=== PATIENT | male | born 1965 | race Caucasian/White ===

== ENCOUNTER 2020-12-29 10:15 | Inpatient (IN) | payer OTHER, SELFPAY ==
[2020-12-29] VITALS (11 sets, daily range): BP systolic 133–173; BP diastolic 96–120; PULSE 86–100; RESP 16–22; TEMP 36.1–36.6; O2SAT 95–99; BMI 29.9
--- NOTE | ~2020-12-29 | XR_ITS ---
EXAMINATION: XR CHEST CLINICAL INFORMATION: SOB COMPARISON: Chest x-ray 08/30/2019 TECHNIQUE: Frontal view of the chest was obtained. FINDINGS: The lungs are well-expanded and clear of acute pneumonic process. The heart size and pulmonary vascularity is normal. There is moderate spondylosis of dorsal spine. No lytic process. XR/XR chest 1V IMPRESSION: Unremarkable chest exam. Moderate spondylosis dorsal spine, unchanged to 08/30/2019.
--- NOTE | 2020-12-29 11:32 | ECG_ITS ---
Test Reason : WEAKNESS Blood Pressure : / mmHG Vent. Rate : 099 BPM Atrial Rate : 099 BPM P-R Int : 180 ms QRS Dur : 092 ms QT Int : 380 ms P-R-T Axes : 056 041 070 degrees QTc Int : 487 ms Sinus rhythm with occasional Premature ventricular complexes Left atrial enlargement Prolonged QT Abnormal ECG When compared with ECG of 31-AUG-2019 07:18, Premature ventricular complexes are now Present Referred By: Generic ED Physician Electronically Signed By:Rohit Edwards
--- NOTE | 2020-12-29 11:47 | PC.NURSE ---
patient reports increased SOB over past few weeks. worse when laying down. dyspnea ED protocol palced and labs drawn. no resp distress at rest. patient blood pressure elevated. patient reports take lisinopril for blood pressure. states he took med this morning. waiting to be seen by provider.
[2020-12-29 11:48] LABS: MANUAL DIFF FLAG NO
[2020-12-29 11:52] LABS: Basophils Percent Auto 0.3 % (0-2); Eosinophils Absolute Auto 0.1 X10*3/uL (0.0-0.4); Hematocrit 42.5 % (42-52); Hemoglobin 14.9 g/dl (14.0-18.0); Imm Gran Abs Auto 0.01 X10*3/uL (0.00-0.03); Imm Gran Pct Auto 0.1 % (0.0-0.4); Lymphocytes Absolute Auto 2.4 X10*3/uL (1.2-4.9); Lymphocytes Percent Auto 24.9 % (20-40); Mean Corpuscular HGB Conc 35.1 g/dl (31.0-36.0); Mean Corpuscular Hemoglobin 31.4 pg (27.0-33.0); Mean Corpuscular Volume 89.7 fL (80-98); Mean Platelet Volume 10.4 fL (9.4-12.4); Monocytes Absolute Auto 0.9 X10*3/uL (0.1-1.2); Neutrophils Absolute Auto 6.3 X10*3/uL (2.0-8.3); Neutrophils Percent Auto 64.7 % (45-73); Platelet Count 237 X10*3/uL (160-400); Red Blood Count 4.74 X10*6/uL (4.60-5.80); Red Cell Distribution Width 12.8 % (11.0-16.0); White Blood Count 9.7 X10*3/uL (4.8-10.8)
[2020-12-29 12:19] LABS: Anion Gap 11 (12-20); Blood Urea Nitrogen 10 mg/dL (9-16); Calcium 8.6 mg/dL (8.4-10.2); Carbon Dioxide 29 mmol/L (22-29); Chloride 103 mmol/L (96-108); Creatinine Clr Calc Pharmacy 102.6; Estimated Glomerular Filt Rate > 60; Glucose Random 141 mg/dL (60-115); Potassium 3.8 mmol/L (3.3-5.1); Sodium 139 mmol/L (135-145)
--- NOTE | 2020-12-29 12:19 | ED_ITS ---
HPI - SOB/Dyspnea General Chief Complaint: Dyspnea Stated Complaint: sob Time Seen by Provider: 12/29/20 12:01 Source: patient Mode of arrival: ambulatory Limitations: no limitations History of Present Illness HPI Narrative: 55 y/o male with history of HTN and CHF who presents with worsening shortness of breath for the last 2 weeks. Worse with exertion and laying flat. He can't catch his breath when he speaks sometimes. He reports he was previously on Lasix 2 years ago but this was stopped due to dizziness. He r emains on Lisinopril for HTN but is not on any maintenance diuretic therapy. He denies fever, chills, N/V, chest pain. He has a dry cough and some epigastric burning. No LE edema. He denies exposure to COVID. Of note patient was admitted here in 2018 for SOB and diagnosed with CHF - ECHO showed EF 20-25% with moderate diastolic dysfunction. He has no Recoater or PCP at this time. He is only on Lisinopril 40 mg per day which he took this morning. MD elicited complaint: shortness of breath Pertinent past history: congestive heart failure Onset (ago): week(s) (2) Context: occurred during exertion Timing: intermittent Severity: moderate Exacerbating factors: lying flat, exertion, coughing and talking Relieving factors: rest and upright position Known history of: congestive heart failure Associated symptoms: cough, orthopnea and abdominal pain Treatment prior to arrival: none Related Data Home oxygen amount: none Home Medications Medication Instructions Recorded Confirmed lisinopril 40 mg PO DAILY 12/29/20 12/29/20 Allergies Allergy/AdvReac Type Severity Reaction Status Date / Time No Known Allergies Allergy Verified 12/29/20 10:25 Review of Systems Review of Systems: Constitutional: No Fever, No Chills ENT/Mouth: No sore throat, No Rhinorrhea, No Swallowing Difficulty Cardiovascular: No Chest Pain, + SOB, + Orthopnea, No Edema Respiratory: + Cough, No Sputum, No Wheezing, + dyspnea Gastrointestinal: No Nausea, No Vomiting, No Diarrhea, + abdominal Pain (epigastric) Genitourinary: No Dysuria, No Urinary Frequency, No Hematuria Musculoskeletal: No joint pain, No Myalgias Skin: No Skin Lesions, No rash Neuro: No Weakness, No Numbness, No Dizziness, No Headache Psych: + Anxiety/Panic, No Depression Heme/Lymph: + Bruising, No Lymphadenopathy Endocrine: No Polyuria, No Polydipsia [facility] Past Medical History Medical History CHF (congestive heart failure) HTN (hypertension) Social History Social History Alcohol intake: current Alcohol intake frequency: 3 or more drinks per day Alcohol type: beer Smoked in Last 30 Days: No Use of substances other than those prescribed or required for medical reasons: No Advance Directives: No Advance Directives Information Provided: No Physical Exam Vital Signs: Vital Signs: Last Vital Signs Temp 97.0 F 12/29/20 10:21 Pulse 89 12/29/20 16:22 Resp 16 12/29/20 16:22 BP 151/107 H 12/29/20 16:22 Pulse Ox 95 12/29/20 16:22 Body Mass Index 29.9 Appearance: Alert. Oriented X3. No acute distress. Eyes: Pupils equal, round and reactive to light. ENT: Pharynx normal. Neck: Normal inspection. Neck supple. CVS: Normal heart rate and rhythm. Pulses normal. Respiratory: No respiratory distress. Breath sounds normal. Slight dyspnea with speaking. Abdomen: Soft and nontender. +BS x4 Skin: Skin warm and dry. Normal skin color. Normal skin turgor. No rashes. Extremities: No lower extremity edema. No calf tenderness. Neuro: Oriented X 3. No motor deficit. No sensory deficit. Course Course Course Narrative: 55 y/o male presenting with 2 weeks of worsening SOB, RUGGIERO and orthopnea consistent with CHF exacerbation. He is not in any respiratory distress and not hypoxic. Will get EKG, CXR and lab workup. He is slightly tachycardic so will also get DDIMER. No evidence of sepsis. Dispo pending results - he will need ambulatory pulse oximetry prior to discharge. Reevaluation(s) Reevaluation #1: 12:40 - BNP 800's - will give dose of IV lasix now. Reevaluation #2: 1:30 pm - BP severely elevated 190/110. No chest pain, headache or visual changes. Took lisinopril this morning. Will give dose of IV labetalol now and reassess. He is urinating well after IV lasix. No dizzniess. Reevaluation #3: 3 pm - patient ambulated on room air without hypoxia. BP remains elevated in the 160's systolic. Case was d/w Cardioloigst Dr. Edwards who is recommending inpatient optimization. TT hospitalist Dr. Farley for admission. Patient was hoping to avoid admission but is agreeable at this time. Consultations Consultation #1: Dr. Edwards Cardiology MDM - SOB/Dyspnea Differential Diagnosis Differential diagnosis: Likely acute exacerbation of chronic obstructive airways disease, congestive heart failure, pneumonia, pulmonary embolism, pleural effusion and anemia Medical Records Attestation: I reviewed the patient's medical records. Lab Data Attestation: I reviewed the patient's lab results. Result diagrams: 12/29/20 11:44 12/29/20 11:44 Labs: Lab Results 12/29/20 12/29/20 12/29/20 Range/Units 11:44 11:44 11:44 WBC 9.7 (4.8-10.8) X10*3/uL RBC 4.74 (4.60-5.80) X10*6/uL Hgb 14.9 (14.0-18.0) g/dl Hct 42.5 (42-52) % MCV 89.7 (80-98) fL MCH 31.4 (27.0-33.0) pg MCHC 35.1 (31.0-36.0) g/dl RDW 12.8 (11.0-16.0) % Plt Count 237 (160-400) X10*3/uL MPV 10.4 (9.4-12.4) fL Immature Gran % (Auto) 0.1 (0.0-0.4) % Neut % (Auto) 64.7 (45-73) % Lymph % (Auto) 24.9 (20-40) % [place] % (Auto) 9.0 (2-11) % Eos % (Auto) 1.0 (0-4) % Baso % (Auto) 0.3 (0-2) % Lymph # (Auto) 2.4 (1.2-4.9) X10*3/uL [place] # (Auto) 0.9 (0.1-1.2) X10*3/uL Eos # (Auto) 0.1 (0.0-0.4) X10*3/uL Baso # (Auto) 0.0 (0.0-0.2) X10*3/uL Abs Immat Gran (auto) 0.01 (0.00-0.03) X10*3/uL Absolute Neuts (auto) 6.3 (2.0-8.3) X10*3/uL Absolute Nucleated RBC 0.000 (0.0-0.012) X10*3/uL Nucleated RBC % (auto) 0.0 (0.0-0.2) /100WBC D-Dimer < 200 NG/ML Hold Blue Top SEE NOTE Sodium 139 (135-145) mmol/L Potassium 3.8 (3.3-5.1) mmol/L Chloride 103 (96-108) mmol/L Carbon Dioxide 29 (22-29) mmol/L Anion Gap 11 L (12-20) BUN 10 (9-16) mg/dL Creatinine 0.80 (0.5-1.4) mg/dL Estim Creat Clear Calc 102.6 Estimated GFR > 60 Random Glucose 141 H (60-115) mg/dL Calcium 8.6 (8.4-10.2) mg/dL Troponin I High Sens (<3.5-35.0) ng/L B-Natriuretic Peptide (<100) pg/mL Urine Color Urine Appearance Urine pH (5.0-8.0) Ur Specific [place] (1.005-1.025) Urine Protein (NEG-TRACE) MG/DL Urine Glucose (UA) (NEG) MG/DL Urine Ketones (NEG) MG/DL Urine Blood (NEG) Urine Nitrite (NEG) Ur Leukocyte Esterase (NEG) Coronavirus (PCR) (Negative) Influenza Type A (PCR) (Negative) Influenza Type B (PCR) (Negative) RSV RNA Qual (PCR) (Negative) 12/29/20 12/29/20 12/29/20 Range/Units 11:44 12:25 12:59 WBC (4.8-10.8) X10*3/uL RBC (4.60-5.80) X10*6/uL Hgb (14.0-18.0) g/dl Hct (42-52) % MCV (80-98) fL MCH (27.0-33.0) pg MCHC (31.0-36.0) g/dl RDW (11.0-16.0) % Plt Count (160-400) X10*3/uL MPV (9.4-12.4) fL Immature Gran % (Auto) (0.0-0.4) % Neut % (Auto) (45-73) % Lymph % (Auto) (20-40) % [place] % (Auto) (2-11) % Eos % (Auto) (0-4) % Baso % (Auto) (0-2) % Lymph # (Auto) (1.2-4.9) X10*3/uL [place] # (Auto) (0.1-1.2) X10*3/uL Eos # (Auto) (0.0-0.4) X10*3/uL Baso # (Auto) (0.0-0.2) X10*3/uL Abs Immat Gran (auto) (0.00-0.03) X10*3/uL Absolute Neuts (auto) (2.0-8.3) X10*3/uL Absolute Nucleated RBC (0.0-0.012) X10*3/uL Nucleated RBC % (auto) (0.0-0.2) /100WBC D-Dimer NG/ML Hold Blue Top Sodium (135-145) mmol/L Potassium (3.3-5.1) mmol/L Chloride (96-108) mmol/L Carbon Dioxide (22-29) mmol/L Anion Gap (12-20) BUN (9-16) mg/dL Creatinine (0.5-1.4) mg/dL Estim Creat Clear Calc Estimated GFR Random Glucose (60-115) mg/dL Calcium (8.4-10.2) mg/dL Troponin I High Sens 15.8 (<3.5-35.0) ng/L B-Natriuretic Peptide 816 H (<100) pg/mL Urine Color YELLOW Urine Appearance CLEAR Urine pH 7.0 (5.0-8.0) Ur Specific [place] 1.020 (1.005-1.025) Urine Protein NEG (NEG-TRACE) MG/DL Urine Glucose (UA) NEG (NEG) MG/DL Urine Ketones NEG (NEG) MG/DL Urine Blood NEG (NEG) Urine Nitrite NEG (NEG) Ur Leukocyte Esterase NEG (NEG) Coronavirus (PCR) NEGATIVE (Negative) Influenza Type A (PCR) NEGATIVE (Negative) Influenza Type B (PCR) NEGATIVE (Negative) RSV RNA Qual (PCR) NEGATIVE (Negative) 12/29/20 Range/Units 15:36 WBC (4.8-10.8) X10*3/uL RBC (4.60-5.80) X10*6/uL Hgb (14.0-18.0) g/dl Hct (42-52) % MCV (80-98) fL MCH (27.0-33.0) pg MCHC (31.0-36.0) g/dl RDW (11.0-16.0) % Plt Count (160-400) X10*3/uL MPV (9.4-12.4) fL Immature Gran % (Auto) (0.0-0.4) % Neut % (Auto) (45-73) % Lymph % (Auto) (20-40) % [place] % (Auto) (2-11) % Eos % (Auto) (0-4) % Baso % (Auto) (0-2) % Lymph # (Auto) (1.2-4.9) X10*3/uL [place] # (Auto) (0.1-1.2) X10*3/uL Eos # (Auto) (0.0-0.4) X10*3/uL Baso # (Auto) (0.0-0.2) X10*3/uL Abs Immat Gran (auto) (0.00-0.03) X10*3/uL Absolute Neuts (auto) (2.0-8.3) X10*3/uL Absolute Nucleated RBC (0.0-0.012) X10*3/uL Nucleated RBC % (auto) (0.0-0.2) /100WBC D-Dimer NG/ML Hold Blue Top Sodium (135-145) mmol/L Potassium (3.3-5.1) mmol/L Chloride (96-108) mmol/L Carbon Dioxide (22-29) mmol/L Anion Gap (12-20) BUN (9-16) mg/dL Creatinine (0.5-1.4) mg/dL Estim Creat Clear Calc Estimated GFR Random Glucose (60-115) mg/dL Calcium (8.4-10.2) mg/dL Troponin I High Sens 16.9 (<3.5-35.0) ng/L B-Natriuretic Peptide (<100) pg/mL Urine Color Urine Appearance Urine pH (5.0-8.0) Ur Specific [place] (1.005-1.025) Urine Protein (NEG-TRACE) MG/DL Urine Glucose (UA) (NEG) MG/DL Urine Ketones (NEG) MG/DL Urine Blood (NEG) Urine Nitrite (NEG) Ur Leukocyte Esterase (NEG) Coronavirus (PCR) (Negative) Influenza Type A (PCR) (Negative) Influenza Type B (PCR) (Negative) RSV RNA Qual (PCR) (Negative) ECG Data Attestation: I personally reviewed and interpreted this ECG as follows: ECG interpretation date: 12/29/20 Interpretation: sinus rhythm with PVC's, HR 99 bpm, prolonged QTc 487 ms, normal [place] interval, [place] PE Heart rate > 100 p/min: 1.5 Score: 1.5 2-tier Risk: unlikely risk (5%) 3-tier Risk: low risk (3.4%) Critical Care Time Critical Care Time Critical Care Time: Yes Total Critical Care Time: 45 Attestation: I attest to critical care time spent caring for this patient with acute CHF exacerbation and HTN urgency requiring IV antihypertensives and IV diuretics for management. Time spent frequent bedside reassessment, reviewing of prior records and coordinating care. Discharge Plan Discharge Clinical Impression: Acute systolic heart failure, Hypertensive urgency Patient Disposition: Admitted As Inpatient Prescriptions: No Action lisinopril 40 mg tablet 40 mg PO DAILY RF: 0
[2020-12-29 12:24] LABS: B Type Natriuretic Peptide 816 pg/mL (<100); Troponin-I High Sensitivity 15.8 ng/L (<3.5-35.0)
[2020-12-29] MEDS: Furosemide 40 MG/4 ML VIAL IVPUSH (12:36)
[2020-12-29 13:04] LABS: D Dimer < 200 NG/ML
[2020-12-29 13:13] LABS: Glucose Urine UA NEG (NEG); Leukocyte Esterase Urine NEG (NEG); Nitrite Urine NEG (NEG); Urine Blood NEG (NEG); Urine Ketones NEG (NEG); Urine Protein NEG (NEG-TRACE)
[2020-12-29 13:15] LABS: Appearance Urine CLEAR; Color Urine YELLOW
[2020-12-29 13:17] LABS: Influenza A PCR NEGATIVE (Negative); Influenza B PCR NEGATIVE (Negative); Resp Syncy Virus RNA Qual PCR NEGATIVE (Negative); SARS COV2 PCR INHOUSE NEGATIVE (Negative)
[2020-12-29] MEDS: Labetalol HCL 100 MG/20 ML VIAL 10 MG IVPUSH (13:30)
--- NOTE | 2020-12-29 15:10 | PC.NURSE ---
Ambulatory pulse ox completed by this Rn, sat 95-97% HR 105, Pt reported feeling good no dyspnea noted with exertion, Zelda PINO aware. Pt remains hypertensive, Zelda PINO to consult cardiology.
--- NOTE | 2020-12-29 15:33 | PC.NURSE ---
Pt voiding since Lasix, 350ml in urinal however pt also ambulatory to bathroom and voiding as well. NSR on tele with occasional PVCS
--- NOTE | 2020-12-29 16:17 | P.HPHOSP_ITS ---
History of Present Illness Date of Service: 12/29/20 Chief Complaint: Shortness of breath A 55 years old patient with PMH of HTN, systolic CHF who presents to the hospital complaining of worsening shortness of breath for the last 2 weeks. The patient reported that he was treated for CHF more than 1 year ago and he was discharged home on lisinopril and Lasix which was then discontinued by his physician for reported orthostatic hypotension. 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 Over the last 2 weeks he noticed increased shortness of breath with exertion associated with coughing with no reported chest pain or palpitations. Today presented to the hospital with significant dyspnea on exertion which responded well to IV Lasix as chest x-ray did not show clear effusion or edema. Admitted for further evaluation and treatment. Review of Systems Review of Systems: No fever, chills or weakness No chest pain, palpitation Exertion and shortness of breath but reports coughing No abdominal pain, nausea or vomiting No urinary symptoms No any rash or wounds [facility] Medical History CHF (congestive heart failure) HTN (hypertension) Social History Alcohol intake: current Alcohol intake frequency: 3 or more drinks per day Alcohol type: beer Smoked in Last 30 Days: No Use of substances other than those prescribed or required for medical reasons: No Advance Directives: No Advance Directives Information Provided: No Meds Allergies Allergy/AdvReac Type Severity Reaction Status Date / Time No Known Allergies Allergy Verified 12/29/20 10:25 Active Medications: Current Medications Generic Name Dose Route Start Last Admin Trade Name Freq PRN Reason Stop Dose Admin Pharmacy Consult 1 each 12/29/20 16:02 Consult Rx Perform Med Rec MISCELLANE ONCE PRN Consult order Physical Exam Vital Signs and Narrative: Vital Signs: Last Vital Signs Temp 97.0 F 12/29/20 10:21 Pulse 86 12/29/20 15:32 Resp 18 12/29/20 15:32 BP 160/109 H 12/29/20 15:32 Pulse Ox 95 12/29/20 15:32 Body Mass Index 29.9 Const: Other: Constitutional : Alert, oriented, not in distress Neck : Normal inspection, Supple Cardiovascular : RRR, S1 S2, trace bilateral lower extremity edema Respiratory : Good bilateral air entry, no crackles, wheezes or rhonchi Gastrointestinal: soft, lax, Normal bowel sounds, Non tender Skin : Warm/Dry, No rash Neurological : Alert & oriented x3, No focal deficit Results Labs CBC and Chem 7: 12/29/20 11:44 12/29/20 11:44 Labs: Laboratory Results - last 24 hr 12/29/20 12/29/20 12/29/20 11:44 11:44 11:44 MCV 89.7 MCH 31.4 MCHC 35.1 RDW 12.8 Plt Count 237 MPV 10.4 Immature Gran % (Auto) 0.1 Neut % (Auto) 64.7 Lymph % (Auto) 24.9 [place] % (Auto) 9.0 Eos % (Auto) 1.0 Baso % (Auto) 0.3 Lymph # (Auto) 2.4 [place] # (Auto) 0.9 Eos # (Auto) 0.1 Baso # (Auto) 0.0 Abs Immat Gran (auto) 0.01 Absolute Neuts (auto) 6.3 Absolute Nucleated RBC 0.000 Nucleated RBC % (auto) 0.0 D-Dimer < 200 Hold Blue Top SEE NOTE Anion Gap 11 L Estim Creat Clear Calc 102.6 Estimated GFR > 60 Random Glucose 141 H Calcium 8.6 Troponin I High Sens B-Natriuretic Peptide Urine Color Urine Appearance Urine pH Ur Specific [place] Urine Protein Urine Glucose (UA) Urine Ketones Urine Blood Urine Nitrite Ur Leukocyte Esterase Coronavirus (PCR) Influenza Type A (PCR) Influenza Type B (PCR) RSV RNA Qual (PCR) 12/29/20 12/29/20 12/29/20 11:44 12:25 12:59 MCV MCH MCHC RDW Plt Count MPV Immature Gran % (Auto) Neut % (Auto) Lymph % (Auto) [place] % (Auto) Eos % (Auto) Baso % (Auto) Lymph # (Auto) [place] # (Auto) Eos # (Auto) Baso # (Auto) Abs Immat Gran (auto) Absolute Neuts (auto) Absolute Nucleated RBC Nucleated RBC % (auto) D-Dimer Hold Blue Top Anion Gap Estim Creat Clear Calc Estimated GFR Random Glucose Calcium Troponin I High Sens 15.8 B-Natriuretic Peptide 816 H Urine Color YELLOW Urine Appearance CLEAR Urine pH 7.0 Ur Specific [place] 1.020 Urine Protein NEG Urine Glucose (UA) NEG Urine Ketones NEG Urine Blood NEG Urine Nitrite NEG Ur Leukocyte Esterase NEG Coronavirus (PCR) NEGATIVE Influenza Type A (PCR) NEGATIVE Influenza Type B (PCR) NEGATIVE RSV RNA Qual (PCR) NEGATIVE Imaging Radiologist's Impressions: Impressions Chest X-Ray 12/29/20 11:32 IMPRESSION: Unremarkable chest exam. Moderate spondylosis dorsal spine, unchanged to 08/30/2019. Assessment and Plan (1) Acute systolic heart failure: Status: Acute (2) Uncontrolled hypertension: Status: Acute A 55 years old patient with PMH of HTN, systolic CHF who presents to the hospital complaining of worsening shortness of breath for the last 2 weeks. Acute systolic CHF Recent echo from 2019 with EF 25% Elevated BMP to 800 CXR not showing excessive fluid Continue IV Lasix Intake and output To get cardiology evaluation morning Keep on monitor for now Uncontrolled hypertension Continue lisinopril Discharged on carvedilol previously, consider adding continue with the Lasix DVT PPX Lovenox
[2020-12-29 16:20] LABS: Troponin-I High Sensitivity 16.9 ng/L (<3.5-35.0)
[2020-12-29] MEDS: Enoxaparin Sodium 40 MG/0.4 ML SYRINGE SUBCUT (18:39)
[2020-12-29] MEDS: 0.9 % Sodium Chloride Flush 3 ML SYRINGE IVFLUSH (21:48)
[2020-12-30] VITALS (9 sets, daily range): BP systolic 107–163; BP diastolic 58–103; PULSE 67–89; RESP 16–20; TEMP 36.6–37.1; O2SAT 94–98
[2020-12-30 06:46] LABS: B Type Natriuretic Peptide 809 pg/mL (<100)
[2020-12-30 06:54] LABS: Anion Gap 13 (12-20); Blood Urea Nitrogen 17 mg/dL (9-16); Calcium 8.5 mg/dL (8.4-10.2); Carbon Dioxide 28 mmol/L (22-29); Chloride 103 mmol/L (96-108); Creatinine Clr Calc Pharmacy 101.3; Estimated Glomerular Filt Rate > 60; Glucose Random 175 mg/dL (60-115); Potassium 3.5 mmol/L (3.3-5.1); Sodium 140 mmol/L (135-145)
[2020-12-30] MEDS: Furosemide 40 MG/4 ML VIAL IVPUSH (08:54)
[2020-12-30] MEDS: 0.9 % Sodium Chloride Flush 3 ML SYRINGE IVFLUSH ×3 (08:54→20:15)
[2020-12-30] MEDS: carvediloL 3.125 MG TABLET PO ×2 (08:54→20:13)
--- NOTE | 2020-12-30 09:48 | MHC.CM.PN ---
CM met with Patient at bedside. 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 [facility]. Goal for dc is home/no services and CM has initiated and will follow for dc planning.
--- NOTE | 2020-12-30 13:00 | CA_ITS ---
Transthoracic Echocardiogram Patient (Last, First, Middle): Julian Thomason G Gender: Male Date of : 1965 Age: 55 Procedure Date: 12/30/2020 Procedure Type: Transthoracic Echocardiogram [place] [facility] [place]: 165.1 cm Weight: 81.65 kg BSA: 1.89 m2 Heart Rate: bpm BP: 128 / 60 mmHg Licensed Psychiatric Technician: DAYSI Referring MD: Estephania Moses SHARE HOLDER-C Symptoms: today - CHF, hx CMP, HTN Study Quality: Fair ECG Rhythm: Sinus Conclusions: - The left ventricular systolic function is severely decreased. The visually estimated ejection fraction is between 15-20%. - Elevated filling pressures. - Normal right ventricular cavity size and systolic function. - The left atrium is likely dilated. 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 Findings Left Ventricle Normal left ventricular cavity size. There is mildly increased left ventricular wall thickness. The left ventricular systolic function is severely decreased. The visually estimated ejection fraction is between 15 20%. There is severe global hypokinesis. Abnormal diastolic function is noted. Spectral Doppler is indicative of a pseudonormal filling pattern. Elevated filling pressures. Right Ventricle Normal right ventricular cavity size and systolic function. Atria The left atrium is likely dilated. 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 There is no evidence of interatrial shunt by color Doppler. Aortic Valve There is a normal trileaflet aortic valve. There is no aortic valve stenosis. There is trace (trivial) aortic valve regurgitation. Mitral Valve The mitral valve appears normal. There is trace mitral valve regurgitation. There is no mitral valve stenosis. Pulmonic Valve Normal pulmonic valve structure and function. There is trace pulmonic valve regurgitation. Tricuspid Valve Normal tricuspid valve structure and function. There is trace tricuspid valve regurgitation. Normal right atrial pressure. There is no evidence of pulmonary hypertension. Great Vessels There is moderate dilatation of the sinuses of Valsalva and mild dilatation of the ascending aorta. The visualized portions of the pulmonary artery and branches are normal. Venous The inferior vena cava is normal in size and collapses greater than 50% with inspiration. Pericardium/Pleural There is a trivial loculated pericardial effusion overlying the left ventricle. Prior Study Comparison Changes noted compared to prior study dated: 08/30/2019. EF 15-20%, moderate dilation of sinus of valsalva 4.6 cm. Measurements 2D Linear Measurements IVSd: 1.04 0.6-0.9/0.6-1.0 cm LVIDd: 6.12 3.9-5.3/4.2-5.9 cm LVIDd Index: 3.24 2.4-3.2/2.2-3.1 cm/m2 LVIDs: 5.45 2.0-3.6 cm LVPWd: 1.04 0.7-1.1 cm Ao Root: 4.60 2.1-3.5 cm LA Diam: 3.90 2.7-3.8/3.0-4.0 cm LAIDs Index: 2.06 1.5-2.3 cm/m2 LV Mass: 335.03 67-162/88-224 g LV Mass Index: 177.27 43-95/49-115 g/m2 LVOT Diam: 2.20 3.0+(-)1.3 cm 2D Systolic Function EF 4C: 18.80 >55% EF 2C: 28.50 >55% Mitral Valve MV Pk E: 0.87 MV PK A: 0.75 MV Decel Time: 173.00 E/A: 1.20 E'Lateral: 3.19 E'Medial: 4.06 E/E' Med: 21.40 E/E' Lat: 27.20 PHT: 51.00 MVA PHT: 4.31 Decel Rains: 5.03 Aortic Valve AoV Pk Harrison: 0.90 AoV Mn Harrison: 0.67 AoV VTI: 0.21 AoV Pk Grad: 3.00 Aov Mn Grad: 2.00 THEE Cont.VTI: 1.67 LVOT LVOT Pk Harrison: 0.63 LVOT Mn Harrison: 0.42 LVOT VTI: 0.09 LVOT Pk Grad: 2.00 LVOT Mn Grad: 1.00 LVOT Diam: 2.20 LVOT Area: 3.80 Diastolic Function MV Pk E: 0.87 MV Pk A: 0.75 E/A: 1.20 E'Medial: 4.06 E/E' Med: 21.40 E' Laterial: 3.19 E/E' Lat: 27.20 Tricuspid Valve TR Pk Harrison: 1.57 TR Pk Grad: 10.00 RA Press: 3.00 RVSP: 13.00 Great Vessels Aorta Ao Root-2D: 4.60 2.0-3.7 cm Sinus of Valsalva: 4.60 2.0-3.5 cm Ao Asc: 4.20 2.1-3.4 cm Pulmonary Valve PV Pk Harrison: 0.77 Peak PV Grad: 2.00 Updated in Other Vendor System with Status of Final Rohit Edwards MD electronically signed on 12/30/2020 8:18:40 PM with status of Final
--- NOTE | 2020-12-30 14:15 | PM.CNCAR ---
History of Present Illness History of Present Illness Date of Service: 12/30/20 Requesting physician: Tim Pulido Consult reason: congestive heart failure Chief complaint: shortness of breath Narrative: Julian is a 55 yo male with PMH of HTN, CMP, CHF who presented to the [facility] ED with report of increasing sob over the last 2 weeks. He was found to have CHF, CMP with EF 20-25% 08/2019 and was started on appropriate medical mgt. He did not follow with cardiology after that time for unclear reason. In the ER his CXR showed NAD. BNP was elevated at 816, Trop 15.8, 16.9.EKG shows SR, LA enlargement, no acute ST/ T wave abn. BP was elevated at 163/116. He had been taking Lisinopril only for the last year. He was given IV Lasix, started back on Carvedilol and continued on Lisinopril. Cardiology was consulted for further evaluation. ( seen at 0915 today) Today he is observed resting in bed with no acute distress. He describes having increased sob with activity in recent weeks. He then starting with intermittent coughing and a rattle in his chest when he layed down. He normally does have any breathing issues. No reports of chest discomfort at rest or with activity. No palpitation, presyncope, syncope. No leg edema. 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 Review of Systems Review of Systems: as above Yes all other systems are reviewed and are negative PMFSH Past Medical History Medical History Cardiomyopathy CHF (congestive heart failure) HTN (hypertension) Social History Social History Household Members: Friend(s) Housing: House Do you presently have visiting nurse or other home services: No Alcohol intake: current Alcohol intake frequency: 3 or more drinks per day Alcohol type: beer Smoking Status: Never smoker Smoked in Last 30 Days: No Second Hand Smoke Exposure: No Use of substances other than those prescribed or required for medical reasons: No Currently Displaying Signs/Symptoms of Drug Intoxication Withdrawal: No Have you been hit, kicked, punched, or otherwise hurt by someone within the past year? If so, by whom?: No Do you feel safe in your current relationship?: No Current Relationship Is there a partner from a previous relationship who is making you feel unsafe now?: No Are you made to feel afraid or neglected: No Advance Directives: No Advance Directives Information Provided: No Do you have thoughts of harming others: None Do you have a plan to hurt others: No Plan Recently lost weight without trying: Unsure service: No Current occupational status: employed Meds Allergies Allergy/AdvReac Type Severity Reaction Status Date / Time No Known Allergies Allergy Verified 12/29/20 10:25 Active Medications: Current Medications Generic Name Dose Route Start Last Admin Trade Name Freq PRN Reason Stop Dose Admin Acetaminophen 650 mg 12/29/20 16:36 Acetaminophen 325 Mg Tablet PO Q6H PRN Pain, Mild (Pain Scale 1-3) Carvedilol 3.125 mg 12/30/20 09:00 12/30/20 08:54 Carvedilol 3.125 Mg Tablet PO 3.125 mg BID PEARL Administration Protocol Enoxaparin Sodium 40 mg 12/29/20 16:36 12/29/20 18:39 Enoxaparin Sodium 40 Mg/0.4 Ml Syringe SUBCUT 40 mg Q24H PEARL Administration Furosemide 40 mg 12/30/20 09:00 12/30/20 08:54 Furosemide 40 Mg/4 Ml Vial IVPUSH 40 mg DAILY PEARL Administration Protocol Lisinopril 40 mg 12/30/20 09:00 12/30/20 08:54 Lisinopril 40 Mg Tablet PO 40 mg DAILY PEARL Administration Protocol Ondansetron HCl 4 mg 12/29/20 16:36 Ondansetron Hcl 4 Mg/2 Ml Vial IVPUSH Q8H PRN Nausea and Vomiting Pharmacy Consult 1 each 12/29/20 16:02 Consult Rx Perform Med Rec MISCELLANE ONCE PRN Consult order Sodium Chloride 3 ml 12/30/20 00:00 12/30/20 08:54 0.9 % Sodium Chloride Flush 3 Ml Syringe IVFLUSH 3 ml QSHIFT PEARL Administration Home Medications Medication Instructions Recorded Confirmed Last Taken Type lisinopril 40 mg PO DAILY 12/29/20 12/29/20 12/29/20 History Physical Exam Vital Signs: Vital Signs: Last Vital Signs Temp 98 F 12/30/20 10:56 Pulse 88 12/30/20 10:56 Resp 20 12/30/20 10:56 BP 158/90 H 12/30/20 10:56 Pulse Ox 96 12/30/20 10:56 Body Mass Index 29.9 Const: General: cooperative, healthy appearing, no acute distress, alert and awake Orientation/consciousness: patient oriented x3 HENMT: Head: Yes normal to inspection Neck: Neck: Yes normal visual inspection and Yes no JVD Resp: Effort & Inspection: normal respiratory effort, able to speak in complete sentences and not labored Auscultation: clear to auscultation bilaterally, no crackles, no rales, no rhonchi and no wheezes Cardio: Palpation: normal PMI Rate: regular rate Rhythm: regular rhythm Heart sounds: S1 normal heart sound present and S2 normal heart sound present Peripheral pulses: Peripheral pulses 2+ throughout GI: Inspection: Yes normal to inspection Neuro: General: patient oriented x3 Extrem: General: Yes normal to inspection and No edema Results Labs and Meds Result diagrams: 12/29/20 11:44 12/30/20 05:47 Lab results: Laboratory Results - last 24 hr 12/29/20 12/30/20 12/30/20 15:36 05:47 05:47 Sodium 140 Potassium 3.5 Chloride 103 Carbon Dioxide 28 Anion Gap 13 BUN 17 H D Creatinine 0.81 Estim Creat Clear Calc 101.3 Estimated GFR > 60 Random Glucose 175 H Calcium 8.5 Troponin I High Sens 16.9 B-Natriuretic Peptide 809 H Assessment and Plan (1) Acute systolic heart failure: Status: Acute Hx of CHF in 2019. Now with acute on chronic systolic CHF. Prior echo 08/2019 with EF 20-25%, grade II diastolic dysfunction, ascending aorta 4.2 cm. He was seen by Dr Queen at that time and started on appropriate HF medications. He did not present for outpt follow up. Ischemic eval not completed. He stopped diuretic about a year ago. He has been taking Lisinopril only in last year. Increased sob in last 2 weeks. BNP elevated. BP 163/116. He has been started back on carvedilol, continued on Lisinopril and given Lasix 40mg IV daily. Fluid balance neg 600cc. He reports improved breathing at present. Continue IV Lasix today. Can change to PO Lasix tomorrow. Ongoing I+O monitoring. Close monitoring of electrolyte and kidney function. Echo ordered. Will need ischemic eval in near future.We will follow (2) Cardiomyopathy: Status: Acute as above. Could be nonischemic due to uncontrolled HTN. (3) Hypertensive urgency: Status: Acute Restarted on carvedilol. Being diuresed. BP today still elevated, 150/90. Continue to follow. (4) Uncontrolled hypertension: Status: Acute
--- NOTE | 2020-12-30 15:54 | HO.PM.IMPN ---
Subjective Subjective Date of Service: 12/30/20 Interval History: the patient was seen and evaluated this morning Laying in bed, feels comfortable, improved shortness of breath and dyspnea Edema is improving Denies any fever, chills or shortness of breath No reported other overnight events. Systemic review: No fever, chills or weakness No chest pain, palpitation No shortness of breath or coughing No abdominal pain, nausea or vomiting No urinary symptoms No any rash or wounds Physical Exam Vital Signs: Vital Signs: Last Vital Signs Temp 98 F 12/30/20 10:56 Pulse 88 12/30/20 10:56 Resp 20 12/30/20 10:56 BP 158/90 H 12/30/20 10:56 Pulse Ox 96 12/30/20 10:56 Body Mass Index 29.9 Const: Other: Constitutional : Alert, oriented, not in distress Neck : Normal inspection, Supple Cardiovascular : RRR, S1 S2, trace bilateral lower extremity edema, elevated JVP Respiratory : Good bilateral air entry, bilateral basal fine crackles, wheezes or rhonchi Gastrointestinal: soft, lax, Normal bowel sounds, Non tender Skin : Warm/Dry, No rash Neurological : Alert & oriented x3, No focal deficit Objective Data Current Medications Generic Name Dose Route Start Last Admin Trade Name Freq PRN Reason Stop Dose Admin Acetaminophen 650 mg 12/29/20 16:36 Acetaminophen 325 Mg Tablet PO Q6H PRN Pain, Mild (Pain Scale 1-3) Carvedilol 3.125 mg 12/30/20 09:00 12/30/20 08:54 Carvedilol 3.125 Mg Tablet PO 3.125 mg BID PEARL Administration Protocol Enoxaparin Sodium 40 mg 12/29/20 16:36 12/29/20 18:39 Enoxaparin Sodium 40 Mg/0.4 Ml Syringe SUBCUT 40 mg Q24H PEARL Administration Furosemide 40 mg 12/30/20 09:00 12/30/20 08:54 Furosemide 40 Mg/4 Ml Vial IVPUSH 40 mg DAILY PEARL Administration Protocol Lisinopril 40 mg 12/30/20 09:00 12/30/20 08:54 Lisinopril 40 Mg Tablet PO 40 mg DAILY PEARL Administration Protocol Ondansetron HCl 4 mg 12/29/20 16:36 Ondansetron Hcl 4 Mg/2 Ml Vial IVPUSH Q8H PRN Nausea and Vomiting Pharmacy Consult 1 each 12/29/20 16:02 Consult Rx Perform Med Rec MISCELLANE ONCE PRN Consult order Sodium Chloride 3 ml 12/30/20 00:00 12/30/20 08:54 0.9 % Sodium Chloride Flush 3 Ml Syringe IVFLUSH 3 ml QSHIFT PEARL Administration Labs CBC & Chem 7: 12/29/20 11:44 12/30/20 05:47 Assessment and Plan (1) Acute systolic heart failure: Status: Acute (2) Uncontrolled hypertension: Status: Acute Assessment and Plan: A 55 years old patient with PMH of HTN, systolic CHF who presents to the hospital complaining of worsening shortness of breath for the last 2 weeks. Acute systolic CHF Cardiomyopathy Recent echo from 2019 with EF 25% Elevated BMP to 800 Continue IV Lasix today Intake and output Cardiology input appreciated Keep on monitor for now Hypertensive urgency Uncontrolled hypertension Continue lisinopril Restarted carvedilol continue with the Lasix DVT PPX Lovenox
[2020-12-30] MEDS: Enoxaparin Sodium 40 MG/0.4 ML SYRINGE SUBCUT (16:01)
[2020-12-30 17:03] LABS: B Type Natriuretic Peptide 688 pg/mL (<100)
[2020-12-30] MEDS: hydroCHLOROthiazide 25 MG TABLET PO (17:12)
[2020-12-31 04:00] VITALS: BP 118/72; PULSE 75; RESP 16; TEMP 36.2; O2SAT 94
[2020-12-31 07:09] LABS: Anion Gap 16 (12-20); Blood Urea Nitrogen 17 mg/dL (9-16); Calcium 8.8 mg/dL (8.4-10.2); Carbon Dioxide 26 mmol/L (22-29); Chloride 100 mmol/L (96-108); Creatinine Clr Calc Pharmacy 110.9; Estimated Glomerular Filt Rate > 60; Glucose Random 131 mg/dL (60-115); Potassium 3.5 mmol/L (3.3-5.1); Sodium 138 mmol/L (135-145)
[2020-12-31 07:11] VITALS: BP 158/70; PULSE 89; RESP 18; TEMP 36.1; O2SAT 98
[2020-12-31] MEDS: Furosemide 40 MG/4 ML VIAL IVPUSH (08:44)
[2020-12-31] MEDS: hydroCHLOROthiazide 25 MG TABLET PO (08:44)
[2020-12-31] MEDS: carvediloL 3.125 MG TABLET PO (08:44)
[2020-12-31] MEDS: 0.9 % Sodium Chloride Flush 3 ML SYRINGE IVFLUSH (08:45)
--- NOTE | 2020-12-31 10:08 | PM.PNCARD ---
Subjective Subjective Date of Service: 12/31/20 Principal diagnosis: CHF, uncontrolled HTN, CMP Interval history: Cardiology follow up for the above. Seen at 0900. Today he reports feeling good. He states his breathing is back to normal. Able to walk in the halls last vic. No chest pains, sob, palpitations. Slept well. Wants to go home today. States he will be compliant with cardiology follow up after discharge. Review of Systems Review of Systems as above Yes all other systems are reviewed and are negative Physical Exam Vital Signs: Last Vital Signs Temp 97 F 12/31/20 07:11 Pulse 89 12/31/20 07:11 Resp 18 12/31/20 07:11 BP 158/70 H 12/31/20 07:11 Pulse Ox 98 12/31/20 07:11 Body Mass Index 29.9 Const General: cooperative, healthy appearing, no acute distress, alert and awake Orientation/consciousness: patient oriented x3 Neck Neck: Yes normal visual inspection and Yes no JVD Resp Effort & Inspection: normal respiratory effort, able to speak in complete sentences and not labored Auscultation: clear to auscultation bilaterally, no crackles, no rales, no rhonchi and no wheezes Cardio Palpation: normal PMI Rate: regular rate Rhythm: regular rhythm Heart sounds: S1 normal heart sound present and S2 normal heart sound present Peripheral pulses: Peripheral pulses 2+ throughout GI Inspection: Yes normal to inspection Neuro General: patient oriented x3 Extrem General: Yes normal to inspection and No edema Results Labs and Meds Result diagrams: 12/29/20 11:44 12/31/20 05:46 Lab results: Laboratory Results - last 24 hr 12/30/20 12/31/20 16:10 05:46 Sodium 138 Potassium 3.5 Chloride 100 Carbon Dioxide 26 Anion Gap 16 BUN 17 H Creatinine 0.74 Estim Creat Clear Calc 110.9 Estimated GFR > 60 Random Glucose 131 H Calcium 8.8 B-Natriuretic Peptide 688 H Progress Note: A&P Assessment and plan (1) Acute systolic heart failure: Status: Acute Assessment and Plan: Hx of CHF, EF 20-25% in 2019. He was seen by Dr Queen at that time and started on appropriate HF medications. He did not present for outpt follow up. Ischemic eval not completed. He stopped diuretic about a year ago. He has been taking Lisinopril only in last year. Increased sob in last 2 weeks. Admitted 12/29 with acute on chronic systolic CHF. BNP elevated. BP 163/116. Was been started back on carvedilol, continued on Lisinopril and given Lasix 40mg IV daily with clinical improvement in his condition. His BP remained elevated yesterday and his Lasix was changed to HCTZ by Dr Edwards. Today he reports his breathing is normal.BP this am 150/62, less during the night. Echo done 12/30 shows EF 15-20%, increased filliing pressures, normal RV, LA likely dilated, interatrial septal aneurysm, dilation at sinus of valsava, 4.6cm. He will need diagnostic cardiac cath for eval of coronary arteries. Spent time going over the above, need for cardiac cath, risk of procedure including, bleeding, infection, PRABHA, LA, stroke. He is agreeable but wants to have this done as outpt. [place] [facility] [place]. Will get PT/ INR today to complete preprocedure labs. Our scroll assembler will arrange for outpt cardiac cath with Dr Edwards in next week. Information to be given to pt prior to his discharge. If BP shows adequate control by this afternoon, he can be discharged from cardiology perpsective. Continue Carvedilol, Lisinopril and HCTZ. (2) Cardiomyopathy: Status: Acute Assessment and Plan: Further reduced EF compared to 2019. Diagnostic cardiac cath as above (3) Hypertensive urgency: Status: Acute Assessment and Plan: BP initially 163/116. Carvedilol, and HCTZ added. He was also given IV lasix this admit. BP improving. (4) Uncontrolled hypertension: Status: Acute Fall Risk Details Current Medications: Current Medications Generic Name Dose Route Start Last Admin Trade Name Freq PRN Reason Stop Dose Admin Acetaminophen 650 mg 12/29/20 16:36 Acetaminophen 325 Mg Tablet PO Q6H PRN Pain, Mild (Pain Scale 1-3) Carvedilol 3.125 mg 12/30/20 09:00 12/31/20 08:44 Carvedilol 3.125 Mg Tablet PO 3.125 mg BID PEARL Administration Protocol Enoxaparin Sodium 40 mg 12/29/20 16:36 12/30/20 16:01 Enoxaparin Sodium 40 Mg/0.4 Ml Syringe SUBCUT 40 mg Q24H PEARL Administration Furosemide 40 mg 12/30/20 09:00 12/31/20 08:44 Furosemide 40 Mg/4 Ml Vial IVPUSH 40 mg DAILY PEARL Administration Protocol Hydrochlorothiazide 25 mg 12/30/20 17:15 12/31/20 08:44 Hydrochlorothiazide 25 Mg Tablet PO 25 mg DAILY PEARL Administration Protocol Lisinopril 40 mg 12/30/20 09:00 12/31/20 08:44 Lisinopril 40 Mg Tablet PO 40 mg DAILY PEARL Administration Protocol Ondansetron HCl 4 mg 12/29/20 16:36 Ondansetron Hcl 4 Mg/2 Ml Vial IVPUSH Q8H PRN Nausea and Vomiting Pharmacy Consult 1 each 12/29/20 16:02 Consult Rx Perform Med Rec MISCELLANE ONCE PRN Consult order Sodium Chloride 3 ml 12/30/20 00:00 12/31/20 08:45 0.9 % Sodium Chloride Flush 3 Ml Syringe IVFLUSH 3 ml QSHIFT PEARL Administration Time Spent With Patient Time: Total time spent is greater than 50% in coordination of care (as documented) at patient's floor/unit and/or counseling patient: 20 Time with patient: 15 - 24 minutes
--- NOTE | 2020-12-31 10:23 | MHC.CM.PN ---
Patient has been medically cleared for dc to home today, no services.
[2020-12-31 10:24] LABS: INTERNATIONAL NORM RATIO 1.2 (0.9-1.1); Prothrombin Time 14.5 SEC (10.8-13.0)
--- NOTE | 2020-12-31 10:34 | PM.DS ---
DS: Providers Provider Date of Service: 12/31/20 Date of admission: 12/29/20 16:36 Primary care physician: Unknown Physician Consults: 12/29/20 15:21 Consult to Cardiology Stat Consulting Provider: Rohit Edwards Reason for consultation: CHF exacerbation, HTN urgency Has provider been notified: Yes 12/29/20 16:36 Consult to Cardiology Routine Consulting Provider: Rohit Edwards Reason for consultation: CHF exacerbation for optimization meds. DS: Diagnosis Discharge Diagnosis (1) Acute systolic heart failure: Status: Acute (2) Cardiomyopathy: Status: Acute (3) Hypertensive urgency: Status: Acute (4) Uncontrolled hypertension: Status: Acute DS: Medications Discharge Medications Home Medications: Home Medications Medication Instructions Recorded Confirmed lisinopril 40 mg PO DAILY 12/29/20 12/29/20 Previous Rx's Medication Instructions Recorded carvedilol 3.125 mg PO BID 60 Days #120 tab 12/31/20 hydrochlorothiazide 25 mg PO DAILY #30 tab 12/31/20 DS: Summary Hospital Course Hospital Course: Admission note HPI A 55 years old patient with PMH of HTN, systolic CHF who presents to the hospital complaining of worsening shortness of breath for the last 2 weeks. The patient reported that he was treated for CHF more than 1 year ago and he was discharged home on lisinopril and Lasix which was then discontinued by his physician for reported orthostatic hypotension. 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 Over the last 2 weeks he noticed increased shortness of breath with exertion associated with coughing with no reported chest pain or palpitations. Today presented to the hospital with significant dyspnea on exertion which responded well to IV Lasix as chest x-ray did not show clear effusion or edema. Admitted for further evaluation and treatment. Hospital course Acute systolic CHF, Cardiomyopathy Treated with IV Lasix with good response over the course of hospital stay as BNP dropped down. Evaluated by Cardiology who recommended outpatient cardiac catheterization which will be arranged. Echo showed EF of 15-20% To be discharged on hydrochlorothiazide. To follow with Cardiology as outpatient. Hypertensive urgency. Uncontrolled hypertension Patient was noted to have significantly elevated blood pressure readings at time of presentation requiring IV and oral medications to control blood pressure. He was continued on his home dose lisinopril with addition of carvedilol and hydrochlorothiazide. Time Spent with Patient Time attestation: Total time spent providing and/or coordinating discharge services: Discharge coordination time: Greater than 30 minutes Physical Exam Vital Signs: Vital Signs: Last Vital Signs Temp 97 F 12/31/20 07:11 Pulse 89 12/31/20 07:11 Resp 18 12/31/20 07:11 BP 158/70 H 12/31/20 07:11 Pulse Ox 98 12/31/20 07:11 Body Mass Index 29.9 Const: Other: Constitutional : Alert, oriented, not in distress Neck : Normal inspection, Supple Cardiovascular : RRR, S1 S2, no lower extremity edema, elevated JVP Respiratory : Good bilateral air entry, no crackles, wheezes or rhonchi Gastrointestinal: soft, lax, Normal bowel sounds, Non tender Skin : Warm/Dry, No rash Neurological : Alert & oriented x3, No focal deficit DS: Data Data Completed and Pending Labs on day of discharge: Laboratory Results - last 24 hr 12/30/20 12/31/20 12/31/20 16:10 05:46 10:12 PT 14.5 H INR 1.2 H Sodium 138 Potassium 3.5 Chloride 100 Carbon Dioxide 26 Anion Gap 16 BUN 17 H Creatinine 0.74 Estim Creat Clear Calc 110.9 Estimated GFR > 60 Random Glucose 131 H Calcium 8.8 B-Natriuretic Peptide 688 H Discharge Plan Discharge Patient Disposition: Home, Self-Care Referrals: Physician,Unknown [Primary Care Provider] - Discharge Medications: New carvedilol 3.125 mg Tablet 3.125 mg PO BID 60 Days Qty: 120 RF: 0 hydrochlorothiazide 25 mg Tablet 25 mg PO DAILY Qty: 30 RF: 0 Continued lisinopril 40 mg tablet 40 mg PO DAILY RF: 0 Discharge Orders: Discharge Order (Routine); Ordered 12/31/20 Ordered By: Tim Pulido Diet: low salt diet Activity on Discharge: As tolerated Stand Alone Forms: Patient Portal Discharge page Care Plan Goals: Read below Health Concerns: Read below Plan of Treatment: You were admitted to the hospital for evaluation of difficulty breathing. Blood test and images were concerning for fluid overload and heart failure picture. You were treated with IV Lasix and started on oral medication for blood pressure control as it was noticed to be significantly elevated. You were evaluated by Cardiology team who adjusted your home medications and planning for cardiac catheterization. Continue lisinopril Start carvedilol and hydrochlorothiazide Monitor your blood pressure at home Follow-up with Cardiology as outpatient for cardiac catheterization
[2020-12-31 11:14] VITALS: BP 144/72; PULSE 98; RESP 20; TEMP 36.1; O2SAT 95
== END 2020-12-31 12:06 | disposition home or self-care (01) | DRG 291 ==
LOC: HO.ED 16:29 → HO.EDOVER 17:00 → HO.IMC 19:33
PROVIDERS: Nurse Practitioner Family; Physician Assistant; Admitting Provider Student in an Organized Health Care Education/Training Program; Emergency Provider Emergency Medicine; Visit Provider Student in an Organized Health Care Education/Training Program
DX: I11.0 Hypertensive heart disease with heart failure (principal); I50.21 Acute systolic (congestive) heart failure; I16.0 Hypertensive urgency; I42.9 Cardiomyopathy, unspecified; Z20.822 Contact with and (suspected) exposure to COVID-19; Z79.899 Other long term (current) drug therapy
CPT/HCPCS: 0241U; 36415; 71045; 80048; 81003; 83880; 84484; 85025; 85379; 85610; 93005; 93306; 96374; 96375; 99285; 99291; J1650; J1940

== ENCOUNTER → 2021-01-12 15:08 | Outpatient (BNVA) | payer OTHER, SELFPAY | PROVIDERS: Visit Provider Nurse Practitioner Family | DX: I11.0 Hypertensive heart disease with heart failure (principal); I50.21 Acute systolic (congestive) heart failure; I25.10 Atherosclerotic heart disease of native coronary artery without angina pectoris; I42.9 Cardiomyopathy, unspecified; E78.5 Hyperlipidemia, unspecified; Z98.890 Other specified postprocedural states; Z79.899 Other long term (current) drug therapy | CPT/HCPCS: 99212 ==

== ENCOUNTER → 2021-04-15 14:19 | Outpatient (BNVA) | payer OTHER, SELFPAY | PROVIDERS: Visit Provider Nurse Practitioner Family | DX: I50.21 Acute systolic (congestive) heart failure (principal); I42.9 Cardiomyopathy, unspecified; I25.10 Atherosclerotic heart disease of native coronary artery without angina pectoris; E78.5 Hyperlipidemia, unspecified; I10 Essential (primary) hypertension; Z98.890 Other specified postprocedural states; Z79.899 Other long term (current) drug therapy | CPT/HCPCS: 99212 ==

== ENCOUNTER → 2021-06-16 09:43 | Outpatient (BNVA) | payer OTHER, SELFPAY | PROVIDERS: Referring Provider Internal Medicine; Visit Provider Internal Medicine | DX: I25.5 Ischemic cardiomyopathy (principal); I25.10 Atherosclerotic heart disease of native coronary artery without angina pectoris; I10 Essential (primary) hypertension; I71.2 Thoracic aortic aneurysm, without rupture; Z79.899 Other long term (current) drug therapy | CPT/HCPCS: 99212 ==

== ENCOUNTER 2021-06-16 10:23 | Emergency (ER) | payer OTHER, SELFPAY ==
--- NOTE | ~2021-06-16 | XR_ITS ---
EXAMINATION: XR CHEST CLINICAL INFORMATION: Dizziness. COMPARISON: 12/29/2020 portable chest. TECHNIQUE: Frontal view of the chest was obtained. FINDINGS: The lungs are clear. The heart is unremarkable. Multiple surgical clips overlie the cardiomediastinal silhouette. Multilevel sternotomy wires are intact. XR/XR chest 1V IMPRESSION: No acute cardiopulmonary process.
--- NOTE | ~2021-06-16 | CT_ITS ---
EXAMINATION: CT HEAD WITHOUT CONTRAST CLINICAL INFORMATION: Dizziness COMPARISON: None TECHNIQUE: Contiguous axial imaging was performed from the skull base to vertex without intravenous administration of contrast. This CT examination was performed using dose optimization techniques as appropriate, variously including the following: *Automated exposure control *Adjustment of mA and/or kV according to patient size (this includes techniques or standardized protocols for targeted exams where dose is matched to indication/reason for exam; i.e. extremities or head) *Use of iterative reconstruction technique DLP: 659 mGy-cm FINDINGS: There is no evidence of acute intracranial hemorrhage or territorial infarction. No abnormal mass effect or midline shift is seen. Cruz to white matter differentiation is well preserved. No extra-axial fluid collections are identified. The ventricles are normal in size. There is no abnormal attenuation within the brain parenchyma. The osseous structures and soft tissues are normal. The mastoid air cells and visualized portions of the paranasal sinuses are well aerated. CT/CT head/brain wo con IMPRESSION: No acute intracranial process seen.
[2021-06-16 12:03] VITALS: BP 129/88; PULSE 76; RESP 16; TEMP 36.8; O2SAT 98; BMI 25.6
--- NOTE | 2021-06-16 12:05 | ECG_ITS ---
Test Reason : DIZZINESS Blood Pressure : / mmHG Vent. Rate : 075 BPM Atrial Rate : 075 BPM P-R Int : 196 ms QRS Dur : 102 ms QT Int : 480 ms P-R-T Axes : 036 057 035 degrees QTc Int : 536 ms Normal sinus rhythm Possible Left atrial enlargement Septal infarct , age undetermined Nonspecific T wave abnormality Prolonged QT Abnormal ECG When compared with ECG of 29-DEC-2020 11:47, Premature ventricular complexes are no longer Present Nonspecific T wave abnormality, worse in Lateral leads QT has lengthened Referred By: Thee Neves Electronically Signed By:MADINA HICKMAN
--- NOTE | 2021-06-16 12:08 | ED.NAVMDI ---
HPI - Nausea/Vomiting/Diarrhea General Chief complaint: Dizziness Stated complaint: dizziness, vomiting Time Seen by Provider: 06/16/21 12:04 Source: patient Mode of arrival: ambulatory Limitations: no limitations History of Present Illness HPI Narrative: This is a 56 years old male with history of CHF, ischemic cardiomyopathy, coronary artery disease status post CABG presented to the ED with a chief complaint no nausea vomiting dizziness. Symptoms started yesterday MD elicited complaint: nausea and vomiting Onset (ago): day(s) (1) Description of vomiting: continuous Description of diarrhea: watery Associated nausea: Yes Associated abdominal pain: Yes Location of pain: none Quality: aching Exacerbating factors: eating Relieving factors: eating Related Data Previous Rx's Medication Instructions Recorded hydrochlorothiazide 25 mg tablet 25 mg PO DAILY #30 tab 12/31/20 atorvastatin 80 mg tablet 80 mg PO BEDTIME #30 tab 01/12/21 carvedilol 6.25 mg tablet 6.25 mg PO BID #60 tab 01/12/21 lisinopril 40 mg tablet 40 mg PO DAILY #30 tab 01/12/21 aspirin 81 mg tablet,delayed 81 mg PO DAILY #90 tab 04/16/21 release Allergies Allergy/AdvReac Type Severity Reaction Status Date / Time No Known Allergies Allergy Verified 06/16/21 09:55 Review of Systems Review of Systems: Yes all other systems are reviewed and are negative Constitutional: Constitutional: Reports no additional constitutional complaints Eyes: Eyes: Reports no additional eye complaints ENT: Reports system reviewed and no additional complaints, except as documented Cardiovascular: Cardiovascular: Reports no additional cardiovascular complaints Respiratory: Respiratory: Reports no additional respiratory complaints Gastrointestinal: Gastrointestinal: Reports no additional gastrointestinal complaints and Reports nausea Genitourinary: Genitourinary: Reports no additional male genitourinary complaints [facility] Past Medical History Medical History Ascending aortic aneurysm Atherosclerotic cardiovascular disease CAD (coronary artery disease) Cardiomyopathy CHF (congestive heart failure) Essential hypertension HLD (hyperlipidemia) HTN (hypertension) Ischemic cardiomyopathy Surgical History S/P cardiac cath S/P triple vessel bypass Status post double vessel coronary artery bypass Social History Social History Household Members: Friend(s) Housing: House Do you presently have visiting nurse or other home services: No Alcohol intake: current Alcohol intake frequency: does not drink Alcohol type: beer Patient Tobacco Use Status: Never used Tobacco Second Hand Smoke Exposure: No Use of substances other than those prescribed or required for medical reasons: No Advance Directives: Yes Advance Directives Information Provided: Yes Advance Directives on File: No service: No Current occupational status: employed Physical Exam Vital Signs: Vital Signs: Last Vital Signs Temp 97.7 F 06/16/21 15:44 Pulse 73 06/16/21 15:44 Resp 17 06/16/21 15:44 BP 118/77 06/16/21 15:44 Pulse Ox 98 06/16/21 15:44 Body Mass Index 25.6 Const: General: cooperative Nutritional Appearance: average body habitus Orientation/consciousness: oriented to person, oriented to place, oriented to time and patient oriented x3 HENMT: Head: Yes normal to inspection Face and sinus: Yes normal facial exam Mouth: Normal oral and palatal mucosa present Neck: Neck: Yes normal visual inspection and Yes full ROM Thyroid: Thyroid normal Chest: Chest palpation & inspection: normal inspection of the chest Resp: Effort & Inspection: normal respiratory effort and able to speak in complete sentences Cardio: Jugular venous distension: no JVD Rate: regular rate Rhythm: regular rhythm GI: Inspection: Yes normal to inspection Palpation (GI): Soft to palpation, not firm, nontender and no guarding Skin: General skin exam: no rashes or lesions noted and elasticity normal Lesions: no lesions Rashes: no rashes Neuro: General: oriented to person, oriented to place, oriented to time and patient oriented x3 Course Reevaluation(s) Time: 16:36 Reevaluation #2: Pt is feeling much better ,he is tolerating po well,he wants to go home,delta tropi negative MDM - Nausea/Vomiting/Diarrhea Lab Data Result diagrams: 06/16/21 12:21 06/16/21 12:21 Labs: Lab Results 06/16/21 06/16/21 06/16/21 Range/Units 12:20 12:21 12:21 WBC 11.7 H (4.8-10.8) X10*3/uL RBC 4.48 L (4.60-5.80) X10*6/uL Hgb 12.7 L (14.0-18.0) g/dl Hct 39.3 L (42-52) % MCV 87.7 (80-98) fL MCH 28.3 (27.0-33.0) pg MCHC 32.3 (31.0-36.0) g/dl RDW 13.2 (11.0-16.0) % Plt Count 373 D (160-400) X10*3/uL MPV 9.8 (9.4-12.4) fL Immature Gran % (Auto) 0.6 H (0.0-0.4) % Neut % (Auto) 71.9 (45-73) % Lymph % (Auto) 18.1 L (20-40) % [place] % (Auto) 7.6 (2-11) % Eos % (Auto) 1.2 (0-4) % Baso % (Auto) 0.6 (0-2) % Lymph # (Auto) 2.1 (1.2-4.9) X10*3/uL [place] # (Auto) 0.9 (0.1-1.2) X10*3/uL Eos # (Auto) 0.1 (0.0-0.4) X10*3/uL Baso # (Auto) 0.1 (0.0-0.2) X10*3/uL Abs Immat Gran (auto) 0.07 H (0.00-0.03) X10*3/uL Absolute Neuts (auto) 8.4 H (2.0-8.3) X10*3/uL Absolute Nucleated RBC 0.000 (0.0-0.012) X10*3/uL Nucleated RBC % (auto) 0.0 (0.0-0.2) /100WBC PT 14.2 H (9.9-13.0) SEC INR 1.2 H (0.9-1.1) Sodium 141 (135-145) mmol/L Potassium 3.9 (3.3-5.1) mmol/L Chloride 92 L (96-108) mmol/L Carbon Dioxide 30 H (22-29) mmol/L Anion Gap 23 H (12-20) BUN 19 H (9-16) mg/dL Creatinine 1.12 (0.5-1.4) mg/dL Estim Creat Clear Calc 64.0 Estimated GFR > 60 Random Glucose 156 H (60-115) mg/dL Calcium 10.0 D (8.4-10.2) mg/dL Total Bilirubin 1.2 H (0.0-1.0) mg/dL AST 34 (5-37) U/L ALT 34 (0-40) U/L Alkaline Phosphatase 116 (39-117) U/L Troponin I High Sens (<3.5-35.0) ng/L Total Protein 8.2 H (6.5-8.0) g/dL Albumin 4.4 (3.5-5.0) g/dL 06/16/21 06/16/21 Range/Units 12:21 15:20 WBC (4.8-10.8) X10*3/uL RBC (4.60-5.80) X10*6/uL Hgb (14.0-18.0) g/dl Hct (42-52) % MCV (80-98) fL MCH (27.0-33.0) pg MCHC (31.0-36.0) g/dl RDW (11.0-16.0) % Plt Count (160-400) X10*3/uL MPV (9.4-12.4) fL Immature Gran % (Auto) (0.0-0.4) % Neut % (Auto) (45-73) % Lymph % (Auto) (20-40) % [place] % (Auto) (2-11) % Eos % (Auto) (0-4) % Baso % (Auto) (0-2) % Lymph # (Auto) (1.2-4.9) X10*3/uL [place] # (Auto) (0.1-1.2) X10*3/uL Eos # (Auto) (0.0-0.4) X10*3/uL Baso # (Auto) (0.0-0.2) X10*3/uL Abs Immat Gran (auto) (0.00-0.03) X10*3/uL Absolute Neuts (auto) (2.0-8.3) X10*3/uL Absolute Nucleated RBC (0.0-0.012) X10*3/uL Nucleated RBC % (auto) (0.0-0.2) /100WBC PT (9.9-13.0) SEC INR (0.9-1.1) Sodium (135-145) mmol/L Potassium (3.3-5.1) mmol/L Chloride (96-108) mmol/L Carbon Dioxide (22-29) mmol/L Anion Gap (12-20) BUN (9-16) mg/dL Creatinine (0.5-1.4) mg/dL Estim Creat Clear Calc Estimated GFR Random Glucose (60-115) mg/dL Calcium (8.4-10.2) mg/dL Total Bilirubin (0.0-1.0) mg/dL AST (5-37) U/L ALT (0-40) U/L Alkaline Phosphatase (39-117) U/L Troponin I High Sens 38.4 H* 32.3 (<3.5-35.0) ng/L Total Protein (6.5-8.0) g/dL Albumin (3.5-5.0) g/dL Imaging Data CT scan - head: Radiologist's impression: *Automated exposure control *Adjustment of mA and/or kV according to patient size (this includes techniques or standardized protocols for targeted exams where dose is matched to indication/reason for exam; i.e. extremities or head) *Use of iterative reconstruction technique DLP: 659 mGy-cm FINDINGS: There is no evidence of acute intracranial hemorrhage or territorial infarction. No abnormal mass effect or midline shift is seen. Cruz to white matter differentiation is well preserved. No extra-axial fluid collections are identified. The ventricles are normal in size. There is no abnormal attenuation within the brain parenchyma. The osseous structures and soft tissues are normal. The mastoid air cells and visualized portions of the paranasal sinuses are well aerated. ? CT/CT head/brain wo con IMPRESSION: No acute intracranial process seen. Dictated By: Raad Cordova MD Signed By: <Electronically signed by Raad Cordova MD in OV> 06/16/21 1306 DD/ 1206 TD/TT:? Motion Picture Set Worker: [facility] [place] ECG Data Attestation: I personally reviewed and interpreted this ECG as follows: ECG interpretation date: 08/24/21 Pacemaker model: NSR rate [address]-t changes Discharge Plan Discharge Clinical Impression: Vomiting, Dizziness Patient Disposition: Home, Self-Care Instructions: Acute Nausea and Vomiting (ED) Prescriptions: No Action hydrochlorothiazide 25 mg Tablet 25 mg PO DAILY Qty: 30 RF: 0 atorvastatin 80 mg tablet 80 mg PO BEDTIME Qty: 30 RF: 5 lisinopril 40 mg tablet 40 mg PO DAILY Qty: 30 RF: 5 carvedilol 6.25 mg tablet 6.25 mg PO BID Qty: 60 RF: 5 aspirin 81 mg tablet,delayed release (DR/EC) 81 mg PO DAILY Qty: 90 RF: 3 Interventions: ED Discharge Assessment Last Done: 06/16/21 16:54 Discharge Date/Time: 06/16/21 16:55
[2021-06-16] MEDS: 0.9 % Sodium Chloride 1,000 ML 999 ML IVCONT (12:21)
[2021-06-16] MEDS: Metoclopramide HCl 10 MG/2 ML VIAL IVPUSH (12:25)
[2021-06-16] MEDS: diphenhydrAMINE HCL 50 MG/ML VIAL 25 MG IVPUSH (12:25)
[2021-06-16 12:27] LABS: MANUAL DIFF FLAG NO
[2021-06-16 12:28] LABS: Basophils Absolute Auto 0.1 X10*3/uL (0.0-0.2); Basophils Percent Auto 0.6 % (0-2); Eosinophils Absolute Auto 0.1 X10*3/uL (0.0-0.4); Eosinophils Percent Auto 1.2 % (0-4); Hematocrit 39.3 % (42-52); Hemoglobin 12.7 g/dl (14.0-18.0); Imm Gran Abs Auto 0.07 X10*3/uL (0.00-0.03); Imm Gran Pct Auto 0.6 % (0.0-0.4); Lymphocytes Absolute Auto 2.1 X10*3/uL (1.2-4.9); Lymphocytes Percent Auto 18.1 % (20-40); Mean Corpuscular HGB Conc 32.3 g/dl (31.0-36.0); Mean Corpuscular Hemoglobin 28.3 pg (27.0-33.0); Mean Corpuscular Volume 87.7 fL (80-98); Mean Platelet Volume 9.8 fL (9.4-12.4); Monocytes Absolute Auto 0.9 X10*3/uL (0.1-1.2); Monocytes Percent Auto 7.6 % (2-11); Neutrophils Absolute Auto 8.4 X10*3/uL (2.0-8.3); Neutrophils Percent Auto 71.9 % (45-73); Platelet Count 373 X10*3/uL (160-400); Red Blood Count 4.48 X10*6/uL (4.60-5.80); Red Cell Distribution Width 13.2 % (11.0-16.0); White Blood Count 11.7 X10*3/uL (4.8-10.8)
[2021-06-16 12:33] LABS: INTERNATIONAL NORM RATIO 1.2 (0.9-1.1); Prothrombin Time 14.2 SEC (9.9-13.0)
[2021-06-16 13:10] LABS: Alanine Aminotransferase 34 U/L (0-40); Albumin Level 4.4 g/dL (3.5-5.0); Alkaline Phosphatase 116 U/L (39-117); Anion Gap 23 (12-20); Aspartate Amino Transferase 34 U/L (5-37); Bilirubin Total 1.2 mg/dL (0.0-1.0); Blood Urea Nitrogen 19 mg/dL (9-16); Carbon Dioxide 30 mmol/L (22-29); Chloride 92 mmol/L (96-108); Estimated Glomerular Filt Rate > 60; Glucose Random 156 mg/dL (60-115); Potassium 3.9 mmol/L (3.3-5.1); Sodium 141 mmol/L (135-145); Total Protein 8.2 g/dL (6.5-8.0)
[2021-06-16 13:18] LABS: Troponin-I High Sensitivity 38.4 ng/L (<3.5-35.0)
[2021-06-16 15:44] VITALS: BP 118/77; PULSE 73; RESP 17; TEMP 36.5; O2SAT 98
[2021-06-16 16:07] LABS: Troponin-I High Sensitivity 32.3 ng/L (<3.5-35.0)
== END 2021-06-16 16:55 | disposition home or self-care (01) ==
PROVIDERS: Emergency Provider Emergency Medicine; PCP Internal Medicine
DX: R11.2 Nausea with vomiting, unspecified (principal); R42 Dizziness and giddiness; I11.0 Hypertensive heart disease with heart failure; I50.9 Heart failure, unspecified; E78.5 Hyperlipidemia, unspecified; Z79.02 Long term (current) use of antithrombotics/antiplatelets; Z79.82 Long term (current) use of aspirin; Z79.899 Other long term (current) drug therapy
CPT/HCPCS: 36415; 70450; 71045; 80053; 84484; 85025; 85610; 93005; 96361; 96374; 96375; 99212; 99284; J1200; J2765

== ENCOUNTER → 2021-07-01 13:05 | Outpatient (REF) | payer OTHER, SELFPAY ==
--- NOTE | 2021-07-01 13:10 | CA_ITS ---
Transthoracic Echocardiogram Patient (Last, First, Middle): Julian Thomason G Gender: Male Date of : 1965 Age: 56 Procedure Date: 07/01/2021 Procedure Type: Transthoracic Echocardiogram Location: OP Height: 165.1 cm Weight: 66.23 kg BSA: 1.73 m2 Heart Rate: bpm BP: 100 / 82 mmHg Mine Promotor: GLEN Referring MD: Luis Queen MD Clearing Hand: Zurdo Quinones MD Symptoms: I71.2 - Thoracic aortic aneurysm, without rupture Study Quality: Technically Difficult ECG Rhythm: Sinus Conclusions: - 1. Mildly reducedLV systolic function with moderate LVH with grade 1 diastolic dysfunction 2. Normal cardiac valvular Doppler 3. Mildly dilated ascending aorta 4. Normal RV systolic pressure 5. Trivial pericardial effusion Findings Left Ventricle Normal left ventricular cavity size. There is moderately increased left ventricular wall thickness. The left ventricular systolic function is mildly decreased. The visually estimated ejection fraction is between 45-50%. Spectral Doppler is indicative of an impaired relaxation filling pattern. E/E prime ratio is <8, consistent with normal filling pressures. Evidence suggests grade I (mild) diastolic dysfunction. Right Ventricle Normal right ventricular cavity size. There is low normal right ventricular systolic function. Atria Both atria are normal in size. Interatrial shunt cannot be excluded. Aortic Valve Normal aortic valve structure and function. There is no aortic valve stenosis. There is no aortic valve regurgitation. Mitral Valve Normal mitral valve structure and function. There is trace mitral valve regurgitation. There is no mitral valve stenosis. Pulmonic Valve The pulmonic valve was not well visualized. Tricuspid Valve Normal tricuspid valve structure. There is trace tricuspid valve regurgitation. The right ventricular systolic pressure is normal. The right ventricular systolic pressure is 24 mmHg. Normal right atrial pressure. Great Vessels The pulmonary artery was not well visualized. There is mild dilatation of the ascending aorta. Venous The inferior vena cava is normal in size and collapses greater than 50% with inspiration. Pericardium/Pleural There is a trivial pericardial effusion. Prior Study Comparison Changes noted compared to prior study dated: 12/30/2020. LV systolic function has improved Measurements 2D Linear Measurements IVSd: 1.58 0.6-0.9/0.6-1.0 cm LVIDd: 4.17 3.9-5.3/4.2-5.9 cm LVIDd Index: 2.41 2.4-3.2/2.2-3.1 cm/m2 LVIDs: 2.89 2.0-3.6 cm LVPWd: 1.32 0.7-1.1 cm Ao Root: 4.20 2.1-3.5 cm LA Diam: 2.70 2.7-3.8/3.0-4.0 cm LAIDs Index: 1.56 1.5-2.3 cm/m2 LV Mass: 292.12 67-162/88-224 g LV Mass Index: 168.85 43-95/49-115 g/m2 LVOT Diam: 2.30 3.0+(-)1.3 cm 2D Systolic Function EF 4C: 54.40 >55% EF 2C: 56.80 >55% EF BiP: 55.30 >55% Mitral Valve MV Pk E: 0.43 MV PK A: 0.51 MV Decel Time: 205.00 E/A: 0.80 E'Lateral: 4.46 E'Medial: 4.46 E/E' Med: 9.70 E/E' Lat: 9.70 PHT: 60.00 MVA PHT: 3.67 Decel [place]: 2.11 Aortic Valve AoV Pk Harrison: 0.81 AoV Pk Grad: 3.00 LVOT LVOT Pk Harrison: 0.76 LVOT Mn [place]: 0.49 LVOT VTI: 0.10 LVOT Pk Grad: 2.00 LVOT Mn Grad: 1.00 LVOT Diam: 2.30 LVOT Area: 4.15 Diastolic Function MV Pk E: 0.43 MV Pk A: 0.51 E/A: 0.80 E'Medial: 4.46 E/E' Med: 9.70 E' Laterial: 4.46 E/E' Lat: 9.70 Right Ventricle TAPSE (mm): 1.30 Tricuspid Valve TR Pk [place]: 2.27 TR Pk Grad: 21.00 RA Press: 3.00 RVSP: 24.00 Great Vessels Aorta Ao Root-2D: 4.20 2.0-3.7 cm Ao Asc: 4.20 2.1-3.4 cm Updated in Other Vendor System with Status of Final Zurdo Quinones MD electronically signed on 07/02/2021 8:41:24 AM with status of Final
== END ==
LOC: HO.CARD 13:05
PROVIDERS: PCP Internal Medicine; Visit Provider Internal Medicine
DX: I25.5 Ischemic cardiomyopathy (principal); I71.2 Thoracic aortic aneurysm, without rupture
CPT/HCPCS: 93306

== ENCOUNTER → 2021-07-07 12:33 | Outpatient (BNVA) | payer OTHER, SELFPAY | PROVIDERS: PCP Internal Medicine; Referring Provider Internal Medicine; Visit Provider Internal Medicine | DX: I25.5 Ischemic cardiomyopathy (principal); I25.10 Atherosclerotic heart disease of native coronary artery without angina pectoris; I10 Essential (primary) hypertension; I71.2 Thoracic aortic aneurysm, without rupture; R11.10 Vomiting, unspecified | CPT/HCPCS: 99212 ==

== ENCOUNTER → 2021-08-04 10:13 | Outpatient (BNVA) | payer OTHER, SELFPAY | PROVIDERS: PCP Internal Medicine; Visit Provider Internal Medicine Gastroenterology ==

== ENCOUNTER 2021-09-20 14:58 | Emergency (ER) | payer SELFPAY ==
[2021-09-20] VITALS (7 sets, daily range): BP systolic 156–178; BP diastolic 111–120; PULSE 98–102; RESP 16–19; TEMP 36.8–37.1; O2SAT 94–96; BMI 26.8
--- NOTE | 2021-09-20 | ECG_ITS ---
Test Reason : HIGH BLOOD PRESSURE Blood Pressure : / mmHG Vent. Rate : 105 BPM Atrial Rate : 105 BPM P-R Int : 192 ms QRS Dur : 088 ms QT Int : 372 ms P-R-T Axes : 055 099 069 degrees QTc Int : 491 ms Sinus tachycardia with occasional Premature ventricular complexes Left atrial enlargement Rightward axis Low voltage QRS Intra-ventricular conduction delay T-wave inversion in Lateral leads Abnormal ECG When compared with ECG of 16-JUN-2021 12:38, Heart rate has increased QRS duration has increased T wave inversion more evident in Lateral leads Referred By: Generic ED Physician Electronically Signed By:ANTONIO LANZA MD
--- NOTE | ~2021-09-20 | XR_ITS ---
EXAMINATION: XR CHEST CLINICAL INFORMATION: Chest pain COMPARISON: 06/16/2021 TECHNIQUE: 2 views of the chest were obtained. FINDINGS: The cardiac silhouette is enlarged and there is central vascular congestion possible mild interstitial edema. No joint effusion. No focal consolidation. XR/XR chest 2V IMPRESSION: Mild CHF.
[2021-09-20 19:27] LABS: MANUAL DIFF FLAG NO
[2021-09-20 19:28] LABS: Basophils Percent Auto 0.2 % (0-2); Eosinophils Absolute Auto 0.1 X10*3/uL (0.0-0.4); Eosinophils Percent Auto 0.6 % (0-4); Hematocrit 46.7 % (42.0-52.0); Hemoglobin 15.4 g/dl (14.0-18.0); Imm Gran Abs Auto 0.03 X10*3/uL (0.00-0.03); Imm Gran Pct Auto 0.3 % (0.0-0.4); Lymphocytes Absolute Auto 2.2 X10*3/uL (1.2-4.9); Mean Corpuscular Hemoglobin 28.7 pg (27.0-33.0); Mean Platelet Volume 9.9 fL (9.4-12.4); Monocytes Percent Auto 8.1 % (2-11); Neutrophils Absolute Auto 8.5 x10*3/uL (2.0-8.3); Neutrophils Percent Auto 71.8 % (45-73); Platelet Count 243 X10*3/uL (160-400); Red Blood Count 5.37 X10*6/uL (4.60-5.80); Red Cell Distribution Width 14.6 % (11.0-16.0); White Blood Count 11.8 X10*3/uL (4.8-10.8)
[2021-09-20 19:43] LABS: Anion Gap 15 (12-20); Blood Urea Nitrogen 8 mg/dL (9-16); Calcium 9.4 mg/dL (8.4-10.2); Carbon Dioxide 25 mmol/L (22-29); Chloride 105 mmol/L (96-108); Creatinine Clr Calc Pharmacy 94.2; Estimated Glomerular Filt Rate > 60; Glucose Random 115 mg/dL (60-115); Potassium 3.6 mmol/L (3.3-5.1); Sodium 141 mmol/L (135-145)
[2021-09-20 19:49] LABS: Troponin-I High Sensitivity 25.9 ng/L (<3.5-35.0)
--- NOTE | 2021-09-20 20:35 | ED_ITS ---
HPI - SOB/Dyspnea General Chief Complaint: Dyspnea Stated Complaint: diff breathing Time Seen by Provider: 09/20/21 20:34 Source: patient Mode of arrival: ambulatory Limitations: no limitations History of Present Illness HPI Narrative: Patient is status post CABG in 05/13 taking just baby aspirin which is not taking for last 1 week and also not taking his other medications as he feel nauseated , patient was seen by Cardiology on 07/07 who advised him to stop torsemide spironolactone and Entresto to avoid dehydration comes here for last 4 days and chest tightness Related Data Previous Rx's Medication Instructions Recorded aspirin 81 mg tablet,delayed 81 mg PO DAILY #90 tab 04/16/21 release aspirin 81 mg tablet,delayed 81 mg PO DAILY #30 tab 09/20/21 release (Aspirin Low Dose) clopidogrel 75 mg tablet (Plavix) 75 mg PO DAILY #30 tab 09/20/21 sacubitril 24 mg-valsartan 26 mg 1 tab PO BID #60 tab 09/20/21 tablet (Entresto) Allergies Allergy/AdvReac Type Severity Reaction Status Date / Time No Known Allergies Allergy Verified 09/20/21 19:04 Review of Systems Review of Systems: Yes all other systems are reviewed and are negative [facility] Past Medical History Medical History Ascending aortic aneurysm Atherosclerotic cardiovascular disease CAD (coronary artery disease) Cardiomyopathy CHF (congestive heart failure) Essential hypertension HLD (hyperlipidemia) HTN (hypertension) Ischemic cardiomyopathy Surgical History S/P cardiac cath S/P triple vessel bypass Status post double vessel coronary artery bypass Family History Family History Father No problems noted. Mother No problems noted. Social History Social History Household Members: Friend(s) Housing: House Do you presently have visiting nurse or other home services: No Alcohol intake: current Alcohol intake frequency: does not drink Alcohol type: beer Patient Tobacco Use Status: Never used Tobacco Second Hand Smoke Exposure: No Advance Directives: No Advance Directives Information Provided: No service: No Current occupational status: employed Physical Exam Vital Signs: Vital Signs: Last Vital Signs Temp 98.7 F 09/20/21 23:37 Pulse 100 09/20/21 23:37 Resp 17 09/20/21 23:37 BP 156/113 H 09/20/21 23:37 Pulse Ox 95 09/20/21 23:37 Body Mass Index 26.8 Appearance: Alert. Oriented X3. No acute distress. Eyes: PERRLA, No Nystagmus no pallor icterus ENT: Pharynx normal. Oral Mucosa moist Neck: Normal inspection. Neck supple. CVS: Normal heart rate and rhythm. Pulses normal. No murmur gallop CABG scar healthy Respiratory: No respiratory distress. Equal air entry bilateral, no wheezing/rhonchi few rales at bases Abdomen: Soft and nontender. Bowel sounds are present, no mass palpable, no CVA tenderness Skin: Skin warm and dry. Normal skin color. Normal skin turgor. Extremities: No lower extremity edema. No calf tenderness Neuro: Oriented X 3. MDM - SOB/Dyspnea MDM Narrative Medical decision making narrative: Patient's significant cardiac history noncompliant to the medications with shortness of breath and elevated blood pressure which responded to IV diuretics and nitroglycerin patient advised to stay in the hospital for further management but she refused to stay signed against medical advice aware that that may kill him at home. Patient is very stubborn noncompliant with medications saying that he will follow with cardiolo gist tomorrow Lab Data Attestation: I reviewed the patient's lab results. Result diagrams: 09/20/21 19:23 09/20/21 19:23 Labs: Lab Results 09/20/21 09/20/21 09/20/21 Range/Units 19:23 19:23 19:23 WBC 11.8 H (4.8-10.8) X10*3/uL RBC 5.37 (4.60-5.80) X10*6/uL Hgb 15.4 (14.0-18.0) g/dl Hct 46.7 (42.0-52.0) % MCV 87.0 (80.0-98.0) fL MCH 28.7 (27.0-33.0) pg MCHC 33.0 (31.0-36.0) g/dl RDW 14.6 (11.0-16.0) % Plt Count 243 (160-400) X10*3/uL MPV 9.9 (9.4-12.4) fL Immature Gran % (Auto) 0.3 (0.0-0.4) % Neut % (Auto) 71.8 (45-73) % Lymph % (Auto) 19.0 L (20-40) % [place] % (Auto) 8.1 (2-11) % Eos % (Auto) 0.6 (0-4) % Baso % (Auto) 0.2 (0-2) % Lymph # (Auto) 2.2 (1.2-4.9) X10*3/uL [place] # (Auto) 1.0 (0.1-1.2) X10*3/uL Eos # (Auto) 0.1 (0.0-0.4) X10*3/uL Baso # (Auto) 0.0 (0.0-0.2) X10*3/uL Abs Immat Gran (auto) 0.03 (0.00-0.03) X10*3/uL Absolute Neuts (auto) 8.5 H (2.0-8.3) x10*3/uL Absolute Nucleated RBC 0.000 (0.0-0.012) X10*3/uL Nucleated RBC % (auto) 0.0 (0.0-0.2) /100WBC Sodium 141 (135-145) mmol/L Potassium 3.6 (3.3-5.1) mmol/L Chloride 105 (96-108) mmol/L Carbon Dioxide 25 (22-29) mmol/L Anion Gap 15 (12-20) BUN 8 L D (9-16) mg/dL Creatinine 0.79 (0.5-1.4) mg/dL Estim Creat Clear Calc 94.2 Estimated GFR > 60 Random Glucose 115 (60-115) mg/dL Calcium 9.4 (8.4-10.2) mg/dL Troponin I High Sens 25.9 (<3.5-35.0) ng/L B-Natriuretic Peptide 1704 H (<100) pg/mL ECG Data Attestation: I personally reviewed and interpreted this ECG as follows: Interpretation: Sinus tachycardia with heart rate 105 beats per minute right axis deviation poor progression of R-wave no acute ST elevation no acute ischemia Critical Care Time Critical Care Time Critical Care Time: Yes Total Critical Care Time: 35 Attestation: I spent 35 minutes of critical care, with interventions, assessments, speaking to patient, consultants Discharge Plan Discharge Clinical Impression: Hypertensive urgency CHF (congestive heart failure) Qualifiers: Heart failure type: systolic Heart failure chronicity: acute Qualified Code(s): I50.21 - Acute systolic (congestive) heart failure Patient Disposition: Left Against Medical Advice Instructions: Heart Failure (ED), Hypertensive Crisis (ED) Additional Instructions: See the internal review and audit compliance tomorrow or come back to the hospital as soon as possible for further management your life is at very high risk from heart attack and heart failure Prescriptions: New clopidogrel [Plavix] 75 mg tablet 75 mg PO DAILY Qty: 30 RF: 0 aspirin [Aspirin Low Dose] 81 mg tablet,delayed release (DR/EC) 81 mg PO DAILY Qty: 30 RF: 0 Entresto 24-26 mg tablet 1 tab PO BID Qty: 60 RF: 0 No Action aspirin 81 mg tablet,delayed release (DR/EC) 81 mg PO DAILY Qty: 90 RF: 3 Stand Alone Forms: Against Medical Advice Interventions: ED Discharge Assessment Last Done: 09/20/21 23:46 Discharge Date/Time: 09/20/21 23:53
[2021-09-20] MEDS: Nitroglycerin 0.4 MG TAB.SUBL SUBLINGUAL (21:05)
[2021-09-20 21:06] LABS: B Type Natriuretic Peptide 1704 pg/mL (<100)
[2021-09-20] MEDS: Furosemide 40 MG/4 ML VIAL IVPUSH (21:07)
[2021-09-20] MEDS: ondansetron HCL 4 MG/2 ML VIAL IVPUSH (21:24)
--- NOTE | 2021-09-20 22:40 | P.HPHOSP_ITS ---
History of Present Illness Date of Service: 09/20/21 Chief Complaint: SOB 56-year-old male with a past medical history of hypertension, hyperlipidemia, coronary artery disease, ischemic cardiomyopathy, ascending aortic aneurysm, history of cardiac cath, recent history of CABG; noncompliant with home medications presented to the hospital today with a chief complaint of shortness of breath. Patient denies any fever chills cough. Denies any Sputum production. Denies any GI or symptoms. Denies any chest pain or palpitations. ER course: For ER team patient noted to elevated proBNP, consult for acute CHF; given Lasix. Admitted to the hospital for further management. EKG nonischemic. Troponin negative. [facility] Medical History Ascending aortic aneurysm Atherosclerotic cardiovascular disease CAD (coronary artery disease) Cardiomyopathy CHF (congestive heart failure) Essential hypertension HLD (hyperlipidemia) HTN (hypertension) Ischemic cardiomyopathy Family History Father No problems noted. Mother No problems noted. Pertinent family history: as above Surgical History S/P cardiac cath S/P triple vessel bypass Status post double vessel coronary artery bypass Social History Household Members: Friend(s) Housing: House Do you presently have visiting nurse or other home services: No Alcohol intake: current Alcohol intake frequency: does not drink Alcohol type: beer Patient Tobacco Use Status: Never used Tobacco Second Hand Smoke Exposure: No Advance Directives: No Advance Directives Information Provided: No service: No Current occupational status: employed Meds Allergies Allergy/AdvReac Type Severity Reaction Status Date / Time No Known Allergies Allergy Verified 09/20/21 19:04 Active Medications: Current Medications Acetaminophen (Acetaminophen 325 Mg Tablet) 650 mg PO Q6H PRN PRN Reason: Pain, Mild (Pain Scale 1-3) Enoxaparin Sodium (Enoxaparin Sodium 40 Mg/0.4 Ml Syringe) 40 mg SUBCUT Q24H [place]AR[place] Sodium Chloride (0.9 % Sodium Chloride Flush 3 Ml Syringe) 3 ml IVFLUSH QSHIFT [place]AR[place] Physical Exam Vital Signs and Narrative: Vital Signs: Last Vital Signs Temp 98.5 F 09/20/21 20:54 Pulse 100 09/20/21 21:25 Resp 16 09/20/21 22:13 BP 169/112 H 09/20/21 21:25 Pulse Ox 95 09/20/21 21:25 Body Mass Index 26.8 Gen: Appears be in no acute distress HEENT: NCAT, Moist mucosa. Pulmonary: coarse breath sounds, fair air entry CVS: Normal S1-S2 Abdomen: BS+, Soft, Nontender Extremities: Warm well perfused Neuro: Alert and awake. Results Labs CBC and Chem 7: 09/20/21 19:23 09/20/21 19:23 Labs: Laboratory Results - last 24 hr 09/20/21 09/20/21 09/20/21 19:23 19:23 19:23 MCV 87.0 MCH 28.7 MCHC 33.0 RDW 14.6 Plt Count 243 MPV 9.9 Immature Gran % (Auto) 0.3 Neut % (Auto) 71.8 Lymph % (Auto) 19.0 L [place] % (Auto) 8.1 Eos % (Auto) 0.6 Baso % (Auto) 0.2 Lymph # (Auto) 2.2 [place] # (Auto) 1.0 Eos # (Auto) 0.1 Baso # (Auto) 0.0 Abs Immat Gran (auto) 0.03 Absolute Neuts (auto) 8.5 H Absolute Nucleated RBC 0.000 Nucleated RBC % (auto) 0.0 Anion Gap 15 Estim Creat Clear Calc 94.2 Estimated GFR > 60 Random Glucose 115 Calcium 9.4 Troponin I High Sens 25.9 B-Natriuretic Peptide 1704 H Imaging Radiologist's Impressions: Impressions Chest X-Ray 09/20/21 19:25 IMPRESSION: Mild CHF. Quality Stroke Does the patient have a stroke diagnosis?: No VTE Prior VTE?: No VTE Risk Level:: Medical - moderate - high VTE Device Contraindication: Treatment Not Indicated VTE Drug Contraindication: N/A - Med Ordered
--- NOTE | 2021-09-20 22:55 | PC.NURSE ---
plan was to admit pt to hospital but pt refusing to stay. MD at bedside discussing risks of leaving AMA. 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 pt aware of risks of leaving AMA. pt pain currently 2/10, states chest discomfort is less than on arrival and states he can now breath without chest discomfort.
[2021-09-20] MEDS: Clopidogrel Bisulfate 75 MG TABLET PO (23:42)
[2021-09-20] MEDS: Sacubitril/Valsartan 24/26 1 TAB TABLET PO (23:42)
[2021-09-20] MEDS: Aspirin Enteric Coated 81 MG TABLET.DR PO (23:42)
== END 2021-09-20 23:53 | disposition left against medical advice (07) ==
LOC: HO.ED 22:50 → HO.EDOVER 22:58
PROVIDERS: Emergency Provider Internal Medicine; PCP Internal Medicine
DX: I11.0 Hypertensive heart disease with heart failure (principal); I50.21 Acute systolic (congestive) heart failure; I16.0 Hypertensive urgency; R06.02 Shortness of breath; Z91.14 Patient's other noncompliance with medication regimen
CPT/HCPCS: 36415; 71046; 80048; 83880; 84484; 85025; 93005; 96374; 96375; 99284; 99291; J1940; J2405

== ENCOUNTER → 2021-09-24 13:21 | Outpatient (BNVA) | payer SELFPAY | PROVIDERS: PCP Internal Medicine; Referring Provider Internal Medicine; Visit Provider Internal Medicine | DX: I25.5 Ischemic cardiomyopathy (principal); I25.10 Atherosclerotic heart disease of native coronary artery without angina pectoris; I10 Essential (primary) hypertension; I71.2 Thoracic aortic aneurysm, without rupture; R11.10 Vomiting, unspecified; Z79.82 Long term (current) use of aspirin; Z91.14 Patient's other noncompliance with medication regimen | CPT/HCPCS: 99212 ==

== ENCOUNTER 2021-10-15 08:30 | Inpatient (IN) | payer MEDICAID, SELFPAY ==
[2021-10-15] VITALS (9 sets, daily range): BP systolic 132–171; BP diastolic 97–116; PULSE 89–109; RESP 16–28; TEMP 35.9–36.7; O2SAT 89–99; BMI 26.7
--- NOTE | ~2021-10-15 | XR_ITS ---
EXAMINATION: XR CHEST CLINICAL INFORMATION: Shortness of breath COMPARISON: September 20, 2021 and June 16, 2021 TECHNIQUE: AP portable view of the chest was obtained. FINDINGS: Some faintly seen increased hazy density bilaterally since previous studies consistent with viral or atypical pneumonitis. The cardiopericardial silhouette is enlarged. No evidence of pulmonary edema. Patient status post median sternotomy and CABG. No pneumothorax or significant pleural effusion. XR/XR chest 1V IMPRESSION: Development of faint hazy density bilaterally since previous study which may be related to viral or atypical pneumonitis or reactive airways disease of other etiology. Cardiomegaly without pulmonary edema.
--- NOTE | 2021-10-15 09:01 | ECG_ITS ---
Test Reason : SOB Blood Pressure : / mmHG Vent. Rate : 095 BPM Atrial Rate : 095 BPM P-R Int : 192 ms QRS Dur : 104 ms QT Int : 394 ms P-R-T Axes : 000 149 150 degrees QTc Int : 495 ms Suspect limb lead reversal, interpretation assumes no reversal Normal sinus rhythm Septal infarct (cited on or before 15-OCT-2021) Lateral infarct , age undetermined Abnormal ECG When compared with ECG of 20-SEP-2021 19:16, Premature ventricular complexes are no longer Present Lateral infarct is now Present Serial changes of Septal infarct Present Referred By: Zelda Cortes Electronically Signed By:CECILLE WATSON
--- NOTE | 2021-10-15 09:12 | ED_ITS ---
HPI - SOB/Dyspnea General Chief Complaint: Dyspnea Stated Complaint: diff breathing Time Seen by Provider: 10/15/21 09:01 Source: patient Mode of arrival: ambulatory Limitations: no limitations History of Present Illness HPI Narrative: 56-year-old male with a history of ischemic cardiomyopathy EF 45% (on ECHO in Jun, previously 15% in December) multivessel CAD s/p triple and double bypass surgery, HTN, HLD, ascending aortic aneurysym who presents to the ER with worsening SOB over the last 2-3 weeks. He reports pain is worse with exertion and when lying flat. He has been sleeping with 2 pillows. He denies any chest pain aside from when he goes from lying to standing he has pain at the superior aspect of his chest wall incision. He states his surgeon told him he would have pain there for another year. He denies any fever, chills, cough, body aches, headaches. He is vaccinated for COVID-19 with a [employer] vaccine. He reports compliance with his cardiac regimen which only includes aspirin, Plavix and Lasix. He states he was previously on a different water pill that helped his breathing much better. MD elicited complaint: shortness of breath Pertinent past history: congestive heart failure Onset (ago): week(s) (3) Context: occurred during exertion Timing: intermittent Severity: moderate Exacerbating factors: lying flat and exertion Relieving factors: rest and other (Eating) Known history of: congestive heart failure Associated symptoms: chest pain (Only upon standing) Treatment prior to arrival: none Related Data Home oxygen amount: none Home Medications Medication Instructions Recorded Confirmed furosemide 20 mg tablet (Lasix) 20 mg PO BEDTIME 10/15/21 10/15/21 Previous Rx's Medication Instructions Recorded aspirin 81 mg tablet,delayed 81 mg PO DAILY #90 tab 04/16/21 release clopidogrel 75 mg tablet (Plavix) 75 mg PO DAILY #30 tab 09/20/21 Allergies Allergy/AdvReac Type Severity Reaction Status Date / Time No Known Allergies Allergy Verified 09/24/21 13:35 Review of Systems Review of Systems: Constitutional: No Fever, No Chills ENT/Mouth: No sore throat, No Rhinorrhea, No Swallowing Difficulty Eyes: No Eye Pain, No Swelling, No Redness Cardiovascular: + Chest Pain, + SOB, + Orthopnea, No Edema Respiratory: No Cough, No Sputum, No Wheezing, No dyspnea Gastrointestinal: No Nausea, No Vomiting, No Diarrhea, No abdominal Pain Genitourinary: No Dysuria, No Urinary Frequency, No Hematuria Musculoskeletal: No joint pain, No Myalgias Skin: No Skin Lesions, No rash Neuro: No Weakness, No Numbness, No Dizziness, No Headache Psych: No Anxiety/Panic, No Depression Heme/Lymph: No Bruising, No Lymphadenopathy Endocrine: No Polyuria, No Polydipsia [facility] Past Medical History Medical History Ascending aortic aneurysm Atherosclerotic cardiovascular disease CAD (coronary artery disease) Cardiomyopathy CHF (congestive heart failure) Essential hypertension HLD (hyperlipidemia) HTN (hypertension) Ischemic cardiomyopathy Surgical History S/P cardiac cath S/P triple vessel bypass Status post double vessel coronary artery bypass Family History Family History Father No problems noted. Mother No problems noted. Social History Social History Household Members: Friend(s) Housing: House Do you presently have visiting nurse or other home services: No Alcohol intake: never Patient Tobacco Use Status: Never used Tobacco Second Hand Smoke Exposure: No Use of substances other than those prescribed or required for medical reasons: Yes Substance Use Type: Marijuana Substance Use Frequency: Occasionally Advance Directives: No Advance Directives Information Provided: No service: No Current occupational status: employed Physical Exam Vital Signs: Vital Signs: Last Vital Signs Temp 97.8 F 10/15/21 12:02 Pulse 106 H 10/15/21 12:02 Resp 28 H 10/15/21 12:02 BP 168/111 H 10/15/21 12:02 Pulse Ox 95 10/15/21 12:02 BMI result Body Mass Index 26.7 Appearance: Alert. Oriented X3. No acute distress. Eyes: Pupils equal, round and reactive to light. ENT: Pharynx normal. Neck: Normal inspection. Neck supple. CVS: Normal heart rate and rhythm. Pulses normal. Respiratory: No respiratory distress. Breath sounds, decreased at the bases bilaterally. Anterior chest wall with well-healing surgical scars, nontender no crepitus. Abdomen: Soft and nontender. +BS x4 Skin: Skin warm and dry. Normal skin color. Normal skin turgor. No rashes. Extremities: trace lower extremity edema. Neuro: Oriented X 3. No motor deficit. No sensory deficit. Course Course Course Narrative: 56-year-old male presenting to the ER with shortness of breath for the last 3 weeks or so. With exertion and lying down. He has significant cardiac history with 2 open heart surgeries and a double and triple bypass. He is on low-dose Lasix at home. He is not adhering to a low-salt, cardiac diet and is eating Hernandez's. He does not appear grossly volume overloaded on exam. He is not hypoxic and is able to lay basically flat on the stretcher without any respiratory distress. Will check chest x-ray, EKG cardiac labs and monitor closely in the ER. Reevaluation(s) Reevaluation #1: 10 am - Patient noted to be hypoxic to 89% with increased RR in the mid 20's. Placed on 2L NC with improvement in sats to mid 90s. Labs showing BNP 1132 (previously was 1700 in Aug when he was given IV lasix, ni tro and then signed out AMA) prior to that 600-800 in December. CXR showing faint hazy densities bilaterally. He has no leukocytosis and mild PCR is negative. This may be due to atypical presentation of pulmonary edema. Will give IV Lasix and plan for admission. Patient agreeable with plan. MDM - SOB/Dyspnea Lab Data Result diagrams: 10/15/21 09:12 10/15/21 09:12 Labs: Lab Results 10/15/21 10/15/21 10/15/21 Range/Units 09:08 09:12 09:12 WBC 7.7 (4.8-10.8) X10*3/uL RBC 5.19 (4.60-5.80) X10*6/uL Hgb 14.9 (14.0-18.0) g/dl Hct 44.7 (42.0-52.0) % MCV 86.1 (80.0-98.0) fL MCH 28.7 (27.0-33.0) pg MCHC 33.3 (31.0-36.0) g/dl RDW 13.8 (11.0-16.0) % Plt Count 204 (160-400) X10*3/uL MPV 10.8 (9.4-12.4) fL Immature Gran % (Auto) 0.3 (0.0-0.4) % Neut % (Auto) 72.4 (45-73) % Lymph % (Auto) 18.0 L (20-40) % [place] % (Auto) 7.8 (2-11) % Eos % (Auto) 1.2 (0-4) % Baso % (Auto) 0.3 (0-2) % Lymph # (Auto) 1.4 (1.2-4.9) X10*3/uL [place] # (Auto) 0.6 (0.1-1.2) X10*3/uL Eos # (Auto) 0.1 (0.0-0.4) X10*3/uL Baso # (Auto) 0.0 (0.0-0.2) X10*3/uL Abs Immat Gran (auto) 0.02 (0.00-0.03) X10*3/uL Absolute Neuts (auto) 5.6 (2.0-8.3) x10*3/uL Absolute Nucleated RBC 0.000 (0.0-0.012) X10*3/uL Nucleated RBC % (auto) 0.0 (0.0-0.2) /100WBC PT 13.9 H (9.9-13.0) SEC INR 1.2 H (0.9-1.1) APTT 32.7 (24.1-38.0) SEC Sodium (135-145) mmol/L Potassium (3.3-5.1) mmol/L Chloride (96-108) mmol/L Carbon Dioxide (22-29) mmol/L Anion Gap (12-20) BUN (9-16) mg/dL Creatinine (0.5-1.4) mg/dL Estim Creat Clear Calc Estimated GFR Random Glucose (60-115) mg/dL Calcium (8.4-10.2) mg/dL Magnesium (1.6-2.6) mg/dL Total Bilirubin (0.0-1.0) mg/dL Direct Bilirubin (0.0-0.5) mg/dL AST (5-37) U/L ALT (0-40) U/L Alkaline Phosphatase (39-117) U/L Troponin I High Sens (<3.5-35.0) ng/L B-Natriuretic Peptide (<100) pg/mL Total Protein (6.5-8.0) g/dL Albumin (3.5-5.0) g/dL Procalcitonin ng/mL Urine Color Urine Appearance Urine pH (5.0-8.0) Ur Specific [place] (1.005-1.025) Urine Protein (NEG-TRACE) MG/DL Urine Glucose (UA) (NEG) MG/DL Urine Ketones (NEG) MG/DL Urine Blood (NEG) Urine Nitrite (NEG) Ur Leukocyte Esterase (NEG) Influenza Type A (PCR) NEGATIVE (Negative) Influenza Type B (PCR) NEGATIVE (Negative) RSV RNA Qual (PCR) NEGATIVE (Negative) SARS-CoV-2 RNA (RT-PCR) NEGATIVE (Negative) 10/15/21 10/15/21 10/15/21 Range/Units 09:12 09:12 09:12 WBC (4.8-10.8) X10*3/uL RBC (4.60-5.80) X10*6/uL Hgb (14.0-18.0) g/dl Hct (42.0-52.0) % MCV (80.0-98.0) fL MCH (27.0-33.0) pg MCHC (31.0-36.0) g/dl RDW (11.0-16.0) % Plt Count (160-400) X10*3/uL MPV (9.4-12.4) fL Immature Gran % (Auto) (0.0-0.4) % Neut % (Auto) (45-73) % Lymph % (Auto) (20-40) % [place] % (Auto) (2-11) % Eos % (Auto) (0-4) % Baso % (Auto) (0-2) % Lymph # (Auto) (1.2-4.9) X10*3/uL [place] # (Auto) (0.1-1.2) X10*3/uL Eos # (Auto) (0.0-0.4) X10*3/uL Baso # (Auto) (0.0-0.2) X10*3/uL Abs Immat Gran (auto) (0.00-0.03) X10*3/uL Absolute Neuts (auto) (2.0-8.3) x10*3/uL Absolute Nucleated RBC (0.0-0.012) X10*3/uL Nucleated RBC % (auto) (0.0-0.2) /100WBC PT (9.9-13.0) SEC INR (0.9-1.1) APTT (24.1-38.0) SEC Sodium 142 (135-145) mmol/L Potassium 3.3 (3.3-5.1) mmol/L Chloride 105 (96-108) mmol/L Carbon Dioxide 25 (22-29) mmol/L Anion Gap 15 (12-20) BUN 14 (9-16) mg/dL Creatinine 0.82 (0.5-1.4) mg/dL Estim Creat Clear Calc 87.5 Estimated GFR > 60 Random Glucose 172 H D (60-115) mg/dL Calcium 8.8 D (8.4-10.2) mg/dL Magnesium 1.4 L* (1.6-2.6) mg/dL Total Bilirubin 0.9 (0.0-1.0) mg/dL Direct Bilirubin 0.4 (0.0-0.5) mg/dL AST 31 (5-37) U/L ALT 28 (0-40) U/L Alkaline Phosphatase 82 D (39-117) U/L Troponin I High Sens 30.2 (<3.5-35.0) ng/L B-Natriuretic Peptide 1132 H (<100) pg/mL Total Protein 6.8 (6.5-8.0) g/dL Albumin 3.7 (3.5-5.0) g/dL Procalcitonin 0.03 ng/mL Urine Color Urine Appearance Urine pH (5.0-8.0) Ur Specific [place] (1.005-1.025) Urine Protein (NEG-TRACE) MG/DL Urine Glucose (UA) (NEG) MG/DL Urine Ketones (NEG) MG/DL Urine Blood (NEG) Urine Nitrite (NEG) Ur Leukocyte Esterase (NEG) Influenza Type A (PCR) (Negative) Influenza Type B (PCR) (Negative) RSV RNA Qual (PCR) (Negative) SARS-CoV-2 RNA (RT-PCR) (Negative) 10/15/21 Range/Units 11:21 WBC (4.8-10.8) X10*3/uL RBC (4.60-5.80) X10*6/uL Hgb (14.0-18.0) g/dl Hct (42.0-52.0) % MCV (80.0-98.0) fL MCH (27.0-33.0) pg MCHC (31.0-36.0) g/dl RDW (11.0-16.0) % Plt Count (160-400) X10*3/uL MPV (9.4-12.4) fL Immature Gran % (Auto) (0.0-0.4) % Neut % (Auto) (45-73) % Lymph % (Auto) (20-40) % [place] % (Auto) (2-11) % Eos % (Auto) (0-4) % Baso % (Auto) (0-2) % Lymph # (Auto) (1.2-4.9) X10*3/uL [place] # (Auto) (0.1-1.2) X10*3/uL Eos # (Auto) (0.0-0.4) X10*3/uL Baso # (Auto) (0.0-0.2) X10*3/uL Abs Immat Gran (auto) (0.00-0.03) X10*3/uL Absolute Neuts (auto) (2.0-8.3) x10*3/uL Absolute Nucleated RBC (0.0-0.012) X10*3/uL Nucleated RBC % (auto) (0.0-0.2) /100WBC PT (9.9-13.0) SEC INR (0.9-1.1) APTT (24.1-38.0) SEC Sodium (135-145) mmol/L Potassium (3.3-5.1) mmol/L Chloride (96-108) mmol/L Carbon Dioxide (22-29) mmol/L Anion Gap (12-20) BUN (9-16) mg/dL Creatinine (0.5-1.4) mg/dL Estim Creat Clear Calc Estimated GFR Random Glucose (60-115) mg/dL Calcium (8.4-10.2) mg/dL Magnesium (1.6-2.6) mg/dL Total Bilirubin (0.0-1.0) mg/dL Direct Bilirubin (0.0-0.5) mg/dL AST (5-37) U/L ALT (0-40) U/L Alkaline Phosphatase (39-117) U/L Troponin I High Sens (<3.5-35.0) ng/L B-Natriuretic Peptide (<100) pg/mL Total Protein (6.5-8.0) g/dL Albumin (3.5-5.0) g/dL Procalcitonin ng/mL Urine Color STRAW Urine Appearance CLEAR Urine pH 6.5 (5.0-8.0) Ur Specific [place] 1.015 (1.005-1.025) Urine Protein NEG (NEG-TRACE) MG/DL Urine Glucose (UA) NEG (NEG) MG/DL Urine Ketones NEG (NEG) MG/DL Urine Blood NEG (NEG) Urine Nitrite NEG (NEG) Ur Leukocyte Esterase NEG (NEG) Influenza Type A (PCR) (Negative) Influenza Type B (PCR) (Negative) RSV RNA Qual (PCR) (Negative) SARS-CoV-2 RNA (RT-PCR) (Negative) ECG Data Attestation: I personally reviewed and interpreted this ECG as follows: ECG interpretation date: 10/15/21 ECG interpretation time: 09:54 Prior ECG tracings: available for review Interpretation: 9:13 am - normal sinus rhythm, heart rate 95 BPM, suspect arm lead reversal with no QRS complexes seen in lead 2. Suspect error repeat ordered 9:19 am - normal sinus rhythm, heart rate 98 beats per minute, low-voltage QRS, T-wave inversions in V1 V5 V6 which are old. No ST segment elevations or depressions. Critical Care Time Critical Care Time Critical Care Time: Yes Total Critical Care Time: 38 Attestation: I have personally provided critical care time exclusive of time spent on separately billable procedures. Time includes review of lab data, radiology results, discussion with consultants/hospitalists, and monitoring for potential decompensation. Intervention performed as documented. Discharge Plan Discharge Clinical Impression: Acute systolic heart failure Patient Disposition: Admitted As Inpatient
--- NOTE | 2021-10-15 09:19 | ECG_ITS ---
Test Reason : SOB Blood Pressure : / mmHG Vent. Rate : 098 BPM Atrial Rate : 098 BPM P-R Int : 196 ms QRS Dur : 100 ms QT Int : 390 ms P-R-T Axes : 052 088 067 degrees QTc Int : 497 ms Normal sinus rhythm Left atrial enlargement Low voltage QRS Septal infarct (cited on or before 15-OCT-2021) Abnormal ECG When compared with ECG of 15-OCT-2021 09:13, Criteria for Lateral infarct are no longer Present Referred By: Zelda Cortes Electronically Signed By:CECILLE WATSON
[2021-10-15 09:20] LABS: MANUAL DIFF FLAG NO
[2021-10-15 09:22] LABS: Basophils Percent Auto 0.3 % (0-2); Eosinophils Absolute Auto 0.1 X10*3/uL (0.0-0.4); Eosinophils Percent Auto 1.2 % (0-4); Hematocrit 44.7 % (42.0-52.0); Hemoglobin 14.9 g/dl (14.0-18.0); Imm Gran Abs Auto 0.02 X10*3/uL (0.00-0.03); Imm Gran Pct Auto 0.3 % (0.0-0.4); Lymphocytes Absolute Auto 1.4 X10*3/uL (1.2-4.9); Mean Corpuscular HGB Conc 33.3 g/dl (31.0-36.0); Mean Corpuscular Hemoglobin 28.7 pg (27.0-33.0); Mean Corpuscular Volume 86.1 fL (80.0-98.0); Mean Platelet Volume 10.8 fL (9.4-12.4); Monocytes Absolute Auto 0.6 X10*3/uL (0.1-1.2); Monocytes Percent Auto 7.8 % (2-11); Neutrophils Absolute Auto 5.6 x10*3/uL (2.0-8.3); Neutrophils Percent Auto 72.4 % (45-73); Platelet Count 204 X10*3/uL (160-400); Red Blood Count 5.19 X10*6/uL (4.60-5.80); Red Cell Distribution Width 13.8 % (11.0-16.0); White Blood Count 7.7 X10*3/uL (4.8-10.8)
[2021-10-15 09:28] LABS: INTERNATIONAL NORM RATIO 1.2 (0.9-1.1); Prothrombin Time 13.9 SEC (9.9-13.0)
[2021-10-15 09:31] LABS: Partial Thromboplastin Time 32.7 SEC (24.1-38.0)
[2021-10-15 09:41] LABS: B Type Natriuretic Peptide 1132 pg/mL (<100); Troponin-I High Sensitivity 30.2 ng/L (<3.5-35.0)
[2021-10-15 09:46] LABS: Alanine Aminotransferase 28 U/L (0-40); Albumin Level 3.7 g/dL (3.5-5.0); Alkaline Phosphatase 82 U/L (39-117); Anion Gap 15 (12-20); Aspartate Amino Transferase 31 U/L (5-37); Bilirubin Direct 0.4 mg/dL (0.0-0.5); Bilirubin Total 0.9 mg/dL (0.0-1.0); Blood Urea Nitrogen 14 mg/dL (9-16); Calcium 8.8 mg/dL (8.4-10.2); Carbon Dioxide 25 mmol/L (22-29); Chloride 105 mmol/L (96-108); Creatinine Clr Calc Pharmacy 87.5; Estimated Glomerular Filt Rate > 60; Glucose Random 172 mg/dL (60-115); Magnesium 1.4 mg/dL (1.6-2.6); Potassium 3.3 mmol/L (3.3-5.1); Sodium 142 mmol/L (135-145); Total Protein 6.8 g/dL (6.5-8.0)
[2021-10-15 09:57] LABS: Procalcitonin 0.03 ng/mL
[2021-10-15 10:07] LABS: Influenza A PCR NEGATIVE (Negative); Influenza B PCR NEGATIVE (Negative); Resp Syncy Virus RNA Qual PCR NEGATIVE (Negative); SARS COV2 PCR INHOUSE NEGATIVE (Negative)
[2021-10-15] MEDS: Magnesium Sulfate/H2O 2 GM/50 ML PIGGYBACK IV (10:33)
[2021-10-15] MEDS: Potassium Chloride ER 20 MEQ TAB.ER.PRT 40 MEQ PO (10:33)
[2021-10-15] MEDS: Furosemide 40 MG/4 ML VIAL IVPUSH (10:33)
--- NOTE | 2021-10-15 11:23 | PHA.MEDREC ---
Pharmacy Consult ? Medication Reconciliation Pharmacy has completed the medication reconciliation. PT noted that he should be on a statin and metformin, but due to insurance issues has not picked up or taken. Belén Nash RP
[2021-10-15 11:27] LABS: Appearance Urine CLEAR; Color Urine STRAW; Glucose Urine UA NEG (NEG); Leukocyte Esterase Urine NEG (NEG); Nitrite Urine NEG (NEG); PH 6.5 (5.0-8.0); Specific Gravity - Urine 1.015 (1.005-1.025); Urine Blood NEG (NEG); Urine Ketones NEG (NEG); Urine Protein NEG (NEG-TRACE)
[2021-10-15] MEDS: carvediloL 3.125 MG TABLET PO ×2 (14:40→22:01)
--- NOTE | 2021-10-15 15:50 | PM.IMHP ---
History of Present Illness Date of Service: 10/15/21 Attending physician on admission: Jessica Bianchi Chief Complaint: sob 56-year-old gentleman with past medical history significant for ischemic cardiomyopathy, multivessel coronary artery bypass graft status post triple and double bypass surgery at [facility] in April 2021, history of hypertension hyperlipidemia ascending aortic aneurysm presented to emergency room with worsening shortness of breath of several weeks worse with ambulation, patient denies associated chest pain lightheadedness or dizziness, currently on aspirin Plavix and Lasix, patient has stopped taking Coreg, Entresto medications due to side effects of nausea vomiting and bad smell in food and urine last echocardiogram in June of 2021 showed an EF of 45-50% with impaired relaxation, prior echo in December of 2020 showed low EF of 15%, patient is being followed by Cardiology. Workup in the emergency room showed elevated BNP 1132, EKG showed normal sinus rhythm, septal and lateral infarction undetermined age patient will be admitted for close monitoring and treatment for acute congestive heart failure. Review of Systems Review of Systems: General no headache, no dizziness no fever chills. CVS no chest pain, no palpitation. Respiratory no cough, shortness of breath with exertion Gastrointestinal no nausea no vomiting, no abdominal pain Musculoskeletal no pain Skin no rash Yes all other systems are reviewed and are negative [facility] Medical History Ascending aortic aneurysm Atherosclerotic cardiovascular disease CAD (coronary artery disease) Cardiomyopathy CHF (congestive heart failure) Essential hypertension HLD (hyperlipidemia) HTN (hypertension) Ischemic cardiomyopathy Family History Father No problems noted. Mother No problems noted. Pertinent family history: no change since last update Surgical History S/P cardiac cath S/P triple vessel bypass Status post double vessel coronary artery bypass Social History Household Members: Other Housing: Apartment Do you presently have visiting nurse or other home services: No Alcohol intake: never Patient Tobacco Use Status: Never used Tobacco Second Hand Smoke Exposure: No Use of substances other than those prescribed or required for medical reasons: Yes Substance Use Type: Marijuana Substance Use Frequency: Socially Last Used Substance: Days (ago) Currently Displaying Signs/Symptoms of Drug Intoxication Withdrawal: No Have you been hit, kicked, punched, or otherwise hurt by someone within the past year? If so, by whom?: No Do you feel safe in your current relationship?: No Current Relationship Is there a partner from a previous relationship who is making you feel unsafe now?: No Are you made to feel afraid or neglected: No Advance Directives: No Advance Directives Information Provided: No Do you have thoughts of harming others: None Do you have a plan to hurt others: No Plan Recently lost weight without trying: No Nutrition Risks: No Nutritional Risk service: No Current occupational status: employed Meds Allergies Allergy/AdvReac Type Severity Reaction Status Date / Time No Known Allergies Allergy Verified 09/24/21 13:35 Active Medications: Current Medications Acetaminophen (Acetaminophen 325 Mg Tablet) 650 mg PO Q6H PRN PRN Reason: Pain, Mild (Pain Scale 1-3) Aspirin (Aspirin Enteric Coated 81 Mg Tablet.) 81 mg PO DAILY [facility] Carvedilol (Carvedilol 3.125 Mg Tablet) 3.125 mg PO BID [facility]; Protocol Last Admin: 10/15/21 14:40 Dose: 3.125 mg Documented by: Clopidogrel Bisulfate (Clopidogrel Bisulfate 75 Mg Tablet) 75 mg PO DAILY [facility] Furosemide (Furosemide 20 Mg/2 Ml Vial) 20 mg IVPUSH BID [facility]; Protocol Ondansetron HCl (Ondansetron Hcl 4 Mg/2 Ml Vial) 4 mg IVPUSH Q8H PRN PRN Reason: Nausea and Vomiting Pharmacy Consult (Consult Rx Perform Med Rec) 1 each MISCELLANE ONCE PRN PRN Reason: Consult order Sodium Chloride (0.9 % Sodium Chloride Flush 3 Ml Syringe) 3 ml IVFLUSH QSHIFT [facility] Physical Exam Vital Signs and Narrative: Vital Signs: Last Vital Signs Temp 97.8 F 10/15/21 12:02 Pulse 97 10/15/21 14:39 Resp 19 10/15/21 14:39 BP 152/104 H 10/15/21 14:39 Pulse Ox 97 10/15/21 14:39 BMI result Body Mass Index 26.7 General awake alert x3, no acute distress. HEENT pupil equal round reactive to light and accommodation extraocular muscles intact Neck supple no JVD. CVS regular rate rhythm, Respiratory lungs clear to auscultation, no crackles, no respiratory distress, no rhonchi. Gastrointestinal abdomen soft, nontender, bowel sounds audible Extremities no edema. Neuro nonfocal ,speech clear. Skin no rash Psych appropriate affect Results Labs CBC and Chem 7: 10/15/21 09:12 10/16/21 07:54 Labs: Laboratory Results - last 24 hr 10/15/21 10/15/21 10/15/21 09:08 09:12 09:12 MCV 86.1 MCH 28.7 MCHC 33.3 RDW 13.8 Plt Count 204 MPV 10.8 Immature Gran % (Auto) 0.3 Neut % (Auto) 72.4 Lymph % (Auto) 18.0 L [place] % (Auto) 7.8 Eos % (Auto) 1.2 Baso % (Auto) 0.3 Lymph # (Auto) 1.4 [place] # (Auto) 0.6 Eos # (Auto) 0.1 Baso # (Auto) 0.0 Abs Immat Gran (auto) 0.02 Absolute Neuts (auto) 5.6 Absolute Nucleated RBC 0.000 Nucleated RBC % (auto) 0.0 PT 13.9 H INR 1.2 H APTT 32.7 Anion Gap Estim Creat Clear Calc Estimated GFR Random Glucose Calcium Magnesium Total Bilirubin Direct Bilirubin AST ALT Alkaline Phosphatase Troponin I High Sens B-Natriuretic Peptide Total Protein Albumin Procalcitonin Urine Color Urine Appearance Urine pH Ur Specific [place] Urine Protein Urine Glucose (UA) Urine Ketones Urine Blood Urine Nitrite Ur Leukocyte Esterase Influenza Type A (PCR) NEGATIVE Influenza Type B (PCR) NEGATIVE RSV RNA Qual (PCR) NEGATIVE SARS-CoV-2 RNA (RT-PCR) NEGATIVE 10/15/21 10/15/21 10/15/21 09:12 09:12 09:12 MCV MCH MCHC RDW Plt Count MPV Immature Gran % (Auto) Neut % (Auto) Lymph % (Auto) [place] % (Auto) Eos % (Auto) Baso % (Auto) Lymph # (Auto) [place] # (Auto) Eos # (Auto) Baso # (Auto) Abs Immat Gran (auto) Absolute Neuts (auto) Absolute Nucleated RBC Nucleated RBC % (auto) PT INR APTT Anion Gap 15 Estim Creat Clear Calc 87.5 Estimated GFR > 60 Random Glucose 172 H D Calcium 8.8 D Magnesium 1.4 L* Total Bilirubin 0.9 Direct Bilirubin 0.4 AST 31 ALT 28 Alkaline Phosphatase 82 D Troponin I High Sens 30.2 B-Natriuretic Peptide 1132 H Total Protein 6.8 Albumin 3.7 Procalcitonin 0.03 Urine Color Urine Appearance Urine pH Ur Specific [place] Urine Protein Urine Glucose (UA) Urine Ketones Urine Blood Urine Nitrite Ur Leukocyte Esterase Influenza Type A (PCR) Influenza Type B (PCR) RSV RNA Qual (PCR) SARS-CoV-2 RNA (RT-PCR) 10/15/21 10/15/21 11:21 13:09 MCV MCH MCHC RDW Plt Count MPV Immature Gran % (Auto) Neut % (Auto) Lymph % (Auto) [place] % (Auto) Eos % (Auto) Baso % (Auto) Lymph # (Auto) [place] # (Auto) Eos # (Auto) Baso # (Auto) Abs Immat Gran (auto) Absolute Neuts (auto) Absolute Nucleated RBC Nucleated RBC % (auto) PT INR APTT Anion Gap Estim Creat Clear Calc Estimated GFR Random Glucose Calcium Magnesium Total Bilirubin Direct Bilirubin AST ALT Alkaline Phosphatase Troponin I High Sens 32.0 B-Natriuretic Peptide Total Protein Albumin Procalcitonin Urine Color STRAW Urine Appearance CLEAR Urine pH 6.5 Ur Specific [place] 1.015 Urine Protein NEG Urine Glucose (UA) NEG Urine Ketones NEG Urine Blood NEG Urine Nitrite NEG Ur Leukocyte Esterase NEG Influenza Type A (PCR) Influenza Type B (PCR) RSV RNA Qual (PCR) SARS-CoV-2 RNA (RT-PCR) Imaging Radiologist's Impressions: Impressions Chest X-Ray 10/15/21 09:30 IMPRESSION: Development of faint hazy density bilaterally since previous study which may be related to viral or atypical pneumonitis or reactive airways disease of other etiology. Cardiomegaly without pulmonary edema. Assessment and Plan (1) Acute systolic heart failure: Status: Acute (2) Ascending aortic aneurysm: Status: Acute (3) Essential hypertension: Status: Acute (4) Atherosclerotic cardiovascular disease: Status: Acute (5) Ischemic cardiomyopathy: Status: Acute (6) HLD (hyperlipidemia): Status: Acute 56-year-old gentleman with past medical history significant for ischemic cardiomyopathy with EF 15-20% in December of 2020 subsequently underwent coronary artery bypass surgery at [facility] in April of 2021 repeat EF in June improved to 45 to 50% currently on aspirin Plavix and Lasix presented to [facility] with shortness of breath worse with exertion, with elevated BNP and clinical exam suggestive of acute congestive heart failure. Acute on chronic congestive heart failure with reduced EF Admit to telemetry, place on IV Lasix 20 mg b.i.d., follow daily I's and O's and weight Follow BMP and BNP Cardiology consult Echocardiogram History of thoracic aortic aneurysm Close outpatient follow-up with Cardiology History of coronary artery disease s/p double and triple coronary artery bypass graft No chest pain, normal troponin, Continue aspirin Plavix and beta-radha Essential hypertension Was recently placed on Toprol XL, patient noncompliant with home medication BP noted to be elevated will resume beta-radha, and add Acosta/Arb as tolerated DVT prophylaxis with lovenox Code status full code Quality Stroke Does the patient have a stroke diagnosis?: No VTE Prior VTE?: No VTE Risk Level:: Medical - moderate - high VTE Device Contraindication: Treatment Not Indicated VTE Drug Contraindication: N/A - Med Ordered
[2021-10-15] MEDS: Furosemide 20 MG/2 ML VIAL IVPUSH (22:01)
[2021-10-15] MEDS: 0.9 % Sodium Chloride Flush 3 ML SYRINGE IVFLUSH (22:37)
[2021-10-16] VITALS: BP 132/86; PULSE 85; RESP 20; TEMP 37.1; O2SAT 97
[2021-10-16 03:19] VITALS: BP 111/74; PULSE 78; RESP 18; TEMP 36.6; O2SAT 99
[2021-10-16 07:04] VITALS: BP 133/92; PULSE 85; RESP 16; TEMP 36.3; O2SAT 97
[2021-10-16 08:35] LABS: Anion Gap 11 (12-20); Blood Urea Nitrogen 14 mg/dL (9-16); Calcium 8.9 mg/dL (8.4-10.2); Carbon Dioxide 32 mmol/L (22-29); Chloride 101 mmol/L (96-108); Creatinine Clr Calc Pharmacy 81.5; Estimated Glomerular Filt Rate > 60; Glucose Fasting 137 mg/dL (60-99); Magnesium 1.7 mg/dL (1.6-2.6); Potassium 3.1 mmol/L (3.3-5.1); Sodium 141 mmol/L (135-145)
[2021-10-16 08:42] LABS: B Type Natriuretic Peptide 1424 pg/mL (<100)
[2021-10-16] MEDS: Furosemide 20 MG/2 ML VIAL IVPUSH (10:32)
[2021-10-16] MEDS: Enoxaparin Sodium 40 MG/0.4 ML SYRINGE SUBCUT (10:34)
[2021-10-16 10:35] VITALS: BP 134/95; PULSE 88
[2021-10-16] MEDS: Clopidogrel Bisulfate 75 MG TABLET PO (10:35)
[2021-10-16] MEDS: carvediloL 3.125 MG TABLET PO (10:35)
[2021-10-16] MEDS: Aspirin Enteric Coated 81 MG TABLET.DR PO (10:35)
[2021-10-16] MEDS: 0.9 % Sodium Chloride Flush 3 ML SYRINGE IVFLUSH (10:36)
[2021-10-16] MEDS: Potassium Chloride ER 20 MEQ TAB.ER.PRT 40 MEQ PO (10:36)
--- NOTE | 2021-10-16 10:38 | P.CONCA_ITS ---
History of Present Illness History of Present Illness Date of Service: 10/16/21 Chief complaint: sob Narrative: This is a cardiology consultation regarding shortness of breath and congestive heart failure. Patient follows up in the office but not very compliant. He has a history of coronary artery bypass surgery. Background of hypertension but not very compliant with medications. Earlier this year, he was admitted with heart failure. Echocardiogram with markedly diminished LVEF. T hen he underwent cardiac catheterization showing multivessel coronary disease. Then underwent bypass surgery. Numerous complaints since then mainly with GI that he could not keep his food down and was vomiting a lot. Then he thought it was all medication related and hence he stopped everything. Hence for a while not taking any medications at all. Then he was complaining of shortness of breath any resumed him on at least some diuretic, antiplatelet drugs and beta- blockers with statins. He does not seem that he took that either. Now he states that because of insurance he could not afford a lot of medications. He is also on other agents like Entresto but again due to cost was not taking. Current admission is mainly for shortness of breath. He states that even walking short distances making short of breath. It seems he got diuretics after admission in today's states he is much better. Symptoms are better but still present. No anginal-type symptoms apart from sternotomy pain. Review of Systems Review of Systems: Yes all other systems are reviewed and are negative Cardiovascular: Cardiovascular: Reports as per HPI, Reports no additional card iovascular complaints, Denies acrocyanosis, Denies cool extremities, Denies painful fingertips, Denies chest pain, Denies chest pain at rest, Denies diaphoresis, Denies syncope, Denies irregular heart rhythm, Denies claudication, Denies leg edema, Denies lightheadedness, Denies palpitations and Reports dyspnea Respiratory: Respiratory: Reports dyspnea Neurologic: Denies syncope Endocrine: Endocrine: Denies palpitations [facility] Past Medical History Medical History Ascending aortic aneurysm Atherosclerotic cardiovascular disease CAD (coronary artery disease) Cardiomyopathy CHF (congestive heart failure) Essential hypertension HLD (hyperlipidemia) HTN (hypertension) Ischemic cardiomyopathy Family History Family History Father No problems noted. Mother No problems noted. Surgical History Surgical History S/P cardiac cath S/P triple vessel bypass Status post double vessel coronary artery bypass Social History Social History Household Members: Other Housing: Apartment Do you presently have visiting nurse or other home services: No Alcohol intake: never Patient Tobacco Use Status: Never used Tobacco Second Hand Smoke Exposure: No Use of substances other than those prescribed or required for medical reasons: Yes Substance Use Type: Marijuana Substance Use Frequency: Socially Last Used Substance: Days (ago) Currently Displaying Signs/Symptoms of Drug Intoxication Withdrawal: No Have you been hit, kicked, punched, or otherwise hurt by someone within the past year? If so, by whom?: No Do you feel safe in your current relationship?: No Current Relationship Is there a partner from a previous relationship who is making you feel unsafe now?: No Are you made to feel afraid or neglected: No Advance Directives: No Advance Directives Information Provided: No Do you have thoughts of harming others: None Do you have a plan to hurt others: No Plan Recently lost weight without trying: No Nutrition Risks: No Nutritional Risk service: No Current occupational status: employed Meds Allergies Allergy/AdvReac Type Severity Reaction Status Date / Time No Known Allergies Allergy Verified 09/24/21 13:35 Active Medications: Current Medications Acetaminophen (Acetaminophen 325 Mg Tablet) 650 mg PO Q6H PRN PRN Reason: Pain, Mild (Pain Scale 1-3) Aspirin (Aspirin Enteric Coated 81 Mg Tablet.) 81 mg PO DAILY [facility] Carvedilol (Carvedilol 3.125 Mg Tablet) 3.125 mg PO BID [facility]; Protocol Last Admin: 10/15/21 22:01 Dose: 3.125 mg Documented by: Clopidogrel Bisulfate (Clopidogrel Bisulfate 75 Mg Tablet) 75 mg PO DAILY [facility] Enoxaparin Sodium (Enoxaparin Sodium 40 Mg/0.4 Ml Syringe) 40 mg SUBCUT Q24H [place] Furosemide (Furosemide 20 Mg/2 Ml Vial) 40 mg IVPUSH BID [facility]; Protocol Ondansetron HCl (Ondansetron Hcl 4 Mg/2 Ml Vial) 4 mg IVPUSH Q8H PRN PRN Reason: Nausea and Vomiting Pharmacy Consult (Consult Rx Perform Med Rec) 1 each MISCELLANE ONCE PRN PRN Reason: Consult order Potassium Chloride (Potassium Chloride Er 20 Meq Tab.Er.Prt) 40 meq PO DAILY [facility] Sodium Chloride (0.9 % Sodium Chloride Flush 3 Ml Syringe) 3 ml IVFLUSH QSHIFT [facility] Last Admin: 10/15/21 22:37 Dose: 3 ml Documented by: Physical Exam Vital Signs: Vital Signs: Last Vital Signs Temp 97.3 F 10/16/21 07:04 Pulse 85 10/16/21 07:04 Resp 16 10/16/21 07:04 BP 133/92 H 10/16/21 07:04 Pulse Ox 97 10/16/21 07:04 BMI result Body Mass Index 26.7 Const: General: no acute distress HENMT: Other: Unremarkable Neck: Neck: Yes normal visual inspection Chest: Chest palpation & inspection: normal inspection of the chest Resp: Auscultation: no crackles and no wheezes Cardio: Palpation: normal PMI Heart sounds: S1 normal heart sound present, S2 normal heart sound present, no gallops, no murmurs and no rubs GI: Palpation (GI): Soft to palpation Back/Spine/Pelvis: Other: unremarkable Skin: Lesions: other Neuro: Cranial nerves: Yes Other cranial nerve findings present Extrem: General: Yes other Psych: Mental Status: other Objective Labs and Meds Result diagrams: 10/15/21 09:12 10/16/21 07:54 Lab results: Laboratory Results - last 24 hr 10/15/21 10/15/21 10/16/21 11:21 13:09 07:54 Sodium 141 Potassium 3.1 L Chloride 101 Carbon Dioxide 32 H Anion Gap 11 L BUN 14 Creatinine 0.88 Estim Creat Clear Calc 81.5 Estimated GFR > 60 Fasting Glucose 137 H Calcium 8.9 Magnesium 1.7 Troponin I High Sens 32.0 B-Natriuretic Peptide Urine Color STRAW Urine Appearance CLEAR Urine pH 6.5 Ur Specific [place] 1.015 Urine Protein NEG Urine Glucose (UA) NEG Urine Ketones NEG Urine Blood NEG Urine Nitrite NEG Ur Leukocyte Esterase NEG 10/16/21 07:54 Sodium Potassium Chloride Carbon Dioxide Anion Gap BUN Creatinine Estim Creat Clear Calc Estimated GFR Fasting Glucose Calcium Magnesium Troponin I High Sens B-Natriuretic Peptide 1424 H Urine Color Urine Appearance Urine pH Ur Specific [place] Urine Protein Urine Glucose (UA) Urine Ketones Urine Blood Urine Nitrite Ur Leukocyte Esterase ECG Interpretation: EKG shows sinus rhythm at 98/Min; left ventricular hypertrophy with downsloping STs in the lateral leads. Left atrial enlargement. Cannot exclude old septal infarct. No significant change compared to prior. Assessment and Plan (1) Acute on chronic systolic and diastolic heart failure, NYHA class 3: Status: Acute (2) Ischemic cardiomyopathy: Status: Acute (3) Atherosclerotic cardiovascular disease: Status: Acute (4) Essential hypertension: Status: Acute (5) Ascending aortic aneurysm: Status: Acute Based on the last echocardiogram, LVEF 45-50%. In December, 15 to 20%. Today, clinically does not seem too volume overloaded. It seems he might be taking Lasix 20 mg at home but not clear. Possibly increase it to a higher dose. Otherwise, he does not take anything at all and he should be on definitely aspirin and ideally Plavix too. Also recommend beta-blockers and statins but I am not entirely clear if he will take any of these at all. With regard to the ascending aortic dilatation, will need to be followed as an outpatient. Procedures Date of Service Date of Service: 10/16/21
--- NOTE | 2021-10-16 11:41 | PM.DS ---
DS: Providers Provider Date of Service: 10/16/21 Date of admission: 10/15/21 12:08 Primary care physician: Anamaria Spann MD Consults: 10/15/21 12:10 Consult to Cardiology Routine Consulting Provider: Luis Queen Reason for consultation: chf Has provider been notified: No DS: Diagnosis Discharge Diagnosis (1) Acute systolic heart failure: Status: Acute (2) Ascending aortic aneurysm: Status: Acute (3) Essential hypertension: Status: Acute (4) Atherosclerotic cardiovascular disease: Status: Acute (5) Ischemic cardiomyopathy: Status: Acute (6) HLD (hyperlipidemia): Status: Acute DS: Summary Hospital Course Hospital Course: Chief Complaint: sob 56-year-old gentleman with past medical history significant for ischemic cardiomyopathy, multivessel coronary artery bypass graft status post triple and double bypass surgery at [facility] in April 2021, history of hypertension hyperlipidemia ascending aortic aneurysm presented to emergency room with worsening shortness of breath of several weeks worse with ambulation, patient denies associated chest pain lightheadedness or dizziness, currently on aspirin Plavix and Lasix, patient has stopped taking Coreg, Entresto medications due to side effects of nausea vomiting and bad smell in food and urine last echocardiogram in June of 2021 showed an EF of 45-50% with impaired relaxation, prior echo in December of 2020 showed low EF of 15%, patient is being followed by Cardiology. Workup in the emergency room showed elevated BNP 1132, EKG showed normal sinus rhythm, septal and lateral infarction undetermined age patient will be admitted for close monitoring and treatment for acute congestive heart failure. Hospital course 56-year-old gentleman with past medical history significant for ischemic cardiomyopathy with EF 15-20% in December of 2020 subsequently underwent coronary artery bypass surgery at [facility] in April of 2021 repeat EF in June improved to 45 to 50% currently on aspirin Plavix and Lasix presented to [facility] with shortness of breath worse with exertion, with elevated BNP and clinical exam suggestive of acute congestive heart failure. Admitted with a diagnosis of Acute on chronic congestive heart failure with reduced EF, treated with IV Lasix, with significant clinical improved, patient is noncompliant with his medication, was supposed to be on Toprol XL 50 mg daily but was only taking aspirin Plavix and Lasix 20 mg at night, patient seen by Dr. Bret since patient appears euvolemic he recommend to increase dose of Lasix to 40 mg daily, patient noted to have low potassium that has been repleted, patient is now being discharged home on Lasix 40 mg daily potassium 20 mEq daily and has been strongly recommended to take Toprol-XL 50 mg daily aspirin and Plavix and to have close outpatient follow-up with Cardiology, repeat echocardiogram will be arranged by Cardiology as outpatient. History of coronary artery disease s/p oronary artery bypass graft, take aspirin Plavix and beta blockers. Essential hypertension recommended medical compliance Time Spent with Patient Time attestation: Total time spent providing and/or coordinating discharge services: Discharge coordination time: Greater than 30 minutes Quality: Stroke Does the patient have a stroke diagnosis?: No Physical Exam Vital Signs: Vital Signs: Last Vital Signs Temp 97.3 F 10/16/21 07:04 Pulse 88 10/16/21 10:35 Resp 16 10/16/21 07:04 BP 134/95 H 10/16/21 10:35 Pulse Ox 97 10/16/21 07:04 BMI result Body Mass Index 26.7 General awake alert x3, no acute distress. Neck supple no JVD. CVS? regular rate rhythm, Respiratory lungs clear to auscultation, no crackles, no respiratory distress, no rhonchi. Gastrointestinal abdomen soft, nontender, bowel sounds audible Extremities no edema. Neuro nonfocal ,speech clear. Skin no rash Psych appropriate affect DS: Data Data Completed and Pending Labs on day of discharge: Laboratory Results - last 24 hr 10/15/21 10/16/21 10/16/21 13:09 07:54 07:54 Sodium 141 Potassium 3.1 L Chloride 101 Carbon Dioxide 32 H Anion Gap 11 L BUN 14 Creatinine 0.88 Estim Creat Clear Calc 81.5 Estimated GFR > 60 Fasting Glucose 137 H Calcium 8.9 Magnesium 1.7 Troponin I High Sens 32.0 B-Natriuretic Peptide 1424 H Discharge Plan Discharge Patient Disposition: Home, Self-Care Discharge Diagnosis: Acute on chronic congestive heart failure with reduced EF Referrals: Anamaria Spann MD [Primary Care Provider] - 1 Week Discharge Medications: New furosemide [Lasix] 40 mg tablet 40 mg PO DAILY Qty: 30 RF: 0 metoprolol succinate [Toprol XL] 50 mg tablet extended release 24 hr 50 mg PO DAILY Qty: 30 RF: 0 potassium chloride 20 mEq tablet extended release 20 meq PO DAILY Qty: 30 RF: 0 Continued clopidogrel [Plavix] 75 mg tablet 75 mg PO DAILY Qty: 30 RF: 0 aspirin 81 mg tablet,delayed release (DR/EC) 81 mg PO DAILY Qty: 90 RF: 3 Discontinued furosemide [Lasix] 20 mg tablet 20 mg PO BEDTIME RF: 0 Discharge Orders: Discharge Order (Routine); Ordered 10/16/21 Ordered By: Jessica Bianchi Diet: advance to usual diet and low salt diet Activity on Discharge: As tolerated Stand Alone Forms: Patient Portal Discharge page Care Plan Goals: Heart failure take Lasix 40 mg daily, follow low-salt diet Health Concerns: Coronary artery disease, hypertension, heart failure take all medications as prescribed Plan of Treatment: Outpatient follow-up with primary care physician and Cardiology in 1-2 weeks Assessment: Per discharge summary
== END 2021-10-16 19:17 | disposition home or self-care (01) | DRG 194 ==
LOC: HO.ED 11:08 → HO.EDOVER 12:14 → HO.IMC 16:57
PROVIDERS: Physician Assistant; Admitting Provider Hospitalist; Emergency Provider Emergency Medicine; PCP Internal Medicine; Visit Provider Hospitalist
DX: I11.0 Hypertensive heart disease with heart failure (principal); I71.2 Thoracic aortic aneurysm, without rupture; Z95.1 Presence of aortocoronary bypass graft; E78.5 Hyperlipidemia, unspecified; I50.43 Acute on chronic combined systolic (congestive) and diastolic (congestive) heart failure; I25.10 Atherosclerotic heart disease of native coronary artery without angina pectoris; I25.5 Ischemic cardiomyopathy; Z91.14 Patient's other noncompliance with medication regimen; Z20.822 Contact with and (suspected) exposure to COVID-19; Z79.02 Long term (current) use of antithrombotics/antiplatelets; Z79.82 Long term (current) use of aspirin; Z79.899 Other long term (current) drug therapy
CPT/HCPCS: 0241U; 36415; 71045; 80048; 80076; 81003; 83735; 83880; 84145; 84484; 85025; 85610; 85730; 93005; 99219; 99285; J1650; J1940; J3475

== ENCOUNTER 2021-11-23 20:56 | Inpatient (IN) | payer MEDICAID, SELFPAY ==
--- NOTE | ~2021-11-23 | XR_ITS ---
EXAMINATION: XR CHEST CLINICAL INFORMATION: Shortness of breath COMPARISON: Chest x-ray 10/15/2021, 06/16/2021 TECHNIQUE: Frontal portable view of the chest was obtained. 9:31 PM FINDINGS: Status post median sternotomy. Heart size enlarged. Mild central pulmonary vascular congestion without overt pulmonary edema. No pleural effusion. No pneumothorax. No focal consolidation. XR/XR chest 1V IMPRESSION: Cardiomegaly. Status post median sternotomy. Mild central pulmonary vascular congestion without overt pulmonary edema.
[2021-11-23 21:00] VITALS: BP 175/128; PULSE 118; RESP 28; TEMP 36.1; O2SAT 96; BMI 27.4
--- NOTE | 2021-11-23 21:07 | ECG_ITS ---
Test Reason : SOB/HYPERTENSION Blood Pressure : / mmHG Vent. Rate : 113 BPM Atrial Rate : 113 BPM P-R Int : 186 ms QRS Dur : 098 ms QT Int : 328 ms P-R-T Axes : 049 128 002 degrees QTc Int : 449 ms Sinus tachycardia with occasional Premature ventricular complexes and Fusion complexes Biatrial enlargement Right axis deviation Old anteroseptal infarct Abnormal ECG When compared with ECG of 15-OCT-2021 09:19, No significant changes seen Referred By: Generic ED Physician Electronically Signed By:CECILLE WATSON
[2021-11-23 21:23] LABS: MANUAL DIFF FLAG NO
--- NOTE | 2021-11-23 21:25 | ED_ITS ---
HPI - SOB/Dyspnea General Chief Complaint: Dyspnea Stated Complaint: sob..heart surgery in april Time Seen by Provider: 11/23/21 21:20 Source: patient Mode of arrival: ambulatory Limitations: no limitations History of Present Illness HPI Narrative: Patient 56 years old with atherosclerotic heart disease status post cardiac bypass 5 vessels in 05/13 with history of and by a Chick last 3 acute on chronic systolic and diastolic heart failure, ischemic cardiomyopathy, essential hypertension, ascending aortic aneurysm , last LV ejection fraction was 15-20% ran out of his Plavix and metoprolol for last 4 days still taking his Lasix 40 mg daily comes here for increased shortness of breath since yesterday on arrival patient blood pressure was 175/128 pulse rate 118 respiratory 28 saturating 96% on room air patient denies any chest pain no leg swelling feels increased shortness of breath. Patient already been vaccinated against COVID including a booster dose denies any cough no fever no chills no significant abdominal distension MD elicited complaint: shortness of breath Onset (ago): day(s) (2) Related Data Previous Rx's Medication Instructions Recorded aspirin 81 mg tablet,delayed 81 mg PO DAILY #90 tab 04/16/21 release clopidogrel 75 mg tablet (Plavix) 75 mg PO DAILY #30 tab 09/20/21 furosemide 40 mg tablet (Lasix) 40 mg PO DAILY #30 tab 10/16/21 metoprolol succinate 50 mg 50 mg PO DAILY #30 tab 10/16/21 tablet,extended release 24 hr (Toprol XL) potassium chloride 20 mEq 20 meq PO DAILY #30 tab 10/16/21 tablet,extended release Allergies Allergy/AdvReac Type Severity Reaction Status Date / Time No Known Allergies Allergy Verified 09/24/21 13:35 Review of Systems Verdana 4l Review of Systems: Yes all other systems are reviewed and Verdana 4d are negative [facility] Past Medical History Medical History Ascending aortic aneurysm Atherosclerotic cardiovascular disease CAD (coronary artery disease) Cardiomyopathy CHF (congestive heart failure) Essential hypertension HLD (hyperlipidemia) HTN (hypertension) Ischemic cardiomyopathy Surgical History S/P cardiac cath S/P triple vessel bypass Status post double vessel coronary artery bypass Family History Family History Father No problems noted. Mother No problems noted. Social History Social History Household Members: Other Housing: Apartment Do you presently have visiting nurse or other home services: No Alcohol intake: never Patient Tobacco Use Status: Never used Tobacco Second Hand Smoke Exposure: No Use of substances other than those prescribed or required for medical reasons: No Substance Use Type: Marijuana Advance Directives: No Advance Directives Information Provided: No service: No Current occupational status: employed Physical Exam Verdana 4l Vital Signs: Verdana 4d Verdana 4d Vital Signs: Verdana 4d Verdana 4Bd Last Vital Signs Verdana 4d Oil Deliverer New 4d Oil Deliverer New 4d Temp 97.8 F 11/24/21 00:18 Oil Deliverer New 4d Pulse 86 11/24/21 00:18 Oil Deliverer New 4d Resp 18 11/24/21 00:18 BP 144/105 H 11/24/21 00:18 Pulse Ox 99 11/24/21 00:18 BMI result Body Mass Index 27.4 Appearance: Alert. Oriented X3. In moderate distress. Eyes: no pallor/icterus ENT: Pharynx normal. Oral Mucosa moist Neck: Normal inspection. Neck supple. CVS: Normal heart rate and rhythm. Pulses normal. Respiratory: No respiratory distress. Equal air entry bilateral, no wheezing/rales/rhonchi Abdomen: Soft and nontender. Bowel sounds are present, no mass palpable, no CVA tenderness Skin: Skin warm and dry. Normal skin color. Normal skin turgor. Extremities: No lower extremity edema. No calf tenderness Neuro: Oriented X 3. Course Reevaluation(s) Reevaluation #1: Patient feeling better after Lasix and nitro paste blood pressure now is 138/98, lab workup showed elevated BNP to 3049 with troponin I 33.1 which is been stable as in the past Time: 22:16 MDM - SOB/Dyspnea MDM Narrative Medical decision making narrative: Patient's acute CHF with accelerated hypertension improved after Lasix and nitro paste will admit patient for further management for [facility] record patient supposed to be on Coreg and lisinopril Lab Data Attestation: I reviewed the patient's lab results. Result diagrams: 11/23/21 21:18 11/23/21 21:18 Labs: Lab Results 11/23/21 11/23/21 11/23/21 Range/Units 21:18 21:18 21:18 WBC 11.3 H (4.8-10.8) X10*3/uL RBC 5.09 (4.60-5.80) X10*6/uL Hgb 14.6 (14.0-18.0) g/dl Hct 44.0 (42.0-52.0) % MCV 86.4 (80.0-98.0) fL MCH 28.7 (27.0-33.0) pg MCHC 33.2 (31.0-36.0) g/dl RDW 13.6 (11.0-16.0) % Plt Count 255 (160-400) X10*3/uL MPV 10.2 (9.4-12.4) fL Immature Gran % (Auto) 0.4 (0.0-0.4) % Neut % (Auto) 66.6 (45-73) % Lymph % (Auto) 23.8 (20-40) % Stephenson % (Auto) 8.0 (2-11) % Eos % (Auto) 0.9 (0-4) % Baso % (Auto) 0.3 (0-2) % Lymph # (Auto) 2.7 (1.2-4.9) X10*3/uL Stephenson # (Auto) 0.9 (0.1-1.2) X10*3/uL Eos # (Auto) 0.1 (0.0-0.4) X10*3/uL Baso # (Auto) 0.0 (0.0-0.2) X10*3/uL Abs Immat Gran (auto) 0.04 H (0.00-0.03) X10*3/uL Absolute Neuts (auto) 7.5 (2.0-8.3) x10*3/uL Absolute Nucleated RBC 0.000 (0.0-0.012) X10*3/uL Nucleated RBC % (auto) 0.0 (0.0-0.2) /100WBC Sodium 141 (135-145) mmol/L Potassium 3.5 (3.3-5.1) mmol/L Chloride 104 (96-108) mmol/L Carbon Dioxide 28 (22-29) mmol/L Anion Gap 13 (12-20) BUN 13 (9-16) mg/dL Creatinine 0.86 (0.5-1.4) mg/dL Estim Creat Clear Calc 90.6 Estimated GFR > 60 Random Glucose 154 H (60-115) mg/dL Calcium 9.3 (8.4-10.2) mg/dL Troponin I High Sens 33.1 (<3.5-35.0) ng/L B-Natriuretic Peptide 3049 H (<100) pg/mL COVID-19 (FERNANDA) (Negative) COVID-19 Clin Com 11/23/21 Range/Units 21:18 WBC (4.8-10.8) X10*3/uL RBC (4.60-5.80) X10*6/uL Hgb (14.0-18.0) g/dl Hct (42.0-52.0) % MCV (80.0-98.0) fL MCH (27.0-33.0) pg MCHC (31.0-36.0) g/dl RDW (11.0-16.0) % Plt Count (160-400) X10*3/uL MPV (9.4-12.4) fL Immature Gran % (Auto) (0.0-0.4) % Neut % (Auto) (45-73) % Lymph % (Auto) (20-40) % Stephenson % (Auto) (2-11) % Eos % (Auto) (0-4) % Baso % (Auto) (0-2) % Lymph # (Auto) (1.2-4.9) X10*3/uL Stephenson # (Auto) (0.1-1.2) X10*3/uL Eos # (Auto) (0.0-0.4) X10*3/uL Baso # (Auto) (0.0-0.2) X10*3/uL Abs Immat Gran (auto) (0.00-0.03) X10*3/uL Absolute Neuts (auto) (2.0-8.3) x10*3/uL Absolute Nucleated RBC (0.0-0.012) X10*3/uL Nucleated RBC % (auto) (0.0-0.2) /100WBC Sodium (135-145) mmol/L Potassium (3.3-5.1) mmol/L Chloride (96-108) mmol/L Carbon Dioxide (22-29) mmol/L Anion Gap (12-20) BUN (9-16) mg/dL Creatinine (0.5-1.4) mg/dL Estim Creat Clear Calc Estimated GFR Random Glucose (60-115) mg/dL Calcium (8.4-10.2) mg/dL Troponin I High Sens (<3.5-35.0) ng/L B-Natriuretic Peptide (<100) pg/mL COVID-19 (FERNANDA) Negative (Negative) COVID-19 Clin Com See Note ECG Data Attestation: I personally reviewed and interpreted this ECG as follows: Interpretation: Sinus tachycardia heart rate 113 beats per minute occasional pre major ventricular complexes with fusion complexes right axis deviation nonspecific ST T wave changes Discharge Plan Discharge Clinical Impression: Acute exacerbation of CHF (congestive heart failure), Uncontrolled hypertension Patient Disposition: Admitted As Inpatient
[2021-11-23 21:26] LABS: Basophils Percent Auto 0.3 % (0-2); Eosinophils Absolute Auto 0.1 X10*3/uL (0.0-0.4); Eosinophils Percent Auto 0.9 % (0-4); Hemoglobin 14.6 g/dl (14.0-18.0); Imm Gran Abs Auto 0.04 X10*3/uL (0.00-0.03); Imm Gran Pct Auto 0.4 % (0.0-0.4); Lymphocytes Absolute Auto 2.7 X10*3/uL (1.2-4.9); Lymphocytes Percent Auto 23.8 % (20-40); Mean Corpuscular HGB Conc 33.2 g/dl (31.0-36.0); Mean Corpuscular Hemoglobin 28.7 pg (27.0-33.0); Mean Corpuscular Volume 86.4 fL (80.0-98.0); Mean Platelet Volume 10.2 fL (9.4-12.4); Monocytes Absolute Auto 0.9 X10*3/uL (0.1-1.2); Neutrophils Absolute Auto 7.5 x10*3/uL (2.0-8.3); Neutrophils Percent Auto 66.6 % (45-73); Platelet Count 255 X10*3/uL (160-400); Red Blood Count 5.09 X10*6/uL (4.60-5.80); Red Cell Distribution Width 13.6 % (11.0-16.0); White Blood Count 11.3 X10*3/uL (4.8-10.8)
[2021-11-23 21:39] LABS: COVID-19 Test Negative (Negative)
[2021-11-23 21:41] LABS: Anion Gap 13 (12-20); Blood Urea Nitrogen 13 mg/dL (9-16); Calcium 9.3 mg/dL (8.4-10.2); Carbon Dioxide 28 mmol/L (22-29); Chloride 104 mmol/L (96-108); Creatinine Clr Calc Pharmacy 90.6; Estimated Glomerular Filt Rate > 60; Glucose Random 154 mg/dL (60-115); Potassium 3.5 mmol/L (3.3-5.1); Sodium 141 mmol/L (135-145)
[2021-11-23] MEDS: Furosemide 40 MG/4 ML VIAL IVPUSH (21:45)
[2021-11-23] MEDS: Metoprolol Tartrate 5 MG/5 ML VIAL IVPUSH (21:45)
[2021-11-23 21:46] VITALS: BP 159/111
[2021-11-23 21:46] LABS: B Type Natriuretic Peptide 3049 pg/mL (<100)
[2021-11-23] MEDS: Nitroglycerin 2 % Oint 1 GM Packet 1 INCH TRANSDERMA (21:46)
[2021-11-23] MEDS: Clopidogrel Bisulfate 75 MG TABLET PO (21:47)
[2021-11-23] MEDS: Aspirin 81 MG TAB.CHEW PO (21:49)
[2021-11-23 21:54] VITALS: RESP 25
[2021-11-23 22:04] LABS: Troponin-I High Sensitivity 33.1 ng/L (<3.5-35.0)
[2021-11-23] MEDS: ondansetron HCL 4 MG/2 ML VIAL IVPUSH (22:05)
--- NOTE | 2021-11-23 22:08 | PC.NURSE ---
Second line placed and pt medicated per Mar.
[2021-11-23 22:15] VITALS: BP 139/98
--- NOTE | 2021-11-23 23:37 | P.HPHOSP_ITS ---
History of Present Illness Date of Service: 11/23/21 Chief Complaint: SOB 56M With a past medical history of hypertension, hyperlipidemia, CAD, status post CABG, CHF, ascending aortic aneurysm presented to the hospital with a chief complaint of shortness of breath. Patient reports that over the past couple days he has been not taking his home medications as he ran out of them but he still has Lasix and has been taking it. For the same. He noted shortness of chest been gradually worsening. Worse on exertion/minimal activity. Denies any orthopnea or PND. Denies any weight gain. Denies any fever chills cough. Denies any urinary symptoms. Patient reports that he has been complaint with his salt diet. Review of all other systems is negative except mentioned above ER course: For ER team patient was noted to be hypertensive on presentation with blood pressure of 175/128; received nitro paste, Lasix, IV metoprolol. Chest x-ray showed congestion. Improved symptomatically. Admitted to the hospital for acute CHF exacerbation/hypertensive urgency. [facility] Medical History Ascending aortic aneurysm Atherosclerotic cardiovascular disease CAD (coronary artery disease) Cardiomyopathy CHF (congestive heart failure) Essential hypertension HLD (hyperlipidemia) HTN (hypertension) Ischemic cardiomyopathy Family History Father No problems noted. Mother No problems noted. Pertinent family history: as above Surgical History S/P cardiac cath S/P triple vessel bypass Status post double vessel coronary artery bypass Social History Household Members: Other Housing: Apartment Do you presently have visiting nurse or other home services: No Alcohol intake: never Patient Tobacco Use Status: Never used Tobacco Second Hand Smoke Exposure: No Use of substances other than those prescribed or required for medical reasons: No Substance Use Type: Marijuana Advance Directives: No Advance Directives Information Provided: No service: No Current occupational status: employed Meds Allergies Allergy/AdvReac Type Severity Reaction Status Date / Time No Known Allergies Allergy Verified 09/24/21 13:35 Physical Exam Verdana 4l Vital Signs and Narrative: Verdana 4d Verdana 4d Vital Signs: Verdana 4d Verdana 4Bd Last Vital Signs Verdana 4d Upsetter Helper New 4d Upsetter Helper New 4d Temp 96.9 F 11/23/21 21:00 Upsetter Helper New 4d Pulse 118 H 11/23/21 21:00 Upsetter Helper New 4d Resp 25 H 11/23/21 21:54 BP 139/98 H 11/23/21 22:15 Pulse Ox 96 11/23/21 21:00 BMI result Body Mass Index 27.4 Results Labs CBC and Chem 7: 11/23/21 21:18 11/23/21 21:18 Labs: Laboratory Results - last 24 hr 11/23/21 11/23/21 11/23/21 21:18 21:18 21:18 MCV 86.4 MCH 28.7 MCHC 33.2 RDW 13.6 Plt Count 255 MPV 10.2 Immature Gran % (Auto) 0.4 Neut % (Auto) 66.6 Lymph % (Auto) 23.8 Barton % (Auto) 8.0 Eos % (Auto) 0.9 Baso % (Auto) 0.3 Lymph # (Auto) 2.7 Barton # (Auto) 0.9 Eos # (Auto) 0.1 Baso # (Auto) 0.0 Abs Immat Gran (auto) 0.04 H Absolute Neuts (auto) 7.5 Absolute Nucleated RBC 0.000 Nucleated RBC % (auto) 0.0 Anion Gap 13 Estim Creat Clear Calc 90.6 Estimated GFR > 60 Random Glucose 154 H Calcium 9.3 Troponin I High Sens 33.1 B-Natriuretic Peptide 3049 H COVID-19 (FERNANDA) COVID-19 Clin Com 11/23/21 21:18 MCV MCH MCHC RDW Plt Count MPV Immature Gran % (Auto) Neut % (Auto) Lymph % (Auto) Barton % (Auto) Eos % (Auto) Baso % (Auto) Lymph # (Auto) Barton # (Auto) Eos # (Auto) Baso # (Auto) Abs Immat Gran (auto) Absolute Neuts (auto) Absolute Nucleated RBC Nucleated RBC % (auto) Anion Gap Estim Creat Clear Calc Estimated GFR Random Glucose Calcium Troponin I High Sens B-Natriuretic Peptide COVID-19 (FERNANDA) Negative COVID-19 Clin Com See Note Imaging Radiologist's Impressions: Impressions Chest X-Ray 11/23/21 21:35 IMPRESSION: Cardiomegaly. Status post median sternotomy. Mild central pulmonary vascular congestion without overt pulmonary edema. Assessment and Plan (1) CHF (congestive heart failure): Qualifiers: Heart failure chronicity: acute Heart failure type: systolic Qualified Code(s): I50.21 - Acute systolic (congestive) heart failure Status: Acute (2) Hypertensive urgency: Status: Acute Plan 56M With a past medical history of hypertension, hyperlipidemia, CAD, status post CABG, CHF, ascending aortic aneurysm presented to the hospital with a chief complaint of shortness of breath. noted to be in acute CHF exacerbation/hypertensive urgency. Admitted for further management. Acute CHF exacerbation: Echo: June 2021: EF of 45-50%. Grade 1 diastolic dysfunction. Dilated ascending aorta. Normal RV function. Patient proBNP is 304 9. Troponin 33.1. Received IV Lasix x1 in the ER. Daily weights and I's and O's Will give the patient on Lasix 40 mg IV daily Cardiology consult Telemetry Hypertensive urgency: Patient on presentation had blood pressure of 175/128. Denies any headaches. Has been noncompliant with his home metoprolol for the past couple days. Patient received nitro paste, Lasix, metoprolol ER. Blood pressure improved to 139/98. Continue home metoprolol. History of ascending aortic aneurysm: Currently blood pressure improving. Goal blood pressure less than 140/90. Labetalol p.r.n.. DVT prophylaxis: Lovenox Code status: Full code Quality Stroke Does the patient have a stroke diagnosis?: No VTE Prior VTE?: No VTE Risk Level:: Medical - moderate - high VTE Device Contraindication: Treatment Not Indicated VTE Drug Contraindication: N/A - Med Ordered
[2021-11-24 00:18] VITALS: BP 144/105; PULSE 86; RESP 18; TEMP 36.6; O2SAT 99
[2021-11-24] MEDS: Enoxaparin Sodium 40 MG/0.4 ML SYRINGE SUBCUT (00:23)
[2021-11-24] MEDS: 0.9 % Sodium Chloride Flush 3 ML SYRINGE IVFLUSH ×2 (00:24→08:47)
[2021-11-24] MEDS: Labetalol HCL 100 MG/20 ML VIAL 10 MG IVPUSH (01:30)
--- NOTE | 2021-11-24 01:37 | PC.NURSE ---
Patient's blood pressure is still elevated 150/100 and patient medicated with 10 mg ivp labetolol
[2021-11-24 02:34] VITALS: BP 134/94; PULSE 84; RESP 18; TEMP 36.3; O2SAT 95
[2021-11-24 03:53] VITALS: BP 130/86; PULSE 85; RESP 14; TEMP 36.2; O2SAT 90
[2021-11-24 07:07] LABS: MANUAL DIFF FLAG NO
[2021-11-24 07:15] LABS: Basophils Percent Auto 0.3 % (0-2); Eosinophils Absolute Auto 0.1 X10*3/uL (0.0-0.4); Eosinophils Percent Auto 0.6 % (0-4); Hematocrit 39.6 % (42.0-52.0); Imm Gran Abs Auto 0.03 X10*3/uL (0.00-0.03); Imm Gran Pct Auto 0.3 % (0.0-0.4); Lymphocytes Absolute Auto 2.4 X10*3/uL (1.2-4.9); Lymphocytes Percent Auto 27.5 % (20-40); Mean Corpuscular HGB Conc 32.8 g/dl (31.0-36.0); Mean Corpuscular Hemoglobin 28.4 pg (27.0-33.0); Mean Corpuscular Volume 86.7 fL (80.0-98.0); Mean Platelet Volume 10.2 fL (9.4-12.4); Monocytes Absolute Auto 0.9 X10*3/uL (0.1-1.2); Monocytes Percent Auto 10.1 % (2-11); Neutrophils Absolute Auto 5.4 x10*3/uL (2.0-8.3); Neutrophils Percent Auto 61.2 % (45-73); Platelet Count 215 X10*3/uL (160-400); Red Blood Count 4.57 X10*6/uL (4.60-5.80); Red Cell Distribution Width 13.7 % (11.0-16.0); White Blood Count 8.8 X10*3/uL (4.8-10.8)
[2021-11-24 07:28] LABS: Anion Gap 11 (12-20); Blood Urea Nitrogen 13 mg/dL (9-16); Calcium 8.8 mg/dL (8.4-10.2); Carbon Dioxide 32 mmol/L (22-29); Chloride 102 mmol/L (96-108); Creatinine Clr Calc Pharmacy 82.9; Estimated Glomerular Filt Rate > 60; Glucose Random 134 mg/dL (60-115); Potassium 3.6 mmol/L (3.3-5.1); Sodium 141 mmol/L (135-145)
[2021-11-24 07:41] VITALS: BP 129/90; PULSE 82; RESP 20; TEMP 36.6; O2SAT 96
--- NOTE | 2021-11-24 08:42 | PHA.MEDREC ---
Pharmacy Consult ? Medication Reconciliation Pharmacy has reviewed the medication reconciliation completed by Kavita. Patient no longer taking KCl. I removed from med list. Eve Mendoza, PharmD
[2021-11-24] MEDS: Clopidogrel Bisulfate 75 MG TABLET PO (08:47)
[2021-11-24] MEDS: Metoprolol Succinate ER 50 MG TAB.ER.24H PO (08:47)
[2021-11-24] MEDS: Aspirin Enteric Coated 81 MG TABLET.DR PO (08:47)
[2021-11-24] MEDS: Furosemide 40 MG/4 ML VIAL IVPUSH (08:47)
--- NOTE | 2021-11-24 09:25 | P.CONCA_ITS ---
History of Present Illness History of Present Illness Date of Service: 11/24/21 Chief complaint: Acute CHF Narrative: This is a cardiology consultation regarding shortness of breath. He states that he has been taking medications last few days as he ran out of it. However he is also fairly noncompliant. In fact he follows up in our office somewhat intermittently. During last appointment about 2 months ago, we had sent since several scripts for 90 days and also with 4 refills and hence I am not entirely clear as to why he states there was no refill. In any case, he has not taken meds for the last few days and presents with acute shortness of breath. Blood pressure was quite high upon arrival at 175/128 mm Hg. Currently it seems much improved. He states that he is also feeling better. No clear anginal-type symptoms or other cardiac complaints at this time. Has a background of coronary disease, coronary artery bypass surgery and ischemic cardiomyopathy. Review of Systems Verdana 4l Review of Systems: Verdana 4d Yes all other systems are reviewed and are negative Verdana 4l Cardiovascular: Verdana 4d Verdana 4d Cardiovascular: Verdana 4d Reports as per HPI, Reports no additional cardiovascular complaints, Denies acrocyanosis, Denies cool extremities, Denies painful fingertips, Denies chest pain, Denies chest pain at rest, Denies diaphoresis, DeniesDenies syncope, Denies irregular heart rhythm, Denies claudication, Denies leg edema, Denies lightheadedness, Denies palpitations and Reports dyspnea Respiratory: Respiratory: Reports dyspnea Neurologic: Denies syncope Endocrine: Endocrine: Denies palpitations [facility] Past Medical History Medical History (Updated 11/24/21 @ 09:34 by Luis Queen MD) Ascending aortic aneurysm Atherosclerotic cardiovascular disease CAD (coronary artery disease) Cardiomyopathy CHF (congestive heart failure) Essential hypertension HLD (hyperlipidemia) HTN (hypertension) Ischemic cardiomyopathy Family History Family History Father No problems noted. Mother No problems noted. Surgical History Surgical History S/P cardiac cath S/P triple vessel bypass Status post double vessel coronary artery bypass Social History Social History Household Members: Family Housing: Apartment Do you presently have visiting nurse or other home services: No Alcohol intake: never Patient Tobacco Use Status: Never used Tobacco Second Hand Smoke Exposure: No Use of substances other than those prescribed or required for medical reasons: No Substance Use Type: Marijuana Currently Displaying Signs/Symptoms of Drug Intoxication Withdrawal: No Have you been hit, kicked, punched, or otherwise hurt by someone within the past year? If so, by whom?: No Do you feel safe in your current relationship?: No Current Relationship Is there a partner from a previous relationship who is making you feel unsafe now?: No Are you made to feel afraid or neglected: No Advance Directives: No Advance Directives Information Provided: No Do you have thoughts of harming others: None Do you have a plan to hurt others: No Plan Recently lost weight without trying: Unsure Nutrition Risks: No Nutritional Risk service: No Current occupational status: employed Meds Allergies Allergy/AdvReac Type Severity Reaction Status Date / Time No Known Allergies Allergy Verified 09/24/21 13:35 Active Medications: Current Medications Acetaminophen (Acetaminophen 325 Mg Tablet) 650 mg PO Q6H PRN PRN Reason: Pain, Mild (Pain Scale 1-3) Aspirin (Aspirin Enteric Coated 81 Mg Tablet.) 81 mg PO DAILY [facility] Last Admin: 11/24/21 08:47 Dose: 81 mg Documented by: Clopidogrel Bisulfate (Clopidogrel Bisulfate 75 Mg Tablet) 75 mg PO DAILY [facility] Last Admin: 11/24/21 08:47 Dose: 75 mg Documented by: Enoxaparin Sodium (Enoxaparin Sodium 40 Mg/0.4 Ml Syringe) 40 mg SUBCUT Q24H [facility] Last Admin: 11/24/21 00:23 Dose: 40 mg Documented by: Furosemide (Furosemide 40 Mg/4 Ml Vial) 40 mg IVPUSH DAILY [facility]; Protocol Last Admin: 11/24/21 08:47 Dose: 40 mg Documented by: Hydromorphone HCl (Hydromorphone Hcl 1 Mg/Ml Syringe) 0.5 mg IVPUSH Q4H PRN; Protocol PRN Reason: Breakthrough Pain Labetalol HCl (Labetalol Hcl 100 Mg/20 Ml Vial) 10 mg IVPUSH Q4H PRN PRN Reason: BP>140/90 Last Admin: 11/24/21 01:30 Dose: 10 mg Documented by: Melatonin (Melatonin 3 Mg Tablet) 6 mg PO BEDTIME PRN PRN Reason: Insomnia Metoprolol Succinate (Metoprolol Succinate Er 50 Mg Tab.Er.24h) 50 mg PO DAILY [facility]; Protocol Last Admin: 11/24/21 08:47 Dose: 50 mg Documented by: Ondansetron HCl (Ondansetron Hcl 4 Mg/2 Ml Vial) 4 mg IVPUSH Q8H PRN PRN Reason: Nausea and Vomiting Senna (Sennosides 8.6 Mg Tablet) 17.2 mg PO BEDTIME PRN PRN Reason: Constipation Sodium Chloride (0.9 % Sodium Chloride Flush 3 Ml Syringe) 3 ml IVFLUSH QSHIFT [facility] Last Admin: 11/24/21 08:47 Dose: 3 ml Documented by: Physical Exam Verdana 4l Vital Signs: Verdana 4d Verdana 4d Vital Signs: Verdana 4d Verdana 4Bd Last Vital Signs Verdana 4d Concrete Engineering Technician New 4d Concrete Engineering Technician New 4d Temp 97.8 F 11/24/21 07:41 Concrete Engineering Technician New 4d Pulse 82 11/24/21 07:41 Concrete Engineering Technician New 4d Resp 20 11/24/21 07:41 BP 129/90 H 11/24/21 07:41 Pulse Ox 96 11/24/21 07:41 BMI result Body Mass Index 27.4 Const: General: no acute distress HENMT: Other: Unremarkable Neck: Neck: Yes normal visual inspection Chest: Chest palpation & inspection: normal inspection of the chest Resp: Auscultation: crackles (few fine crackles at base) and no wheezes Cardio: Palpation: normal PMI Heart sounds: S1 normal heart sound present, S2 normal heart sound present, no gallops, no murmurs and no rubs GI: Palpation (GI): Soft to palpation Back/Spine/Pelvis: Other: unremarkable Skin: Lesions: other Neuro: Cranial nerves: Yes Other cranial nerve findings present Extrem: General: Yes other Psych: Mental Status: other Objective Labs and Meds Result diagrams: 11/24/21 06:56 11/24/21 06:56 Lab results: Laboratory Results - last 24 hr 11/23/21 11/23/21 11/23/21 21:18 21:18 21:18 WBC 11.3 H RBC 5.09 Hgb 14.6 Hct 44.0 MCV 86.4 MCH 28.7 MCHC 33.2 RDW 13.6 Plt Count 255 MPV 10.2 Immature Gran % (Auto) 0.4 Neut % (Auto) 66.6 Lymph % (Auto) 23.8 Cass % (Auto) 8.0 Eos % (Auto) 0.9 Baso % (Auto) 0.3 Lymph # (Auto) 2.7 Cass # (Auto) 0.9 Eos # (Auto) 0.1 Baso # (Auto) 0.0 Abs Immat Gran (auto) 0.04 H Absolute Neuts (auto) 7.5 Absolute Nucleated RBC 0.000 Nucleated RBC % (auto) 0.0 Sodium 141 Potassium 3.5 Chloride 104 Carbon Dioxide 28 Anion Gap 13 BUN 13 Creatinine 0.86 Estim Creat Clear Calc 90.6 Estimated GFR > 60 Random Glucose 154 H Calcium 9.3 Troponin I High Sens 33.1 B-Natriuretic Peptide 3049 H COVID-19 (FERNANDA) COVID-19 Clin Com 11/23/21 11/24/21 11/24/21 21:18 06:56 06:56 WBC 8.8 RBC 4.57 L Hgb 13.0 L Hct 39.6 L MCV 86.7 MCH 28.4 MCHC 32.8 RDW 13.7 Plt Count 215 MPV 10.2 Immature Gran % (Auto) 0.3 Neut % (Auto) 61.2 Lymph % (Auto) 27.5 Cass % (Auto) 10.1 Eos % (Auto) 0.6 Baso % (Auto) 0.3 Lymph # (Auto) 2.4 Cass # (Auto) 0.9 Eos # (Auto) 0.1 Baso # (Auto) 0.0 Abs Immat Gran (auto) 0.03 Absolute Neuts (auto) 5.4 Absolute Nucleated RBC 0.000 Nucleated RBC % (auto) 0.0 Sodium 141 Potassium 3.6 Chloride 102 Carbon Dioxide 32 H Anion Gap 11 L BUN 13 Creatinine 0.94 Estim Creat Clear Calc 82.9 Estimated GFR > 60 Random Glucose 134 H Calcium 8.8 Troponin I High Sens B-Natriuretic Peptide COVID-19 (FERNANDA) Negative COVID-19 Clin Com See Note ECG Interpretation: EKG with sinus tachycardia, 113/Min; premature ventricular contractions; biatrial enlargement; old anteroseptal infarct; slight ST depression in inferior and anterolateral leads. Imaging Radiologist's impression: Impressions Chest X-Ray 11/23/21 21:35 IMPRESSION: Cardiomegaly. Status post median sternotomy. Mild central pulmonary vascular congestion without overt pulmonary edema. Assessment and Plan (1) Hypertensive emergency: Status: Acute (2) Acute on chronic diastolic (congestive) heart failure: Status: Acute (3) Ischemic cardiomyopathy: Status: Acute (4) Ascending aortic aneurysm: Status: Acute Plan Cardiac studies reviewed. Echocardiogram from last year had LVEF of 15-20%. In the most recent cardiac, 45-50%. He is status post coronary artery bypass surgery. He also has an ascending aortic enlargement. Noncompliance at baseline. Patient states no refills were given in spite of the fact that 90 day supplies were sent 2 months ago with 4 refills. Hence not clear what happened. It seems that he had a hypertensive urgency type situation leading to probably some degree of heart failure. Currently seems improved. Should be able to switch to oral diuretics. Continue beta-blockers. During last visit, statins were also sent but it does not seem to be on his list either. Ideally should be on statins to. Discussed with patient about medication compliance. Per last note, patient had complained of vomiting from Coreg and hence it was stopped. Then put on metoprolol. Entresto was expensive. Due to unreliable office visits he was not on BRISEYDA inhibitors or ARB due to difficulty in following up labs. Procedures Date of Service Date of Service: 11/24/21
--- NOTE | 2021-11-24 09:57 | MHC.CM.PN ---
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 PT DENIES HAVING A HCP HOWEVER CM HAS FOUND HCP ON FILE FROM PREVIOUS ADMISSION. D/C PLAN: ANTIC HOME TODAY W/DTR MAGO FOR TRANSPORT. HCP: MAGO RAMOS [phone],
--- NOTE | 2021-11-24 10:23 | MHC.CM.PN ---
CM MET W/PT TO DISCUSS HCP AND IF WE COULD TALK TO HIS [id number] STEPHEN [phone] D/T HER CALLING REPETITIVELY ASKING FOR INFORMATION AND FOR CM TO CHANGE PT'S HCP, PER PT HE DOES NOT WANT TO CHANGE HIS HCP AT THIS TIME AND WANT'S TO LEAVE IT HIS MOTHER ONLY, PT ALSO REQUESTS WE DO NOT SPEAK TO STEPHEN AND STATES, NO YOU DONT NEED TO TALK TO HER, YOU ALREADY DID ONCE CM WILL CONTACT PT'S MOTHER/HCP ALEXI [phone] AND LET HER KNOW.
[2021-11-24 11:51] VITALS: BP 140/61; PULSE 86; RESP 20; TEMP 36.8; O2SAT 97
[2021-11-24 15:11] LABS: B Type Natriuretic Peptide 2744 pg/mL (<100)
--- NOTE | 2021-11-24 15:22 | P.DS_ITS ---
DS: Providers Provider Date of Service: 11/24/21 Date of admission: 11/23/21 23:35 Primary care physician: Unknown Physician Consults: 11/23/21 23:35 Consult to Cardiology Routine Consulting Provider: Luis Queen Reason for consultation: acute CHF DS: Diagnosis Discharge Diagnosis (1) Hypertensive emergency: Status: Acute (2) Acute on chronic diastolic (congestive) heart failure: Status: Acute (3) Ischemic cardiomyopathy: Status: Acute (4) Ascending aortic aneurysm: Status: Acute DS: Summary Hospital Course Hospital Course: Chief Complaint: SOB 56M ? With a past medical history of hypertension, hyperlipidemia, CAD, status post CABG, CHF, ascending aortic aneurysm presented to the hospital with a chief complaint of shortness of breath.? Patient reports that over the past couple days he has been not taking his home medications as he ran out of them but he still has Lasix and has been taking it.? For the same.? He noted shortness of chest been gradually worsening.? Worse on exertion/minimal activity.? Denies any orthopnea or PND.? Denies any weight gain.? Denies any fever chills cough.? Denies any urinary symptoms.? Patient reports that he has been complaint with his salt diet.? Review of all other systems is negative except mentioned above ER course: For ER team patient was noted to be hypertensive on presentation with blood pressure of 175/128; received nitro paste, Lasix, IV metoprolol.? Chest x-ray showed congestion.? Improved symptomatically.? Admitted to the hospital for acute CHF exacerbation/hypertensive urgency. hospital course 56-year-old gentleman admitted to [facility] due to symptoms of shortness of breath of few days duration, since he ran out of his home medication except for Lasix in the emergency room patient was noted to have elevated blood pressure, and elevated BNP, chest x-ray showed mild central pulmonary vascular congestion without overt pulmonary edema,clinically patient noted to be in heart failure therefore admitted to [facility] for blood pressure treatment and treatment for CHF patient responded well after being placed on IV Lasix beat up blockers aspirin and Plavix this morning patient is feeling better denies chest pain no shortness of breath no orthopnea or PND slept well has been ambulating to bathroom BNP improved as well as blood pressure therefore will be discharged home an appointment with his PCP has been made for November 30 he has been strongly recommended to follow-up with PCP and to follow low-salt diet and compliance with his medications. Time Spent with Patient Time attestation: Total time spent providing and/or coordinating discharge services: Discharge coordination time: Greater than 30 minutes Quality: Stroke Does the patient have a stroke diagnosis?: No Physical Exam Verdana 4l Vital Signs: Verdana 4d Verdana 4d Vital Signs: Verdana 4d Verdana 4Bd Last Vital Signs Verdana 4d Coding Director New 4d Coding Director New 4d Temp 98.2 F 11/24/21 11:51 Coding Director New 4d Pulse 86 11/24/21 11:51 Coding Director New 4d Resp 20 11/24/21 11:51 BP 140/61 H 11/24/21 11:51 Pulse Ox 97 11/24/21 11:51 BMI result Body Mass Index 27.4 Const: Other: General no acute distress. Neck supple no JVD. CVS regular rate rhythm, Respiratory lungs clear to auscultation, no respiratory distress, No rales, speaking in full sentences Gastrointestinal abdomen soft, nontender, bowel sounds audible Extremities no edema. Neuro nonfocal patient moving all 4 extremity speech clear. Skin no rash psych appropriate affect DS: Data Data Completed and Pending Labs on day of discharge: Laboratory Results - last 24 hr 11/23/21 11/23/21 11/23/21 21:18 21:18 21:18 WBC 11.3 H RBC 5.09 Hgb 14.6 Hct 44.0 MCV 86.4 MCH 28.7 MCHC 33.2 RDW 13.6 Plt Count 255 MPV 10.2 Immature Gran % (Auto) 0.4 Neut % (Auto) 66.6 Lymph % (Auto) 23.8 Bonner % (Auto) 8.0 Eos % (Auto) 0.9 Baso % (Auto) 0.3 Lymph # (Auto) 2.7 Bonner # (Auto) 0.9 Eos # (Auto) 0.1 Baso # (Auto) 0.0 Abs Immat Gran (auto) 0.04 H Absolute Neuts (auto) 7.5 Absolute Nucleated RBC 0.000 Nucleated RBC % (auto) 0.0 Sodium 141 Potassium 3.5 Chloride 104 Carbon Dioxide 28 Anion Gap 13 BUN 13 Creatinine 0.86 Estim Creat Clear Calc 90.6 Estimated GFR > 60 Random Glucose 154 H Calcium 9.3 Troponin I High Sens 33.1 B-Natriuretic Peptide 3049 H COVID-19 (FERNANDA) COVID-19 Clin Com 11/23/21 11/24/21 11/24/21 21:18 06:56 06:56 WBC 8.8 RBC 4.57 L Hgb 13.0 L Hct 39.6 L MCV 86.7 MCH 28.4 MCHC 32.8 RDW 13.7 Plt Count 215 MPV 10.2 Immature Gran % (Auto) 0.3 Neut % (Auto) 61.2 Lymph % (Auto) 27.5 Bonner % (Auto) 10.1 Eos % (Auto) 0.6 Baso % (Auto) 0.3 Lymph # (Auto) 2.4 Bonner # (Auto) 0.9 Eos # (Auto) 0.1 Baso # (Auto) 0.0 Abs Immat Gran (auto) 0.03 Absolute Neuts (auto) 5.4 Absolute Nucleated RBC 0.000 Nucleated RBC % (auto) 0.0 Sodium 141 Potassium 3.6 Chloride 102 Carbon Dioxide 32 H Anion Gap 11 L BUN 13 Creatinine 0.94 Estim Creat Clear Calc 82.9 Estimated GFR > 60 Random Glucose 134 H Calcium 8.8 Troponin I High Sens B-Natriuretic Peptide COVID-19 (FERNANDA) Negative COVID-19 Clin Com See Note 11/24/21 14:33 WBC RBC Hgb Hct MCV MCH MCHC RDW Plt Count MPV Immature Gran % (Auto) Neut % (Auto) Lymph % (Auto) Bonner % (Auto) Eos % (Auto) Baso % (Auto) Lymph # (Auto) Bonner # (Auto) Eos # (Auto) Baso # (Auto) Abs Immat Gran (auto) Absolute Neuts (auto) Absolute Nucleated RBC Nucleated RBC % (auto) Sodium Potassium Chloride Carbon Dioxide Anion Gap BUN Creatinine Estim Creat Clear Calc Estimated GFR Random Glucose Calcium Troponin I High Sens B-Natriuretic Peptide 2744 H COVID-19 (FERNANDA) COVID-19 Clin Com Discharge Plan Discharge Patient Disposition: Home, Self-Care Discharge Diagnosis: acute on chronic congestive heart failure with reduced EF hypertensive urgency Referrals: Anamaria Spann MD [Physician] - 11/30/21 3:00 pm (You have a follow up appointment with Dr. Blanca Camacho on Tuesday, Februrary 7th at 3:00 pm. ) Physician,Unknown J [Primary Care Provider] - 1 Week Discharge Medications: Continued furosemide [Lasix] 40 mg tablet 40 mg PO DAILY Qty: 30 0RF metoprolol succinate [Toprol XL] 50 mg tablet extended release 24 hr 50 mg PO DAILY Qty: 30 0RF clopidogrel [Plavix] 75 mg tablet 75 mg PO DAILY Qty: 30 0RF aspirin 81 mg tablet,delayed release (DR/EC) 81 mg PO DAILY Qty: 90 3RF Discharge Orders: Discharge Order (Routine); Ordered 11/24/21 Ordered By: Jessica Bianchi Diet: low fat, low cholesterol and low salt diet Activity on Discharge: As tolerated Stand Alone Forms: Patient Portal Discharge page Care Plan Goals: congestive heart failure with preserved EF, recommend to take Lasix, metoprolol and follow low salt diet Health Concerns: hypertension/congestive heart failure recommend compliance with home medication Plan of Treatment: outpatient follow-up with primary care physician in 7-10 days Assessment: as per discharge summary
== END 2021-11-24 16:03 | disposition home or self-care (01) | DRG 194 ==
LOC: HO.ED 22:25 → HO.EDOVER 23:51 → HO.S3 11-24 01:38
PROVIDERS: Admitting Provider Hospitalist; Emergency Provider Internal Medicine; PCP Internal Medicine; Visit Provider Hospitalist
DX: I11.0 Hypertensive heart disease with heart failure (principal); I71.2 Thoracic aortic aneurysm, without rupture; Z95.1 Presence of aortocoronary bypass graft; E78.5 Hyperlipidemia, unspecified; I16.1 Hypertensive emergency; I25.10 Atherosclerotic heart disease of native coronary artery without angina pectoris; I25.5 Ischemic cardiomyopathy; Z91.14 Patient's other noncompliance with medication regimen; Z20.822 Contact with and (suspected) exposure to COVID-19; Z79.02 Long term (current) use of antithrombotics/antiplatelets; Z79.82 Long term (current) use of aspirin; Z79.899 Other long term (current) drug therapy
CPT/HCPCS: 36415; 71045; 80048; 83880; 84484; 85025; 87635; 93005; 96374; 96375; 99285; J1650; J1940; J2405

== ENCOUNTER 2021-12-02 11:48 | Inpatient (IN) | payer MEDICAID, SELFPAY ==
--- NOTE | ~2021-12-02 | XR_ITS ---
EXAMINATION: XR CHEST CLINICAL INFORMATION: Shortness of breath COMPARISON: November 23, 2021 and October 15, 2021 TECHNIQUE: 2 views of the chest were obtained. FINDINGS: The cardiopericardial silhouette is enlarged. There is no evidence of pulmonary edema. No pneumothorax or significant pleural effusion. Degenerative marginal spurring multiple levels thoracic spine present. Status post median sternotomy and CABG. XR/XR chest 2V IMPRESSION: Cardiomegaly without acute parenchymal disease.
[2021-12-02 12:10] VITALS: PULSE 97; RESP 19; TEMP 36.6; O2SAT 98; BMI 28.3
--- NOTE | 2021-12-02 12:15 | ECG_ITS ---
Test Reason : SOB Blood Pressure : / mmHG Vent. Rate : 092 BPM Atrial Rate : 092 BPM P-R Int : 202 ms QRS Dur : 100 ms QT Int : 424 ms P-R-T Axes : 051 068 050 degrees QTc Int : 524 ms Sinus rhythm with occasional Premature ventricular complexes Left atrial enlargement Left ventricular hypertrophy with repolarization abnormality ( [place] product ) Prolonged QT Abnormal ECG When compared with ECG of 23-NOV-2021 21:08, Fusion complexes are no longer Present QRS axis Shifted left T wave inversion no longer evident in Inferior leads Referred By: Generic ED Physician Electronically Signed By:Rohit Edwards
[2021-12-02 12:34] LABS: MANUAL DIFF FLAG NO
[2021-12-02 12:39] LABS: Basophils Percent Auto 0.4 % (0-2); Eosinophils Percent Auto 0.2 % (0-4); Hematocrit 43.8 % (42.0-52.0); Hemoglobin 14.8 g/dl (14.0-18.0); Imm Gran Abs Auto 0.02 X10*3/uL (0.00-0.03); Imm Gran Pct Auto 0.2 % (0.0-0.4); Lymphocytes Absolute Auto 1.9 X10*3/uL (1.2-4.9); Lymphocytes Percent Auto 19.4 % (20-40); Mean Corpuscular HGB Conc 33.8 g/dl (31.0-36.0); Mean Corpuscular Hemoglobin 29.1 pg (27.0-33.0); Mean Corpuscular Volume 86.2 fL (80.0-98.0); Mean Platelet Volume 10.1 fL (9.4-12.4); Monocytes Absolute Auto 0.9 X10*3/uL (0.1-1.2); Neutrophils Percent Auto 70.8 % (45-73); Platelet Count 252 X10*3/uL (160-400); Red Blood Count 5.08 X10*6/uL (4.60-5.80); Red Cell Distribution Width 14.5 % (11.0-16.0); White Blood Count 9.9 X10*3/uL (4.8-10.8)
[2021-12-02 12:56] LABS: Troponin-I High Sensitivity 25.7 ng/L (<3.5-35.0)
[2021-12-02 12:58] LABS: B Type Natriuretic Peptide 2938 pg/mL (<100)
[2021-12-02 13:07] LABS: Anion Gap 14 (12-20); Carbon Dioxide 31 mmol/L (22-29); Chloride 98 mmol/L (96-108); Creatinine Clr Calc Pharmacy 92.9; Estimated Glomerular Filt Rate > 60; Glucose Random 181 mg/dL (60-115); Potassium 3.3 mmol/L (3.3-5.1); Sodium 140 mmol/L (135-145)
--- NOTE | 2021-12-02 14:26 | PC.NURSE ---
spoke w pt in mwr as he inquired w registrationabout time when he'd be going in to the ED, pt w nad, no change or worsening in symptoms, I reviewed his results w him and his family, skin wpd, no signs of distress
[2021-12-02 15:02] LABS: Blood Urea Nitrogen 17 mg/dL (9-16); Calcium 9.6 mg/dL (8.4-10.2)
--- NOTE | 2021-12-02 16:52 | ED.GENADULT ---
HPI - General Adult General Chief complaint: Upper Respiratory Symptoms Stated complaint: diff breathing Time Seen by Provider: 12/02/21 16:48 Source: patient Mode of arrival: ambulatory Limitations: no limitations History of Present Illness HPI narrative: 56-year-old male came in for evaluation of shortness of breath. Symptoms started 3-4 weeks ago, that is worsening over the past 3 days patient cannot go to work because of shortness of breath, mostly exertional in origin, patient is taking Lasix daily but patient is known to be noncompliant with his medication, patient decline chest pain. Patient has a history of coronary artery disease with quadruple bypass cardiac surgery 7 months ago. Patient is known to have coronary artery disease with ischemic cardiomyopathy. Patient declined orthopnea or paroxysmal nocturnal dyspnea. Patient declined any fever or chills or coughing. No recent travel no risk for PE or DVT. Related Data Previous Rx's Medication Instructions Recorded aspirin 81 mg tablet,delayed 81 mg PO DAILY #90 tab 11/24/21 release clopidogrel 75 mg tablet (Plavix) 75 mg PO DAILY 60 Days #60 tab 11/30/21 furosemide 40 mg tablet (Lasix) 40 mg PO DAILY 60 Days #60 tab 11/30/21 metoprolol succinate 50 mg 50 mg PO DAILY 60 Days #60 tab 11/30/21 tablet,extended release 24 hr (Toprol XL) Allergies Allergy/AdvReac Type Severity Reaction Status Date / Time No Known Allergies Allergy Verified 09/24/21 13:35 Review of Systems Review of Systems: All other systems are reviewed and are negative Constitutional: Reports as per HPI and Reports no additional constitutional complaints Eyes: Reports as per HPI and Reports no additional eye complaints Reports system reviewed and no additional complaints, except as documented Cardiovascular: Reports as per HPI and Reports no additional cardiovascular complaints Respiratory: Reports as per HPI and Reports no additional respiratory complaints Gastrointestinal: Reports as per HPI and Reports no additional gastrointestinal complaints Genitourinary: Reports no additional female genitourinary complaints Musculoskeletal: Reports no additional musculoskeletal complaints Skin/Breast: Reports system reviewed and no additional complaints, except as docu Psychiatric: Reports no additional psychiatric complaints Endocrine: Reports no additional endocrine complaints Hematologic/Lymphatic: Reports no additional hematologic/lymphatic complaints Allergic/Immunologic: Reports no additional allergic/immunologic complaints Reports system reviewed and no additional complaints, except as documented and Reports Abnormal speech present [facility] Past Medical History Medical History Ascending aortic aneurysm Atherosclerotic cardiovascular disease CAD (coronary artery disease) Cardiomyopathy CHF (congestive heart failure) Essential hypertension HLD (hyperlipidemia) HTN (hypertension) Ischemic cardiomyopathy Surgical History S/P cardiac cath S/P triple vessel bypass Status post double vessel coronary artery bypass Family History Family History Father No problems noted. Mother No problems noted. Social History Social History Household Members: Family Housing: Apartment Do you presently have visiting nurse or other home services: No Alcohol intake: never Patient Tobacco Use Status: Never used Tobacco Second Hand Smoke Exposure: No Substance Use Type: Marijuana Advance Directives: No Advance Directives Information Provided: No service: No Current occupational status: employed Physical Exam Vital Signs: Vital Signs: Last Vital Signs Temp 98 F 12/02/21 12:10 Pulse 91 12/02/21 17:45 Resp 18 12/02/21 17:45 BP 167/117 H 12/02/21 17:45 Pulse Ox 98 12/02/21 17:45 BMI result Body Mass Index 28.3 Vital signs have been reviewed as appeared to be correct. Blood pressure normal. Heart rate normal. Respiration rate normal. Temperature normal. Oxygen saturation normal. Appearance: Alert. Oriented X3. No acute distress. Head: Normal external exam. Normocephalic. Atraumatic. No Kevin signs noted. No raccoon eyes noted Eyes: PERRLA. EOMI. Conjunctiva and sclera normal. Eyelids normal. ENT: TM's Normal. Pharynx normal. Uvula midline. Moist mucous membranes. No trismus noted. No drooling noted. No muffled voice noted. Neck: Normal inspection. Neck supple. FROM. No adenopathy. Thyroid Normal. No meningeal signs. No neck mass noted. CVS: Normal heart rate and rhythm. Heart sound normal. No murmurs noted. Pulses normal throughout. Respiratory: No respiratory distress. Painless inspiration. Breath sounds normal. Bilateral basilar rales. Chest nontender. No accessory muscle usage noted or decreased air movement noted. Abdomen: Soft and nontender. Bowel sounds normal in all 4 quadrants. No distention noted. No organomegaly noted. No visible injury noted. Back: No CVA tenderness. Full range of motion noted. Skin: Skin warm and dry. Normal skin color. Normal skin turgor. No rashes/lesions/lacerations noted. Extremities: +3 lower extremity edema. Extremities exhibit normal range of motion. Extremities nontender. Neuro: Oriented X 3. Cranial nerve exam: II-XII are grossly intact No motor deficit. No sensory deficit. Reflexes normal. Course Course Course Narrative: Assessment and plan. 56-year-old male with history of CAD with ischemic cardiomyopathy status post quadruple bypass surgery 7 months ago, patient normally takes Lasix that according to the old record patient is noncompliant with medication. QT prolongation with hypo magnesemia will replace magnesium. Patient presented with exertional dyspnea that is consistent with patient underline coronary artery ischemic cardiomyopathy, no risk for PE or DVT. Medical Decision Making Lab Data Lab results reviewed: Yes I reviewed the patient's lab results. Result diagrams: 12/02/21 12:27 12/02/21 12:27 Labs: Lab Results 12/02/21 12/02/21 12/02/21 Range/Units 12:27 12:27 12:27 WBC 9.9 (4.8-10.8) X10*3/uL RBC 5.08 (4.60-5.80) X10*6/uL Hgb 14.8 (14.0-18.0) g/dl Hct 43.8 (42.0-52.0) % MCV 86.2 (80.0-98.0) fL MCH 29.1 (27.0-33.0) pg MCHC 33.8 (31.0-36.0) g/dl RDW 14.5 (11.0-16.0) % Plt Count 252 (160-400) X10*3/uL MPV 10.1 (9.4-12.4) fL Immature Gran % (Auto) 0.2 (0.0-0.4) % Neut % (Auto) 70.8 (45-73) % Lymph % (Auto) 19.4 L (20-40) % [place] % (Auto) 9.0 (2-11) % Eos % (Auto) 0.2 (0-4) % Baso % (Auto) 0.4 (0-2) % Lymph # (Auto) 1.9 (1.2-4.9) X10*3/uL [place] # (Auto) 0.9 (0.1-1.2) X10*3/uL Eos # (Auto) 0.0 (0.0-0.4) X10*3/uL Baso # (Auto) 0.0 (0.0-0.2) X10*3/uL Abs Immat Gran (auto) 0.02 (0.00-0.03) X10*3/uL Absolute Neuts (auto) 7.0 (2.0-8.3) x10*3/uL Absolute Nucleated RBC 0.000 (0.0-0.012) X10*3/uL Nucleated RBC % (auto) 0.0 (0.0-0.2) /100WBC Sodium 140 (135-145) mmol/L Potassium 3.3 (3.3-5.1) mmol/L Chloride 98 (96-108) mmol/L Carbon Dioxide 31 H (22-29) mmol/L Anion Gap 14 (12-20) BUN 17 H (9-16) mg/dL Creatinine 0.85 (0.5-1.4) mg/dL Estim Creat Clear Calc 92.9 Estimated GFR > 60 Random Glucose 181 H D (60-115) mg/dL Calcium 9.6 D (8.4-10.2) mg/dL Magnesium 1.4 L* (1.6-2.6) mg/dL Troponin I High Sens 25.7 (<3.5-35.0) ng/L B-Natriuretic Peptide (<100) pg/mL 12/02/21 Range/Units 12:27 WBC (4.8-10.8) X10*3/uL RBC (4.60-5.80) X10*6/uL Hgb (14.0-18.0) g/dl Hct (42.0-52.0) % MCV (80.0-98.0) fL MCH (27.0-33.0) pg MCHC (31.0-36.0) g/dl RDW (11.0-16.0) % Plt Count (160-400) X10*3/uL MPV (9.4-12.4) fL Immature Gran % (Auto) (0.0-0.4) % Neut % (Auto) (45-73) % Lymph % (Auto) (20-40) % [place] % (Auto) (2-11) % Eos % (Auto) (0-4) % Baso % (Auto) (0-2) % Lymph # (Auto) (1.2-4.9) X10*3/uL [place] # (Auto) (0.1-1.2) X10*3/uL Eos # (Auto) (0.0-0.4) X10*3/uL Baso # (Auto) (0.0-0.2) X10*3/uL Abs Immat Gran (auto) (0.00-0.03) X10*3/uL Absolute Neuts (auto) (2.0-8.3) x10*3/uL Absolute Nucleated RBC (0.0-0.012) X10*3/uL Nucleated RBC % (auto) (0.0-0.2) /100WBC Sodium (135-145) mmol/L Potassium (3.3-5.1) mmol/L Chloride (96-108) mmol/L Carbon Dioxide (22-29) mmol/L Anion Gap (12-20) BUN (9-16) mg/dL Creatinine (0.5-1.4) mg/dL Estim Creat Clear Calc Estimated GFR Random Glucose (60-115) mg/dL Calcium (8.4-10.2) mg/dL Magnesium (1.6-2.6) mg/dL Troponin I High Sens (<3.5-35.0) ng/L B-Natriuretic Peptide 2938 H (<100) pg/mL Imaging Data Chest x-ray: Attestation: I personally reviewed and interpreted this imaging study as follows: Radiologist's impression: Cardiomegaly without acute parenchymal disease. ECG Data Attestation: I personally reviewed and interpreted this ECG as follows: Interpretation: Sinus rhythm at 92 beats per minutes with occasional PVCs, LVH, prolonged QT. Discharge Plan Discharge Clinical Impression: Cardiomyopathy, Congestive heart failure, Hypomagnesemia Patient Disposition: Admitted As Inpatient
[2021-12-02 17:45] VITALS: BP 167/117; PULSE 91; RESP 18; O2SAT 98
[2021-12-02 17:48] LABS: Magnesium 1.4 mg/dL (1.6-2.6)
[2021-12-02] MEDS: Nitroglycerin 2 % Oint 1 GM Packet 0.5 INCH TRANSDERMA (18:00)
[2021-12-02] MEDS: Furosemide 20 MG/2 ML VIAL IVPUSH (18:01)
[2021-12-02] MEDS: Magnesium Sulfate/H2O 2 GM/50 ML PIGGYBACK IV (18:02)
[2021-12-02 18:13] LABS: COVID-19 Test Negative (Negative)
[2021-12-02 18:35] VITALS: BP 175/116; PULSE 89; RESP 18; O2SAT 91
[2021-12-02 20:10] VITALS: BP 144/103; PULSE 83; RESP 23; TEMP 36.6; O2SAT 95
--- NOTE | 2021-12-02 20:52 | P.HPHOSP_ITS ---
History of Present Illness Date of Service: 12/02/21 Chief Complaint: SOB This is a 56-year-old male with past medical history of CHF With an ejection fraction of 45-50%.. on furosemide, CAD Status post coronary artery bypass surgery, HLD, HTN, ascending aortic aneurysm who presents to the hospital with complaints of worsening dyspnea on exertion. Patient reports that he has had difficulty with breathing for the past 4-5 days. he has orthopnea, PND, but no lower extremity edema. he reports dyspnea with minimal activity, even trying to go to the bathroom cause him severe dyspnea. He has no cough, no fever or chills, He denies any chest pain or palpitations. No dizziness headache or change in vision. Reports compliance with his Lasix but does drink 4-5 beers a day and sometimes hard liquor as well. Patient denies eating salty food. Of note he has had multiple admissions for the same issue with most recent 1 at the end of October and he was discharged on November 24. on arrival to the ED patient hemodynamically stable, satting 91%-98% on room air slightly elevated blood pressure with no tachypnea or tachycardia labs are significant for magnesium of 1.4, BNP of 2138 which is slightly higher than his last BNP on the day of his discharge. EKG showed sinus rhythm with occasional PVCs, QT of 524, chest x-ray showed no pulmonary congestion Review of Systems Review of Systems: Yes all other systems are reviewed and are negative [facility] Medical History Ascending aortic aneurysm Atherosclerotic cardiovascular disease CAD (coronary artery disease) Cardiomyopathy CHF (congestive heart failure) Essential hypertension HLD (hyperlipidemia) HTN (hypertension) Ischemic cardiomyopathy Family History Father No problems noted. Mother No problems noted. Surgical History S/P cardiac cath S/P triple vessel bypass Status post double vessel coronary artery bypass Social History (Updated 12/03/21 @ 06:08 by Jasmyne Wilkins MD) Household Members: Family Housing: Apartment Do you presently have visiting nurse or other home services: No Alcohol intake: current Alcohol intake frequency: holidays/special occasions only Alcohol type: beer Patient Tobacco Use Status: Never used Tobacco Second Hand Smoke Exposure: No Use of substances other than those prescribed or required for medical reasons: No Substance Use Type: Marijuana Advance Directives: No Advance Directives Information Provided: No service: No Current occupational status: employed Meds Allergies Allergy/AdvReac Type Severity Reaction Status Date / Time No Known Allergies Allergy Verified 09/24/21 13:35 Physical Exam Vital Signs and Narrative: Vital Signs: Last Vital Signs Temp 97.9 F 12/02/21 20:10 Pulse 83 12/02/21 20:10 Resp 23 H 12/02/21 20:10 BP 144/103 H 12/02/21 20:10 Pulse Ox 95 12/02/21 20:10 BMI result Body Mass Index 28.3 Const: General: cooperative and no acute distress Orientation/consciousness: patient oriented x3 Eyes: General: appearance normal, both eyes and all related structures Pupils: Equal, round and reactive pupils present Resp: Other: I could not appreciate any crackles Effort & Inspection: normal respiratory effort Auscultation: clear to auscultation bilaterally Cardio: Rate: regular rate Rhythm: regular rhythm GI: Palpation (GI): Soft to palpation Auscultation: normal bowel sounds Skin: General skin exam: no rashes or lesions noted Neuro: General: patient oriented x3 Cranial nerves: Yes Equal, round and reactive pupils present Cognition (Neuro): normal cognition Extrem: General: Yes normal to inspection and Yes no pedal edema Results Labs CBC and Chem 7: 12/02/21 12:27 12/02/21 12:27 Labs: Laboratory Results - last 24 hr 12/02/21 12/02/21 12/02/21 12:27 12:27 12:27 MCV 86.2 MCH 29.1 MCHC 33.8 RDW 14.5 Plt Count 252 MPV 10.1 Immature Gran % (Auto) 0.2 Neut % (Auto) 70.8 Lymph % (Auto) 19.4 L [place] % (Auto) 9.0 Eos % (Auto) 0.2 Baso % (Auto) 0.4 Lymph # (Auto) 1.9 [place] # (Auto) 0.9 Eos # (Auto) 0.0 Baso # (Auto) 0.0 Abs Immat Gran (auto) 0.02 Absolute Neuts (auto) 7.0 Absolute Nucleated RBC 0.000 Nucleated RBC % (auto) 0.0 Anion Gap 14 Estim Creat Clear Calc 92.9 Estimated GFR > 60 Random Glucose 181 H D Calcium 9.6 D Magnesium 1.4 L* B-Natriuretic Peptide 2938 H COVID-19 (FERNANDA) COVID-19 Clin Com 12/02/21 17:53 MCV MCH MCHC RDW Plt Count MPV Immature Gran % (Auto) Neut % (Auto) Lymph % (Auto) [place] % (Auto) Eos % (Auto) Baso % (Auto) Lymph # (Auto) [place] # (Auto) Eos # (Auto) Baso # (Auto) Abs Immat Gran (auto) Absolute Neuts (auto) Absolute Nucleated RBC Nucleated RBC % (auto) Anion Gap Estim Creat Clear Calc Estimated GFR Random Glucose Calcium Magnesium B-Natriuretic Peptide COVID-19 (FERNANDA) Negative COVID-19 Clin Com See Note Imaging Radiologist's Impressions: Impressions Chest X-Ray 12/02/21 12:35 IMPRESSION: Cardiomegaly without acute parenchymal disease. Assessment and Plan (1) Acute CHF: Status: Acute (2) Dyspnea: Status: Acute (3) Hypomagnesemia: Status: Acute (4) Alcohol abuse: Status: Acute (5) Prolonged QT interval: Status: Acute Plan 56-year-old male past medical history of CHF, CAD status post CABG presents to the hospital with complaints of dyspnea orthopnea and PND # acute dyspnea - likely secondary to CHF versus PE less likely - has dyspnea with exertion, fatigue, orthopnea, PND, elevated BNP pro most recent - chest x-ray negative at this time, EKG negative for any new changes, - will treat CHF as below, will obtain D-dimer to rule out PE # acute CHF - has orthopnea, PND, as well as elevated BNP - most recent echocardiogram shows an ejection fraction of 45-50% - patient on Lasix 40 at home and reports compliance - will treat with 40 Lasix IV b.i.d., low-sodium diet, daily weight, strict I&O - cardiology consult # prolonged QT interval - likely secondary to hypo magnesemia - magnesium repleted - will repeat EKG - avoid QT prolonging medications # acute hypomagnesemia - repleted - follow magnesium level # alcohol abuse - reports that he drinks about 4-5 beers daily, denies any history of alcohol withdrawal - currently has no evidence of withdrawal - last drink om 12/01 - Will place on CIWA with likely start on phenobarb if pt starts withdrawing # HTN - elevated - will resume home meds # CAD s/p CABG - resume ASA, and metoprolol as well as plavix dvt ppx: lovenox Quality Stroke Does the patient have a stroke diagnosis?: No VTE Prior VTE?: No VTE Risk Level:: Medical - moderate - high VTE Device Contraindication: Treatment Not Indicated VTE Drug Contraindication: N/A - Med Ordered
--- NOTE | 2021-12-02 21:01 | PHA.MEDREC ---
Pharmacy Consult ? Medication Reconciliation Pharmacy has completed the medication reconciliation.
[2021-12-02] MEDS: Furosemide 40 MG/4 ML VIAL IVPUSH (22:10)
[2021-12-02 22:26] VITALS: BP 167/109; PULSE 84; RESP 22; TEMP 36.4; O2SAT 92
--- NOTE | 2021-12-02 22:31 | PC.NURSE ---
Assumed care of pt from main ED. Pt ambulatory from stretcher to bed, attached to cafeteria monitor and pulse ox, provided w/ urinal. Call light at hand. Awaiting inpatient bed
--- NOTE | 2021-12-03 | ECG_ITS ---
Test Reason : CHEST PAIN Blood Pressure : / mmHG Vent. Rate : 083 BPM Atrial Rate : 083 BPM P-R Int : 206 ms QRS Dur : 104 ms QT Int : 436 ms P-R-T Axes : 051 084 061 degrees QTc Int : 512 ms Normal sinus rhythm Left atrial enlargement Left ventricular hypertrophy ( [place] product ) Cannot rule out Septal infarct , age undetermined Prolonged QT Abnormal ECG When compared with ECG of 02-DEC-2021 12:17, Premature ventricular complexes are no longer Present Referred By: Jasmyne Wilkins Electronically Signed By:Rohit Edwards
[2021-12-03 06:24] VITALS: BP 150/108; PULSE 86; RESP 24; O2SAT 95
[2021-12-03 07:21] VITALS: BP 152/109; PULSE 87; RESP 20; TEMP 36.6; O2SAT 95
[2021-12-03 07:29] LABS: MANUAL DIFF FLAG NO
[2021-12-03 07:34] LABS: Basophils Percent Auto 0.3 % (0-2); Eosinophils Absolute Auto 0.1 X10*3/uL (0.0-0.4); Hematocrit 43.5 % (42.0-52.0); Hemoglobin 14.9 g/dl (14.0-18.0); Imm Gran Abs Auto 0.02 X10*3/uL (0.00-0.03); Imm Gran Pct Auto 0.2 % (0.0-0.4); Lymphocytes Absolute Auto 2.3 X10*3/uL (1.2-4.9); Lymphocytes Percent Auto 25.6 % (20-40); Mean Corpuscular HGB Conc 34.3 g/dl (31.0-36.0); Mean Corpuscular Hemoglobin 29.3 pg (27.0-33.0); Mean Corpuscular Volume 85.6 fL (80.0-98.0); Mean Platelet Volume 10.1 fL (9.4-12.4); Monocytes Percent Auto 11.4 % (2-11); Neutrophils Absolute Auto 5.5 x10*3/uL (2.0-8.3); Neutrophils Percent Auto 61.5 % (45-73); Platelet Count 236 X10*3/uL (160-400); Red Blood Count 5.08 X10*6/uL (4.60-5.80); Red Cell Distribution Width 14.2 % (11.0-16.0); White Blood Count 8.9 X10*3/uL (4.8-10.8)
[2021-12-03 07:41] LABS: D Dimer High Sensitivity 319 NG/ML
[2021-12-03 07:42] VITALS: O2SAT 92
[2021-12-03 08:04] LABS: Anion Gap 13 (12-20); Blood Urea Nitrogen 16 mg/dL (9-16); Calcium 9.1 mg/dL (8.4-10.2); Carbon Dioxide 35 mmol/L (22-29); Chloride 95 mmol/L (96-108); Creatinine Clr Calc Pharmacy 88.8; Estimated Glomerular Filt Rate > 60; Glucose Random 125 mg/dL (60-115); Magnesium 1.3 mg/dL (1.6-2.6); Potassium 2.9 mmol/L (3.3-5.1); Sodium 140 mmol/L (135-145)
[2021-12-03] MEDS: Enoxaparin Sodium 40 MG/0.4 ML SYRINGE SUBCUT (09:17)
[2021-12-03] MEDS: Aspirin Enteric Coated 81 MG TABLET.DR PO (09:18)
[2021-12-03] MEDS: Furosemide 40 MG/4 ML VIAL IVPUSH ×2 (09:18→21:27)
[2021-12-03] MEDS: Metoprolol Succinate ER 50 MG TAB.ER.24H PO (09:18)
[2021-12-03] MEDS: Clopidogrel Bisulfate 75 MG TABLET PO (09:18)
--- NOTE | 2021-12-03 10:46 | PM.CNCAR ---
History of Present Illness History of Present Illness Date of Service: 12/03/21 Requesting physician: Jessica Bianchi Chief complaint: CHF exacerbation Narrative: 56-year-old gentleman presenting for shortness of breath. He had bypass surgery last year in April. He is saying he has been short of breath since then. Over the last few days he noted his breathing was worsening. He was unable to lay flat in bed he denies any palpitations. No chest pain or pressure. These symptoms presented to emergency department and was admitted. Clinically was in heart failure. He drinks 5-6 beers a day. He also did bring some whiskey. Electrolytes are of any has prolonged QT interval. Responding to medications. [facility] Past Medical History Medical History (Updated 12/03/21 @ 19:54 by Rohit Edwards MD) Ascending aortic aneurysm Atherosclerotic cardiovascular disease CAD (coronary artery disease) Cardiomyopathy CHF (congestive heart failure) Essential hypertension HLD (hyperlipidemia) HTN (hypertension) Ischemic cardiomyopathy Family History Family History Father No problems noted. Mother No problems noted. Surgical History Surgical History S/P cardiac cath S/P triple vessel bypass Status post double vessel coronary artery bypass Social History Social History (Updated 12/03/21 @ 06:08 by Jasmyne Wilkins MD) Household Members: Family Housing: Apartment Do you presently have visiting nurse or other home services: No Alcohol intake: current Alcohol intake frequency: holidays/special occasions only Alcohol type: beer Patient Tobacco Use Status: Never used Tobacco Second Hand Smoke Exposure: No Use of substances other than those prescribed or required for medical reasons: No Substance Use Type: Marijuana Advance Directives: Yes Advance Directives Information Provided: No Advance Directives on File: Yes Advance Directives Date on File: 12/03/21 service: No Current occupational status: employed Meds Allergies Allergy/AdvReac Type Severity Reaction Status Date / Time No Known Allergies Allergy Verified 09/24/21 13:35 Active Medications: Current Medications Acetaminophen (Acetaminophen 325 Mg Tablet) 650 mg PO Q6H PRN PRN Reason: Pain, Mild (Pain Scale 1-3) Aspirin (Aspirin Enteric Coated 81 Mg Tablet.) 81 mg PO DAILY [facility] Last Admin: 12/03/21 09:18 Dose: 81 mg Documented by: Clopidogrel Bisulfate (Clopidogrel Bisulfate 75 Mg Tablet) 75 mg PO DAILY [facility] Last Admin: 12/03/21 09:18 Dose: 75 mg Documented by: Docusate Sodium (Docusate Sodium 100 Mg Capsule) 100 mg PO DAILY PRN PRN Reason: Constipation Enoxaparin Sodium (Enoxaparin Sodium 40 Mg/0.4 Ml Syringe) 40 mg SUBCUT Q24H [facility] Last Admin: 12/03/21 09:17 Dose: 40 mg Documented by: Furosemide (Furosemide 40 Mg/4 Ml Vial) 40 mg IVPUSH Q12H [facility]; Protocol Last Admin: 12/03/21 09:18 Dose: 40 mg Documented by: Metoprolol Succinate (Metoprolol Succinate Er 50 Mg Tab.Er.24h) 50 mg PO DAILY [facility]; Protocol Last Admin: 12/03/21 09:18 Dose: 50 mg Documented by: Sodium Chloride (0.9 % Sodium Chloride Flush 3 Ml Syringe) 3 ml IVFLUSH QSHIFT [facility] Last Admin: 12/03/21 08:41 Dose: Not Given Documented by: Physical Exam Vital Signs: Vital Signs: Last Vital Signs Temp 97.8 F 12/03/21 07:21 Pulse 87 12/03/21 07:21 Resp 20 12/03/21 07:21 BP 152/109 H 12/03/21 07:21 Pulse Ox 92 12/03/21 07:42 Oxygen Flow Rate 2 12/03/21 07:42 BMI result Body Mass Index 28.3 GENERAL APPEARANCE: in no acute distress, pleasant. NECK: no carotid bruit, + jugular venous distention. SKIN: no suspicious lesions, warm and dry. HEART: no murmurs, regular rate and rhythm. S4 gallop. LUNGS: clear to auscultation bilaterally. ABDOMEN: soft, nontender. EXTREMITIES: no edema. PERIPHERAL PULSES: equal. NEUROLOGIC: No gross deficits, AAO X 3 Objective Labs and Meds Result diagrams: 12/03/21 07:13 12/03/21 07:13 Lab results: Laboratory Results - last 24 hr 12/02/21 12/02/21 12/02/21 12:27 12:27 12:27 WBC 9.9 RBC 5.08 Hgb 14.8 Hct 43.8 MCV 86.2 MCH 29.1 MCHC 33.8 RDW 14.5 Plt Count 252 MPV 10.1 Immature Gran % (Auto) 0.2 Neut % (Auto) 70.8 Lymph % (Auto) 19.4 L [place] % (Auto) 9.0 Eos % (Auto) 0.2 Baso % (Auto) 0.4 Lymph # (Auto) 1.9 [place] # (Auto) 0.9 Eos # (Auto) 0.0 Baso # (Auto) 0.0 Abs Immat Gran (auto) 0.02 Absolute Neuts (auto) 7.0 Absolute Nucleated RBC 0.000 Nucleated RBC % (auto) 0.0 D-Dimer High Sensitivty Sodium 140 Potassium 3.3 Chloride 98 Carbon Dioxide 31 H Anion Gap 14 BUN 17 H Creatinine 0.85 Estim Creat Clear Calc 92.9 Estimated GFR > 60 Random Glucose 181 H D Calcium 9.6 D Magnesium 1.4 L* Troponin I High Sens 25.7 B-Natriuretic Peptide COVID-19 (FERNANDA) COVID-[employer] 12/02/21 12/02/21 12/03/21 12:27 17:53 07:13 WBC 8.9 RBC 5.08 Hgb 14.9 Hct 43.5 MCV 85.6 MCH 29.3 MCHC 34.3 RDW 14.2 Plt Count 236 MPV 10.1 Immature Gran % (Auto) 0.2 Neut % (Auto) 61.5 Lymph % (Auto) 25.6 [place] % (Auto) 11.4 H Eos % (Auto) 1.0 Baso % (Auto) 0.3 Lymph # (Auto) 2.3 [place] # (Auto) 1.0 Eos # (Auto) 0.1 Baso # (Auto) 0.0 Abs Immat Gran (auto) 0.02 Absolute Neuts (auto) 5.5 Absolute Nucleated RBC 0.000 Nucleated RBC % (auto) 0.0 D-Dimer High Sensitivty Sodium Potassium Chloride Carbon Dioxide Anion Gap BUN Creatinine Estim Creat Clear Calc Estimated GFR Random Glucose Calcium Magnesium Troponin I High Sens B-Natriuretic Peptide 2938 H COVID-19 (FERNANDA) Negative COVID-19 Clin Com See Note 12/03/21 12/03/21 07:13 07:13 WBC RBC Hgb Hct MCV MCH MCHC RDW Plt Count MPV Immature Gran % (Auto) Neut % (Auto) Lymph % (Auto) [place] % (Auto) Eos % (Auto) Baso % (Auto) Lymph # (Auto) [place] # (Auto) Eos # (Auto) Baso # (Auto) Abs Immat Gran (auto) Absolute Neuts (auto) Absolute Nucleated RBC Nucleated RBC % (auto) D-Dimer High Sensitivty 319 Sodium 140 Potassium 2.9 L Chloride 95 L Carbon Dioxide 35 H Anion Gap 13 BUN 16 Creatinine 0.89 Estim Creat Clear Calc 88.8 Estimated GFR > 60 Random Glucose 125 H Calcium 9.1 Magnesium 1.3 L* Troponin I High Sens B-Natriuretic Peptide COVID-19 (FERNANDA) COVID-19 Clin Com Imaging Radiologist's impression: Impressions Chest X-Ray 12/02/21 12:35 IMPRESSION: Cardiomegaly without acute parenchymal disease. Assessment and Plan (1) Prolonged QT interval: Status: Acute (2) Alcohol abuse: Status: Acute (3) CHF (congestive heart failure): Qualifiers: Heart failure chronicity: acute Heart failure type: systolic Qualified Code(s): I50.21 - Acute systolic (congestive) heart failure Status: Acute Plan 56-year-old gentleman with background history of alcohol use, hypertension and cardiomyopathy. He underwent cardiac catheterization April 2021 which showed severe triple-vessel disease. He was referred for bypass surgery. In April 2021 he had ejection fraction of 10%. It appears he underwent bypass surgery. The details of his bypasses are currently unclear to me. Is presenting because he has been short of breath. Clinically he is in heart failure. Continue IV diuretics. Blood pressure is elevated. He drinks alcohol daily. 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 Any case right now he is overloaded and I think we should diurese him. Adding Entresto and isosorbide mononitrate. CIWA scale. Repeat echocardiogram Thank you for allowing me to participate in the care of your patient. Please feel free to contact me if you have any questions. Procedures Date of Service Date of Service: 12/03/21
--- NOTE | 2021-12-03 12:40 | P.PNIM_ITS ---
Subjective Subjective Date of Service: 12/03/21 Interval History: feeling better this morning denies chest pain, shortness of breath has improved, admits to drinking alcohol few beers after work, denies PND, no orthopnea, no other acute events overnight. Review of Systems [employer] no headache, no dizziness CVS no chest pain, no palpitation GI no nausea, no vomiting musculoskeletal no pain Review of Systems: Yes all other systems are reviewed and are negative Physical Exam Vital Signs: Vital Signs: Last Vital Signs Temp 97.8 F 12/03/21 07:21 Pulse 87 12/03/21 07:21 Resp 20 12/03/21 07:21 BP 152/109 H 12/03/21 07:21 Pulse Ox 92 12/03/21 07:42 Oxygen Flow Rate 2 12/03/21 07:42 BMI result Body Mass Index 28.3 Objective Data Active Medications Acetaminophen (Acetaminophen 325 Mg Tablet) 650 mg PO Q6H PRN PRN Reason: Pain, Mild (Pain Scale 1-3) Aspirin (Aspirin Enteric Coated 81 Mg Tablet.) 81 mg PO DAILY [facility] Last Admin: 12/03/21 09:18 Dose: 81 mg Documented by: BR[facility] Clopidogrel Bisulfate (Clopidogrel Bisulfate 75 Mg Tablet) 75 mg PO DAILY [facility] Last Admin: 12/03/21 09:18 Dose: 75 mg Documented by: BRIGETTE Docusate Sodium (Docusate Sodium 100 Mg Capsule) 100 mg PO DAILY PRN PRN Reason: Constipation Enoxaparin Sodium (Enoxaparin Sodium 40 Mg/0.4 Ml Syringe) 40 mg SUBCUT Q24H [facility] Last Admin: 12/03/21 09:17 Dose: 40 mg Documented by: BRIGETTE Furosemide (Furosemide 40 Mg/4 Ml Vial) 40 mg IVPUSH Q12H [facility]; Protocol Last Admin: 12/03/21 09:18 Dose: 40 mg Documented by: BRIGETTE Magnesium Sulfate (Magnesium Sulfate/H2o) 2 gm in 50 mls @ 25 mls/hr IV NOW STA Stop: 12/03/21 14:34 Metoprolol Succinate (Metoprolol Succinate Er 50 Mg Tab.Er.24h) 50 mg PO DAILY [facility]; Protocol Last Admin: 12/03/21 09:18 Dose: 50 mg Documented by: BRIGETTE Potassium Chloride (Potassium Chloride Er 20 Meq Tab.Er.Prt) 40 meq PO DAILY [facility] Sodium Chloride (0.9 % Sodium Chloride Flush 3 Ml Syringe) 3 ml IVFLUSH QSHIFT [facility] Last Admin: 12/03/21 08:41 Dose: Not Given Documented by: BRIGETTE Non-Admin Reason: IV Running Labs CBC & Chem 7: 12/03/21 07:13 12/03/21 07:13 Labs: Laboratory Results - last 24 hr 12/02/21 12/02/21 12/02/21 12:27 12:27 12:27 MCV 86.2 MCH 29.1 MCHC 33.8 RDW 14.5 Plt Count 252 MPV 10.1 Immature Gran % (Auto) 0.2 Neut % (Auto) 70.8 Lymph % (Auto) 19.4 L [place] % (Auto) 9.0 Eos % (Auto) 0.2 Baso % (Auto) 0.4 Lymph # (Auto) 1.9 [place] # (Auto) 0.9 Eos # (Auto) 0.0 Baso # (Auto) 0.0 Abs Immat Gran (auto) 0.02 Absolute Neuts (auto) 7.0 Absolute Nucleated RBC 0.000 Nucleated RBC % (auto) 0.0 D-Dimer High Sensitivty Anion Gap 14 Estim Creat Clear Calc 92.9 Estimated GFR > 60 Random Glucose 181 H D Calcium 9.6 D Magnesium 1.4 L* B-Natriuretic Peptide 2938 H COVID-19 (FERNANDA) COVID-19 Clin Com 12/02/21 12/03/21 12/03/21 17:53 07:13 07:13 MCV 85.6 MCH 29.3 MCHC 34.3 RDW 14.2 Plt Count 236 MPV 10.1 Immature Gran % (Auto) 0.2 Neut % (Auto) 61.5 Lymph % (Auto) 25.6 [place] % (Auto) 11.4 H Eos % (Auto) 1.0 Baso % (Auto) 0.3 Lymph # (Auto) 2.3 [place] # (Auto) 1.0 Eos # (Auto) 0.1 Baso # (Auto) 0.0 Abs Immat Gran (auto) 0.02 Absolute Neuts (auto) 5.5 Absolute Nucleated RBC 0.000 Nucleated RBC % (auto) 0.0 D-Dimer High Sensitivty Anion Gap 13 Estim Creat Clear Calc 88.8 Estimated GFR > 60 Random Glucose 125 H Calcium 9.1 Magnesium 1.3 L* B-Natriuretic Peptide COVID-19 (FERNANDA) Negative COVID-19 Clin Com See Note 12/03/21 07:13 MCV MCH MCHC RDW Plt Count MPV Immature Gran % (Auto) Neut % (Auto) Lymph % (Auto) [place] % (Auto) Eos % (Auto) Baso % (Auto) Lymph # (Auto) [place] # (Auto) Eos # (Auto) Baso # (Auto) Abs Immat Gran (auto) Absolute Neuts (auto) Absolute Nucleated RBC Nucleated RBC % (auto) D-Dimer High Sensitivty 319 Anion Gap Estim Creat Clear Calc Estimated GFR Random Glucose Calcium Magnesium B-Natriuretic Peptide COVID-19 (FERNANDA) COVID-19 Clin Com Assessment and Plan (1) Alcohol abuse: Status: Acute (2) Hypomagnesemia: Status: Acute (3) CAD (coronary artery disease): Status: Acute (4) HTN (hypertension): Status: Acute Plan 56-year-old male past medical history of CHF, CAD status post CABG presents to the hospital with complaints of dyspnea orthopnea and PND # acute on chronic diastolic heart failure? presented with dyspnea on exertion, no PND, no orthopnea ? has prior history of ischemic cardiomyopathy with EF 15-20% in December 2020 , in July 14 repeat echo showed improvement EF to 45-50% with grade 1 mild diastolic dysfunction ? shortness of breath improved with IV Lasix , will continue gentle diuresis with Lasix 40 b.i.d. will repeat echocardiogram to check for EF,pt. also has history of dilatation of ascending aortic , there is also interatrial septal aneurysm folow i/os, Mg,BMP and BNP while being diuresed chest x-ray negative,, EKG negative for any new changes, await cardiology input #? prolonged QT interval ? likely secondary to hypo magnesemia, repeat EKG showed persistent elevated QT improved from 524-512 follow EKG and replete magnesium # acute hypomagnesemia -? due to alcohol abuse and diuretics,repleted, follow labs # hypokalemia likely due to diuretics will replete and follow labs #? alcohol abuse ? reports that he drinks about 4-5 beers daily, denies any history of alcohol withdrawal no evidence of withdrawal, last drink on 12/01 follow CIWA, if noted to have withdrawal will start phenobarb protocol # HTN Elevated blood pressures on Toprol-XL 50 mg by mouth daily, will discuss with Cardiology regarding adding arbs, was not placed on Entresto in the past due to cost # CAD s/p CABG continue ASA, metoprolol and plavix, check lipid profile, not on statins. dvt ppx: lovenox Quality Stroke Does the patient have a stroke diagnosis?: No VTE Prior VTE?: No VTE Risk Level:: Medical - moderate - high VTE Device Contraindication: Treatment Not Indicated VTE Drug Contraindication: N/A - Med Ordered
[2021-12-03] MEDS: Potassium Chloride ER 20 MEQ TAB.ER.PRT 40 MEQ PO (12:43)
[2021-12-03] MEDS: Magnesium Sulfate/H2O 2 GM/50 ML PIGGYBACK IV (12:43)
--- NOTE | 2021-12-03 13:24 | MHC.CM.PN ---
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 DAUGHTER TO TRANSPORT
[2021-12-03 16:00] VITALS: BP 151/106; PULSE 90; RESP 15; TEMP 36.2; O2SAT 98
[2021-12-03] MEDS: Sacubitril/Valsartan 24/26 1 TAB TABLET PO (21:27)
[2021-12-03] MEDS: Isosorbide Mononitrate 30 MG TAB.ER.24H PO (21:27)
--- NOTE | 2021-12-03 23:40 | MHC.PIE ---
P.9 BEAT VTACH I. PT HAD 9 BEAT VTACH,SLEEPING.AWAKENED,ASYMPTOMATIC,BP 109/66,HR 73.SR ON MONITOR.DENIES PAIN,NO SOB.DR CAPELLAN NOTIFIED.NO NEW ORDERS. E.CONT TO MONITOR
[2021-12-03] MEDS: 0.9 % Sodium Chloride Flush 3 ML SYRINGE IVFLUSH (23:47)
[2021-12-03 23:50] VITALS: BP 109/66; PULSE 73
--- NOTE | 2021-12-04 | ECG_ITS ---
Test Reason : CHF Blood Pressure : / mmHG Vent. Rate : 079 BPM Atrial Rate : 079 BPM P-R Int : 188 ms QRS Dur : 100 ms QT Int : 434 ms P-R-T Axes : 059 080 022 degrees QTc Int : 497 ms Normal sinus rhythm Left atrial enlargement Left ventricular hypertrophy ( [place] product ) Cannot rule out Septal infarct (cited on or before 03-DEC-2021) Abnormal ECG When compared with ECG of 03-DEC-2021 06:15, Nonspecific T wave abnormality, worse in Inferior leads Referred By: Ilir Weldon Electronically Signed By:Rohit Edwards
[2021-12-04 00:53] VITALS: BP 109/74; PULSE 79; RESP 18; TEMP 36.6; O2SAT 96
[2021-12-04 04:00] VITALS: BP 110/60; PULSE 74
[2021-12-04 07:04] LABS: Anion Gap 14 (12-20); Blood Urea Nitrogen 21 mg/dL (9-16); Calcium 9.1 mg/dL (8.4-10.2); Carbon Dioxide 34 mmol/L (22-29); Chloride 97 mmol/L (96-108); Cholesterol 178 mg/dL; Creatinine Clr Calc Pharmacy 69.9; Estimated Glomerular Filt Rate > 60; Glucose Random 141 mg/dL (60-115); HDL Cholesterol 36 mg/dL; LDL Cholesterol Calculated 126 mg/dl; Magnesium 1.7 mg/dL (1.6-2.6); Potassium 3.7 mmol/L (3.3-5.1); Sodium 141 mmol/L (135-145); Triglycerides 80 mg/dL
[2021-12-04 07:07] LABS: B Type Natriuretic Peptide 1758 pg/mL (<100)
[2021-12-04 07:23] VITALS: BP 140/99; PULSE 88; RESP 18; O2SAT 98
[2021-12-04] MEDS: Potassium Chloride ER 20 MEQ TAB.ER.PRT 40 MEQ PO (07:53)
[2021-12-04] MEDS: Isosorbide Mononitrate 30 MG TAB.ER.24H PO (07:54)
[2021-12-04] MEDS: Furosemide 40 MG/4 ML VIAL IVPUSH (07:54)
[2021-12-04] MEDS: Clopidogrel Bisulfate 75 MG TABLET PO (07:54)
[2021-12-04] MEDS: Metoprolol Succinate ER 50 MG TAB.ER.24H PO (07:54)
[2021-12-04] MEDS: Aspirin Enteric Coated 81 MG TABLET.DR PO (07:54)
[2021-12-04] MEDS: Sacubitril/Valsartan 24/26 1 TAB TABLET PO (07:54)
[2021-12-04] MEDS: Enoxaparin Sodium 40 MG/0.4 ML SYRINGE SUBCUT (07:55)
[2021-12-04] MEDS: 0.9 % Sodium Chloride Flush 3 ML SYRINGE IVFLUSH (08:27)
--- NOTE | 2021-12-04 09:22 | PC.NURSE ---
PT IS AWAKE, NO RESP DIFFICULTY, NO CP, VSS
--- NOTE | 2021-12-04 10:00 | CA_ITS ---
Transthoracic Echocardiogram Patient (Last, First, Middle): Julian Thomason G Gender: Male Date of : 1965 Age: 56 Procedure Date: 12/04/2021 Procedure Type: Transthoracic Echocardiogram Location: ER Height: 165.1 cm Weight: 77.11 kg BSA: 1.85 m2 Heart Rate: bpm BP: 152 / 109 mmHg Chief Revenue Officer: YR/TO Referring MD: Jessica Bianchi MD Symptoms: chf f/u on ef and aortic dilatation Study Quality: Fair Conclusions: - Mildly increased left ventricular cavity size. There is mildly increased left ventricular wall thickness. The left ventricular systolic function is severely decreased. The visually estimated ejection fraction is between 10-15%. - Normal right ventricular cavity size. There is moderate to severely decreased right ventricular systolic function. - The left atrium is moderately dilated. - There is moderate dilatation of the ascending aorta measuring 4.40 cm. Findings Left Ventricle Mildly increased left ventricular cavity size. There is mildly increased left ventricular wall thickness. The left ventricular systolic function is severely decreased. The visually estimated ejection fraction is between 10 15%. There is severe global hypokinesis. Abnormal diastolic function is noted. Spectral Doppler is indicative of an impaired relaxation filling pattern. LV pressures are indeterminate. Right Ventricle Normal right ventricular cavity size. There is moderate to severely decreased right ventricular systolic function. Atria The left atrium is moderately dilated. The right atrium is normal in size. Aortic Valve Normal aortic valve structure and function. There is no aortic valve stenosis. There is trace (trivial) aortic valve regurgitation. Mitral Valve The mitral valve appears normal. There is no mitral valve regurgitation. There is no mitral valve stenosis. Pulmonic Valve Normal pulmonic valve structure and function. There is trace pulmonic valve regurgitation. Tricuspid Valve Normal tricuspid valve structure and function. There is trace tricuspid valve regurgitation. Tricuspid regurgitation envelope is inadequate for calculation of right ventricular systolic pressure. Normal right atrial pressure. Great Vessels There is moderate dilatation of the ascending aorta measuring 4.40 cm. The visualized portions of the pulmonary artery and branches are normal. Venous The inferior vena cava is normal in size and collapses greater than 50% with inspiration. Pericardium/Pleural There is no evidence of pericardial effusion. Prior Study Comparison Significant changes compared to prior study dated: 07/01/2021. DIlated LV with EF 10-15%, RV function moderate to severely reduced. Measurements 2D Linear Measurements IVSd: 1.06 0.6-0.9/0.6-1.0 cm LVIDd: 6.19 3.9-5.3/4.2-5.9 cm LVIDd Index: 3.35 2.4-3.2/2.2-3.1 cm/m2 LVIDs: 5.56 2.0-3.6 cm LVPWd: 1.12 0.7-1.1 cm Ao Root: 4.40 2.1-3.5 cm LA Diam: 3.40 2.7-3.8/3.0-4.0 cm LAIDs Index: 1.84 1.5-2.3 cm/m2 LV Mass: 363.17 67-162/88-224 g LV Mass Index: 196.31 43-95/49-115 g/m2 LVOT Diam: 2.20 3.0+(-)1.3 cm 2D Systolic Function EF 4C: 18.60 >55% EF 2C: 22.00 >55% EF BiP: 20.90 >55% Mitral Valve MV Pk E: 0.63 MV PK A: 0.80 MV Decel Time: 104.00 E/A: 0.80 PHT: 31.00 MVA PHT: 7.10 Decel Roseau: 6.00 Aortic Valve AoV Pk Harrison: 0.92 AoV Mn Harrison: 0.70 AoV VTI: 0.17 AoV Pk Grad: 3.00 Aov Mn Grad: 2.00 THEE Cont.VTI: 1.92 LVOT LVOT Pk Harrison: 0.50 LVOT Mn Harrison: 0.37 LVOT VTI: 0.09 LVOT Pk Grad: 1.00 LVOT Mn Grad: 1.00 LVOT Diam: 2.20 LVOT Area: 3.80 Diastolic Function MV Pk E: 0.63 MV Pk A: 0.80 E/A: 0.80 Right Ventricle TAPSE (mm): 10.00 TVS' Harrison: 4.90 Tricuspid Valve RA Press: 3.00 Great Vessels Aorta Ao Root-2D: 4.40 2.0-3.7 cm Ao Asc: 4.40 2.1-3.4 cm Updated in Other Vendor System with Status of Final Rohit Edwards MD electronically signed on 12/04/2021 12:59:27 PM with status of Final
--- NOTE | 2021-12-04 10:19 | PM.DS ---
DS: Providers Provider Date of Service: 12/04/21 Date of admission: 12/02/21 20:49 Primary care physician: Anamaria Spann MD Consults: 12/02/21 20:47 Consult to Cardiology Routine Consulting Provider: Rohit Edwards Reason for consultation: recurrent CHF exacerbation Has provider been notified: No DS: Diagnosis Discharge Diagnosis (1) Prolonged QT interval: Status: Acute (2) Alcohol abuse: Status: Acute (3) CHF (congestive heart failure): Status: Acute DS: Summary Hospital Course Hospital Course: Chief Complaint: SOB This is a 56-year-old male with past medical history of CHF? With an ejection fraction of ? 45-50%.. on furosemide, CAD? Status post coronary artery bypass surgery, HLD, HTN, ascending aortic aneurysm who presents to the hospital with complaints of worsening dyspnea on exertion.? Patient reports that he has had difficulty with breathing for the past 4-5 days. he has orthopnea, PND, but no lower extremity edema.? he reports dyspnea with minimal activity, even trying to go to the bathroom cause him severe dyspnea. He has no cough, no fever or chills,? He denies any chest pain or palpitations.? No dizziness headache or change in vision.? Reports compliance with his Lasix but does drink 4-5 beers a day and sometimes hard liquor as well.? Patient? denies eating salty food.? Of note he has had multiple admissions for the same issue with most recent 1 at the end of October and he was discharged on November 24. ?on arrival to the ED patient hemodynamically stable, satting 91%-98% on room air slightly elevated blood pressure with no tachypnea or tachycardi ?labs are significant for magnesium of 1.4, BNP of 2138 which is? slightly higher than his last BNP on the day of his discharge. ? EKG showed sinus rhythm with occasional PVCs, QT of 524, ?chest x-ray showed no pulmonary congestion Hospital course: # He presented with SOB and noted to be have exacerbation of heart failure... He has history of cardiomyopathy believed to be comibined ischemia and alcohol related. EF 15-20%? in December 2020 , in July 14 repeat echo showed improvement EF to 45-50% with grade 1 mild diastolic dysfunction, BNP was signicantly high and his beeen diuresed with IV Lasix 40 bid with good efect, symptoms have improved. Cardiology has added Entresto, and Imdur to his regimen along with Metoprolol. He should salt and limit fluid intake. Will change Lasix to 40 bid from 40 daily and continue to monitor BMP. Echo shows reduced EF of 10 %. Repeat ECG shows QTC to be less than 500 ??? shortness of breath improved with IV Lasix , will continue gentle diuresis with Lasix 40 b.i.d. ? ? #? prolonged QT interval of 512.. Possibly due to low mag. replaced. Repeat ECG #? acute hypomagnesemia---Corected #? hypokalemia likely due to diuretics--corrected with supplement #? alcohol abuse ??? reports that he drinks about 4-5 beers daily, denies any history of alcohol withdrawal ? ? no evidence of withdrawal during this visit ? # HTN? Elevated blood pressures on Toprol-XL 50 mg by mouth daily, Entresto and Imdur added, blood pressure is better # CAD s/p CABG ?? continue ASA, metoprolol and plavix, check lipid profile, not on statins. Final diagnoses: Acute systolic CHF Prolonged QTC HTN Alcohol use desorder Hypomagnesemia Time Spent with Patient Time attestation: Total time spent providing and/or coordinating discharge services: Discharge coordination time: Greater than 30 minutes Quality: Stroke Does the patient have a stroke diagnosis?: No Physical Exam Vital Signs: Vital Signs: Last Vital Signs Temp 97.9 F 12/04/21 00:53 Pulse 88 12/04/21 07:23 Resp 18 12/04/21 07:23 BP 140/99 H 12/04/21 07:23 Pulse Ox 98 12/04/21 07:23 Oxygen Flow Rate 2 12/03/21 07:42 BMI result Body Mass Index 28.3 DS: Data Data Completed and Pending Labs on day of discharge: Laboratory Results - last 24 hr 12/04/21 12/04/21 06:30 06:30 Sodium 141 Potassium 3.7 D Chloride 97 Carbon Dioxide 34 H Anion Gap 14 BUN 21 H Creatinine 1.13 Estim Creat Clear Calc 69.9 Estimated GFR > 60 Random Glucose 141 H Calcium 9.1 Magnesium 1.7 B-Natriuretic Peptide 1758 H Triglycerides 80 Cholesterol 178 LDL Cholesterol, Calc 126 HDL Cholesterol 36 Discharge Plan Discharge Anticipated Discharge Date/Time: 12/04/21 10:15 Patient Disposition: Home, Self-Care Discharge Diagnosis: Exacerbation of CHF Referrals: Anamaria Spann MD [Primary Care Provider] - 1 Week Discharge Medications: New isosorbide mononitrate 30 mg Tablet Extended Release 24 Hr 30 mg PO DAILY Qty: 30 0RF Protocol: Hold for SBP< HOLD for SBP < : 90 Entresto 24-26 mg Tablet 1 tab PO BID Qty: 60 0RF Protocol: Hold for SBP< HOLD for SBP < : 90 Continued clopidogrel [Plavix] 75 mg tablet 75 mg PO DAILY 60 Days Qty: 60 0RF Rx Instructions: Must attended follow-up for refills metoprolol succinate [Toprol XL] 50 mg tablet extended release 24 hr 50 mg PO DAILY 60 Days Qty: 60 0RF Rx Instructions: Must attended follow-up for refills aspirin 81 mg tablet,delayed release (DR/EC) 81 mg PO DAILY Qty: 90 3RF Changed furosemide [Lasix] 40 mg tablet 40 mg PO BID 60 Days Qty: 60 0RF Rx Instructions: Must attended follow-up for refills Discharge Orders: Discharge Order (Routine); Ordered 12/04/21 Ordered By: Ilir Weldon Diet: advance to usual diet and low salt diet Activity on Discharge: As tolerated Stand Alone Forms: Patient Portal Discharge page Care Plan Goals: Control of heart failure Health Concerns: heart failure and history of alcoholism Plan of Treatment: Take Lasix, Entresto, metoprolol and Imdure as recommended, avoid alcohol, limit salt intake and follow up with your Doctor in a week Follow up in the cardiology office Assessment: As above
--- NOTE | 2021-12-04 10:30 | P.PNIM_ITS ---
Subjective Subjective Date of Service: 12/04/21 Interval History: Feels good, no sob, here for chf exacerbation Review of Systems Gen: no fever Resp: no sob, no cough CV: no chest, no RUGGIERO, no leg edema GI: No n/v, no abd pain Neuro: No confusion Physical Exam Vital Signs: Vital Signs: Last Vital Signs Temp 97.9 F 12/04/21 00:53 Pulse 88 12/04/21 07:23 Resp 18 12/04/21 07:23 BP 140/99 H 12/04/21 07:23 Pulse Ox 98 12/04/21 07:23 Oxygen Flow Rate 2 12/03/21 07:42 BMI result Body Mass Index 28.3 Const: Other: General: AO X 3, no acute distress Resp: CTA bilateral CVS: S1,S2,RRR, no leg edema GI: +BS, NT, no distention Skin: No rash Neuro: motor grossly intact Psych: appropriate affect Objective Data Active Medications Acetaminophen (Acetaminophen 325 Mg Tablet) 650 mg PO Q6H PRN PRN Reason: Pain, Mild (Pain Scale 1-3) Aspirin (Aspirin Enteric Coated 81 Mg Tablet.) 81 mg PO DAILY [facility] Last Admin: 12/04/21 07:54 Dose: 81 mg Documented by: DARYN Clopidogrel Bisulfate (Clopidogrel Bisulfate 75 Mg Tablet) 75 mg PO DAILY [facility] Last Admin: 12/04/21 07:54 Dose: 75 mg Documented by: DARYN Docusate Sodium (Docusate Sodium 100 Mg Capsule) 100 mg PO DAILY PRN PRN Reason: Constipation Enoxaparin Sodium (Enoxaparin Sodium 40 Mg/0.4 Ml Syringe) 40 mg SUBCUT Q24H [facility] Last Admin: 12/04/21 07:55 Dose: 40 mg Documented by: DARYN Furosemide (Furosemide 40 Mg/4 Ml Vial) 40 mg IVPUSH Q12H [facility]; Protocol Last Admin: 12/04/21 07:54 Dose: 40 mg Documented by: DARYN Isosorbide Mononitrate (Isosorbide Mononitrate 30 Mg Tab.Er.24h) 30 mg PO DAILY [facility]; Protocol Last Admin: 12/04/21 07:54 Dose: 30 mg Documented by: DARYN Metoprolol Succinate (Metoprolol Succinate Er 50 Mg Tab.Er.24h) 50 mg PO DAILY [facility]; Protocol Last Admin: 12/04/21 07:54 Dose: 50 mg Documented by: DARYN Potassium Chloride (Potassium Chloride Er 20 Meq Tab.Er.Prt) 40 meq PO DAILY [facility] Last Admin: 12/04/21 07:53 Dose: 40 meq Documented by: DARYN Sacubitril/Valsartan (Sacubitril/Valsartan 1 Tab Tablet) 1 tab PO BID [facility]; Protocol Last Admin: 12/04/21 07:54 Dose: 1 tab Documented by: DARYN Sodium Chloride (0.9 % Sodium Chloride Flush 3 Ml Syringe) 3 ml IVFLUSH QSHIFT [facility] Last Admin: 12/04/21 08:27 Dose: 3 ml Documented by: DARYN Labs CBC & Chem 7: 12/03/21 07:13 12/04/21 06:30 Labs: Laboratory Results - last 24 hr 12/04/21 12/04/21 06:30 06:30 Anion Gap 14 Estim Creat Clear Calc 69.9 Estimated GFR > 60 Random Glucose 141 H Calcium 9.1 Magnesium 1.7 B-Natriuretic Peptide 1758 H Triglycerides 80 Cholesterol 178 LDL Cholesterol, Calc 126 HDL Cholesterol 36 Assessment and Plan (1) CHF (congestive heart failure): Status: Acute (2) Prolonged QT interval: Status: Acute (3) Alcohol abuse: Status: Acute Plan 56-year-old male past medical history of CHF, CAD status post CABG presents to the hospital with complaints of dyspnea orthopnea and PND # He presented with SOB and noted to be have exacerbation of heart failure... He has history of cardiomyopathy believed to be comibined ischemia and alcohol related. EF 15-20%? in December 2020 , in July 14 repeat echo showed improvement EF to 45-50% with grade 1 mild diastolic dysfunction, BNP was signicantly high and his beeen diuresed with IV Lasix 40 bid with good efect, symptoms have improved. Cardiology has added Entresto, and Imdur to his regimen along with Metoprolol. He should salt and limit fluid intake. Will change Lasix to 40 bid from 40 daily and continue to monitor BMP ??? shortness of breath improved with IV Lasix , will continue gentle diuresis with Lasix 40 b.i.d. ? ? #? prolonged QT interval of 512.. Possibly due to low mag. replaced. Repeat ECG #? acute hypomagnesemia---Corected #? hypokalemia likely due to diuretics--corrected with supplement #? alcohol abuse ??? reports that he drinks about 4-5 beers daily, denies any history of alcohol withdrawal ? ? no evidence of withdrawal during this visit ? # HTN? Elevated blood pressures on Toprol-XL 50 mg by mouth daily, Entresto and Imdur added, blood pressure is better # CAD s/p CABG ?? continue ASA, metoprolol and plavix, check lipid profile, not on statins. Quality Stroke Does the patient have a stroke diagnosis?: No VTE Prior VTE?: No VTE Risk Level:: Medical - moderate - high VTE Device Contraindication: Treatment Not Indicated VTE Drug Contraindication: N/A - Med Ordered
[2021-12-04 12:06] VITALS: BP 116/86; PULSE 81; RESP 20; O2SAT 97
--- NOTE | 2021-12-04 12:31 | PC.NURSE ---
AMBULATES WITHOUT SOB OR NOTED HYPOXIA. REMAINED 95-97%
--- NOTE | 2021-12-04 12:36 | PM.PNCARD ---
Subjective Subjective Date of Service: 12/04/21 Interval history: Feeling good. Echocardiography showing severely reduced ejection fraction. Physical Exam Vital Signs: Last Vital Signs Temp 97.9 F 12/04/21 00:53 Pulse 81 12/04/21 12:06 Resp 20 12/04/21 12:06 BP 116/86 12/04/21 12:06 Pulse Ox 97 12/04/21 12:06 Oxygen Flow Rate 2 12/03/21 07:42 BMI result Body Mass Index 28.3 GENERAL APPEARANCE: in no acute distress, pleasant. NECK: no carotid bruit, nojugular venous distention. SKIN: no suspicious lesions, warm and dry. HEART: no murmurs, regular rate and rhythm. LUNGS: clear to auscultation bilaterally. ABDOMEN: soft, nontender. EXTREMITIES: no edema. PERIPHERAL PULSES: equal. NEUROLOGIC: No gross deficits, AAO X 3 Objective Labs and Meds Result diagrams: 12/03/21 07:13 12/04/21 06:30 Lab results: Laboratory Results - last 24 hr 12/04/21 12/04/21 06:30 06:30 Sodium 141 Potassium 3.7 D Chloride 97 Carbon Dioxide 34 H Anion Gap 14 BUN 21 H Creatinine 1.13 Estim Creat Clear Calc 69.9 Estimated GFR > 60 Random Glucose 141 H Calcium 9.1 Magnesium 1.7 B-Natriuretic Peptide 1758 H Triglycerides 80 Cholesterol 178 LDL Cholesterol, Calc 126 HDL Cholesterol 36 Progress Note: A&P Assessment and plan (1) CHF (congestive heart failure): Status: Acute (2) Cardiomyopathy: Status: Acute (3) CAD (coronary artery disease): Status: Acute Plan 56-year-old gentleman who is presenting for shortness of breath and clinical congestive heart failure. Echocardiography is showing severely reduced ejection fraction. He has severely reduced ejection fraction underwent bypass surgery in April 2021. After that repeat echocardiography in June showed mildly reduced ejection fraction of 40-45%. It appears he has been somewhat noncompliant medications as well as drinking every day beer and whiskey per echocardiography now showing biventricular failure with severely reduced ejection fraction 10-15% and moderate to severe RV dysfunction. I think this is likely nonischemic in due to alcohol use. I have advised him not to use any more alcohol. He has been started on Entresto. He was hypokalemic and had prolonged QT interval and I am adding spironolactone 25 mg once a day. He should continue Toprol-XL at the same dose. I think he should go home with 40 mg p.o. b.i.d. Lasix. He will need follow-up with our office. We will repeat echocardiography in 2-3 months on medications to see if his ejection fraction improved or not. If ejection fraction does not improve or he develops worsening symptoms then we may need to do ischemic evaluation and he may need cardiac catheterization. Right now I think this is likely nonischemic cardiomyopathy Thank you for allowing me to participate in the care of your patient. Please feel free to contact me if you have any questions. Fall Risk Details Current Medications: Current Medications Acetaminophen (Acetaminophen 325 Mg Tablet) 650 mg PO Q6H PRN PRN Reason: Pain, Mild (Pain Scale 1-3) Aspirin (Aspirin Enteric Coated 81 Mg Tablet.) 81 mg PO DAILY [facility] [place] Last Admin: 12/04/21 07:54 Dose: 81 mg Documented by: Clopidogrel Bisulfate (Clopidogrel Bisulfate 75 Mg Tablet) 75 mg PO DAILY [facility] Last Admin: 12/04/21 07:54 Dose: 75 mg Documented by: Docusate Sodium (Docusate Sodium 100 Mg Capsule) 100 mg PO DAILY PRN PRN Reason: Constipation Enoxaparin Sodium (Enoxaparin Sodium 40 Mg/0.4 Ml Syringe) 40 mg SUBCUT Q24H [facility] Last Admin: 12/04/21 07:55 Dose: 40 mg Documented by: Furosemide (Furosemide 40 Mg/4 Ml Vial) 40 mg IVPUSH Q12H [facility]; Protocol Last Admin: 12/04/21 07:54 Dose: 40 mg Documented by: Isosorbide Mononitrate (Isosorbide Mononitrate 30 Mg Tab.Er.24h) 30 mg PO DAILY [facility]; Protocol Last Admin: 12/04/21 07:54 Dose: 30 mg Documented by: Metoprolol Succinate (Metoprolol Succinate Er 50 Mg Tab.Er.24h) 50 mg PO DAILY [facility] [place]; Protocol Last Admin: 12/04/21 07:54 Dose: 50 mg Documented by: Potassium Chloride (Potassium Chloride Er 20 Meq Tab.Er.Prt) 40 meq PO DAILY [facility] Last Admin: 12/04/21 07:53 Dose: 40 meq Documented by: Sacubitril/Valsartan (Sacubitril/Valsartan 1 Tab Tablet) 1 tab PO BID [facility]; Protocol Last Admin: 12/04/21 07:54 Dose: 1 tab Documented by: Sodium Chloride (0.9 % Sodium Chloride Flush 3 Ml Syringe) 3 ml IVFLUSH QSHIFT [facility] Last Admin: 12/04/21 11:08 Dose: Not Given Documented by: Time Spent With Patient Time: Total time spent is greater than 50% in coordination of care (as documented) at patient's floor/unit and/or counseling patient: Time with patient: 15 - 24 minutes Progress Note: Quality Stroke Does the patient have a stroke diagnosis?: No Procedures Date of Service Date of Service: 12/04/21
--- NOTE | 2021-12-04 13:21 | MHC.CM.PN ---
PT CLEARED TO DC HOME TODAY WITH NO SERVICES FAMILY TO TRANSPORT
== END 2021-12-04 13:51 | disposition home or self-care (01) | DRG 194 ==
LOC: HO.ED 17:05 → HO.EDOVER 20:58
PROVIDERS: Hospitalist; Admitting Provider Internal Medicine; Emergency Provider Emergency Medicine; PCP Internal Medicine; Visit Provider Internal Medicine
DX: I11.0 Hypertensive heart disease with heart failure (principal); Z95.1 Presence of aortocoronary bypass graft; E78.5 Hyperlipidemia, unspecified; I25.10 Atherosclerotic heart disease of native coronary artery without angina pectoris; F10.10 Alcohol abuse, uncomplicated; I50.33 Acute on chronic diastolic (congestive) heart failure; I25.5 Ischemic cardiomyopathy; E83.42 Hypomagnesemia; R94.31 Abnormal electrocardiogram [ECG] [EKG]; Z20.822 Contact with and (suspected) exposure to COVID-19; Z79.02 Long term (current) use of antithrombotics/antiplatelets; Z79.82 Long term (current) use of aspirin; Z79.899 Other long term (current) drug therapy
CPT/HCPCS: 36415; 71046; 80048; 80061; 83735; 83880; 84484; 85025; 85379; 87635; 93005; 93306; 96365; 96366; 96375; 99285; J1650; J1940; J3475; Q9957

== ENCOUNTER 2021-12-13 11:45 | Inpatient (IN) | payer MEDICAID, SELFPAY ==
[2021-12-13] VITALS (17 sets, daily range): BP systolic 138–172; BP diastolic 84–122; PULSE 81–102; RESP 14–24; TEMP 36.4–36.7; O2SAT 92–99; BMI 26.6
--- NOTE | ~2021-12-13 | XR_ITS ---
EXAMINATION: XR CHEST CLINICAL INFORMATION: Shortness of breath COMPARISON: Chest x-ray December 02, 2021 TECHNIQUE: Frontal view of the chest was obtained. FINDINGS: Cardiac silhouette remains mildly enlarged. Patient is status post sternotomy. The lungs are well aerated. There is no lobar consolidation. No pleural effusion or pneumothorax. Degenerative changes of the spine. XR/XR chest 1V IMPRESSION: Stable examination demonstrating no acute pulmonary pathology.
--- NOTE | ~2021-12-13 | CT_ITS ---
EXAMINATION: CT ANGIOGRAM OF THE CHEST WITH AND WITHOUT CONTRAST (CT PULMONARY ANGIOGRAM FOR PE) CLINICAL INFORMATION: Pleuritic chest pain COMPARISON: Chest x-ray earlier today TECHNIQUE: Prior to contrast administration, noncontrast localization images were obtained. Subsequently, multidetector volumetric imaging was performed from the thoracic inlet to below the diaphragms following the administration of 65 mL Omnipaque 350 intravenous contrast. No contrast reaction reported Sagittal, coronal, and MIP oblique sagittal reformatted images were obtained on the CT workstation, uploaded to PACS, and reviewed. This CT examination was performed using dose optimization techniques as appropriate, variously including the following: *Automated exposure control *Adjustment of mA and/or kV according to patient size (this includes techniques or standardized protocols for targeted exams where dose is matched to indication/reason for exam; i.e. extremities or head) *Use of iterative reconstruction technique Total exam dose-length product 331 mGy-cm FINDINGS: The heart is enlarged. Coronary artery calcifications are present. There is no pericardial effusion. There is dilatation of main pulmonary artery suggesting pulmonary arterial hypertension. No pulmonary emboli present. Dilated ascending aorta measuring 4.4 cm in maximum dimension. A few scattered normal sized mediastinal lymph nodes are appreciated. No enlarged axillary lymph nodes. Central airways are patent. The lungs are adequately aerated. There is some compressive atelectasis abutting the heart, predominantly within the left lower lobe. There is a small right and trace left-sided pleural effusion. No pneumothorax present. Visualized portion of the upper abdomen are grossly unremarkable. Moderate diffuse degenerative changes of the spine. Sternotomy wires are present. CT/CT angio chest PE protocol IMPRESSION: -No pulmonary embolism. -Dilated main pulmonary artery suggesting pulmonary arterial hypertension. -Dilated ascending aorta measuring 4.4 cm in maximum dimension. -Small right and trace left-sided pleural effusions. VTE: negative
--- NOTE | 2021-12-13 12:13 | ED.SOB ---
HPI - SOB/Dyspnea General Chief Complaint: Dyspnea Stated Complaint: diff breathing Time Seen by Provider: 12/13/21 12:12 Source: patient Mode of arrival: ambulatory Limitations: no limitations History of Present Illness HPI Narrative: 56-year-old male past medical history significant for congestive heart failure, dizziness, uncontrolled hypertension, CAD s/p cardiac cath in presenting to the ED with complaitns of shortness of breath and pleuritic chest pain patient tells me that this started last night, and worsened this morning. Tells me that this has happened to him before. He tells me that the shortness of breath is better with leaning forward, worse lying down. He also tells me that when he drinks Arvind Garduno his shortness of breath improves. He reports chest discomfort worse with inspiration better with expiration. He tells me he feels very uncomfortable. He denies fevers, chills, nausea, vomiting, abdominal pain, headache, dizziness. He is on clopidogrel and aspirin. He is also on Lasix which he tells me he takes every night however upon review of old records it appears as though patient is not med compliant. MD elicited complaint: shortness of breath and pain with inspiration Onset (ago): day(s) (2) Timing: intermittent Severity: moderate Exacerbating factors: deep breaths Relieving factors: nothing Associated symptoms: pain with inspiration Treatment prior to arrival: none Related Data Home Medications Medication Instructions Recorded Confirmed rosuvastatin 20 mg tablet 1 tab PO DAILY 12/13/21 12/13/21 Previous Rx's Medication Instructions Recorded aspirin 81 mg tablet,delayed 81 mg PO DAILY #90 tab 11/24/21 release clopidogrel 75 mg tablet (Plavix) 75 mg PO DAILY 60 Days #60 tab 11/30/21 metoprolol succinate 50 mg 50 mg PO DAILY 60 Days #60 tab 11/30/21 tablet,extended release 24 hr (Toprol XL) furosemide 40 mg tablet (Lasix) 40 mg PO BID 60 Days #60 tab 12/04/21 isosorbide mononitrate 30 mg 30 mg PO DAILY #30 tab 12/04/21 tablet,extended release 24 hr Allergies Allergy/AdvReac Type Severity Reaction Status Date / Time No Known Allergies Allergy Verified 09/24/21 13:35 Review of Systems Review of Systems: Constitutional : No Weight loss, No Fever, No Chills, No Fatigue, No Malaise ENT/Mouth : No sore throat, No Rhinorrhea Eyes: No Eye Pain, No Swelling, No Redness Cardiovascular : No Chest Pain, No SOB, No Dyspnea on Exertion, No Orthopnea, No Edema, No Palpitations Respiratory : No Cough, No Sputum, No Wheezing Gastrointestinal : No Nausea, No Vomiting, No Diarrhea, No Constipation, No abdominal Pain, No Hematochezia, No Melena Genitourinary : No Dysuria, No Urinary Frequency, No Hematuria, Musculoskeletal : No joint pain, No Myalgias, No Joint Swelling Skin : No Skin Lesions, No rash Neuro : No Weakness, No Numbness, No Dizziness, No Headache Psych : No Anxiety/Panic, No Depression All other systems reviewed and are negative Yes all other systems are reviewed and are negative [facility] Past Medical History Attestation statement: The following information was validated with the patient. Source: old records reviewed and nursing notes reviewed Medical History Acute CHF Alcohol abuse Ascending aortic aneurysm Atherosclerotic cardiovascular disease CAD (coronary artery disease) Cardiomyopathy CHF (congestive heart failure) Essential hypertension HLD (hyperlipidemia) HTN (hypertension) Hypomagnesemia Ischemic cardiomyopathy Surgical History S/P cardiac cath S/P triple vessel bypass Status post double vessel coronary artery bypass Family History Family History Father No problems noted. Mother No problems noted. Social History Social History Household Members: Family Housing: Apartment Do you presently have visiting nurse or other home services: No Alcohol intake: current Alcohol intake frequency: 0-2 drinks per day Alcohol type: beer Patient Tobacco Use Status: Never used Tobacco Second Hand Smoke Exposure: No Use of substances other than those prescribed or required for medical reasons: No Substance Use Type: Marijuana Advance Directives: Yes Advance Directives on File: Yes Advance Directives Date on File: 12/03/21 service: No Current occupational status: employed Physical Exam Vital Signs: Vital Signs: Last Vital Signs Temp 98.0 F 12/13/21 11:49 Pulse 88 12/13/21 16:18 Resp 21 H 12/13/21 16:18 BP 149/105 H 12/13/21 16:18 Pulse Ox 98 12/13/21 16:18 BMI result Body Mass Index 26.6 Patient is noted to be hypertensive, will repeat blood pressure once patient has settled in. Appearance: Alert.? Oriented X3.? No acute distress.? Head: Normocephalic, atraumatic, no step-offs or deformities Eyes: Pupils equal, round and reactive to light.? ENT: Pharynx normal.? Neck: Normal inspection.? Neck supple.? CVS: Normal heart rate and rhythm.? Pulses normal.? Respiratory: No respiratory distress.? Breath sounds normal.? Abdomen: Soft and nontender.? Skin: Skin warm and dry.? Normal skin color.? Normal skin turgor.? Extremities: No lower extremity edema.? No calf ttp. 5/5 strength to bilateral upper and lower extremities Back: No midline tenderness, no C-spine tenderness, full range of motion, no CVA tenderness bilaterally Neuro: Oriented X 3.? No motor deficit.? No sensory deficit. Course Reevaluation(s) Reevaluation #1: Patient's D-dimers noted to be elevated. A CTA has been ordered to rule out PE. CBC within normal limits. Troponin elevated will repeat in 3 hours. No acute electrolyte abnormalities. BNP elevated patient will receive Lasix. COVID negative. EKG within normal limits. X-ray with no acute findings. Time: 13:00 Reevaluation #2: CTA with no pulmonary embolism. Dilated main pulmonary artery suggesting pulmonary arterial hypertension. He does have a dilated ascending aorta measuring 4.4 cm in maximum dimension. A small right pleural effusion and a trace left-sided pleural effusion. Patient's blood pressure slowly improving with Lasix. Plan on admitting patient for CHF, shortness of breath. Time: 14:20 Reevaluation #3: I spoke to Dr. Jensen, about this patient suggests more lasix. Patient now belly breathing and using acessory muscles for breathing belly breathing noted. Still hypertensive. Now experiencing chest pain. Will be given 0.5 inch of nitro paste. Time: 14:29 Additional Reevaluation(s): Spoke to cardiology who tells me this is consistent with hypertensive pulmonary edema and that patient may require ICU admission for HTN managment. He also tells me patient can be transfered to [facility] however, patient is refusing transfer. No need for heparin as second trop is flat. Discussed with Dr. Alejandra- CHF exacerbation, stable for admission to the floor. Unlikely he will require ICU. He has improved with Lasix, nitro paste. Admit to hospitalist team. Dr. Dawkins aware. MDM - SOB/Dyspnea MDM Narrative Medical decision making narrative: 1217 56yo m pmhx CHF, dizziness, uncontrolled HTN, CAD s/p cardiac cath in 01/01/21 presenting w/ complaitns of SOB since yesterday and pleuritic CP. Patient is anticoagulated with clopidogrel and aspirin. Upon physical examination Plan at this time is to obtain basic labs, EKG, troponin, x-ray Will rule out PE, ACS and CHF. Medical Records Attestation: I reviewed the patient's medical records. Lab Data Attestation: I reviewed the patient's lab results. Result diagrams: 12/13/21 12:31 12/13/21 12:31 Labs: Lab Results 12/13/21 12/13/21 12/13/21 Range/Units 12:30 12:31 12:31 WBC 9.2 (4.8-10.8) X10*3/uL RBC 4.97 (4.60-5.80) X10*6/uL Hgb 14.5 (14.0-18.0) g/dl Hct 43.8 (42.0-52.0) % MCV 88.1 (80.0-98.0) fL MCH 29.2 (27.0-33.0) pg MCHC 33.1 (31.0-36.0) g/dl RDW 14.1 (11.0-16.0) % Plt Count 228 (160-400) X10*3/uL MPV 10.7 (9.4-12.4) fL Immature Gran % (Auto) 0.2 (0.0-0.4) % Neut % (Auto) 69.1 (45-73) % Lymph % (Auto) 21.6 (20-40) % [place] % (Auto) 8.4 (2-11) % Eos % (Auto) 0.4 (0-4) % Baso % (Auto) 0.3 (0-2) % Lymph # (Auto) 2.0 (1.2-4.9) X10*3/uL [place] # (Auto) 0.8 (0.1-1.2) X10*3/uL Eos # (Auto) 0.0 (0.0-0.4) X10*3/uL Baso # (Auto) 0.0 (0.0-0.2) X10*3/uL Abs Immat Gran (auto) 0.02 (0.00-0.03) X10*3/uL Absolute Neuts (auto) 6.3 (2.0-8.3) x10*3/uL Absolute Nucleated RBC 0.000 (0.0-0.012) X10*3/uL Nucleated RBC % (auto) 0.0 (0.0-0.2) /100WBC D-Dimer High Sensitivty NG/ML Sodium 140 (135-145) mmol/L Potassium 3.9 (3.3-5.1) mmol/L Chloride 103 (96-108) mmol/L Carbon Dioxide 27 (22-29) mmol/L Anion Gap 14 (12-20) BUN 13 (9-16) mg/dL Creatinine 0.91 (0.5-1.4) mg/dL Estim Creat Clear Calc 81.7 Estimated GFR > 60 Random Glucose 154 H (60-115) mg/dL Calcium 9.1 (8.4-10.2) mg/dL Magnesium 1.6 (1.6-2.6) mg/dL Total Bilirubin 0.8 (0.0-1.0) mg/dL AST 26 (5-37) U/L ALT 26 (0-40) U/L Alkaline Phosphatase 79 (39-117) U/L Troponin I High Sens 19.8 (<3.5-35.0) ng/L B-Natriuretic Peptide (<100) pg/mL Total Protein 7.3 (6.5-8.0) g/dL Albumin 4.0 (3.5-5.0) g/dL COVID-19 (FERNANDA) (Negative) COVID-19 Clin Com 12/13/21 12/13/21 12/13/21 Range/Units 12:31 12:31 12:31 WBC (4.8-10.8) X10*3/uL RBC (4.60-5.80) X10*6/uL Hgb (14.0-18.0) g/dl Hct (42.0-52.0) % MCV (80.0-98.0) fL MCH (27.0-33.0) pg MCHC (31.0-36.0) g/dl RDW (11.0-16.0) % Plt Count (160-400) X10*3/uL MPV (9.4-12.4) fL Immature Gran % (Auto) (0.0-0.4) % Neut % (Auto) (45-73) % Lymph % (Auto) (20-40) % [place] % (Auto) (2-11) % Eos % (Auto) (0-4) % Baso % (Auto) (0-2) % Lymph # (Auto) (1.2-4.9) X10*3/uL [place] # (Auto) (0.1-1.2) X10*3/uL Eos # (Auto) (0.0-0.4) X10*3/uL Baso # (Auto) (0.0-0.2) X10*3/uL Abs Immat Gran (auto) (0.00-0.03) X10*3/uL Absolute Neuts (auto) (2.0-8.3) x10*3/uL Absolute Nucleated RBC (0.0-0.012) X10*3/uL Nucleated RBC % (auto) (0.0-0.2) /100WBC D-Dimer High Sensitivty 322 NG/ML Sodium (135-145) mmol/L Potassium (3.3-5.1) mmol/L Chloride (96-108) mmol/L Carbon Dioxide (22-29) mmol/L Anion Gap (12-20) BUN (9-16) mg/dL Creatinine (0.5-1.4) mg/dL Estim Creat Clear Calc Estimated GFR Random Glucose (60-115) mg/dL Calcium (8.4-10.2) mg/dL Magnesium (1.6-2.6) mg/dL Total Bilirubin (0.0-1.0) mg/dL AST (5-37) U/L ALT (0-40) U/L Alkaline Phosphatase (39-117) U/L Troponin I High Sens (<3.5-35.0) ng/L B-Natriuretic Peptide 2830 H (<100) pg/mL Total Protein (6.5-8.0) g/dL Albumin (3.5-5.0) g/dL COVID-19 (FERNANDA) Negative (Negative) COVID-19 Clin Com See Note 12/13/21 Range/Units 15:34 WBC (4.8-10.8) X10*3/uL RBC (4.60-5.80) X10*6/uL Hgb (14.0-18.0) g/dl Hct (42.0-52.0) % MCV (80.0-98.0) fL MCH (27.0-33.0) pg MCHC (31.0-36.0) g/dl RDW (11.0-16.0) % Plt Count (160-400) X10*3/uL MPV (9.4-12.4) fL Immature Gran % (Auto) (0.0-0.4) % Neut % (Auto) (45-73) % Lymph % (Auto) (20-40) % [place] % (Auto) (2-11) % Eos % (Auto) (0-4) % Baso % (Auto) (0-2) % Lymph # (Auto) (1.2-4.9) X10*3/uL [place] # (Auto) (0.1-1.2) X10*3/uL Eos # (Auto) (0.0-0.4) X10*3/uL Baso # (Auto) (0.0-0.2) X10*3/uL Abs Immat Gran (auto) (0.00-0.03) X10*3/uL Absolute Neuts (auto) (2.0-8.3) x10*3/uL Absolute Nucleated RBC (0.0-0.012) X10*3/uL Nucleated RBC % (auto) (0.0-0.2) /100WBC D-Dimer High Sensitivty NG/ML Sodium (135-145) mmol/L Potassium (3.3-5.1) mmol/L Chloride (96-108) mmol/L Carbon Dioxide (22-29) mmol/L Anion Gap (12-20) BUN (9-16) mg/dL Creatinine (0.5-1.4) mg/dL Estim Creat Clear Calc Estimated GFR Random Glucose (60-115) mg/dL Calcium (8.4-10.2) mg/dL Magnesium (1.6-2.6) mg/dL Total Bilirubin (0.0-1.0) mg/dL AST (5-37) U/L ALT (0-40) U/L Alkaline Phosphatase (39-117) U/L Troponin I High Sens 21.9 (<3.5-35.0) ng/L B-Natriuretic Peptide (<100) pg/mL Total Protein (6.5-8.0) g/dL Albumin (3.5-5.0) g/dL COVID-19 (FERNANDA) (Negative) COVID-19 Clin Com Critical Care Time Critical Care Time Critical Care Time: Yes Total Critical Care Time: 45 Attestation: Obtaining history, physical exam reviewing labs, imaging, reaching out to Cardiology, obtaining old records, reviewing old visit/records, speaking to my attending. Discharge Plan Discharge Clinical Impression: CHF (congestive heart failure), Hypertensive urgency, Pulmonary arterial hypertension, Pleural effusion, Chest pain Patient Disposition: Admitted As Inpatient Prescriptions: No Action clopidogrel [Plavix] 75 mg tablet 75 mg PO DAILY 60 Days Qty: 60 0RF Rx Instructions: Must attended follow-up for refills metoprolol succinate [Toprol XL] 50 mg tablet extended release 24 hr 50 mg PO DAILY 60 Days Qty: 60 0RF aspirin 81 mg tablet,delayed release (DR/EC) 81 mg PO DAILY Qty: 90 3RF isosorbide mononitrate 30 mg Tablet Extended Release 24 Hr 30 mg PO DAILY Qty: 30 0RF Protocol: Hold for SBP< HOLD for SBP < : 90 furosemide [Lasix] 40 mg tablet 40 mg PO BID 60 Days Qty: 60 0RF rosuvastatin 20 mg tablet 1 tab PO DAILY 0RF
--- NOTE | 2021-12-13 12:18 | ECG_ITS ---
Test Reason : SOB Blood Pressure : / mmHG Vent. Rate : 095 BPM Atrial Rate : 095 BPM P-R Int : 200 ms QRS Dur : 090 ms QT Int : 376 ms P-R-T Axes : 044 056 047 degrees QTc Int : 472 ms Normal sinus rhythm Left atrial enlargement Low voltage QRS Nonspecific ST and T wave abnormality Prolonged QT Abnormal ECG When compared with ECG of 04-DEC-2021 10:54, No significant change was found Referred By: Marylu Issa Electronically Signed By:CECILLE WATSON
[2021-12-13 12:36] LABS: MANUAL DIFF FLAG NO
[2021-12-13 12:37] LABS: Basophils Percent Auto 0.3 % (0-2); Eosinophils Percent Auto 0.4 % (0-4); Hematocrit 43.8 % (42.0-52.0); Hemoglobin 14.5 g/dl (14.0-18.0); Imm Gran Abs Auto 0.02 X10*3/uL (0.00-0.03); Imm Gran Pct Auto 0.2 % (0.0-0.4); Lymphocytes Percent Auto 21.6 % (20-40); Mean Corpuscular HGB Conc 33.1 g/dl (31.0-36.0); Mean Corpuscular Hemoglobin 29.2 pg (27.0-33.0); Mean Corpuscular Volume 88.1 fL (80.0-98.0); Mean Platelet Volume 10.7 fL (9.4-12.4); Monocytes Absolute Auto 0.8 X10*3/uL (0.1-1.2); Monocytes Percent Auto 8.4 % (2-11); Neutrophils Absolute Auto 6.3 x10*3/uL (2.0-8.3); Neutrophils Percent Auto 69.1 % (45-73); Platelet Count 228 X10*3/uL (160-400); Red Blood Count 4.97 X10*6/uL (4.60-5.80); Red Cell Distribution Width 14.1 % (11.0-16.0); White Blood Count 9.2 X10*3/uL (4.8-10.8)
[2021-12-13 12:44] LABS: D Dimer High Sensitivity 322 NG/ML
[2021-12-13 12:58] LABS: Alanine Aminotransferase 26 U/L (0-40); Alkaline Phosphatase 79 U/L (39-117); Anion Gap 14 (12-20); Aspartate Amino Transferase 26 U/L (5-37); Bilirubin Total 0.8 mg/dL (0.0-1.0); Blood Urea Nitrogen 13 mg/dL (9-16); Calcium 9.1 mg/dL (8.4-10.2); Carbon Dioxide 27 mmol/L (22-29); Chloride 103 mmol/L (96-108); Creatinine Clr Calc Pharmacy 81.7; Estimated Glomerular Filt Rate > 60; Glucose Random 154 mg/dL (60-115); Magnesium 1.6 mg/dL (1.6-2.6); Potassium 3.9 mmol/L (3.3-5.1); Sodium 140 mmol/L (135-145); Total Protein 7.3 g/dL (6.5-8.0)
[2021-12-13 13:02] LABS: Troponin-I High Sensitivity 19.8 ng/L (<3.5-35.0)
[2021-12-13 13:02] LABS: B Type Natriuretic Peptide 2830 pg/mL (<100)
[2021-12-13 13:11] LABS: COVID-19 Test Negative (Negative)
[2021-12-13] MEDS: Furosemide 40 MG/4 ML VIAL IVPUSH ×2 (13:15→14:01)
[2021-12-13] MEDS: iohexoL 350 MG/ML 100 ML INFUS..BTL 62 ML IV (13:33)
[2021-12-13] MEDS: Albuterol/Iprat 2.5/0.5MG 3 ML AMPUL.NEB INHALE (13:37)
--- NOTE | 2021-12-13 14:35 | PC.NURSE ---
spoke wtih Collette PINO regarding 1422 Lasix order; given most recent 80mg in past hour this rn verbalized concern for repeat dosing so soon. per Collette ADAMS decision to hold lasix for now and give in another hour if pt status not improved. decision to give nitro paste (0.5 inch) at this time to decrease BP (160/107) and improve pts chest discomfort, no plan for PO medications at this time to decrease pressure per Collette PINO
[2021-12-13] MEDS: Nitroglycerin 2 % Oint 1 GM Packet 0.5 INCH TRANSDERMA (14:38)
[2021-12-13] MEDS: Furosemide 20 MG/2 ML VIAL IVPUSH (15:35)
[2021-12-13 16:07] LABS: Troponin-I High Sensitivity 21.9 ng/L (<3.5-35.0)
--- NOTE | 2021-12-13 16:17 | PHA.MEDREC ---
Pharmacy Consult ? Medication Reconciliation Pharmacy has completed the medication reconciliation. Patient stated that he took his medication this morning but didn't picker tender his Entresto that was ordered last time he was here.
--- NOTE | 2021-12-13 17:34 | PM.IMHP ---
History of Present Illness Date of Service: 12/13/21 Chief Complaint: Shortness of Breath 56-year-old male past medical history of CHF belived to comoned ischemic and alcoholic cardiomyopathy, EF 15-20%? in December 2020 , in July 14 repeat echo showed improvement EF to 45-50% with grade 1 mild diastolic and most recent Echo dating 12/04/2021 showed EF of 10-15%. He was recently admitted from 12/02/21 to 12/04/21 for exacerbation of heart failure and was started on Entresto and Imdur, in addition to BB and Lasix 40 bid orally at the time of discharge. CXR is unchanged and no show no vascular congestion, CT showed no PE but small bilateral pleural effusion. BNP is 2830 today and 1758 on 12/04/21. ECG shows no acute ischemic changes, Normal troponin I. Covid negative. Vaccinated with J&J vaccine for covid. Review of Systems Review of Systems: Gen: no fever Resp: + sob, no cough CV: no chest, +RUGGIERO, + leg edema GI: No n/v, no abd pain Neuro: No confusion Yes all other systems are reviewed and are negative [facility] Medical History Acute CHF Alcohol abuse Ascending aortic aneurysm Atherosclerotic cardiovascular disease CAD (coronary artery disease) Cardiomyopathy CHF (congestive heart failure) Essential hypertension HLD (hyperlipidemia) HTN (hypertension) Hypomagnesemia Ischemic cardiomyopathy Family History Father No problems noted. Mother No problems noted. Surgical History S/P cardiac cath S/P triple vessel bypass Status post double vessel coronary artery bypass Social History Household Members: Family Housing: Apartment Do you presently have visiting nurse or other home services: No Alcohol intake: current Alcohol intake frequency: 0-2 drinks per day Alcohol type: beer Patient Tobacco Use Status: Never used Tobacco Second Hand Smoke Exposure: No Use of substances other than those prescribed or required for medical reasons: No Substance Use Type: Marijuana Currently Displaying Signs/Symptoms of Drug Intoxication Withdrawal: No Have you been hit, kicked, punched, or otherwise hurt by someone within the past year? If so, by whom?: No Do you feel safe in your current relationship?: No Current Relationship Is there a partner from a previous relationship who is making you feel unsafe now?: No Are you made to feel afraid or neglected: No Advance Directives: Yes Advance Directives on File: Yes Advance Directives Date on File: 12/03/21 Do you have thoughts of harming others: None Do you have a plan to hurt others: No Plan Nutrition Risks: No Nutritional Risk service: No Current occupational status: employed Meds Allergies Allergy/AdvReac Type Severity Reaction Status Date / Time No Known Allergies Allergy Verified 09/24/21 13:35 Active Medications: Current Medications Aspirin (Aspirin Enteric Coated 81 Mg Tablet.Dr) 81 mg PO DAILY PEARL Atorvastatin Calcium (Atorvastatin Calcium 80 Mg Tablet) 80 mg PO BEDTIME PEARL Clopidogrel Bisulfate (Clopidogrel Bisulfate 75 Mg Tablet) 75 mg PO DAILY PEARL Furosemide (Furosemide 40 Mg Tablet) 40 mg PO BID PEARL; Protocol Isosorbide Mononitrate (Isosorbide Mononitrate 30 Mg Tab.Er.24h) 30 mg PO DAILY PEARL; Protocol Metoprolol Succinate (Metoprolol Succinate Er 50 Mg Tab.Er.24h) 50 mg PO DAILY PEARL; Protocol Pharmacy Consult (Consult Rx Perform Med Rec) 1 each MISCELLANE ONCE PRN PRN Reason: Consult order Sodium Chloride (0.9 % Sodium Chloride Flush 3 Ml Syringe) 3 ml IVFLUSH QSHIFT [facility] Home Medications Medication Instructions Recorded Confirmed Last Taken Type rosuvastatin 20 mg tablet 1 tab PO DAILY 12/13/21 12/13/21 12/13/21 History Physical Exam Vital Signs and Narrative: Vital Signs: Last Vital Signs Temp 97.8 F 12/13/21 17:25 Pulse 86 12/13/21 17:25 Resp 17 12/13/21 17:25 BP 142/98 H 12/13/21 17:25 Pulse Ox 95 12/13/21 17:25 BMI result Body Mass Index 26.6 Const: Other: Constitutional: Alert, in no distress Mental Status: Oriented to person, place and time. Eyes: Pupils are equal, round and reactive to light. Ear, Nose and Throat: Oropharynx clear, mucous membranes moist. Ears and nose without eformities. Trachea midline. Respiratory: Clear to auscultation. No wheezing, rales or rhonchi. Cardiovascular: S1 S2 regular. No murmurs, rubs or gallops. 1+ peripheral edema Gastrointestinal: Abdomen soft, non-tender, non-distended. Normal bowel sounds.? Neurologic: Cranial nerves II-XII grossly intact. No focal neurological deficits. Moves all extremities spontaneously.? Skin: No rashes or lesions.? Musculoskeletal: No cyanosis or clubbing. Psychiatric: Normal mood and affect? Results Labs CBC and Chem 7: 12/13/21 12:31 12/13/21 23:21 Labs: Laboratory Results - last 24 hr 12/13/21 12/13/21 12/13/21 12:31 12:31 12:31 MCV 88.1 MCH 29.2 MCHC 33.1 RDW 14.1 Plt Count 228 MPV 10.7 Immature Gran % (Auto) 0.2 Neut % (Auto) 69.1 Lymph % (Auto) 21.6 [place] % (Auto) 8.4 Eos % (Auto) 0.4 Baso % (Auto) 0.3 Lymph # (Auto) 2.0 [place] # (Auto) 0.8 Eos # (Auto) 0.0 Baso # (Auto) 0.0 Abs Immat Gran (auto) 0.02 Absolute Neuts (auto) 6.3 Absolute Nucleated RBC 0.000 Nucleated RBC % (auto) 0.0 D-Dimer High Sensitivty Anion Gap 14 Estim Creat Clear Calc 81.7 Estimated GFR > 60 Random Glucose 154 H Calcium 9.1 Magnesium 1.6 Total Bilirubin 0.8 AST 26 ALT 26 Alkaline Phosphatase 79 B-Natriuretic Peptide 2830 H Total Protein 7.3 Albumin 4.0 COVID-19 (FERNANDA) COVID-19 Clin Com 12/13/21 12/13/21 12:31 12:31 MCV MCH MCHC RDW Plt Count MPV Immature Gran % (Auto) Neut % (Auto) Lymph % (Auto) [place] % (Auto) Eos % (Auto) Baso % (Auto) Lymph # (Auto) [place] # (Auto) Eos # (Auto) Baso # (Auto) Abs Immat Gran (auto) Absolute Neuts (auto) Absolute Nucleated RBC Nucleated RBC % (auto) D-Dimer High Sensitivty 322 Anion Gap Estim Creat Clear Calc Estimated GFR Random Glucose Calcium Magnesium Total Bilirubin AST ALT Alkaline Phosphatase B-Natriuretic Peptide Total Protein Albumin COVID-19 (FERNANDA) Negative COVID-19 Clin Com See Note Imaging Radiologist's Impressions: Impressions Chest X-Ray 12/13/21 12:40 IMPRESSION: Stable examination demonstrating no acute pulmonary pathology. Chest CTA 12/13/21 13:40 IMPRESSION: -No pulmonary embolism. -Dilated main pulmonary artery suggesting pulmonary arterial hypertension. -Dilated ascending aorta measuring 4.4 cm in maximum dimension. -Small right and trace left-sided pleural effusions. VTE: negative Assessment and Plan (1) Acute on chronic systolic heart failure: Status: Acute Plan 56-year-old male past medical history of CHF belived to comoned ischemic and alcoholic cardiomyopathy, EF 15-20%? in December 2020 , in July 14 repeat echo showed improvement EF to 45-50% with grade 1 mild diastolic and most recent Echo dating 12/04/2021 showed EF of 10-15%. He was recently admitted from 12/02/21 to 12/04/21 for exacerbation of heart failure and was started on Entresto and Imdur, in addition to BB and Lasix 40 bid orally at the time of discharge. CXR is unchanged and no show no vascular congestion, CT showed no PE but small bilateral pleural effusion. BNP is 2830 today and 1758 on 12/04/21. ECG shows no acute ischemic changes, Normal troponin I. # Acute on chronic systolic heart failure with decompensation--Admit to tele -IV Lasix 40 bid -Continue Entresto, BB, Imdur -Monitor I/O, salt intake, -Daily weight -Cardiology consultation -Monitor electroytes and divalent--Keep K around 4 and Mag > 1.5 -He should be considered for AICD in the future #? History lcohol abuse ??? reports that he drinks about 4-5 beers daily, denies any history of alcohol withdrawal ? ? no sings of withdrawal at this time..CIWA and Phenobarbital with any signs of withdrawal ? # HTN--Continjue Toprol-XL 50 mg by mouth daily,? Entresto and Imdur # CAD s/p CABG ?? continue ASA, metoprolol and plavix, Statin #Lovenox for DVT Prophylaxis Quality Stroke Does the patient have a stroke diagnosis?: No VTE Prior VTE?: No VTE Risk Level:: Medical - moderate - high VTE Device Contraindication: Treatment Not Indicated VTE Drug Contraindication: N/A - Med Ordered
[2021-12-13] MEDS: Labetalol HCL 100 MG/20 ML VIAL 10 MG IVPUSH (17:41)
[2021-12-13] MEDS: 0.9 % Sodium Chloride Flush 3 ML SYRINGE IVFLUSH (22:29)
[2021-12-14] VITALS (7 sets, daily range): BP systolic 122–149; BP diastolic 82–101; PULSE 74–82; RESP 16–19; TEMP 36.4–37.1; O2SAT 94–98
[2021-12-14 00:08] LABS: Anion Gap 12 (12-20); Blood Urea Nitrogen 14 mg/dL (9-16); Calcium 8.9 mg/dL (8.4-10.2); Carbon Dioxide 28 mmol/L (22-29); Chloride 101 mmol/L (96-108); Creatinine Clr Calc Pharmacy 81.7; Estimated Glomerular Filt Rate > 60; Glucose Random 244 mg/dL (60-115); Potassium 3.4 mmol/L (3.3-5.1); Sodium 138 mmol/L (135-145)
[2021-12-14] MEDS: Metoprolol Succinate ER 50 MG TAB.ER.24H PO (09:08)
[2021-12-14] MEDS: Clopidogrel Bisulfate 75 MG TABLET PO (09:08)
[2021-12-14] MEDS: Aspirin Enteric Coated 81 MG TABLET.DR PO (09:08)
[2021-12-14] MEDS: Isosorbide Mononitrate 30 MG TAB.ER.24H PO (09:08)
[2021-12-14] MEDS: 0.9 % Sodium Chloride Flush 3 ML SYRINGE IVFLUSH ×3 (09:09→21:00)
[2021-12-14] MEDS: Enoxaparin Sodium 40 MG/0.4 ML SYRINGE SUBCUT (09:40)
[2021-12-14] MEDS: Furosemide 40 MG/4 ML VIAL IVPUSH ×2 (09:40→20:59)
--- NOTE | 2021-12-14 10:47 | PM.CNCAR ---
History of Present Illness History of Present Illness Date of Service: 12/14/21 Chief complaint: Acute on Chronic Systolic Heart Failure Narrative: This is a cardiology consultation regarding congestive heart failure. Patient previously known to us. He has had a couple recent hospitalizations for congestive heart failure. There was also an element of noncompliance in the past but he states that he has been taking medications recently without any issues. This seems to be his 3rd hospitalization this month. In the echocardiogram from few days ago, LVEF is markedly diminished compared to before. There is also comments on excessive alcohol intake. He has coronary disease and underwent coronary artery bypass surgery last year. Since then, medications have been very irregular. Review of Systems Review of Systems: Yes all other systems are reviewed and are negative Cardiovascular: Cardiovascular: Reports as per HPI, Reports no additional cardiovascular complaints, Denies acrocyanosis, Denies cool extremities, Denies chest pain, Denies diaphoresis, Denies syncope, Denies claudication, Denies leg edema, Denies lightheadedness, Denies palpitations and Reports dyspnea Respiratory: Respiratory: Reports dyspnea Neurologic: Denies syncope Endocrine: Endocrine: Denies palpitations PENDING SALE TO [facility] Past Medical History Medical History (Updated 12/14/21 @ 10:51 by Luis Queen MD) Acute CHF Alcohol abuse Ascending aortic aneurysm Atherosclerotic cardiovascular disease CAD (coronary artery disease) Cardiomyopathy CHF (congestive heart failure) Essential hypertension HLD (hyperlipidemia) HTN (hypertension) Hypomagnesemia Ischemic cardiomyopathy Family History Family History Father No problems noted. Mother No problems noted. Surgical History Surgical History S/P cardiac cath S/P triple vessel bypass Status post double vessel coronary artery bypass Social History Social History Household Members: Family Housing: Apartment Do you presently have visiting nurse or other home services: No Alcohol intake: current Alcohol intake frequency: 0-2 drinks per day Alcohol type: beer Patient Tobacco Use Status: Never used Tobacco Second Hand Smoke Exposure: No Use of substances other than those prescribed or required for medical reasons: No Substance Use Type: Marijuana Currently Displaying Signs/Symptoms of Drug Intoxication Withdrawal: No Have you been hit, kicked, punched, or otherwise hurt by someone within the past year? If so, by whom?: No Do you feel safe in your current relationship?: No Current Relationship Is there a partner from a previous relationship who is making you feel unsafe now?: No Are you made to feel afraid or neglected: No Advance Directives: Yes Advance Directives on File: Yes Advance Directives Date on File: 12/03/21 Do you have thoughts of harming others: None Do you have a plan to hurt others: No Plan Nutrition Risks: No Nutritional Risk service: No Current occupational status: employed Meds Allergies Allergy/AdvReac Type Severity Reaction Status Date / Time No Known Allergies Allergy Verified 09/24/21 13:35 Active Medications: Current Medications Aspirin (Aspirin Enteric Coated 81 Mg Tablet.) 81 mg PO DAILY [facility] Last Admin: 12/14/21 09:08 Dose: 81 mg Documented by: Atorvastatin Calcium (Atorvastatin Calcium 80 Mg Tablet) 80 mg PO BEDTIME [facility] Clopidogrel Bisulfate (Clopidogrel Bisulfate 75 Mg Tablet) 75 mg PO DAILY [facility] Last Admin: 12/14/21 09:08 Dose: 75 mg Documented by: Enoxaparin Sodium (Enoxaparin Sodium 40 Mg/0.4 Ml Syringe) 40 mg SUBCUT Q24H [facility] Last Admin: 12/14/21 09:40 Dose: 40 mg Documented by: Furosemide (Furosemide 40 Mg/4 Ml Vial) 40 mg IVPUSH Q12H [facility]; Protocol Last Admin: 12/14/21 09:40 Dose: 40 mg Documented by: Isosorbide Mononitrate (Isosorbide Mononitrate 30 Mg Tab.Er.24h) 30 mg PO DAILY [facility]; Protocol Last Admin: 12/14/21 09:08 Dose: 30 mg Documented by: Metoprolol Succinate (Metoprolol Succinate Er 50 Mg Tab.Er.24h) 50 mg PO DAILY [facility]; Protocol Last Admin: 12/14/21 09:08 Dose: 50 mg Documented by: Pharmacy Consult (Consult Rx Perform Med Rec) 1 each MISCELLANE ONCE PRN PRN Reason: Consult order Sodium Chloride (0.9 % Sodium Chloride Flush 3 Ml Syringe) 3 ml IVFLUSH QSHIFT [facility] Last Admin: 12/14/21 09:09 Dose: 3 ml Documented by: Home Medications Medication Instructions Recorded Confirmed Last Taken Type rosuvastatin 20 mg tablet 1 tab PO DAILY 12/13/21 12/13/21 12/13/21 History Physical Exam Vital Signs: Vital Signs: Last Vital Signs Temp 98.7 F 12/14/21 07:35 Pulse 82 12/14/21 07:35 Resp 18 12/14/21 07:35 BP 149/97 H 12/14/21 07:35 Pulse Ox 98 12/14/21 07:35 BMI result Body Mass Index 26.6 Const: General: comfortable HENMT: Other: Unremarkable Neck: Neck: Yes normal visual inspection Chest: Chest palpation & inspection: normal inspection of the chest Resp: Auscultation: clear to auscultation bilaterally Cardio: Palpation: normal PMI Heart sounds: S1 normal heart sound present, S2 normal heart sound present, no gallops, no murmurs and no rubs GI: Palpation (GI): Soft to palpation Back/Spine/Pelvis: Other: unremarkable Skin: Lesions: other Neuro: General: other Extrem: General: Yes other Psych: Mental Status: other Objective Labs and Meds Result diagrams: 12/13/21 12:31 12/13/21 23:21 Lab results: Laboratory Results - last 24 hr 12/13/21 12/13/21 12/13/21 12:30 12:31 12:31 WBC 9.2 RBC 4.97 Hgb 14.5 Hct 43.8 MCV 88.1 MCH 29.2 MCHC 33.1 RDW 14.1 Plt Count 228 MPV 10.7 Immature Gran % (Auto) 0.2 Neut % (Auto) 69.1 Lymph % (Auto) 21.6 [place] % (Auto) 8.4 Eos % (Auto) 0.4 Baso % (Auto) 0.3 Lymph # (Auto) 2.0 [place] # (Auto) 0.8 Eos # (Auto) 0.0 Baso # (Auto) 0.0 Abs Immat Gran (auto) 0.02 Absolute Neuts (auto) 6.3 Absolute Nucleated RBC 0.000 Nucleated RBC % (auto) 0.0 D-Dimer High Sensitivty Sodium 140 Potassium 3.9 Chloride 103 Carbon Dioxide 27 Anion Gap 14 BUN 13 Creatinine 0.91 Estim Creat Clear Calc 81.7 Estimated GFR > 60 Random Glucose 154 H Calcium 9.1 Magnesium 1.6 Total Bilirubin 0.8 AST 26 ALT 26 Alkaline Phosphatase 79 Troponin I High Sens 19.8 B-Natriuretic Peptide Total Protein 7.3 Albumin 4.0 COVID-19 (FERNANDA) COVID-19 [facility] Com 12/13/21 12/13/21 12/13/21 12:31 12:31 12:31 WBC RBC Hgb Hct MCV MCH MCHC RDW Plt Count MPV Immature Gran % (Auto) Neut % (Auto) Lymph % (Auto) [place] % (Auto) Eos % (Auto) Baso % (Auto) Lymph # (Auto) [place] # (Auto) Eos # (Auto) Baso # (Auto) Abs Immat Gran (auto) Absolute Neuts (auto) Absolute Nucleated RBC Nucleated RBC % (auto) D-Dimer High Sensitivty 322 Sodium Potassium Chloride Carbon Dioxide Anion Gap BUN Creatinine Estim Creat Clear Calc Estimated GFR Random Glucose Calcium Magnesium Total Bilirubin AST ALT Alkaline Phosphatase Troponin I High Sens B-Natriuretic Peptide 2830 H Total Protein Albumin COVID-19 (FERNANDA) Negative COVID-19 [email or web address] See Note 12/13/21 12/13/21 15:34 23:21 WBC RBC Hgb Hct MCV MCH MCHC RDW Plt Count MPV Immature Gran % (Auto) Neut % (Auto) Lymph % (Auto) [place] % (Auto) Eos % (Auto) Baso % (Auto) Lymph # (Auto) [place] # (Auto) Eos # (Auto) Baso # (Auto) Abs Immat Gran (auto) Absolute Neuts (auto) Absolute Nucleated RBC Nucleated RBC % (auto) D-Dimer High Sensitivty Sodium 138 Potassium 3.4 Chloride 101 Carbon Dioxide 28 Anion Gap 12 BUN 14 Creatinine 0.91 Estim Creat Clear Calc 81.7 Estimated GFR > 60 Random Glucose 244 H D Calcium 8.9 Magnesium Total Bilirubin AST ALT Alkaline Phosphatase Troponin I High Sens 21.9 B-Natriuretic Peptide Total Protein Albumin COVID-19 (FERNANDA) COVID-19 Clin Com Imaging Radiologist's impression: Impressions Chest X-Ray 12/13/21 12:40 IMPRESSION: Stable examination demonstrating no acute pulmonary pathology. Chest CTA 12/13/21 13:40 IMPRESSION: -No pulmonary embolism. -Dilated main pulmonary artery suggesting pulmonary arterial hypertension. -Dilated ascending aorta measuring 4.4 cm in maximum dimension. -Small right and trace left-sided pleural effusions. VTE: negative Assessment and Plan (1) Acute on chronic systolic heart failure: Status: Acute (2) Atherosclerotic cardiovascular disease: Status: Acute (3) Ascending aortic aneurysm: Status: Acute (4) Hypertensive emergency: Status: Resolved Plan Cardiac studies reviewed. EKG with sinus rhythm at 95/Min; left atrial enlargement; nonspecific ST-T changes; cannot exclude old anteroseptal infarct; top normal OK and QTc 472 milliseconds. Elevated cardiac BNP noted. High sensitivity troponins within range. Most recent echocardiogram with LVEF of 10-15%. RV function is also significantly diminished. Ascending aorta measured 4.4 cm. In the previous echocardiogram from last year, LVEF was 45-50%. However, before bypass surgery it was 15-20%. Clinically, it does not appear to volume overloaded but filling pressures are probably still high. Continue diuretics. With regard to beta-blockers, continue Toprol-XL. Not clear why he is not on Entresto as it was recently started. We can use an ARB while he is here if Entresto not available. Blood pressure is still high and hopefully this will help. Needs to completely stop drinking alcohol. Will follow up with you. Procedures Date of Service Date of Service: 12/14/21
--- NOTE | 2021-12-14 11:25 | MHC.CM.PN ---
met with pt who lives with a roomate pt is lissette j&audra he does not expect to need servies when dcd
--- NOTE | 2021-12-14 11:41 | HO.PM.IMPN ---
Subjective Subjective Date of Service: 12/14/21 Interval History: f/u on heart failure exacerbation, feels less sob today, and voiding alot Review of Systems no fever no cough +sob Physical Exam Vital Signs: Vital Signs: Last Vital Signs Temp 97.5 F 12/14/21 11:26 Pulse 77 12/14/21 11:26 Resp 18 12/14/21 11:26 BP 138/92 H 12/14/21 11:26 Pulse Ox 98 12/14/21 11:26 BMI result Body Mass Index 26.6 Const: Other: General: AO X 3, no acute distress Resp: CTA bilateral CVS: S1,S2,RRR, trace leg edema GI: +BS, NT, no distention Skin: No rash Neuro: motor grossly intact Psych: appropriate affect Objective Data Active Medications Aspirin (Aspirin Enteric Coated 81 Mg Tablet.) 81 mg PO DAILY [facility] Last Admin: 12/14/21 09:08 Dose: 81 mg Documented by: SHEREE Atorvastatin Calcium (Atorvastatin Calcium 80 Mg Tablet) 80 mg PO BEDTIME [facility] Clopidogrel Bisulfate (Clopidogrel Bisulfate 75 Mg Tablet) 75 mg PO DAILY [facility] Last Admin: 12/14/21 09:08 Dose: 75 mg Documented by: SHEREE Enoxaparin Sodium (Enoxaparin Sodium 40 Mg/0.4 Ml Syringe) 40 mg SUBCUT Q24H [facility] Last Admin: 12/14/21 09:40 Dose: 40 mg Documented by: SHEREE Furosemide (Furosemide 40 Mg/4 Ml Vial) 40 mg IVPUSH Q12H [facility]; Protocol Last Admin: 12/14/21 09:40 Dose: 40 mg Documented by: SHEREE Isosorbide Mononitrate (Isosorbide Mononitrate 30 Mg Tab.Er.24h) 30 mg PO DAILY [facility]; Protocol Last Admin: 12/14/21 09:08 Dose: 30 mg Documented by: SHEREE Metoprolol Succinate (Metoprolol Succinate Er 50 Mg Tab.Er.24h) 50 mg PO DAILY [facility]; Protocol Last Admin: 12/14/21 09:08 Dose: 50 mg Documented by: SHEREE Pharmacy Consult (Consult Rx Perform Med Rec) 1 each MISCELLANE ONCE PRN PRN Reason: Consult order Sacubitril/Valsartan (Sacubitril/Valsartan 1 Tab Tablet) 1 tab PO BID [facility]; Protocol Sodium Chloride (0.9 % Sodium Chloride Flush 3 Ml Syringe) 3 ml IVFLUSH QSHIFT [facility] Last Admin: 12/14/21 09:09 Dose: 3 ml Documented by: SHEREE Labs CBC & Chem 7: 12/13/21 12:31 12/13/21 23:21 Labs: Laboratory Results - last 24 hr 12/13/21 12/13/21 12/13/21 12:31 12:31 12:31 MCV 88.1 MCH 29.2 MCHC 33.1 RDW 14.1 Plt Count 228 MPV 10.7 Immature Gran % (Auto) 0.2 Neut % (Auto) 69.1 Lymph % (Auto) 21.6 [place] % (Auto) 8.4 Eos % (Auto) 0.4 Baso % (Auto) 0.3 Lymph # (Auto) 2.0 [place] # (Auto) 0.8 Eos # (Auto) 0.0 Baso # (Auto) 0.0 Abs Immat Gran (auto) 0.02 Absolute Neuts (auto) 6.3 Absolute Nucleated RBC 0.000 Nucleated RBC % (auto) 0.0 D-Dimer High Sensitivty Anion Gap 14 Estim Creat Clear Calc 81.7 Estimated GFR > 60 Random Glucose 154 H Calcium 9.1 Magnesium 1.6 Total Bilirubin 0.8 AST 26 ALT 26 Alkaline Phosphatase 79 B-Natriuretic Peptide 2830 H Total Protein 7.3 Albumin 4.0 COVID-19 (EFRNANDA) COVID-[place] Com 12/13/21 12/13/21 12/13/21 12:31 12:31 23:21 MCV MCH MCHC RDW Plt Count MPV Immature Gran % (Auto) Neut % (Auto) Lymph % (Auto) [place] % (Auto) Eos % (Auto) Baso % (Auto) Lymph # (Auto) [place] # (Auto) Eos # (Auto) Baso # (Auto) Abs Immat Gran (auto) Absolute Neuts (auto) Absolute Nucleated RBC Nucleated RBC % (auto) D-Dimer High Sensitivty 322 Anion Gap 12 Estim Creat Clear Calc 81.7 Estimated GFR > 60 Random Glucose 244 H D Calcium 8.9 Magnesium Total Bilirubin AST ALT Alkaline Phosphatase B-Natriuretic Peptide Total Protein Albumin COVID-19 (FERNANDA) Negative COVID-19 Clin Com See Note Assessment and Plan (1) Acute on chronic systolic heart failure: Status: Acute Plan 56-year-old male past medical history of CHF belived to? comoned ischemic and alcoholic cardiomyopathy, EF 15-20%? in December 2020 , in July 14 repeat echo showed improvement EF to 45-50% with grade 1 mild diastolic and most recent Echo dating 12/04/2021 ? showed EF of 10-15%. He was recently admitted from 12/02/21 to 12/04/21 for exacerbation of heart failure and was started on Entresto and Imdur, in addition to BB and Lasix 40 bid orally at the time of discharge. CXR is unchanged and no show no vascular congestion, CT showed no PE but small bilateral pleural effusion. BNP is 2830 today and 1758 on 12/04/21. ECG shows no acute ischemic changes, Normal troponin I. # Acute on chronic systolic heart failure with decompensation--Admit to tele -IV Lasix 40 bid -Continue Entresto, Metoprolol, Imdur -Monitor I/O, salt intake, -Daily weight -Cardiology consultation -Monitor electroytes and divalent--Keep K around 4 and Mag > 1.5 -He should be considered for AICD in the future #? History a lcohol abuse ??? reports that he drinks about 4-5 beers daily, denies any history of alcohol withdrawal ? ? no sings of withdrawal at this time..CIWA and Phenobarbital with any signs of withdrawal ? # HTN--Continue Toprol-XL 50 mg by mouth daily,? Entresto and Imdur # CAD s/p CABG ?? continue ASA, metoprolol, plavix, and Statin #Lovenox for DVT Prophylaxis: Lovenox Quality Stroke Does the patient have a stroke diagnosis?: No VTE Prior VTE?: No VTE Risk Level:: Medical - moderate - high VTE Device Contraindication: Treatment Not Indicated VTE Drug Contraindication: N/A - Med Ordered
[2021-12-14] MEDS: Sacubitril/Valsartan 24/26 1 TAB TABLET PO ×2 (13:22→20:59)
[2021-12-14] MEDS: Atorvastatin Calcium 80 MG TABLET PO (20:59)
[2021-12-15 04:00] VITALS: BP 123/89; PULSE 60; RESP 16; TEMP 37; O2SAT 96
[2021-12-15 07:00] LABS: Anion Gap 12 (12-20); Blood Urea Nitrogen 15 mg/dL (9-16); Calcium 9.1 mg/dL (8.4-10.2); Carbon Dioxide 32 mmol/L (22-29); Chloride 98 mmol/L (96-108); Creatinine Clr Calc Pharmacy 88.6; Estimated Glomerular Filt Rate > 60; Glucose Random 130 mg/dL (60-115); Potassium 3.3 mmol/L (3.3-5.1); Sodium 139 mmol/L (135-145)
[2021-12-15 07:15] VITALS: BP 136/94; PULSE 85; RESP 18; TEMP 37.2; O2SAT 96
[2021-12-15] MEDS: Furosemide 40 MG/4 ML VIAL IVPUSH (09:08)
[2021-12-15] MEDS: Enoxaparin Sodium 40 MG/0.4 ML SYRINGE SUBCUT (09:08)
[2021-12-15] MEDS: Isosorbide Mononitrate 30 MG TAB.ER.24H PO (09:09)
[2021-12-15] MEDS: Aspirin Enteric Coated 81 MG TABLET.DR PO (09:09)
[2021-12-15] MEDS: Sacubitril/Valsartan 24/26 1 TAB TABLET PO (09:09)
[2021-12-15] MEDS: 0.9 % Sodium Chloride Flush 3 ML SYRINGE IVFLUSH (09:09)
[2021-12-15] MEDS: Potassium Chloride Packet 20 MEQ PACKET 40 MEQ PO (09:09)
[2021-12-15] MEDS: Metoprolol Succinate ER 50 MG TAB.ER.24H PO (09:10)
[2021-12-15] MEDS: Clopidogrel Bisulfate 75 MG TABLET PO (09:10)
--- NOTE | 2021-12-15 10:11 | PM.DS ---
DS: Providers Provider Date of Service: 12/15/21 Date of admission: 12/13/21 17:13 Primary care physician: Anamaria Spann MD Consults: 12/13/21 17:17 Consult to Cardiology Routine Consulting Provider: Zurdo Quinones Reason for consultation: heart failure Has provider been notified: No DS: Diagnosis Discharge Diagnosis (1) Acute on chronic systolic heart failure: Status: Acute DS: Summary Hospital Course Hospital Course: Chief Complaint: Shortness of Breath 56-year-old male past medical history of CHF belived to? comoned ischemic and alcoholic cardiomyopathy, EF 15-20%? in December 2020 , in July 14 repeat echo showed improvement EF to 45-50% with grade 1 mild diastolic and most recent Echo dating 12/04/2021 ? showed EF of 10-15%. He was recently admitted from 12/02/21 to 12/04/21 for exacerbation of heart failure and was started on Entresto and Imdur, in addition to BB and Lasix 40 bid orally at the time of discharge. CXR is unchanged and no show no vascular congestion, CT showed no PE but small bilateral pleural effusion. BNP is 2830 today and 1758 on 12/04/21. ECG shows no acute ischemic changes, Normal troponin I. Covid negative. Vaccinated with J&J vaccine for covid. Hospital course: He presented with exacerbation of heart failure complicated by hypertension urgenc. He was diuresed with IV Lasix 40 mg twice a day and started on Entresto in seemed to have improved significantly over a short period of time, he was seen by Cardiology and at this point the patient will be discharged home with Entresto being included on his medication and he will follow up with Cardiology for further evaluation and adjustment of medication. His blood pressure is not controlled. Time Spent with Patient Time attestation: Total time spent providing and/or coordinating discharge services: Discharge coordination time: Greater than 30 minutes Quality: Stroke Does the patient have a stroke diagnosis?: No Physical Exam Vital Signs: Vital Signs: Last Vital Signs Temp 99.0 F 12/15/21 07:15 Pulse 85 12/15/21 07:15 Resp 18 12/15/21 07:15 BP 136/94 H 12/15/21 07:15 Pulse Ox 96 12/15/21 07:15 BMI result Body Mass Index 26.6 Const: Other: General: AO X 3, no acute distress Resp: CTA bilateral CVS: S1,S2,RRR GI: +BS, NT, no distention Skin: No rash Neuro: motor grossly intact Psych: appropriate affect DS: Data Data Completed and Pending Labs on day of discharge: Laboratory Results - last 24 hr 12/15/21 05:48 Sodium 139 Potassium 3.3 Chloride 98 Carbon Dioxide 32 H Anion Gap 12 BUN 15 Creatinine 0.84 Estim Creat Clear Calc 88.6 Estimated GFR > 60 Random Glucose 130 H D Calcium 9.1 Discharge Plan Discharge Anticipated Discharge Date/Time: 12/15/21 10:02 Patient Disposition: Home, Self-Care Discharge Diagnosis: Heart failure exacerbation Referrals: Anamaria Spann MD [Primary Care Provider] - 1 Week Discharge Medications: New Entresto 24-26 mg Tablet 1 tab PO BID Qty: 60 0RF Protocol: Hold for SBP< HOLD for SBP < : 90 Continued clopidogrel [Plavix] 75 mg tablet 75 mg PO DAILY 60 Days Qty: 60 0RF Rx Instructions: Must attended follow-up for refills metoprolol succinate [Toprol XL] 50 mg tablet extended release 24 hr 50 mg PO DAILY 60 Days Qty: 60 0RF aspirin 81 mg tablet,delayed release (DR/EC) 81 mg PO DAILY Qty: 90 3RF isosorbide mononitrate 30 mg Tablet Extended Release 24 Hr 30 mg PO DAILY Qty: 30 0RF Protocol: Hold for SBP< HOLD for SBP < : 90 furosemide [Lasix] 40 mg tablet 40 mg PO BID 60 Days Qty: 60 0RF rosuvastatin 20 mg tablet 1 tab PO DAILY 0RF Discharge Orders: Discharge Order (Routine); Ordered 12/15/21 Ordered By: Ilir Weldon Diet: advance to usual diet and low salt diet Activity on Discharge: As tolerated Stand Alone Forms: Patient Portal Discharge page Care Plan Goals: Control heart failure and prevent rehospitalization. Health Concerns: Chronic heart failure Plan of Treatment: Take all medication as prescribed, follow-up with your heart doctor and primary care physician within a week, call for appointment. Assessment: As above
--- NOTE | 2021-12-15 10:14 | P.PNCA_ITS ---
Subjective Subjective Date of Service: 12/15/21 Interval history: States that he feels good. Not short of breath today. Review of Systems Review of Systems Yes all other systems are reviewed and are negative Cardiovascular: Reports as per HPI, Reports no additional cardiovascular complaints, Denies acrocyanosis, Denies cool extremities, Denies chest pain, Denies diaphoresis, Denies syncope, Denies claudication, Denies leg edema, Denies lightheadedness, Denies palpitations and Reports dyspnea Respiratory: Reports dyspnea Denies syncope Endocrine: Denies palpitations Physical Exam Vital Signs: Last Vital Signs Temp 99.0 F 12/15/21 07:15 Pulse 85 12/15/21 07:15 Resp 18 12/15/21 07:15 BP 136/94 H 12/15/21 07:15 Pulse Ox 96 12/15/21 07:15 BMI result Body Mass Index 26.6 Const General: comfortable HENMT Other: Unremarkable Neck Neck: Yes normal visual inspection Chest Chest palpation & inspection: normal inspection of the chest Resp Auscultation: clear to auscultation bilaterally Cardio Palpation: normal PMI Heart sounds: S1 normal heart sound present, S2 normal heart sound present, no gallops, no murmurs and no rubs GI Palpation (GI): Soft to palpation Back/Spine/Pelvis Other: unremarkable Skin Lesions: other Neuro General: other Extrem General: Yes other Psych Mental Status: other Objective Labs and Meds Result diagrams: 12/13/21 12:31 12/15/21 05:48 Lab results: Laboratory Results - last 24 hr 12/15/21 05:48 Sodium 139 Potassium 3.3 Chloride 98 Carbon Dioxide 32 H Anion Gap 12 BUN 15 Creatinine 0.84 Estim Creat Clear Calc 88.6 Estimated GFR > 60 Random Glucose 130 H D Calcium 9.1 Progress Note: A&P Assessment and plan (1) Acute on chronic systolic heart failure: Status: Acute (2) Atherosclerotic cardiovascular disease: Status: Acute (3) Ascending aortic aneurysm: Status: Acute (4) Hypertensive emergency: Status: Resolved Plan Cardiac studies reviewed. EKG with sinus rhythm at 95/Min; left atrial enlargement; nonspecific ST-T changes; cannot exclude old anteroseptal infarct; top normal IN and QTc 472 milliseconds. Elevated cardiac BNP noted. High sensitivity troponins within range. Most recent echocardiogram with LVEF of 10-15%. RV function is also significantly diminished. Ascending aorta measured 4.4 cm. In the previous echocardiogram from last year, LVEF was 45-50%. However, before bypass surgery it was 15-20%. At this time, we will optimize the heart failure treatment accordingly. Blood pressures were high but seem better. Continue Toprol-XL, Entresto, nitrates. He is on aspirin/Plavix as well. Diuretics. Discharge planning. Will arrange followup in the office. Fall Risk Details Current Medications: Current Medications Aspirin (Aspirin Enteric Coated 81 Mg Tablet.) 81 mg PO DAILY [facility] Last Admin: 12/15/21 09:09 Dose: 81 mg Documented by: Atorvastatin Calcium (Atorvastatin Calcium 80 Mg Tablet) 80 mg PO BEDTIME [place] Last Admin: 12/14/21 20:59 Dose: 80 mg Documented by: Clopidogrel Bisulfate (Clopidogrel Bisulfate 75 Mg Tablet) 75 mg PO DAILY [facility] Last Admin: 12/15/21 09:10 Dose: 75 mg Documented by: Enoxaparin Sodium (Enoxaparin Sodium 40 Mg/0.4 Ml Syringe) 40 mg SUBCUT Q24H [facility] Last Admin: 12/15/21 09:08 Dose: 40 mg Documented by: Furosemide (Furosemide 40 Mg/4 Ml Vial) 40 mg IVPUSH Q12H [facility]; Protocol Last Admin: 12/15/21 09:08 Dose: 40 mg Documented by: Isosorbide Mononitrate (Isosorbide Mononitrate 30 Mg Tab.Er.24h) 30 mg PO DAILY [facility]; Protocol Last Admin: 12/15/21 09:09 Dose: 30 mg Documented by: Metoprolol Succinate (Metoprolol Succinate Er 50 Mg Tab.Er.24h) 50 mg PO DAILY [facility]; Protocol Last Admin: 12/15/21 09:10 Dose: 50 mg Documented by: Pharmacy Consult (Consult Rx Perform Med Rec) 1 each MISCELLANE ONCE PRN PRN Reason: Consult order Sacubitril/Valsartan (Sacubitril/Valsartan 1 Tab Tablet) 1 tab PO BID [facility]; Protocol Last Admin: 12/15/21 09:09 Dose: 1 tab Documented by: Sodium Chloride (0.9 % Sodium Chloride Flush 3 Ml Syringe) 3 ml IVFLUSH QSHIFT [facility] Last Admin: 12/15/21 09:09 Dose: 3 ml Documented by: Time Spent With Patient Time: Total time spent is greater than 50% in coordination of care (as documented) at patient's floor/unit and/or counseling patient: Time with patient: less than 15 minutes Progress Note: Quality Stroke Does the patient have a stroke diagnosis?: No Procedures Date of Service Date of Service: 12/15/21
--- NOTE | 2021-12-15 10:26 | MHC.CM.PN ---
pt dcd no skilled servdies ordered by
[2021-12-15 11:00] VITALS: BP 132/95; PULSE 81; RESP 18; TEMP 36.3; O2SAT 98
[2021-12-15 11:22] LABS: Magnesium 1.4 mg/dL (1.6-2.6)
[2021-12-15] MEDS: Magnesium Sulfate/H2O 2 GM/50 ML PIGGYBACK IV (13:43)
== END 2021-12-15 15:31 | disposition home or self-care (01) | DRG 194 ==
LOC: HO.ED 16:56 → HO.EDOVER 17:22 → HO.IMC 19:25
PROVIDERS: Hospitalist; Physician Assistant; Admitting Provider Internal Medicine; Emergency Provider Emergency Medicine; PCP Internal Medicine; Visit Provider Internal Medicine
DX: I11.0 Hypertensive heart disease with heart failure (principal); I42.6 Alcoholic cardiomyopathy; I71.2 Thoracic aortic aneurysm, without rupture; Z95.1 Presence of aortocoronary bypass graft; I50.23 Acute on chronic systolic (congestive) heart failure; F10.10 Alcohol abuse, uncomplicated; I25.10 Atherosclerotic heart disease of native coronary artery without angina pectoris; I16.0 Hypertensive urgency; Z20.822 Contact with and (suspected) exposure to COVID-19; Z79.02 Long term (current) use of antithrombotics/antiplatelets; Z79.82 Long term (current) use of aspirin; Z79.899 Other long term (current) drug therapy
CPT/HCPCS: 36415; 71045; 71275; 80048; 80053; 83735; 83880; 84484; 85025; 85379; 87635; 93005; 94640; 96374; 96375; 96376; 99285; 99291; J1650; J1940; J3475; Q9967

== ENCOUNTER → 2022-01-22 12:55 | Outpatient (REF) | payer MEDICAID, SELFPAY ==
--- NOTE | 2022-01-22 13:01 | CA_ITS ---
Transthoracic Echocardiogram Patient (Last, First, Middle): Julian Thomason G Gender: Male Date of : 1965 Age: 56 Procedure Date: 01/22/2022 Procedure Type: Transthoracic Echocardiogram Location: OP Height: 165.1 cm Weight: 74.84 kg BSA: 1.82 m2 Heart Rate: bpm BP: 140 / 98 mmHg Pcat Instructor: KATARINA Referring MD: SHIRLEY^LUIS Symptoms: chf f/u on ef and aortic dilatation Study Quality: Fair Conclusions: - The left ventricular systolic function is severely decreased. The calculated ejection fraction is 12% by biplane method. There is severe global hypokinesis. Findings Procedure Information Contrast agent, definity, is being given per protocol with complications as noted. Left Ventricle Moderately increased left ventricular cavity size. The left ventricular systolic function is severely decreased. The calculated ejection fraction is 12% by biplane method. There is severe global hypokinesis. LV peak GLS 4.6%; severely diminished. Prior Study Comparison No significant change compared to prior study dated: 12/04/2021. Measurements 2D Linear Measurements IVSd: 1.06 0.6-0.9/0.6-1.0 cm LVIDd: 6.10 3.9-5.3/4.2-5.9 cm LVIDd Index: 3.35 2.4-3.2/2.2-3.1 cm/m2 LVIDs: 5.25 2.0-3.6 cm LVPWd: 1.14 0.7-1.1 cm LA Diam: 3.70 2.7-3.8/3.0-4.0 cm LAIDs Index: 2.03 1.5-2.3 cm/m2 LV Mass: 358.60 67-162/88-224 g LV Mass Index: 197.03 43-95/49-115 g/m2 2D Systolic Function EF 4C: 15.90 >55% EF 2C: 15.50 >55% EF BiP: 12.40 >55% Mitral Valve MV Pk E: 1.45 MV Decel Time: 218.00 E'Lateral: 6.50 E'Medial: 4.43 E/E' Med: 32.70 E/E' Lat: 22.30 PHT: 64.00 MVA PHT: 3.44 Decel [place]: 6.67 Diastolic Function MV Pk E: 1.45 E'Medial: 4.43 E/E' Med: 32.70 E' Laterial: 6.50 E/E' Lat: 22.30 Updated in Other Vendor System with Status of Final Luis Queen MD electronically signed on 01/24/2022 12:35:15 PM with status of Final
== END ==
LOC: HO.CARD 12:55
PROVIDERS: Visit Provider Internal Medicine
DX: I50.21 Acute systolic (congestive) heart failure (principal)
CPT/HCPCS: 93308; 93356

== ENCOUNTER → 2022-01-28 09:53 | Outpatient (BNVA) | payer MEDICAID, SELFPAY | PROVIDERS: PCP Internal Medicine; Referring Provider Internal Medicine; Visit Provider Internal Medicine | DX: I25.5 Ischemic cardiomyopathy (principal); I25.10 Atherosclerotic heart disease of native coronary artery without angina pectoris; I10 Essential (primary) hypertension; I71.2 Thoracic aortic aneurysm, without rupture | CPT/HCPCS: 99212 ==

== ENCOUNTER 2022-02-01 12:17 | Outpatient (REF) | payer MEDICAID, SELFPAY ==
[2022-02-01 12:58] LABS: Hemoglobin 14.1 g/dl (14.0-18.0); Mean Corpuscular HGB Conc 34.4 g/dl (31.0-36.0); Mean Corpuscular Hemoglobin 30.4 pg (27.0-33.0); Mean Corpuscular Volume 88.4 fL (80.0-98.0); Mean Platelet Volume 10.6 fL (9.4-12.4); Platelet Count 252 X10*3/uL (160-400); Red Blood Count 4.64 X10*6/uL (4.60-5.80); Red Cell Distribution Width 14.2 % (11.0-16.0); White Blood Count 10.1 X10*3/uL (4.8-10.8)
[2022-02-01 13:03] LABS: INTERNATIONAL NORM RATIO 1.3 (0.9-1.1); Prothrombin Time 14.3 SEC (9.9-13.0)
[2022-02-01 13:22] LABS: Anion Gap 15 (12-20); Blood Urea Nitrogen 17 mg/dL (9-16); Calcium 9.2 mg/dL (8.4-10.2); Carbon Dioxide 27 mmol/L (22-29); Chloride 102 mmol/L (96-108); Estimated Glomerular Filt Rate > 60; Glucose Random 190 mg/dL (60-115); Potassium 3.4 mmol/L (3.3-5.1); Sodium 141 mmol/L (135-145)
== END 2022-02-01 12:18 | disposition home or self-care (01) ==
LOC: HO.LAB 12:17
PROVIDERS: PCP Internal Medicine; Visit Provider Internal Medicine
DX: I25.5 Ischemic cardiomyopathy (principal); I50.22 Chronic systolic (congestive) heart failure
CPT/HCPCS: 36415; 80048; 85027; 85610

== ENCOUNTER → 2022-02-11 14:02 | Outpatient (BNVA) | payer MEDICAID, SELFPAY | PROVIDERS: PCP Internal Medicine; Referring Provider Internal Medicine; Visit Provider Internal Medicine | DX: I25.10 Atherosclerotic heart disease of native coronary artery without angina pectoris (principal); I25.5 Ischemic cardiomyopathy; I10 Essential (primary) hypertension; I71.2 Thoracic aortic aneurysm, without rupture; Z79.02 Long term (current) use of antithrombotics/antiplatelets; Z79.82 Long term (current) use of aspirin; Z79.899 Other long term (current) drug therapy | CPT/HCPCS: 99212 ==

== ENCOUNTER → 2022-05-20 15:20 | Outpatient (BNVA) | payer MEDICAID, SELFPAY | PROVIDERS: PCP Internal Medicine; Referring Provider Internal Medicine; Visit Provider Internal Medicine | DX: I25.10 Atherosclerotic heart disease of native coronary artery without angina pectoris (principal); I25.5 Ischemic cardiomyopathy; I10 Essential (primary) hypertension; I71.2 Thoracic aortic aneurysm, without rupture; Z79.899 Other long term (current) drug therapy; Z95.1 Presence of aortocoronary bypass graft | CPT/HCPCS: 99212 ==

== ENCOUNTER → 2022-10-22 12:54 | Outpatient (REF) | payer MEDICAID, SELFPAY ==
--- NOTE | 2022-10-22 13:00 | CA_ITS ---
Transthoracic Echocardiogram Patient (Last, First, Middle): Julian Thomason G Gender: Male Date of : 1965 Age: 57 Procedure Date: 10/22/2022 Procedure Type: Transthoracic Echocardiogram Location: OP Height: 165.1 cm Weight: 74.84 kg BSA: 1.82 m2 Heart Rate: 83 bpm BP: 118 / 68 mmHg Sound Engineer: SB Referring MD: Luis Queen MD Symptoms: I25.10 - Atherosclerotic heart disease of [place] coronary artery without... Study Quality: Adequate w contrast ECG Rhythm: Sinus Conclusions: - 1. Mildly dilated left ventricle with severe LV systolic dysfunction with LVEF of 15-20% with suggestion of some regional wall motion abnormality with impaired relaxation filling pattern and elevated filling pressures 2. Mildly dilated left atrium 3. Trivial aortic regurgitation 4. Mildly dilated ascending aorta at 4.4 cm 5. No gross pericardial effusion Findings Procedure Information Contrast agent, definity, is being given per protocol without apparent complications. Left Ventricle Mildly increased left ventricular cavity size. There is normal left ventricular wall thickness. The left ventricular systolic function is severely decreased. The visually estimated ejection fraction is between 15 20%. Spectral Doppler is indicative of an impaired relaxation filling pattern. Elevated filling pressures. E/E prime ratio is >15, consistent with elevated filling pressures. Evidence suggests grade II (moderate) diastolic dysfunction. Wall Motion Rest Echo Findings The anterior wall, entire lateral wall, the apex, basal anteroseptal, and mid anteroseptal segments are hypokinetic. The inferoseptal wall, inferior wall, and apical septum segment are akinetic. Right Ventricle Normal right ventricular cavity size and systolic function. Atria The left atrium is mildly dilated. 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 Interatrial shunt cannot be excluded. The right atrium is normal in size. Aortic Valve The aortic valve structure and function is likely normal. There is no aortic valve stenosis. There is trace (trivial) aortic valve regurgitation. Mitral Valve There is mild anterior and posterior mitral leaflet thickening. There is trace mitral valve regurgitation. There is no mitral valve stenosis. Pulmonic Valve The pulmonic valve was not well visualized. Tricuspid Valve Likely normal tricuspid valve structure and function. Tricuspid regurgitation envelope is inadequate for calculation of right ventricular systolic pressure. Normal right atrial pressure. Great Vessels The pulmonary artery was not well visualized. There is mild dilatation of the ascending aorta measuring 4.40 cm. Venous The inferior vena cava is normal in size and collapses greater than 50% with inspiration. Pericardium/Pleural There is no evidence of pericardial effusion. Measurements 2D Linear Measurements IVSd: 0.96 0.6-0.9/0.6-1.0 cm LVIDd: 6.15 3.9-5.3/4.2-5.9 cm LVIDd Index: 3.38 2.4-3.2/2.2-3.1 cm/m2 LVIDs: 5.41 2.0-3.6 cm LVPWd: 0.76 0.7-1.1 cm LA Diam: 3.60 2.7-3.8/3.0-4.0 cm LAIDs Index: 1.98 1.5-2.3 cm/m2 LV Mass: 265.22 67-162/88-224 g LV Mass Index: 145.73 43-95/49-115 g/m2 LVOT Diam: 2.40 3.0+(-)1.3 cm 2D Systolic Function EF 4C: 15.30 >55% EF 2C: 22.60 >55% EF BiP: 20.00 >55% Mitral Valve MV Pk E: 1.11 MV PK A: 1.18 MV Decel Time: 159.00 E/A: 0.90 E'Lateral: 3.05 E'Medial: 3.59 E/E' Med: 30.90 E/E' Lat: 36.40 PHT: 47.00 MVA PHT: 4.68 Decel [place]: 6.95 Aortic Valve AoV Pk [place]: 1.01 AoV Pk Grad: 4.00 THEE: 3.30 LVOT LVOT Pk [place]: 0.78 LVOT Mn [place]: 0.53 LVOT VTI: 0.14 LVOT Pk Grad: 2.00 LVOT Mn Grad: 2.00 LVOT Diam: 2.40 LVOT Area: 4.52 Diastolic Function MV Pk E: 1.11 MV Pk A: 1.18 E/A: 0.90 E'Medial: 3.59 E/E' Med: 30.90 E' Laterial: 3.05 E/E' Lat: 36.40 Right Ventricle TAPSE (mm): 19.50 TVS' Harrison: 11.90 Tricuspid Valve RA Press: 3.00 Great Vessels Aorta Sinus of Valsalva: 4.40 2.0-3.5 cm Ao Asc: 4.40 2.1-3.4 cm Pulmonary Valve PV Pk Harrison: 0.84 Peak PV Grad: 3.00 Updated in Other Vendor System with Status of Final Zurdo Quinones MD electronically signed on 10/23/2022 1:28:45 PM with status of Final
== END ==
LOC: HO.CARD 12:54
PROVIDERS: Visit Provider Internal Medicine
DX: I25.10 Atherosclerotic heart disease of native coronary artery without angina pectoris (principal); I25.5 Ischemic cardiomyopathy; I71.20 Thoracic aortic aneurysm, without rupture, unspecified
CPT/HCPCS: 93306; Q9957

== ENCOUNTER → 2022-11-30 14:09 | Outpatient (BNVA) | payer MEDICAID, SELFPAY | PROVIDERS: PCP Internal Medicine; Referring Provider Internal Medicine; Visit Provider Internal Medicine | DX: I25.5 Ischemic cardiomyopathy (principal); I25.10 Atherosclerotic heart disease of native coronary artery without angina pectoris; I50.9 Heart failure, unspecified; I11.0 Hypertensive heart disease with heart failure; I71.40 Abdominal aortic aneurysm, without rupture, unspecified; E78.5 Hyperlipidemia, unspecified; Z95.1 Presence of aortocoronary bypass graft | CPT/HCPCS: 93005; 99212 ==

== ENCOUNTER 2022-12-06 09:40 | Outpatient (REF) | payer MEDICAID, SELFPAY ==
[2022-12-06 11:14] LABS: B Type Natriuretic Peptide 280 pg/mL (<100)
[2022-12-06 11:18] LABS: Alanine Aminotransferase 21 U/L (0-40); Alkaline Phosphatase 66 U/L (39-117); Anion Gap 17 (12-20); Aspartate Amino Transferase 27 U/L (5-37); Bilirubin Direct 0.3 mg/dL (0.0-0.5); Bilirubin Total 0.7 mg/dL (0.0-1.0); Blood Urea Nitrogen 19 mg/dL (9-16); Calcium 8.9 mg/dL (8.4-10.2); Carbon Dioxide 29 mmol/L (22-29); Chloride 98 mmol/L (96-108); Cholesterol 161 mg/dL; Estimated Glomerular Filt Rate > 60; Glucose Random 148 mg/dL (60-115); HDL Cholesterol 52 mg/dL; LDL Cholesterol Calculated 93 mg/dl; Potassium 3.9 mmol/L (3.3-5.1); Sodium 140 mmol/L (135-145); Total Protein 7.1 g/dL (6.5-8.0); Triglycerides 83 mg/dL
== END 2022-12-06 09:41 | disposition home or self-care (01) ==
LOC: HO.LAB 09:40
PROVIDERS: Visit Provider Internal Medicine
DX: I25.10 Atherosclerotic heart disease of native coronary artery without angina pectoris (principal); I50.22 Chronic systolic (congestive) heart failure; E78.5 Hyperlipidemia, unspecified
CPT/HCPCS: 36415; 80048; 80061; 80076; 83880

== ENCOUNTER 2023-06-28 14:37 | Outpatient (AMB) | payer MEDICAID, SELFPAY ==
--- NOTE | 2023-06-28 14:39 | A.OFFVIS_ITS ---
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 To recall, in 2020, he underwent coronary artery bypass surgery. He has cardiomyopathy which is suspected to be both ischemic as well as nonischemic. He states that he is actually feeling great. Absolutely no symptoms whatsoever. No angina or shortness of breath or in fact anything cardiac sounding at all. He seems to be getting along fine. Fairly active with no limitations. Lot of compliance issues in the past but these days he states he is taking all his medications. Not on regular diuretics. [facility] Medical History (Updated 02/11/22 @ 15:00 by Luis Queen MD) Acute CHF Alcohol abuse Ascending aortic aneurysm Atherosclerotic cardiovascular disease CAD (coronary artery disease) Cardiomyopathy CHF (congestive heart failure) Essential hypertension HLD (hyperlipidemia) HTN (hypertension) Hypomagnesemia Ischemic cardiomyopathy Pulmonary arterial hypertension Surgical History S/P cardiac cath S/P triple vessel bypass Status post double vessel coronary artery bypass Family History Father No problems noted. Mother No problems noted. Social History Household Members: Family Housing: Apartment Do you presently have visiting nurse or other home services: No Alcohol intake: current Alcohol intake frequency: 0-2 drinks per day Alcohol type: beer Patient Tobacco Use Status: Never used Tobacco Second Hand Smoke Exposure: No Substance Use Type: Marijuana Advance Directives Date on File: 12/03/21 service: No Current occupational status: employed Review of Systems Const Denies weakness ENT Denies dizziness Card Denies chest pain, Denies chest pain with activity, Denies syncope, Denies rapid heart rate, Denies pedal edema, Denies edema, Denies leg edema, Denies light headedness, Denies palpitations, Denies dyspnea, Denies dyspnea on exertion and Denies orthopnea Resp Denies cough, Denies dyspnea and Denies dyspnea on exertion GI Denies hematochezia and Denies change in stool character Musc Denies abnormal gait, Denies muscle cramps, Denies muscle weakness, Denies numbness, Denies radiating pain into limb and Denies tingling Neuro Denies abnormal gait, Denies dizziness, Denies syncope, Denies numbness, Denies tingling and Denies weakness Endo Denies palpitations Physical Exam Vital Signs: Last Vital Signs Pulse 77 06/28/23 14:40 BP 140/82 H 06/28/23 14:40 BMI result Body Mass Index 27.1 Const General: comfortable and no acute distress Orientation/consciousness: patient oriented x3 HEENT Other: Unremarkable Head: Yes normal to inspection Neck Neck: Yes normal visual inspection Chest Chest palpation & inspection: normal inspection of the chest Resp Auscultation: clear to auscultation bilaterally Cardio Palpation: normal PMI Heart sounds: S1 normal heart sound present, S2 normal heart sound present, no gallops, no murmurs and no rubs GI Palpation (GI): Soft to palpation Back/Spine/Pelvis Other: unremarkable Skin General skin exam: no rashes or lesions noted Neuro General: patient oriented x3 Extrem General: Yes normal to inspection Psych Mental Status: mental status grossly normal Assessment & Plan Assessment & Plan (1) Ischemic cardiomyopathy: Code(s): I25.5 - Ischemic cardiomyopathy Plan: Clinically, no symptoms or signs of congestive heart failure. Continue beta-blockers and Entresto. Intolerance to spironolactone in the past. Continue Farxiga without changes. Not interested in ICD and this has been discussed numerous times. He also saw EP but declined ICD. (2) Atherosclerotic cardiovascular disease: Code(s): I25.10 - Atherosclerotic heart disease of [place] coronary artery without angina pectoris Plan: Cardiac catheterization data reviewed. He had severe [place] vessel disease. With regard to the grafts, patent BLAIR to LAD, SVG to PDA and SVG to ramus/OM. Occluded SVG to D1/PLV. It was felt that findings are out of proportion to the cardiomyopathy. Continue aspirin and statins. LDL is less than ideal but he has had numerous compliance issues in the past and hopefully at least can take what he is on. If maintains compliance, then possibly go up on statins in the future. (3) Essential hypertension: Code(s): I10 - Essential (primary) hypertension Plan: Continue current meds. (4) Ascending aortic aneurysm: Code(s): I71.2 - Thoracic aortic aneurysm, without rupture Plan: In the most recent echocardiogram, ascending aortic size 4.4 cm. We will recheck with next visit. Plan Orders: Orders 2 CA echo transthoracic complete 6 Months I25.10 - Atherosclerotic heart disease of [place] coronary artery without angina pectoris, I25.5 - Ischemic cardiomyopathy, I71.2 - Thoracic aortic aneurysm, without rupture Coding Level of Care Code Est Pt Level 4 (53637) Diagnoses Ischemic cardiomyopathy I25.5 Atherosclerotic cardiovascular disease I25.10 Essential hypertension I10 Ascending aortic aneurysm I71.2
[2023-06-28 14:40] VITALS: BP 140/82; PULSE 77; BMI 27.1
== END 2023-06-28 14:56 | disposition home or self-care (01) ==
PROVIDERS: PCP Internal Medicine; Referring Provider Internal Medicine; Visit Provider Internal Medicine
DX: I25.5 Ischemic cardiomyopathy (principal); I25.10 Atherosclerotic heart disease of native coronary artery without angina pectoris; I10 Essential (primary) hypertension; I71.20 Thoracic aortic aneurysm, without rupture, unspecified
CPT/HCPCS: 99214

== ENCOUNTER → 2023-06-28 14:37 | Outpatient (BNVA) | payer MEDICAID, SELFPAY | PROVIDERS: PCP Internal Medicine; Referring Provider Internal Medicine; Visit Provider Internal Medicine | DX: I25.5 Ischemic cardiomyopathy (principal); I25.10 Atherosclerotic heart disease of native coronary artery without angina pectoris; I10 Essential (primary) hypertension; I71.20 Thoracic aortic aneurysm, without rupture, unspecified; Z79.82 Long term (current) use of aspirin; Z79.899 Other long term (current) drug therapy | CPT/HCPCS: 99212 ==

== ENCOUNTER 2023-08-12 12:47 | Outpatient (AMB) | payer MEDICAID, SELFPAY ==
[2023-08-12 12:55] VITALS: BP 130/82; PULSE 75; BMI 27.5
--- NOTE | 2023-08-12 12:55 | MHC.OFFVIS ---
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 He reports he has been doing well since he has been taking all his medications every day. He denies sob, chest pain, swelling, or dizziness. He reports he has never prior been told he had a low heart rate. He has a medical history of CHF, HTN, AAA, HLD, CAD, Cardiomyopthy, and Coronary Artery Bypass. He states his PCP said he can stop the lasix daily as he has had no symptoms of fluid overload. [facility] Medical History (Updated 08/15/23 @ 07:30 by Amita Jerez NP) Pulmonary arterial hypertension Alcohol abuse Acute CHF Hypomagnesemia Ascending aortic aneurysm Essential hypertension Atherosclerotic cardiovascular disease Ischemic cardiomyopathy HLD (hyperlipidemia) CAD (coronary artery disease) Cardiomyopathy CHF (congestive heart failure) HTN (hypertension) Surgical History Status post double vessel coronary artery bypass S/P triple vessel bypass S/P cardiac cath Family History Father No problems noted. Mother No problems noted. Social History Household Members: Family Housing: Apartment Do you presently have visiting nurse or other home services: No Alcohol intake: current Alcohol intake frequency: 0-2 drinks per day Alcohol type: beer Patient Tobacco Use Status: Never used Tobacco Second Hand Smoke Exposure: No Substance Use Type: Marijuana Advance Directives Date on File: 12/03/21 service: No Current occupational status: employed Review of Systems Const Denies chills, Denies fatigue, Denies fever(s), Denies frequent falls, Denies weakness, Denies weight gain and Denies weight loss ENT Denies dizziness Card Denies chest pain, Denies chest pain at rest, Denies chest pain with activity, Denies rapid heart rate, Denies pedal edema, Denies edema, Denies leg edema, Denies lightheadedness, Denies palpitations, Denies dyspnea, Denies dyspnea on exertion and Denies orthopnea Resp Denies cough, Denies dyspnea and Denies dyspnea on exertion GI Denies hematochezia and Denies change in stool character Musc Denies abnormal gait, Reports limited range of motion, Reports muscle cramps, Denies muscle weakness, Denies numbness, Denies radiating pain into limb, Denies stiffness and Denies tingling Neuro Denies abnormal gait, Denies dizziness, Denies frequent falls, Denies numbness, Denies tingling and Denies weakness Endo Denies fatigue and Denies palpitations Physical Exam Vital Signs: Last Vital Signs Pulse 75 08/12/23 12:55 BP 130/82 08/12/23 12:55 BMI result Body Mass Index 27.5 Const General: healthy appearing and no acute distress Orientation/consciousness: patient oriented x3 HEENT Head: Yes normal to inspection Eyes General: appearance normal, both eyes and all related structures Neck Neck: Yes normal visual inspection Chest Chest palpation & inspection: normal inspection of the chest Resp Effort & Inspection: normal respiratory effort Auscultation: clear to auscultation bilaterally Cardio Jugular venous distension: no JVD Palpation: normal PMI Rate: regular rate Rhythm: regular rhythm Heart sounds: S1 normal heart sound present, S2 normal heart sound present, no click, no gallops, no murmurs and no rubs GI Inspection: Yes normal to inspection Palpation (GI): Soft to palpation Skin General skin exam: no rashes or lesions noted Neuro General: patient oriented x3 Extrem General: Yes normal to inspection Psych Appearance: grossly normal Office Procedures EKG Details: EKG today NSR, Biatrial enlargement, rightward axis. QTc 473ms. DC 200ms. No significant changes [id number], Complete Assessment & Plan Assessment & Plan (1) CAD (coronary artery disease): Code(s): I25.10 - Atherosclerotic heart disease of [place] coronary artery without angina pectoris (2) Essential hypertension: Code(s): I10 - Essential (primary) hypertension (3) Ischemic cardiomyopathy: Code(s): I25.5 - Ischemic cardiomyopathy (4) S/P cardiac cath: Comment: 01/01/21 Multivessel CAD - mid LAD 75%, LCx prox 90%, R PDA prox 70%, 1st RPL prox 75%, 2nd RPL prox 75%, Ramus prox 75%, normal systemic pressures Code(s): Z98.890 - Other specified postprocedural states Plan Will have him get his echo now and exercise stress test. Do not hold metoprolol day of stress test. Orders: Orders CA stress test Today I25.10 - Atherosclerotic heart disease of [place] coronary artery without angina pectoris, Z98.890 - Other specified postprocedural states Coding Level of Care Code Est Pt Level 3 (21762) Diagnoses CAD (coronary artery disease) I25.10 Essential hypertension I10 Ischemic cardiomyopathy I25.5 S/P cardiac cath Z98.890 CPT Codes EKG - CPT: [id number], Complete ([id number])
== END 2023-08-12 13:21 | disposition home or self-care (01) ==
PROVIDERS: PCP Internal Medicine; Visit Provider Nurse Practitioner
DX: R94.31 Abnormal electrocardiogram [ECG] [EKG] (principal)
CPT/HCPCS: 93010; 99213

== ENCOUNTER → 2023-08-12 12:47 | Outpatient (BNVA) | payer MEDICAID, SELFPAY | PROVIDERS: PCP Internal Medicine; Visit Provider Nurse Practitioner | DX: Z02.4 Encounter for examination for driving license (principal); I25.10 Atherosclerotic heart disease of native coronary artery without angina pectoris; I25.5 Ischemic cardiomyopathy; I10 Essential (primary) hypertension; I27.21 Secondary pulmonary arterial hypertension; I71.20 Thoracic aortic aneurysm, without rupture, unspecified; E78.5 Hyperlipidemia, unspecified; Z98.890 Other specified postprocedural states; Z95.1 Presence of aortocoronary bypass graft; Z79.82 Long term (current) use of aspirin; Z79.899 Other long term (current) drug therapy | CPT/HCPCS: 93005; 99212 ==

== ENCOUNTER → 2023-09-08 08:59 | Outpatient (REF) | payer MEDICAID, SELFPAY ==
--- NOTE | 2023-09-08 09:02 | CA_ITS ---
Transthoracic Echocardiogram Patient (Last, First, Middle): Julian Thomason G Gender: Male Date of : 1965 Age: 58 Procedure Date: 09/08/2023 Procedure Type: Transthoracic Echocardiogram Location: OP Height: 167.64 cm Weight: 79.38 kg BSA: 1.89 m2 Heart Rate: 87 bpm BP: 152 / 72 mmHg Low Voltage Technician: CHANTAL Referring MD: Luis Queen MD Symptoms: I25.10 - Atherosclerotic heart disease of [place] coronary artery without... Study Quality: Fair/w Contrast ECG Rhythm: Arrhythmia Conclusions: - The left ventricular systolic function is severely decreased. The visually estimated ejection fraction is between 15-20%. - Wall motion abnormalities suggesting underlying coronary disease. - No obvious valvular pathology seen on this study. - There is mild dilatation of the sinuses of Valsalva measuring 4.60 cm and mild dilatation of the ascending aorta measuring 4.50 cm. Findings Procedure Information Contrast agent, definity, is being given per protocol without apparent complications. Left Ventricle Moderately increased left ventricular cavity size. There is mildly increased left ventricular wall thickness. The left ventricular systolic function is severely decreased. The visually estimated ejection fraction is between 15 20%. There is severe global hypokinesis. Evidence suggests grade I (mild) diastolic dysfunction. Wall Motion Rest Echo Findings The inferolateral wall, the basal inferior, mid inferior, apical septum, and mid inferoseptal segments are akinetic. Right Ventricle Mildly increased right ventricular cavity size. There is mildly decreased right ventricular systolic function. Atria Both atria are normal in size. Aortic Valve There is a normal trileaflet aortic valve. There is mild calcification of the aortic valve. There is no aortic valve stenosis. There is no aortic valve regurgitation. Mitral Valve The mitral valve appears normal. There is no mitral valve regurgitation. There is no mitral valve stenosis. Pulmonic Valve The pulmonic valve is likely normal. Tricuspid Valve Normal tricuspid valve structure. There is trace tricuspid valve regurgitation. There is no evidence of pulmonary hypertension. Great Vessels There is mild dilatation of the sinuses of Valsalva measuring 4.60 cm and mild dilatation of the ascending aorta measuring 4.50 cm. Venous The inferior vena cava is normal in size and collapses greater than 50% with inspiration. Pericardium/Pleural There is no evidence of pericardial effusion. Prior Study Comparison No significant change compared to prior study dated: 10/22/2022. Recommendations, Care & Conclusions No obvious valvular pathology seen on this study. Measurements 2D Linear Measurements IVSd: 1.15 0.6-0.9/0.6-1.0 cm LVIDd: 6.35 3.9-5.3/4.2-5.9 cm LVIDd Index: 3.36 2.4-3.2/2.2-3.1 cm/m2 LVIDs: 5.58 2.0-3.6 cm LVPWd: 1.46 0.7-1.1 cm LA Diam: 3.70 2.7-3.8/3.0-4.0 cm LAIDs Index: 1.96 1.5-2.3 cm/m2 LV Mass: 481.81 67-162/88-224 g LV Mass Index: 254.92 43-95/49-115 g/m2 LVOT Diam: 2.40 3.0+(-)1.3 cm 2D Systolic Function EF 4C: 12.60 >55% EF 2C: 26.90 >55% EF BiP: 20.80 >55% Mitral Valve MV Pk E: 1.02 MV PK A: 1.26 MV Decel Time: 185.00 E/A: 0.80 E'Lateral: 3.48 E'Medial: 3.48 E/E' Med: 29.30 E/E' Lat: 29.30 PHT: 54.00 MVA PHT: 4.07 Decel Barber: 5.53 Aortic Valve AoV Pk Harrison: 1.04 AoV Mn Harrison: 0.79 AoV VTI: 0.20 AoV Pk Grad: 4.00 Aov Mn Grad: 3.00 THEE Cont.VTI: 3.52 LVOT LVOT Pk Harrison: 0.82 LVOT Mn Harrison: 0.65 LVOT VTI: 0.15 LVOT Pk Grad: 3.00 LVOT Mn Grad: 2.00 LVOT Diam: 2.40 LVOT Area: 4.52 Diastolic Function MV Pk E: 1.02 MV Pk A: 1.26 E/A: 0.80 E'Medial: 3.48 E/E' Med: 29.30 E' Laterial: 3.48 E/E' Lat: 29.30 Right Ventricle TAPSE (mm): 16.80 TVS' Harrison: 10.10 Tricuspid Valve RA Press: 3.00 Great Vessels Aorta Sinus of Valsalva: 4.60 2.0-3.5 cm Ao Asc: 4.50 2.1-3.4 cm Pulmonary Valve PV Pk Harrison: 0.98 Peak PV Grad: 4.00 Updated in Other Vendor System with Status of Final Luis Queen MD electronically signed on 09/09/2023 9:00:33 AM with status of Final
--- NOTE | 2023-09-08 09:02 | CA_ITS ---
Acquisition Time: 2023-09-08 09:40:50 Total Exercise Time: 00:05:00 Test Indications: CAD,DOT EXAM Medications: ASA METOPROLOL EBTRESTO ISOSORBIDE Protocol: PAULO Max HR: 151 BPM 93% of Pred: 162 BPM Max BP: 200/110 mmHG Max Work Load: 7.0 METS Exercise stress test exercise 5 min of Paulo protocol achieving 93% MPHR and 7 METs without anginal response. with isolated PVCs and ventricular cuplet, with with hypertensive response to exercise, without EKG changes from baseline. Referred By: Amita Jerez Overread By: Amita Jerez
== END ==
LOC: HO.CARD 08:59
PROVIDERS: PCP Internal Medicine; Visit Provider Internal Medicine
DX: I25.10 Atherosclerotic heart disease of native coronary artery without angina pectoris (principal); I25.5 Ischemic cardiomyopathy; Z98.890 Other specified postprocedural states
CPT/HCPCS: 93017; 93306; Q9957

== ENCOUNTER → 2023-09-08 09:02 | Outpatient (BNV) | payer MEDICAID, SELFPAY | PROVIDERS: PCP Internal Medicine; Visit Provider Nurse Practitioner | DX: I25.10 Atherosclerotic heart disease of native coronary artery without angina pectoris (principal) | CPT/HCPCS: 93016; 93018; 93306 ==

== ENCOUNTER 2024-01-16 15:08 | Emergency (ER) | payer OTHER, SELFPAY ==
--- NOTE | ~2024-01-16 | XR_ITS ---
EXAMINATION: XR CHEST CLINICAL INFORMATION: Shortness of breath COMPARISON: 12/13/2021 TECHNIQUE: 2 views of the chest were obtained. FINDINGS: Lungs are well expanded and clear. No pleural effusion or pneumothorax. Cardiac silhouette is chronically enlarged. Also, there appears to be chronic mild enlargement of central pulmonary artery. Sternotomy wires are intact. EKG wires overlie the chest. No acute osseous abnormality. XR/XR chest 2V IMPRESSION: Cardiomegaly, status post coronary artery bypass graft surgery, and stable mild enlargement of central pulmonary vessels. No evidence of pulmonary edema. No acute pulmonary disease compared to 12/13/2021.
--- NOTE | 2024-01-16 15:22 | ECG_ITS ---
Test Reason : SOB Blood Pressure : / mmHG Vent. Rate : 075 BPM Atrial Rate : 075 BPM P-R Int : 194 ms QRS Dur : 104 ms QT Int : 496 ms P-R-T Axes : 065 098 088 degrees QTc Int : 553 ms Normal sinus rhythm with PVCs Rightward axis Minimal voltage criteria for LVH, may be normal variant ( [place] product ) Septal infarct , age undetermined Prolonged QT Abnormal ECG When compared with ECG of 13-DEC-2021 12:41, Nonspecific T wave abnormality no longer evident in Inferior leads Nonspecific T wave abnormality, worse in Lateral leads QT has lengthened Frequent PVCs present Referred By: Jessica Santoro Electronically Signed By:Rohit Edwards
[2024-01-16 15:34] VITALS: BP 115/64; PULSE 76; RESP 16; TEMP 36.4; O2SAT 94; BMI 25.4
[2024-01-16 16:06] LABS: Basophils Percent Auto 0.4 % (0-2); Eosinophils Percent Auto 0.1 % (0-4); Hematocrit 47.2 % (42.0-52.0); Hemoglobin 17.3 g/dl (14.0-18.0); Imm Gran Abs Auto 0.03 X10*3/uL (0.00-0.03); Imm Gran Pct Auto 0.4 % (0.0-0.4); Lymphocytes Absolute Auto 2.8 X10*3/uL (1.2-4.9); MANUAL DIFF FLAG SCAN; Mean Corpuscular HGB Conc 36.7 g/dl (31.0-36.0); Mean Corpuscular Hemoglobin 31.1 pg (27.0-33.0); Mean Corpuscular Volume 84.9 fL (80.0-98.0); Mean Platelet Volume 10.9 fL (9.4-12.4); Monocytes Absolute Auto 0.9 X10*3/uL (0.1-1.2); Monocytes Percent Auto 11.8 % (2-11); Neutrophils Absolute Auto 4.1 x10*3/uL (2.0-8.3); Neutrophils Percent Auto 52.3 % (45-73); Platelet Count 164 X10*3/uL (160-400); Red Blood Count 5.56 X10*6/uL (4.60-5.80); Red Cell Distribution Width 11.6 % (11.0-16.0); SCAN SMEAR FLAG 1; White Blood Count 7.9 X10*3/uL (4.8-10.8)
--- NOTE | 2024-01-16 16:41 | ED_ITS ---
HPI - General Adult General Chief complaint: Upper Respiratory Symptoms Stated complaint: SOB [id number] Time Seen by Provider: 01/16/24 16:16 Source: patient and family Mode of arrival: EMS History of Present Illness HPI narrative: 58-year-old male with history of CAD, diabetes, CABG 2-3 years ago and still a daily drinker presents with persistent cough/congestion and shortness of breath for the past week with mild associated chest pain with the cough but denies any fever, chills, nausea, vomiting, diarrhea or abdominal discomfort. Patient states he has been taking his medications as prescribed which includes Lasix. Related Data Home Medications Medication Instructions Recorded Confirmed rosuvastatin 20 mg tablet 20 mg PO DAILY 01/28/22 06/28/23 Previous Rx's Medication Instructions Recorded aspirin 81 mg tablet,delayed 81 mg PO DAILY #90 tabs 11/24/21 release metoprolol succinate 50 mg 50 mg PO DAILY 60 days #60 tabs 11/30/21 tablet,extended release 24 hr (Toprol XL) isosorbide mononitrate 30 mg 30 mg PO DAILY #30 tabs 12/04/21 tablet,extended release 24 hr sacubitril 49 mg-valsartan 51 mg 1 tab PO BID #60 tabs 10/10/23 tablet (Entresto) dapagliflozin propanediol 10 mg 10 mg PO DAILY #30 tabs 12/28/23 tablet (Farxiga) Allergies Allergy/AdvReac Type Severity Reaction Status Date / Time No Known Allergies Allergy Verified 08/12/23 13:14 Review of Systems 2 Review of Systems: Pertinent positives and negatives as stated in HPI [facility] Past Medical History Source: nursing notes reviewed Medical History Pulmonary arterial hypertension Alcohol abuse Acute CHF Hypomagnesemia Ascending aortic aneurysm Essential hypertension Atherosclerotic cardiovascular disease Ischemic cardiomyopathy HLD (hyperlipidemia) CAD (coronary artery disease) Cardiomyopathy CHF (congestive heart failure) HTN (hypertension) Surgical History Status post double vessel coronary artery bypass S/P triple vessel bypass S/P cardiac cath Family History Family History Father No problems noted. Mother No problems noted. Social History Social History Household Members: Family Housing: Apartment Do you presently have visiting nurse or other home services: No Alcohol intake: current Alcohol intake frequency: 0-2 drinks per day Alcohol type: beer Patient Tobacco Use Status: Never used Tobacco Second Hand Smoke Exposure: No Substance Use Type: Marijuana Advance Directives: Yes Advance Directives on File: Yes Advance Directives Date on File: 12/03/21 service: No Current occupational status: employed Physical Exam ED Vital Signs: Vital Signs - 24 hr 01/16/24 15:34 01/16/24 17:16 Temperature 97.6 F Pulse Rate 76 Respiratory Rate 16 Blood Pressure 115/64 Pulse Oximetry 94 90 L Oxygen Delivery Method Room Air Room Air BMI result Body Mass Index 25.4 VITAL SIGNS: Reviewed. GENERAL: Well developed, well nourished, in no acute distress. HEAD: Normocephalic/atraumatic EYES: PERRLA, EOMI EARS: Ext canals without abnormality NOSE: Nares patent bilateral OROPHARYNX: no oral lesions noted, posterior pharynx clear NECK: Supple, no adenopathy LUNGS: Coarse rhonchi, crackles noted in left base, no expiratory wheeze SpO2<94> CARDIOVASCULAR: Regular rate and rhythm without noted murmurs, no JVD or lower extremity edema. ABDOMEN: Soft, non-tender, non-distended with bowel sounds. MUSCULOSKELETAL: No tenderness, deformities, or effusions noted on gross inspection. EXTREMITIES: No cyanosis, clubbing or edema. SKIN: Inspection of the skin reveals no rashes NEUROLOGIC: Alert and oriented x 4. Strength and sensation to light touch were grossly intact x 4. Medical Decision Making Medical Decision Making MDM Narrative: 58-year-old male with history and clinical presentation, DDX: Pneumonia, CHF exacerbation I reviewed all investigations and hematologic indices negative for leukocytosis/left shift/anemia/thrombocytopenia. Chemistry indices demonstrates hypo kalemia/hypo magnesemia, elevation of BNP in combination with clinical lung exam, high sensitivity troponin is chronically elevated and there are no acute changes on EKG. Patient received 80 mg of Lasix, magnesium, potassium, and supplemental oxygen. Chest x-ray demonstrates enlargement of pulmonary vessels, no infiltrate and reports no evidence of pulmonary edema. 1746: I discussed case with inpatient hospitalist who accepts admission. Differential Diagnosis Differential Diagnoses: The differential diagnosis associated with the presentation includes Please see the discussion above Admission/Observation Consideration of admission/observation: Escalation of care including admission/observation considered Please see the discussion above Consult Healthcare Provider Management of the patient was discussed with: Hospitalist Please see the discussion above Lab Data MDM Lab Attestation statement: I reviewed the patient's lab results. Please see the discussion above 01/16/24 15:59 01/16/24 16:51 Labs: Lab Results 01/16/24 01/16/24 Range/Units 15:59 16:51 WBC 7.9 (4.8-10.8) X10*3/uL RBC 5.56 (4.60-5.80) X10*6/uL Hgb 17.3 D (14.0-18.0) g/dl Hct 47.2 (42.0-52.0) % MCV 84.9 (80.0-98.0) fL MCH 31.1 (27.0-33.0) pg MCHC 36.7 H (31.0-36.0) g/dl RDW 11.6 (11.0-16.0) % Plt Count 164 D (160-400) X10*3/uL MPV 10.9 (9.4-12.4) fL Immature Gran % (Auto) 0.4 (0.0-0.4) % Neut % (Auto) 52.3 (45-73) % Lymph % (Auto) 35.0 (20-40) % Stark % (Auto) 11.8 H (2-11) % Eos % (Auto) 0.1 (0-4) % Baso % (Auto) 0.4 (0-2) % Lymph # (Auto) 2.8 (1.2-4.9) X10*3/uL Stark # (Auto) 0.9 (0.1-1.2) X10*3/uL Eos # (Auto) 0.0 (0.0-0.4) X10*3/uL Baso # (Auto) 0.0 (0.0-0.2) X10*3/uL Abs Immat Gran (auto) 0.03 (0.00-0.03) X10*3/uL Absolute Neuts (auto) 4.1 (2.0-8.3) x10*3/uL Absolute Nucleated RBC 0.000 (0.0-0.012) X10*3/uL Nucleated RBC % (auto) 0.0 (0.0-0.2) /100WBC Smear Tech's Comments VERIFIED Sodium 137 (135-145) mmol/L Potassium 2.8 L* (3.3-5.1) mmol/L Chloride 93 L (96-108) mmol/L Carbon Dioxide 35 H (22-29) mmol/L Anion Gap 12 (12-20) BUN 19 H (9-16) mg/dL Creatinine 1.10 (0.5-1.4) mg/dL Estim Creat Clear Calc 66.0 Estimated GFR > 60 Random Glucose 159 H (60-115) mg/dL Calcium 8.6 (8.4-10.2) mg/dL Magnesium 1.4 L* (1.6-2.6) mg/dL Total Bilirubin 0.8 (0.0-1.0) mg/dL AST 35 (5-37) U/L ALT 28 (0-40) U/L Alkaline Phosphatase 64 (39-117) U/L Troponin I High Sens 32.0 (<3.5-35.0) ng/L B-Natriuretic Peptide 894 H (<100) pg/mL Total Protein 6.8 (6.5-8.0) g/dL Albumin 3.6 (3.5-5.0) g/dL Influenza Type A (PCR) POSITIVE A (Negative) Influenza Type B (PCR) NEGATIVE (Negative) RSV RNA Qual (PCR) NEGATIVE (Negative) SARS-CoV-2 RNA (RT-PCR) NEGATIVE (Negative) Independent Interpretation I performed an independent interpretation of an: EKG Interpretation: Sinus rhythm with multiple PVCs, HR-75, no STEMI, VA/QRS within normal limits, QTC is noted be prolonged, patient will receive 2 mg magnesium sulfate as well as repletion of potassium. Radiology Impression Discussion of test interpretation with radiology: I have reviewed the radiologist's reading. Radiologist Impression: Please see the discussion above External Record Review External record reviewed: Outpatient record, Prior outpatient labs and Prior outpatient radiology Chronic Conditions Patient?s care impacted by: Hypertension and Other CAD Social Determinants Patient?s care significantly limited by Social Determinants of Health including: Alcoholism and drug addiction in family Critical Care Time Critical Care Time Critical Care Time: Yes Total Critical Care Time: 45 Attestation: I personally attest to this time spent taking care of the patient. Discharge Plan Discharge Clinical Impression: CHF exacerbation, Hypoxia, Hypokalemia, Hypomagnesemia, Influenza A Patient Disposition: Admitted As Inpatient Prescriptions: No Action metoprolol succinate [Toprol XL] 50 mg tablet extended release 24 hr 50 mg PO DAILY 60 Days Qty: 60 0RF Entresto 49-51 mg tablet 1 tab PO BID Qty: 60 5RF dapagliflozin propanediol [Farxiga] 10 mg tablet 10 mg PO DAILY Qty: 30 0RF aspirin 81 mg tablet,delayed release (DR/EC) 81 mg PO DAILY Qty: 90 3RF isosorbide mononitrate 30 mg Tablet Extended Release 24 Hr 30 mg PO DAILY Qty: 30 0RF Protocol: Hold for SBP< HOLD for SBP < : 90 rosuvastatin 20 mg tablet 20 mg PO DAILY
[2024-01-16 16:46] LABS: B Type Natriuretic Peptide 894 pg/mL (<100)
[2024-01-16 16:51] LABS: Influenza A PCR POSITIVE (Negative); Influenza B PCR NEGATIVE (Negative); Resp Syncy Virus RNA Qual PCR NEGATIVE (Negative); SARS COV2 PCR INHOUSE NEGATIVE (Negative)
[2024-01-16 17:01] LABS: SLIDE REVIEW VERIFIED
[2024-01-16 17:13] LABS: Alanine Aminotransferase 28 U/L (0-40); Albumin Level 3.6 g/dL (3.5-5.0); Alkaline Phosphatase 64 U/L (39-117); Anion Gap 12 (12-20); Aspartate Amino Transferase 35 U/L (5-37); Bilirubin Total 0.8 mg/dL (0.0-1.0); Blood Urea Nitrogen 19 mg/dL (9-16); Calcium 8.6 mg/dL (8.4-10.2); Carbon Dioxide 35 mmol/L (22-29); Chloride 93 mmol/L (96-108); Estimated Glomerular Filt Rate > 60; Glucose Random 159 mg/dL (60-115); Magnesium 1.4 mg/dL (1.6-2.6); Potassium 2.8 mmol/L (3.3-5.1); Sodium 137 mmol/L (135-145); Total Protein 6.8 g/dL (6.5-8.0)
[2024-01-16 17:16] VITALS: O2SAT 90
[2024-01-16] MEDS: Potassium Chloride/H20 10 MEQ/100 ML PIGGYBACK 100 MEQ IV (18:20)
[2024-01-16] MEDS: Magnesium Sulfate/H2O 2 GM/50 ML PIGGYBACK IV (18:20)
[2024-01-16] MEDS: Furosemide 100 MG/10 ML VIAL 80 MG IVPUSH (18:21)
[2024-01-16 18:44] VITALS: O2SAT 95
[2024-01-16 19:29] LABS: Anion Gap 12 (12-20); Blood Urea Nitrogen 19 mg/dL (9-16); Calcium 8.6 mg/dL (8.4-10.2); Carbon Dioxide 35 mmol/L (22-29); Chloride 93 mmol/L (96-108); Creatinine Clr Calc Pharmacy 78.9; Estimated Glomerular Filt Rate > 60; Glucose Random 134 mg/dL (60-115); Potassium 2.5 mmol/L (3.3-5.1); Sodium 137 mmol/L (135-145)
[2024-01-16] MEDS: Potassium Chloride ER 20 MEQ TAB.ER.PRT 60 MEQ PO (20:06)
[2024-01-16 20:07] VITALS: BP 130/90; PULSE 80; RESP 20; TEMP 36.7; O2SAT 94
== END 2024-01-16 20:07 | disposition left against medical advice (07) ==
PROVIDERS: Physician Assistant Medical; Emergency Provider Student in an Organized Health Care Education/Training Program; PCP Internal Medicine
DX: J10.1 Influenza due to other identified influenza virus with other respiratory manifestations (principal); R09.02 Hypoxemia; E87.6 Hypokalemia; E83.42 Hypomagnesemia; I11.0 Hypertensive heart disease with heart failure; I50.9 Heart failure, unspecified; E11.9 Type 2 diabetes mellitus without complications; Z11.52 Encounter for screening for COVID-19; Z20.828 Contact with and (suspected) exposure to other viral communicable diseases; Z95.1 Presence of aortocoronary bypass graft
CPT/HCPCS: 0241U; 36415; 71046; 80048; 80053; 83735; 83880; 84484; 85025; 93005; 96365; 96366; 96375; 99284; 99285; J1940; J3475; J3480

== ENCOUNTER → 2024-01-16 15:22 | Outpatient (BNV) | payer SELFPAY | PROVIDERS: Emergency Provider Student in an Organized Health Care Education/Training Program; PCP Internal Medicine; Visit Provider Internal Medicine Cardiovascular Disease | DX: R94.31 Abnormal electrocardiogram [ECG] [EKG] (principal) | CPT/HCPCS: 93010 ==

== ENCOUNTER 2024-01-23 14:24 | Outpatient (REF) | payer OTHER, SELFPAY ==
[2024-01-23 16:42] LABS: Anion Gap 9 (12-20); Blood Urea Nitrogen 10 mg/dL (9-16); Calcium 8.8 mg/dL (8.4-10.2); Carbon Dioxide 35 mmol/L (22-29); Chloride 99 mmol/L (96-108); Estimated Glomerular Filt Rate > 60; Glucose Random 156 mg/dL (60-115); Magnesium 1.5 mg/dL (1.6-2.6); Potassium 3.3 mmol/L (3.3-5.1); Sodium 140 mmol/L (135-145)
== END 2024-01-23 14:25 | disposition home or self-care (01) ==
LOC: HO.LAB 14:24
PROVIDERS: PCP Internal Medicine; Visit Provider Internal Medicine
DX: I50.22 Chronic systolic (congestive) heart failure (principal); I25.10 Atherosclerotic heart disease of native coronary artery without angina pectoris; I42.9 Cardiomyopathy, unspecified; I25.5 Ischemic cardiomyopathy; I10 Essential (primary) hypertension; I71.20 Thoracic aortic aneurysm, without rupture, unspecified; E87.6 Hypokalemia; Z79.899 Other long term (current) drug therapy
CPT/HCPCS: 36415; 80048; 83735; 99212

== ENCOUNTER 2024-01-23 14:24 | Outpatient (AMB) | payer MEDICAID, SELFPAY ==
--- NOTE | 2024-01-23 14:32 | A.OFFVIS_ITS ---
Intake Vital Signs 01/23/24 14:33 Height 5 ft 6 in Weight 167 lb 8.821 oz BMI 27.0 BP 110/64 Blood Pressure Location Lt brachial Position Sitting Pulse 61 Intake Visit Reasons: 6 month follow up echo Intake Note: 6 month follow up Solvent Mixer Required: No Accompanied by: Self / Same As Patient Allergies No Known Allergies Allergy (Verified 01/23/24 14:33) Medication List - Last Reconciled 01/23/24 by Luis Queen MD aspirin 81 mg PO DAILY furosemide (Lasix) 20 mg PO BID isosorbide mononitrate ER 30 mg See Protocol PO DAILY metoprolol succinate ER (Toprol XL) 50 mg PO DAILY 60 days rosuvastatin 20 mg PO DAILY sacubitril-valsartan 49-51 mg (Entresto) 1 tab PO BID HPI HPI Comments History of Present Illness Details Julian returns for follow-up regarding coronary artery disease as well as cardiomyopathy. To recall, in 2020, he underwent coronary artery bypass surgery. He has cardiomyopathy which is suspected to be both ischemic as well as nonischemic. Few days back, it seems that he came to ER for shortness of breath and then got diagnosed with influenza. He was apparently advised to stay but he signed out against medical advice. Otherwise, feels okay. Compliant with all his medications. He states because of financial reasons, not able to take Farxiga. [facility] Medical History Pulmonary arterial hypertension Alcohol abuse Acute CHF Hypomagnesemia Ascending aortic aneurysm Essential hypertension Atherosclerotic cardiovascular disease Ischemic cardiomyopathy HLD (hyperlipidemia) CAD (coronary artery disease) Cardiomyopathy CHF (congestive heart failure) HTN (hypertension) Surgical History Status post double vessel coronary artery bypass S/P triple vessel bypass S/P cardiac cath Family History Father No problems noted. Mother No problems noted. Social History Household Members: Family Housing: Apartment Do you presently have visiting nurse or other home services: No Alcohol intake: current Alcohol intake frequency: 0-2 drinks per day Alcohol type: beer Patient Tobacco Use Status: Never used Tobacco Second Hand Smoke Exposure: No Substance Use Type: Marijuana Advance Directives Date on File: 12/03/21 service: No Current occupational status: employed Review of Systems Const Denies weakness ENT Denies dizziness Card Denies chest pain with activity, Denies syncope, Denies rapid heart rate, Denies pedal edema, Denies edema, Denies leg edema, Denies lightheadedness, Denies palpitations, Denies dyspnea, Denies dyspnea on exertion and Denies orthopnea Resp Denies cough, Denies dyspnea and Denies dyspnea on exertion GI Denies hematochezia and Denies change in stool character Musc Denies abnormal gait, Denies muscle cramps, Denies muscle weakness, Denies numbness, Denies radiating pain into limb and Denies tingling Neuro Denies abnormal gait, Denies dizziness, Denies syncope, Denies numbness, Denies tingling and Denies weakness Endo Denies palpitations Physical Exam Vital Signs: Last Vital Signs Pulse 61 01/23/24 14:33 BP 110/64 01/23/24 14:33 BMI result Body Mass Index 27.0 Const General: comfortable and no acute distress Orientation/consciousness: patient oriented x3 HEENT Other: Unremarkable Head: Yes normal to inspection Neck Neck: Yes normal visual inspection Chest Chest palpation & inspection: normal inspection of the chest Resp Auscultation: clear to auscultation bilaterally Cardio Palpation: normal PMI Heart sounds: S1 normal heart sound present, S2 normal heart sound present, no gallops, no murmurs and no rubs GI Palpation (GI): Soft to palpation Back/Spine/Pelvis Other: unremarkable Skin General skin exam: no rashes or lesions noted Neuro General: patient oriented x3 Extrem General: Yes normal to inspection Psych Mental Status: mental status grossly normal Assessment & Plan Assessment & Plan (1) Ischemic cardiomyopathy: Code(s): I25.5 - Ischemic cardiomyopathy Plan: Seems stable. On diuretics, beta-blockers and Entresto. Not able to afford Farxiga. Intolerance to spironolactone in the past. Not interested in ICD and this has been discussed numerous times. He also saw EP but declined ICD. (2) Atherosclerotic cardiovascular disease: Code(s): I25.10 - Atherosclerotic heart disease of [place] coronary artery without angina pectoris Plan: Cardiac catheterization data reviewed. He had severe [place] vessel disease. With regard to the grafts, patent BLAIR to LAD, SVG to PDA and SVG to ramus/OM. Occluded SVG to D1/PLV. It was felt that findings are out of proportion to the cardiomyopathy. Continue aspirin and statins. (3) Essential hypertension: Code(s): I10 - Essential (primary) hypertension Plan: Stable. (4) Ascending aortic aneurysm: Code(s): I71.2 - Thoracic aortic aneurysm, without rupture Plan: Ascending aortic size 4.5 cm. Can be followed periodically. (5) Hypokalemia: Code(s): E87.6 - Hypokalemia Plan: Recent labs from the emergency room showed low potassium and magnesium. To be rechecked. Plan Orders: Orders Magnesium Today I50.22 - Chronic systolic (congestive) heart failure Basic Metabolic Panel Today I50.22 - Chronic systolic (congestive) heart failure Coding Level of Care Code Est Pt Level 4 (56171) Diagnoses Ischemic cardiomyopathy I25.5 Atherosclerotic cardiovascular disease I25.10 Essential hypertension I10 Ascending aortic aneurysm I71.2 Hypokalemia E87.6
[2024-01-23 14:33] VITALS: BP 110/64; PULSE 61; BMI 27.0
== END 2024-01-23 15:01 | disposition home or self-care (01) ==
PROVIDERS: PCP Internal Medicine; Referring Provider Internal Medicine; Visit Provider Internal Medicine
DX: I25.5 Ischemic cardiomyopathy (principal); I25.10 Atherosclerotic heart disease of native coronary artery without angina pectoris; I10 Essential (primary) hypertension; I71.20 Thoracic aortic aneurysm, without rupture, unspecified; E87.6 Hypokalemia
CPT/HCPCS: 99214

== ENCOUNTER 2024-05-07 09:21 | Outpatient (AMB) | payer MEDICAID, SELFPAY ==
[2024-05-07 09:22] VITALS: BP 114/72; PULSE 73; BMI 29.9
--- NOTE | 2024-05-07 09:22 | A.OFFVIS_ITS ---
Vital Signs 05/07/24 09:22 Height 5 ft 6 in Weight 185 lb 3.013 oz BMI 29.9 BP 114/72 Blood Pressure Location Lt brachial Position Sitting Pulse 73 Pulse Source Pulse Oximeter Intake Visit Reasons: f/up HS Sales Service Representative Required: No Allergies No Known Allergies Allergy (Verified 05/07/24 09:24) Medication List - Last Reconciled 05/07/24 by Estephania Moses NP-C aspirin 81 mg PO DAILY empagliflozin (Jardiance) 10 mg PO DAILY furosemide (Lasix) 20 mg PO BID isosorbide mononitrate ER 30 mg See Protocol PO DAILY metoprolol succinate ER (Toprol XL) 50 mg PO DAILY 60 days rosuvastatin 20 mg PO DAILY sacubitril-valsartan 49-51 mg (Entresto) 1 tab PO BID HPI HPI f/up HS: Details: Julian is a 59-year-old male with past medical history of hypertension, hyperlipidemia, CAD, coronary artery bypass grafting 2020, ischemic and nonischemic cardiomyopathy, Congestive heart failure who presents for follow-up. Today he reports he has been doing well since his last visit in January. He denies having any chest discomfort at rest or with activity. No shortness of breath, PND, orthopnea or edema. No palpitations, lightheadedness, presyncope, syncope, falls. 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 Takes all his meds as directed. [facility] Medical History (Updated 05/07/24 @ 10:47 by Estephania Moses NP-C) Pulmonary arterial hypertension Alcohol abuse Acute CHF Hypomagnesemia Ascending aortic aneurysm Essential hypertension Atherosclerotic cardiovascular disease Ischemic cardiomyopathy HLD (hyperlipidemia) CAD (coronary artery disease) Cardiomyopathy CHF (congestive heart failure) HTN (hypertension) Surgical History Status post double vessel coronary artery bypass S/P triple vessel bypass S/P cardiac cath Family History Father No problems noted. Mother No problems noted. Social History Household Members: Family Housing: Apartment Do you presently have visiting nurse or other home services: No Alcohol intake: current Alcohol intake frequency: 0-2 drinks per day Alcohol type: beer Patient Tobacco Use Status: Never used Tobacco Second Hand Smoke Exposure: No Substance Use Type: Marijuana Advance Directives Date on File: 12/03/21 service: No Current occupational status: employed Review of Systems Const All systems reviewed & are unremarkable except as noted in HPI and below ENT Denies dizziness Card Denies chest pain, Denies chest pain at rest, Denies chest pain with activity, Denies rapid heart rate, Denies pedal edema, Denies edema, Denies leg edema, Denies lightheadedness, Denies palpitations, Denies dyspnea, Denies dyspnea on exertion and Denies orthopnea Resp Denies cough, Denies dyspnea and Denies dyspnea on exertion GI Denies hematochezia and Denies change in stool character Musc Denies abnormal gait, Denies limited range of motion, Denies muscle cramps, Denies muscle weakness, Denies numbness, Denies radiating pain into limb, Denies stiffness and Denies tingling Neuro Denies abnormal gait, Denies dizziness, Denies numbness and Denies tingling Endo Denies palpitations Physical Exam Vital Signs: Last Vital Signs Pulse 73 05/07/24 09:22 BP 114/72 05/07/24 09:22 BMI result Body Mass Index 29.9 Const General: cooperative, healthy appearing, comfortable and no acute distress Orientation/consciousness: patient oriented x3 Neck Neck: Yes normal visual inspection and Yes no JVD Resp Effort & Inspection: normal respiratory effort Auscultation: clear to auscultation bilaterally, no rales, no rhonchi and no wheezes Cardio Jugular venous distension: no JVD Rate: regular rate Rhythm: regular rhythm Heart sounds: S1 normal heart sound present, S2 normal heart sound present, no murmurs and no rubs Neuro General: patient oriented x3 Extrem General: Yes normal to inspection and No no pedal edema Psych Appearance: grossly normal Mental Status: mental status grossly normal Speech and movement: Normal speech and movement present Assessment & Plan Assessment & Plan (1) CAD (coronary artery disease): Comment: 2020. Reina to LAD, SVG to PDA, SVG to ramus, SVG to OM, occluded SVG to D1/PLV Code(s): I25.10 - Atherosclerotic heart disease of [place] coronary artery without angina pectoris Category: Medical Plan: History of CAD. Coronary artery bypass grafting 2020. Exercise stress test done 09/08/2023 with exercise 5 minutes, no anginal symptoms and no EKG changes of ischemia. Echocardiogram done 09/08/2023 shows EF 15-20%, regional wall motion abnormality, no valve abnormalities, ascending aorta 4.5 cm, sinus of Valsalva 4.6 cm. Degree of cardiomyopathy out of proportion with degree of known CAD. [place] to have ischemic and nonischemic cardiomyopathy. On exam today he has no clinical signs of heart failure and reports no anginal symptoms. EKG today showing sinus bradycardia, left anterior fascicular block, rate 59. 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 Does not transport [employer] Patient previously and currently declines ICD placement. Continue med management for CAD including aspirin, rosuvastatin, metoprolol, isosorbide. Continue management for Congestive heart failure including metoprolol, Entresto, Jardiance, Lasix. No med changes made today. Will plan for repeat echo prior to his next visit. Cardiology follow-up 4 months, sooner if needed. (2) Ischemic cardiomyopathy: Code(s): I25.5 - Ischemic cardiomyopathy Category: Medical Plan: As above. (3) S/P cardiac cath: Comment: 01/01/21 Multivessel CAD - mid LAD 75%, LCx prox 90%, R PDA prox 70%, 1st RPL prox 75%, 2nd RPL prox 75%, Ramus prox 75%, normal systemic pressures Code(s): Z98.890 - Other specified postprocedural states Category: Surgical Plan: Cardiac catheterization performed prior to Coronary artery bypass grafting. (4) Essential hypertension: Code(s): I10 - Essential (primary) hypertension Category: Medical Plan: Well controlled at this time. No medication changes made. Low-salt diet reviewed. (5) Ascending aortic aneurysm: Code(s): I71.2 - Thoracic aortic aneurysm, without rupture Category: Medical Plan: Echo 09/08/2023 showing ascending aorta 4.5 cm, sinus of Valsalva 4.6 cm. Repeat echo prior to next visit. (6) HLD (hyperlipidemia): Code(s): E78.5 - Hyperlipidemia, unspecified Category: Medical Plan: [place] LDL goal less than 70. Labs done 10/05/2023 showed LDL 93. He is on rosuvastatin 20 mg daily. Will have him recheck fasting lipids, CMP. If LDL remains greater than 70 plan to increase rosuvastatin up to 40 mg daily. Plan Time spent on chart review, documentation, interview and assessment Orders: Orders Comprehensive Met. Panel Today I25.10 - Atherosclerotic heart disease of [place] coronary artery without angina pectoris CA echo transthoracic complete 08/24/24 I25.10 - Atherosclerotic heart disease of [place] coronary artery without angina pectoris, I25.5 - Ischemic cardiomyopathy, I71.2 - Thoracic aortic aneurysm, without rupture Lipid Panel Today I25.10 - Atherosclerotic heart disease of [place] coronary artery without angina pectoris Coding Level of Care Code Est Pt Level 4 (05317) Diagnoses CAD (coronary artery disease) I25.10 Ischemic cardiomyopathy I25.5 S/P cardiac cath Z98.890 Essential hypertension I10 Ascending aortic aneurysm I71.2 HLD (hyperlipidemia) E78.5 Time Spent (min) 28
== END 2024-05-07 10:10 | disposition home or self-care (01) ==
PROVIDERS: PCP Internal Medicine; Visit Provider Nurse Practitioner Family
DX: I25.10 Atherosclerotic heart disease of native coronary artery without angina pectoris (principal); I25.5 Ischemic cardiomyopathy; Z98.890 Other specified postprocedural states; I10 Essential (primary) hypertension; I71.20 Thoracic aortic aneurysm, without rupture, unspecified; E78.5 Hyperlipidemia, unspecified
CPT/HCPCS: 99214

== ENCOUNTER → 2024-05-07 09:21 | Outpatient (BNVA) | payer MEDICAID, SELFPAY | PROVIDERS: PCP Internal Medicine; Visit Provider Nurse Practitioner Family | DX: I25.10 Atherosclerotic heart disease of native coronary artery without angina pectoris (principal); I25.5 Ischemic cardiomyopathy; I10 Essential (primary) hypertension; I71.21 Aneurysm of the ascending aorta, without rupture; E78.5 Hyperlipidemia, unspecified; Z98.890 Other specified postprocedural states | CPT/HCPCS: 99212 ==

== ENCOUNTER → 2024-10-01 09:06 | Outpatient (REF) | payer MEDICAID, SELFPAY ==
--- NOTE | 2024-10-01 09:16 | CA_ITS ---
Transthoracic Echocardiogram Patient (Last, First, Middle): Julian Thomason G Gender: Male Date of : 1965 Age: 59 Procedure Date: 10/01/2024 Procedure Type: Transthoracic Echocardiogram Location: OP Height: 167.64 cm Weight: 77.11 kg BSA: 1.87 m2 Heart Rate: bpm BP: 124 / 80 mmHg Business Systems Advisor: DAYSI Referring MD: Estephania Moses NATIONAL BUSINESS DIRECTOR-C Instrument Engineer: Zurdo Quinones MD Symptoms: I25.5 - Ischemic cardiomyopathy Study Quality: Fair ECG Rhythm: Sinus Conclusions: - 1. Severely dilated left ventricle with LVEF of 15-20% with regional wall motion abnormality consistent with ischemic cardiomyopathy with impaired relaxation filling pattern and elevated filling pressures 2. Moderately dilated left atrium 3. Mild aortic regurgitation 4. Normal measured RV systolic pressure 5. Mildly dilated ascending aorta 6. No gross pericardial effusion Findings Procedure Information Contrast agent, definity, is being given per protocol without apparent complications. Left Ventricle Severely increased left ventricular cavity size. There is normal left ventricular wall thickness. The left ventricular systolic function is severely decreased. The visually estimated ejection fraction is between 15 20%. There is evidence of regional wall motion abnormalities. Spectral Doppler is indicative of an impaired relaxation filling pattern. Elevated filling pressures. E/E prime ratio is >15, consistent with elevated filling pressures. Right Ventricle Mildly increased right ventricular cavity size. There is normal right ventricular systolic function. Atria The left atrium is moderately dilated. There is no evidence of interatrial shunt. The right atrium is likely dilated. Aortic Valve The aortic valve was not well visualized. There is no aortic valve stenosis. There is mild aortic valve regurgitation. Mitral Valve There is mild anterior and posterior mitral leaflet thickening. There is trace mitral valve regurgitation. There is no mitral valve stenosis. Pulmonic Valve The pulmonic valve was not well visualized. Tricuspid Valve Likely normal tricuspid valve structure and function. There is trace tricuspid valve regurgitation. The right ventricular systolic pressure is normal. The right ventricular systolic pressure is 11 mmHg. Normal right atrial pressure. There is no evidence of pulmonary hypertension. Great Vessels The pulmonary artery was not well visualized. There is mild dilatation of the ascending aorta measuring 4.10 cm. Venous The inferior vena cava is normal in size and collapses greater than 50% with inspiration. Pericardium/Pleural There is no evidence of pericardial effusion. Prior Study Comparison Changes noted compared to prior study. ascending aorta measured on this study mildly enlarged size, could be technical Measurements 2D Linear Measurements IVSd: 1.12 0.6-0.9/0.6-1.0 cm LVIDd: 7.19 3.9-5.3/4.2-5.9 cm LVIDd Index: 3.84 2.4-3.2/2.2-3.1 cm/m2 LVIDs: 6.63 2.0-3.6 cm LVPWd: 1.15 0.7-1.1 cm Ao Root: 4.60 2.1-3.5 cm LA Diam: 4.20 2.7-3.8/3.0-4.0 cm LAIDs Index: 2.25 1.5-2.3 cm/m2 LV Mass: 493.89 67-162/88-224 g LV Mass Index: 264.11 43-95/49-115 g/m2 LVOT Diam: 2.30 3.0+(-)1.3 cm 2D Systolic Function EF 4C: 15.70 >55% EF 2C: 23.70 >55% EF BiP: 20.40 >55% Mitral Valve MV Pk E: 0.83 MV PK A: 1.22 MV Decel Time: 132.00 E/A: 0.70 E'Lateral: 3.26 E'Medial: 4.57 E/E' Med: 18.10 E/E' Lat: 25.30 PHT: 39.00 MVA PHT: 5.[address] [place]: 6.25 Aortic Valve AoV Pk Harrison: 1.18 AoV Mn Harrison: 0.80 AoV VTI: 0.23 AoV Pk Grad: 6.00 Aov Mn Grad: 3.00 THEE Cont.VTI: 2.13 LVOT LVOT Pk Harrison: 0.75 LVOT Mn Harrison: 0.51 LVOT VTI: 0.12 LVOT Pk Grad: 2.00 LVOT Mn Grad: 1.00 LVOT Diam: 2.30 LVOT Area: 4.15 Diastolic Function MV Pk E: 0.83 MV Pk A: 1.22 E/A: 0.70 E'Medial: 4.57 E/E' Med: 18.10 E' Laterial: 3.26 E/E' Lat: 25.30 Right Ventricle TAPSE (mm): 22.00 TVS' Harrison: 9.00 Tricuspid Valve TR Pk Harrison: 1.41 TR Pk Grad: 8.00 RA Press: 3.00 RVSP: 11.00 Great Vessels Aorta Ao Root-2D: 4.60 2.0-3.7 cm Ao Asc: 4.10 2.1-3.4 cm Pulmonary Valve PV Pk Harrison: 0.84 Peak PV Grad: 3.00 Updated in Other Vendor System with Status of Final Zurdo Quinones MD electronically signed on 10/02/2024 4:50:46 PM with status of Final
[2024-10-01 09:25] LABS: MANUAL DIFF FLAG NO
[2024-10-01 09:32] LABS: Basophils Percent Auto 0.2 % (0-2); Eosinophils Absolute Auto 0.1 X10*3/uL (0.0-0.4); Eosinophils Percent Auto 1.1 % (0-4); Hematocrit 40.9 % (42.0-52.0); Hemoglobin 14.5 g/dl (14.0-18.0); Imm Gran Abs Auto 0.03 X10*3/uL (0.00-0.03); Imm Gran Pct Auto 0.3 % (0.0-0.4); Lymphocytes Absolute Auto 2.7 X10*3/uL (1.2-4.9); Lymphocytes Percent Auto 25.8 % (20-40); Mean Corpuscular HGB Conc 35.5 g/dl (31.0-36.0); Mean Corpuscular Hemoglobin 31.3 pg (27.0-33.0); Mean Corpuscular Volume 88.3 fL (80.0-98.0); Mean Platelet Volume 10.6 fL (9.4-12.4); Monocytes Absolute Auto 0.9 X10*3/uL (0.1-1.2); Neutrophils Absolute Auto 6.6 x10*3/uL (2.0-8.3); Neutrophils Percent Auto 63.6 % (45-73); Platelet Count 185 X10*3/uL (160-400); Red Blood Count 4.63 X10*6/uL (4.60-5.80); Red Cell Distribution Width 11.9 % (11.0-16.0); White Blood Count 10.4 X10*3/uL (4.8-10.8)
[2024-10-01 09:56] LABS: Anion Gap 12 (12-20); Blood Urea Nitrogen 12 mg/dL (9-16); Carbon Dioxide 32 mmol/L (22-29); Chloride 99 mmol/L (96-108); Cholesterol 124 mg/dL (<200); Estimated Glomerular Filt Rate > 60; Glucose Random 199 mg/dL (60-115); HDL Cholesterol 46 mg/dL (>40); LDL Cholesterol Calculated 61 mg/dL (<100); Magnesium 1.5 mg/dL (1.6-2.6); Potassium 3.1 mmol/L (3.3-5.1); Sodium 140 mmol/L (135-145); Triglycerides 86 mg/dL (<150)
[2024-10-01 10:15] LABS: ~HepC Num1 0.12 S/CO (0.00-0.79); ~Hepatitis C Antibody Nonreactive (Nonreactive)
== END ==
LOC: HO.CARD 09:06
PROVIDERS: Absent Provider Internal Medicine; PCP Internal Medicine; Visit Provider Nurse Practitioner Family
DX: Z01.84 Encounter for antibody response examination (principal); I25.5 Ischemic cardiomyopathy; I25.10 Atherosclerotic heart disease of native coronary artery without angina pectoris; I71.20 Thoracic aortic aneurysm, without rupture, unspecified
CPT/HCPCS: 36415; 80048; 80061; 83735; 85025; 86803; 93306; Q9957

== ENCOUNTER → 2024-10-01 09:16 | Outpatient (BNV) | payer MEDICAID, SELFPAY | PROVIDERS: Absent Provider Internal Medicine; PCP Internal Medicine; Visit Provider Internal Medicine Cardiovascular Disease | DX: I35.1 Nonrheumatic aortic (valve) insufficiency (principal) | CPT/HCPCS: 93306 ==

== ENCOUNTER 2024-11-16 13:50 | Outpatient (REF) | payer MEDICAID, SELFPAY ==
--- OUTSIDE RECORDS SUMMARY | 2024-11-16 15:33 | XMS_ITS | Encounter Summary ---
Author Organization [employer] Address [address] [place] [address] Care Team Providers Care Wet Sander Name Role Phone Stephanie Navarrete MD Primary Care Provide r Reason for Visit * Reason Onset Date Comments Med Refill 03/27/2024 Encounter Details Date Type Department Care Team ([facility] st Contact Info) Description 03/27/2024 Telephone [facility] MEDICINE [address] [place] [address] Stephanie Navarrete MD [address] [place] [address] Med Refill Social History Tobacco Use Types Packs/Day Years Used Date Smoking Tobacco: Never Passive Smoke Exposure: Never Smokeless Tobacco: Never Depression Answer Date Recorded Patient Health Questionnaire-9 Score 0 04/20/2023 Housing Stability Answer Date Recorded What is your housing situation today? I have micki knowles 08/15/[address] you li ve. Do you have problems with any of the following? None of the above 08/15/2023 Food Insecurity Answer Date Recorded Within the past 12 months, y ou worried that your food would run out before you got money to buy more: Never True 08/15/2023 Within the past 12 months,th e food you bought just didn't last and you didn't have enough money to get more: Never True Transportation Answer Date Recorded In the past 12 months, has l ack of transportation kept you from medical appts, meetings, work or from getting things needed for daily living? No 08/15/2023 Utilities Answer Date Recorded In the past 12 months, has t he electric, gas, oil or water company threatened to shut off services in your home? No 08/15/2023 Depression Answer Date Recorded Patient Health Questionnaire-2 Score 0 04/20/2023 Sex and Gender Information Value Date Recorded Sex Assigned at Male 08/23/2022 10:15 AM EDT Legal Sex Male 10:15 AM EDT Gender Identity Male 08/23/2022 10:15 AM EDT Sexual Orientation Straight 08/23/2022 10 :15 AM EDT documented as of this encounter Miscellaneous Notes * Telephone Encounter - Cyndee López LPN - 03/27/2024 10:57 AM EDT Medication to soon for refill script was sent on 11/11/23 #90 with 1 refill. * Telephone Encounter - Sena Pierre - 03/27/2024 10:42 AM EDT TC from pt requesting medication refill. Medications needing refill : isosorbide mononitrate ER (Imdur) 30 MG 24 hr tablet To be sent to: [facility], [place]- - [place] - [address] documented in this encounter Plan of Treatment Upcoming Encounters Date Type Department Care Team (Late st Contact Info) Description 11/19/2024 2:00 PM EST Office Visit [facility] ADULT DENTAL [address] [place] [address] Korina Samayoa [address] [place] [address] 12/03/2024 9:00 AM EST Office Visit [facility] MEDICINE [address] [place] [address] Stephanie Navarrete MD [address] [place] [address] 12/17/2024 9:00 AM EST Office Visit [facility] ADULT DENTAL [address] [place] [address] Korina Samayoa [address], [place] [phone] documented as of this encounter Visit Diagnoses Not on filedocumented in this encounter Additional Health Concerns Assessment Noted Time PHQ-9 Depression Total Score: 0 04/20/20 23 3:37 PM EDT documented as of this encounter Care Teams Wet Sander Relationship Specialty Start Date End Date Stephanie Navarrete MD [address] [place] [address] PCP - General Family Medicine 12/08/21 documented as of this encounter
--- OUTSIDE RECORDS SUMMARY | 2024-11-16 15:33 | XMS_ITS | Encounter Summary ---
Author Organization [employer] Address [address] [place] [address] Care Team Providers Care Mysql Database Developer Name Role Phone Stephanie Navarrete MD Primary Care Provide r Reason for Visit * Reason Onset Date Comments Med Refill 04/05/2024 Encounter Details Date Type Department Care Team ([facility] st Contact Info) Description 04/05/2024 Telephone [facility] MEDICINE [address] [place] [address] Stephanie Navarrete MD [address] [place] [address] Med Refill Social History Tobacco Use Types [...] Telephone Encounter - Cyndee López LPN - 04/05/2024 8:30 AM EDT Medications are to soon for refill. Aspirin/Crestor were sent on 11/01/23 #90 with 3 refills and Metoprolol was sent on 10/18/23 #90 with 3 refills. * Telephone Encounter - Philip Dowling - 04/05/2024 8:19 AM EDT TC from pt requesting medication refill. Medications needing refill : aspirin (Aspirin Low Dose) 81 MG EC tablet , rosuvastatin (Crestor) 20MG tablet , isosorbide mononitrate ER (Imdur) 30 MG 24 hr tablet and metoprolol succinate XL (Toprol-XL) 50 MG 24 hr tablet To be sent to: [facility] [place] - [address] documented in this encounter Plan of Treatment Upcoming Encounters Date Type Department Care Team ([facility] st Contact Info) Description 11/19/2024 2:00 PM EST Office Visit [facility] ADULT DENTAL [address] [place] [address] [employer] [address] [place] [address] 12/03/2024 9:00 AM EST Office Visit [facility] MEDICINE [address] [place], [place] [phone] Stephanie Navarrete MD [address] [place] [address] 12/17/2024 9:00 AM EST Office Visit [facility] ADULT DENTAL [address] [place], [place] [phone] Korina Samayoa [address] [place] [address] documented as of this encounter Visit Diagnoses Not on filedocumented in this encounter Additional Health Concerns Assessment Noted Time PHQ-9 Depression Total Score: 0 04/20/20 23 3:37 PM EDT documented as of this encounter Care Teams Mysql Database Developer Relationship Specialty Start Date End Date Stephanie Navarrete MD [address] [place] [phone] PCP - General Family Medicine 12/08/21 documented as of this encounter
--- OUTSIDE RECORDS SUMMARY | 2024-11-16 15:34 | XMS_ITS | Data Portability ---
Author Organization [facility] [address] Address [address] [place] [address] Assessment No assessment recorded. Plan of Treatment Reminders Order Date Submit Date Provider Last Modified By Organization Details Last Modified Time Details Appointments None recorded. Lab None recorded. Referral None recorded. Procedures None recorded. Surgeries None recorded. Imaging None recorded. Medication Orders Valtrex 1 gram tablet 2022 023 [facility]- , [address], [place], [id number], 17:04:58 prednisone 20 mg tablet 2022 023 [facility]- , [address], [place], [id number], 17:04:58 Patient TargetsNo targets recorded. Patient Instructions Encounter Date Encounter Id Patient Instructions Last Modified By Organization Details Last Modified Time 02/20/2023 [id number] hives: care instructions [email or web address] Not available 02/20/2023 17:04:43 Shingles (herpes zoster) causes pain and a blistered rash. The rash can appear anywhere on the body but will be on only one side of the body, the left or right. It will be in a band, a strip, or a small area. The pain can be very severe. Shingles can also cause tingling or itching in the area of the rash. The blisters scab over after a few days and heal in 2 to 4 weeks. Medicines can help you feel better and may help prevent more serious problems caused by shingles. Shingles is caused by the same virus that causes chickenpox. When you have chickenpox, the virus gets into your nerve roots and stays there (becomes dormant) long after you get over the chickenpox. If the virus becomes active again, it can cause shingles. How can you care for yourself at home? Take your medicines exactly as prescribed. Call your doctor or nurse advice line if you think you are having a problem with your medicine. Antiviral medicine helps you get better faster and may help prevent later problems. Try not to scratch or pick at the blisters. They will crust over and fall off on their own if you leave them alone. Put cool, wet cloths on the area to relieve pain and itching. You can also use calamine lotion. Try not to use so much lotion that it cakes and is hard to get off. Put cornstarch or baking soda on the sores to help dry them out so they heal faster. Do not use thick ointment, such as petroleum jelly, on the sores. This will keep them from drying and healing. To help remove loose crusts, soak them in tap water. This can help decrease oozing, and dry and soothe the skin. Take an gjgy-amr-noqzpiy pain medicine, such as acetaminophen (Tylenol), ibuprofen (Advil, Motrin), or naproxen (Aleve). Read and follow all instructions on the label. Avoid close contact with people until the blisters have healed. It is very important for you to avoid contact with anyone who has never had chickenpox or the chickenpox vaccine. Young babies and anyone who is or has a hard time fighting infection (such as someone with HIV, diabetes, or cancer) is especially at risk. [email or web address] Not available 02/20/2023 17:04:42 Reason for Referral None Reported. Problems Name Problem SNOMED Code Status Onset Date Resolution Date Notes Provider Name and Address Organization Details Recorded Time Myocardial infarction 55840925 Completed 202202/20/2023 [facility] 16:37:40 Hypertensive disorder 52337752 Active 2022 [facility] 16:37:47 Hyperlipidem ia 00927178 Active 2022 Bhartiseth Kiran null, PA - [facility] 16:37:52 Notes:Triple/double bypass Problem Notes None recorded. Procedures Surgical History Date Name Laterality Status Provider Name and Address Organization Details Recorded Time coronary artery bypass grafts x 3 completed Bhartiseth Kiran PA - [facility] 02/20/2023 16:34:52 coronary artery bypass grafts x 2 completed Bharti Qiana PA - [facility] 02/20/2023 16:35:01 Imaging Results None recorded. Procedure Notes None recorded. Medical Equipment None Reported. Allergies No known drug allergies Medications Name Sig Start Date Stop Date Status Note LastModified by Organization Details LastModified Time prednisone 20 mg tablet Take 2 tablets every day by oral route in the morning for 3 days. 2022 active Not Available Not Available Not Avai lable Valtrex 1 gram tablet Take 1 tablet every 8 hours by oral route with meals for 7 days. 2022 active Not Available Not Available Not Avai lable aspirin active Not Available Not Avail able Not Available furosemide active Not Available Not Av ailable Not Available isosorbide mononitrate active Not Available Not Available Not Available metoprolol succinate active Not Available Not Available No t Available rosuvastatin active Not Available Not Available Not Available Farxiga active Not Available Not Avail able Not Available Entresto active Not Available Not Avai lable Not Available Vitals Date Recorded Body height Provider Name an d Address Organization Details Last Updated DateTime 02/20/2023 165.1 cm Bharti Kiran PA - [facility] 0 02/20/2023 16:32:57 Date Recorded Body mass index (BMI) Body weight Provider Name and Address Organization Details Last Updated DateTime 02/20/2023 27.5 kg/m2 96369.74 g Bharti Qiana PA - [facility] 02/20/2023 16:33:02 Date Recorded Oxygen saturation Oxygen saturation in Arterial blood by Pulse oximetry Provider Name and Address Organization Details Last Updated DateTime 02/20/2023 100 % 100 % Bharti Qiana PA - [facility] 02/20/2023 16:36:34 Date Recorded Heart rate Provider Name an d Address Organization Details Last Updated DateTime 02/20/2023 89 /min Bharti Kiran PA - [facility] 0 02/20/2023 16:36:35 Date Recorded Respiratory rate Provider Name a nd Address Organization Details Last Updated DateTime 02/20/2023 20 /min Bharti Kiran PA - [facility] 0 02/20/2023 16:36:39 Date Recorded Pain severity - 0-10 verbal numeric rating [Score] - Reported Provider Name and Address Organization Details Last Updated DateTime 02/20/2023 7 Bharti Kiran PA - [facility] 0 02/20/2023 16:36:43 Date Recorded Body temperature Provider Name a nd Address Organization Details Last Updated DateTime 02/20/2023 98.1 [degF] Bharti Kiran PA - [facility] 02/20/2023 16:37:19 Date Recorded Systolic blood pressure Diastolic blood pressure Provider Name and Address Organization Details Last Updated DateTime 02/20/2023 126 mm[Hg] 82 mm[Hg] Bharti Kiran PA - [facility] 02/20/2023 16:37:21 Social History Question Answer Notes LastModified by Organizat ion Details LastModified Time Tobacco Smoking Status Never Smoker Bharti Kiran null, PA - [facility] 02/20/2023 16:35:37 What Is Your Level Of Alcohol Consumption? Occasional Information not available 02/20/2023 Which Illicit Or Recreational Drugs Have You Used? Marijuana Information not available 02/20/2023 Do You Use Any Illicit Or Recreational Drugs? Yes Information not available 02/20/2023 Do You Or Have You Ever Used Any Other Forms Of Tobacco Or Nicotine? No Information not available 02/20/2023 Sex: Unknown Functional Status None recorded. Mental Status None recorded. Family History Relationship Description Onset Age of this Age Resolved Age Notes LastModified by Organization Details LastModified Time Father No current problems or disability Not available 02/20 16:35:27 Mother No current problems or disability Not available 02/20 16:35:27 Medical History No medical history recorded. Immunizations Vaccine Type Date Status Note Provider Nam e and Address Organization Details Recorded Time COVID-19 vaccine, vector-nr, rS-Ad26, PF, 0.5 mL 01/31/2021 completed Bharti caruso PA - [facility] 02/20/2023 16:33:06 Tdap 12/31/2014 completed Bharti caruso PA - [facility] 02/20/2023 16:33:06 Past Encounters Encounter ID Performer Location Encounter Start Date Encounter Closed Date Diagnosis/Indication Diagnosis SNOMED-CT Code Diagnosis ICD10 Code Diagnosis Note [id number] Duke Bearden NP [id number] [place] [address] 02/20/2023 12:37:08 02/20/2023 17:09:02 Herpes zoster 3017762 B02.9 Health Concerns Section Related Observation LastModified by Organization Detai ls LastModified Time None Recorded Concern Status LastModified by Organization Details LastModified Time None Recorded Advance Directives Directive None Recorded Payers Encounter Date Sequence Insurance Name Policy Number Policy Jeong Covered Member ID Jeong Member ID Guarantor Name 02/20/2023 1 [place]: [facility] Paddy [id number] Julian Thomason Notes Date Note Type Note Provider Name and Address Organization Details Recorded Time 3 text/html UC Rash/Skin LesionReported bypatient.source of patient informationInformation obtained from patient; Patient arrived at Urgent Care ambulatory Location:abdomen Quality:painful;red Severity:moderate Duration:5 days Context:no new detergent or skin product; no recent change in medication; no exposure to hair dye; no expsoure to new clothes/jewelry; no recent travel; no recent illness; no pets/animals in home; not affiliated with chemicals/pesticides; derm atomical distribution right lower abdomen and back . macular , vesicular erythematous rash. Alleviating Factors:nothing gives relief Associated Symptoms:no fever; no fatigue Duke Bearden NP [address] [place], [address], PA - [facility] 02/20/2023 17:04:58
--- OUTSIDE RECORDS SUMMARY | 2024-11-16 15:34 | XMS_ITS | Encounter Summary ---
Author Organization [employer] Address [address] [place] [address] Care Team Providers Care Welding Instructor Name Role Phone Stephanie Navarrete MD Primary Care Provide r Reason for Visit * Reason Onset Date Comments BW status 11/16/2024 Encounter Details Date Type Department Care Team ([facility] st Contact Info) Description 11/16/2024 Telephone [facility] [address] [place] [address] Rosio Sanchez RN [address] [place] [address] BW status Social History Tobacco Use Types Packs/Day Years Used Date Smoking Tobacco: Never Passive Smoke Exposure: Never Smokeless Tobacco: Never Alcohol Use Standard Drinks/Week Comments Yes 4 (1 standard drink = 0.6 oz pur e alcohol) 4 beers every day Depression Answer Date Recorded Patient Health Questionnaire-9 Score 0 08/27/2024 Patient Health Questionnaire-9 Score 0 08/27/2024 Last PHQ-9: Questionnaire Data Not on file 1 10/27/2023 Housing Stability Answer Date Recorded What is your housing situation today? I have micki knowles 08/20/[address] you li ve. Do you have problems with any of the following? None of the above 08/20/2024 Food Insecurity Answer Date Recorded Within the past 12 months, y ou worried that your food would run out before you got money to buy more: Never True 08/20/2024 Within the past 12 months,th e food you bought just didn't last and you didn't have enough money to get more: Never True Transportation Answer Date Recorded In the past 12 months, has l ack of transportation kept you from medical appts, meetings, work or from getting things needed for daily living? No 08/20/2024 Utilities Answer Date Recorded In the past 12 months, has t he electric, gas, oil or water company threatened to shut off services in your home? No 08/20/2024 Depression Answer Date Recorded Patient Health Questionnaire-2 Score 0 08/27/2024 Internet Access Answer Date Recorded Internet Access Q1 Yes 08/20/2024 Internet Access Q2 Not on file 08/20/2024 Sex and Gender Information Value Date Recorded Sex Assigned at Male 08/23/2022 10:15 AM EDT Legal Sex Male 10:15 AM EDT Gender Identity Male 08/23/2022 10:15 AM EDT Sexual Orientation Straight 08/23/2022 10 :15 AM EDT documented as of this encounter Miscellaneous Notes * Telephone Encounter - Rosio Sanchez RN - 11/16/2024 9:57 AM EST TC placed to patient [phone] to status check on 11/13/24 call (see below). 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 Patient reports he is [place] on [place] way [place] from [place] and [place] arrive in [place] around 1230-1pm and will arrive come to the lab. PCP notified. Per Rosio Sanchez RN note on 11/13/24: TC placed to patient [phone] to confirm patient has p/u magnesium and potassium supplement. Patient reports he p/u supplementation on 11/06/24. Patient advised he needs to return to the lab to have BW repeated for magnesium and potassium to ensure levels are moving in the right direction. Patient reports he will complete BW today or tomorrow depending on his work schedule. Patient to be contacted with BW results once available. Patient to f/u PRN. documented in this encounter Plan of Treatment Upcoming Encounters Date Type Department Care Team ([facility] Contact Info) Description 11/19/2024 2:00 PM EST Office Visit [facility] [address] [place] [address] Korina Samayoa [address] [facility] [place] [place] [address] 12/03/2024 9:00 AM EST Office Visit [facility] [address] [place] [address] Stephanie Navarrete MD [address] [place] [address] 12/17/2024 9:00 AM EST Office Visit [facility] [address] [facility], [place] [id number] Korina Samayoa [address] [facility] [place] [place] [address] documented as of this encounter Visit Diagnoses Not on filedocumented in this encounter Additional Health Concerns Assessment Noted Time PHQ-9 Depression Total Score: 0 08/27/20 24 2:06 PM EST documented as of this encounter Care Teams Welding Instructor Relationship Specialty Start Date End Date Stephanie Navarrete MD [address] [facility] [place] [address] PCP - General Family Medicine 12/08/21 documented as of this encounter
--- OUTSIDE RECORDS SUMMARY | 2024-11-16 15:34 | XMS_ITS | Clinical Summary ---
Author Organization [facility] Address [address] [place] [address] Phone Care Team Providers Care Motor Driver Name Role Phone Anamaria Spann MD Primary Care Provider Allergies No known active allergies Medications aspirin (ST DEVIN) 81 MG EC tablet Take 81 mg by mouth 1 (one) time each day Active Active Problems Problem Noted Date Diagnosed Date Chronic kidney disease 07/15/2021 Family History Medical History Relation Comments Diabetes Child Hypertension Child Relation Status Comments Child Father Mother Social History Tobacco Use Types Packs/Day Years Used Date Smoking Tobacco: Never Smokeless Tobacco: Never Alcohol Use Standard Drinks/Week Comments Yes 0 (1 standard drink = 0.6 oz pur e alcohol) Sex and Gender Information Value Date Recorded Sex Assigned at Not on file Legal Sex Male 10:01 AM EDT Gender Identity Not on file Sexual Orientation Not on file Last Filed Vital Signs Vital Sign Reading Time Taken Comments Blood Pressure 120/80 07/15/2021 9:54 AM EDT Pulse 87 07/15/2021 9:54 AM EDT Temperature - - Respiratory Rate - - Oxygen Saturation 97% 07/15/2021 9:54 AM EDT Inhaled Oxygen Concentration - - Weight 70.5 kg (155 lb 6.4 oz) 07/15/2021 9:54 A M EDT Height - - Body Mass Index - - Plan of Treatment Health Maintenance Due Date Last Done Comments Pneumococcal Vaccine: Pediat rics (0 to 5 Years) and At-Risk Patients (6 to 64 Years) (1 of 2 - PCV) 1971 Hepatitis B Vaccine (1 of 3 - 19+ 3-dose series) 03/21 Colorectal Cancer Screening: Annual FOBT 2014 Colorectal Cancer Screening: Colonoscopy 2014 Colorectal Cancer Screening: Sigmoidoscopy 2014 Influenza Vaccine (#1) 2024 Insurance Care Teams Motor Driver Relationship Specialty Start Date End Date Anamaria Spann MD PCP - General Internal Medicine 07/15/21
--- OUTSIDE RECORDS SUMMARY | 2024-11-16 15:34 | XMS_ITS | Clinical Summary ---
Author Organization [employer] Address [address] [facility] [address] [place] [address] Care Team Providers Care Clinical Trials Assistant Name Role Phone Stephanie Navarrete MD Primary Care Provide r Allergies No known active allergies Medications acetaminophen (Tylenol) 500 MG tabletIndication s:Herpes zoster without complication Take 2 tablets (1,000 mg) by mouth every 6 (six) hours if needed for moderate pain or fever for up to 25 doses. 50 tablet 3 Active Additional Information Patient not taking.Reported on 09/17/2024 metoprolol succinate XL (Toprol-XL) 50 MG 24 hr tabletIndication s:Hypertension, unspecified type TAKE 1 TABLET BY MOUTH EVERY DAY 90 tablet 3 3 Active aspirin (Aspirin Low Dose) 81 MG EC tabletIndication s:Primary hypertension TAKE 1 TABLET BY MOUTH DAILY 90 tablet 3 4 Active Additional Information Patient not taking.Reported on 09/17/2024 rosuvastatin (Crestor) 20 MG tabletIndication s:Primary hypertension TAKE 1 TABLET BY MOUTH EVERY DAY 90 tablet 3 4 Active famotidine (Pepcid) 20 MG tablet Take 20 mg by mouth Once per day. 1 Active furosemide (Lasix) 40 MG tablet Take 80 mg by mouth Once per day. 2 Active empagliflozin (Jardiance) 10 MGIndications:Ty pe 2 diabetes mellitus without complication, without long-term current use of insulin (CMS/[facility]) Take 1 tablet (10 mg) by mouth Once per day. 30 tablet 11 4 08/27/20 25 Active diphenhydrAMINE (BENADryl) 25 MG tablet Take 1 tablet (25 mg) by mouth every 8 (eight) hours if needed for itching or allergies for up to 20 days. 60 tablet 4 Active magnesium oxide (Mag-Ox) 400 MG tabletIndication s:Hypomagnesemia Take 1 tablet (400 mg) by mouth 3 times daily. 15 tablet 4 10/02/20 25 Active isosorbide mononitrate ER (Imdur) 30 MG 24 hr tabletIndication s:Primary hypertension TAKE 1 TABLET BY MOUTH EVERY MORNING 90 tablet 1 4 Active potassium chloride CR (Klor-Con M20) 20 MEQ ER tabletIndication s:Hypokalemia Take 1 tablet (20 mEq) by mouth 3 times daily. Do not crush or chew. 21 tablet 5 11/05/19 26 Active magnesium 30 MG tabletIndication s:Hypokalemia Take 1 tablet (30 mg) by mouth 2 times daily. 14 tablet 5 11/05/19 26 Active Active Problems Problem Noted Date Diagnosed Date Encounter for preventive care 08/30/2024 Assessment & Plan (08/30/2024 1:44 PM EST): See HPI Dietary counseling 08/27/2024 Assessment & Plan (08/27/2024 3:59 PM EST): Eat 3 meals a day, especially breakfast Eat healthy and focus on healthyfood choices daily fruits, vegetables, grains, low fat milk, low carbohydrate and fat Maintain healthy weight. 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 Wall motion abnormalities suspected to be from underlying coronary disease. Prior to that, it has been variable. After bypass, 45-50%. Prior to bypass, 15 20%. Other values have been 10-15% and 12% at different times. Overall, remains low. Continue Toprol-XL, Entresto. In the past, did not tolerate Coreg and had some side effects. Also reported side effects from spironolactone as well. Continue Farxiga. Clinically, no volume overload and no heart failure symptoms either. Have discussed about ICD at different times but not interested. Has also seen EP but declined ICD Placement. Hypertensive disorder 11/30/2022 Assessment & Plan (08/27/2024 4:10 PM EST): Take your meds as prescribed. Do not change or discontinue current prescriptions without consulting health care provider Aerobic exercise daily at 30 mins daily to reduce BP and increase as tolerated. Eat heart healthy diet such as DASH. Low-sodium diet less than 2g/day to reduce BP and prevent ASCVD. Monitor and record your home BP 1-2 x day with goal of <140/90. Bring your log to the next visit Seek immediate medical attention for chest pain, palpitations, SOB, syncope, or sudden changes in mental status. Assessment & Plan (07/01/2023 2:56 PM EDT): Metoprolol 50mg, entresto 49/51mhg, isosorbide mononitrate 30mg daily, rosuvastatin 20mg daily and ASA 81 mg daily - Aerobic exercise to reduce BP. Initial goal of 30 min walk 3-5x/week. Increase as tolerated. - low-sodium diet (goal: <2g/day) and heart healthy diet such as DASH to reduce BP and prevent ASCVD. - Home BP monitoring 1-2 x day with goal of <140/90. - Seek immediate medical attention for chest pain, palpitations, SOB, syncope, or sudden changes in mental status. - Do not change or discontinue current prescriptions without first consulting health care provider Assessment & Plan (04/20/2023 3:43 PM EDT): I notice today his BP in the high side but in light he has records of his BP also going low I advise low Na diet and to monitor BP at home if he notice persistently elevated >140/90mmhg to report back to me Type 2 diabetes mellitus without complication Assessment & Plan (08/27/2024 4:16 PM EST): Does not check FSBS at home. Non insulin dependent A1C 08/27/2024 6.9 Jardiance prescribed. Take med as prescribed Assessment & Plan (07/01/2023 2:55 PM EDT): - Lab Results Component Value Date HGBA1C 5.9 04/20/2023 - Lab Results Component Value Date CREATININE 1.07 12/06/2022 - - Diabetic eye exam; :referral in today - Diabetic foot exam: pending - Continue lifestyle modifications - Continue current medications (fraxiga 10mg daily) - Assessment & Plan (04/20/2023 3:41 PM EDT): -No results found for: HGBA1C - Lab Results Component Value Date CREATININE 1.07 12/06/2022 - - Diabetic eye exam: referral today - Continue lifestyle modifications - Chronic kidney disease 07/15/2021 Aortic aneurysm 07/09/2021 Overview (11/30/2022): From cards note 11/30/2022: In the most recent echocardiogram, ascending aortic size 4.[address] from [facility], aortic root measured 5 cm at the sinus of Valsalva. Ascending aorta at 4.3 cm. In CTA from November 2021 from [place], ascending aortic size was 4.4 cm. Cardiomyopathy 07/09/2021 Assessment & Plan (08/27/2024 3:58 PM EST): Denies pain,or palpitation No bilateral edema Lung sound clear Stopped taking Farxiga and Entresto because insurance will not cover the meds New prescription Jardiance 10mg & Losartan 25 mg Keep your upcoming appointment with public opinion survey taker Assessment & Plan (07/01/2023 5:01 PM EDT): Metoprolol 50mg, entresto 49/51mhg, isosorbide mononitrate 30mg daily, rosuvastatin 20mg daily and ASA 81 mg daily Continue to follow with cardiology Assessment & Plan (04/20/2023 3:46 PM EDT): continue on current medication regiment and follow up with cardiology I also advise to monitor for sudden weight gain, fatigue, LE edema... Coronary arteriosclerosis 07/09/2021 Hyperlipidemia 07/09/2021 Assessment & Plan (08/27/2024 4:04 PM EST): Continue with your medication as prescribed Eat healthy and focus on healthyfood choices daily fruits, vegetables, grains, low fat milk, low carbohydrate and fat Maintain healthy weight. Be physically active at least 45 minutes daily Encounters Date Type Department Care Team Description 11/16/2024 Telephone [facility] [address] [place] [address] Rosio Sanchez RN BW status 11/05/2024 Telephone [facility] [address] [place] [address] Stephanie Navarrete MD 11/05/2024 Orders Only [facility] [address] [place] [phone] Stephanie Navarrete MD Hypokalemia (Primary Dx) 11/05/2024 Orders Only GENERIC EXTERNAL DATA DEPARTMENT Provider, Generic External Data 10/12/2024 Refill [facility] [address] [place] [address] Stephanie Navarrete MD Primary hypertension 10/02/2024 9:20 AM EST Office Visit [facility] [address] [place] [phone] Name, MD Andrews Hives (Primary Dx) 10/02/2024 Telephone [facility] [address] [place] [phone] Stephanie Navarrete MD FYI 10/02/[address] [address] Rosio Sanchez, RN Results 10/02/2024 Orders Only [address] [address] Stephanie Navarrete MD Hypokalemia (Primary Dx); Hypomagnesemia 09/17/2024 8:30 AM EST Office Visit [facility] [address] [place] [phone] Lisa Coyle Localized secondary occlusal trauma (Primary Dx); Encounter for immunization 08/27/2024 2:00 PM EST Office Visit [address] [phone] Stephanie Navarrete MD Encounter for immunization (Primary Dx); Dietary counseling; Exercise counseling; Type 2 diabetes mellitus without complication, without long-term current use of insulin (CMS/HCC); Other cardiomyopathy ([facility]/HCC); Primary hypertension; Other hyperlipidemia; Screening for colon cancer; Encounter for preventive care 08/27/2024 Travel 08/24/[address] [address] Terra Powers [place] CHART PREP 08/24/[address] [address] Terra Powers [place] CHART PREP 08/20/2024 Patient Outreach [facility] [address] [place] [address] Stephanie Navarrete MD Pre-visit Planning (SDOH negative, Tobacco screening negative. ) from Last 3 Months Immunizations Name Administration Dates Next Due Pneumococcal Conjugate PCV 20 08/27/2024 Tdap 12/31/2014 Social History Tobacco Use Types Packs/Day Years Used Date Smoking Tobacco: Never Passive Smoke Exposure: Never Smokeless Tobacco: Never Tobacco Cessation:Counseling Given: Not Answered Alcohol Use Standard Drinks/Week Comments Yes 4 [...] Orientation Straight 08/23/2022 10 :15 AM EDT Last Filed Vital Signs Vital Sign Reading Time Taken Comments Blood Pressure 126/79 10/02/2024 9:15 AM EST Pulse 90 10/02/2024 9:15 AM EST Temperature 36.7 ??C (98.1 ??F) 10/02/2024 9:15 AM ES T Respiratory Rate 16 10/02/2024 9:15 AM EST Oxygen Saturation 98% 10/02/2024 9:15 AM EST Inhaled Oxygen Concentration - - Weight 85.3 kg (188 lb) 10/02/2024 9:15 AM EST Height 152.4 cm (5') 08/27/2024 2:05 PM EST Body Mass Index 36.72 08/27/2024 2:05 PM EST Plan of Treatment Upcoming Encounters Date Type Department Care Team (Late st Contact Info) Description 11/19/2024 2:00 PM EST Office Visit [facility] [address] [place] [address] Juventino Samayoaaris [address] [place] [address] 12/03/2024 9:00 AM EST Office Visit [facility] [address] [place] [address] Stephanie Navarrete MD [address] [place] [address] 12/17/2024 9:00 AM EST Office Visit [facility] [address] [place] [address] Ju[address]ino Samay[address] [place] [address] Health Maintenance Due Date Last Done Comments CT Colonography 1965 Colonoscopy 1965 Colorectal Cancer Screening 1965 Dental Prophylaxis 1965 FIT DNA/Cologuard 1965 FIT 1965 FOBT 1965 HIV Screening 1965 Sigmoidoscopy 1965 Diabetes: Foot Exam 1975 Eye Exam 1975 Alcohol/Substance Use Screening 1977 Diabetes: Urine Protein Screening 1984 Hepatitis B Vaccines (1 of 3 - 19+ 3-dose series) 1984 Zoster Vaccines (1 of 2) 2015 Diabetes: Hemoglobin A1C 12/30/2023 023, 04/20/2023 COVID-19 Vaccine (2 - 2023-2 5 season) 2024 01/31/2021 Influenza Vaccine (#1) 2024 DTaP/Tdap/Td Vaccines (2 - T d or Tdap) 12/31/2024 12/31/2014 Dental Oral Exam 03/18/2025 09/17/2024 SDOH Screening 08/20/2025 08/20/2024 Depression Screening 08/27/2025 08/27/2024, 08/27/2024 Tobacco Screening 09/17/2025 09/17/2024 Dental X-Ray: Bitewings 09/18/2025 09/17/2024 Lipid Panel 10/01/2025 10/01/2024, 12/06/2022 Dental X-Ray: Full Mouth 09/18/2027 09/17/2024 RSV Patients and Patients Aged 60 years or older (1 - 1-dose 75+ series) 2040 Pneumococcal Vaccine: Pediatrics (0 to 5 Years) and At-Risk Patients (6 to 64 Years) Completed 08/27/2024 Hepatitis C Screening Completed 10/01/2024 HIB Vaccines Aged Out No longer eligi ble based on patient's age to complete this topic HPV Vaccines Aged Out No longer eligi ble based on patient's age to complete this topic Hepatitis A Vaccines Aged Out No long er eligible based on patient's age to complete this topic IPV Vaccines Aged Out No longer eligi ble based on patient's age to complete this topic Meningococcal Vaccine Aged Out No son stephon eligible based on patient's age to complete this topic RSV under 20 months Aged Out No longe r eligible based on patient's age to complete this topic Rotavirus Vaccines Aged Out No longer eligible based on patient's age to complete this topic Procedures Procedure Name Priority Date/Time Associated Diagnosis Comments MAGNESIUM Routine 11/05/2024 1:57 PM EST COMPREHENSIVE METABOLIC PANEL Routine 11/05/2024 1:57 PM EST CBC WITH AUTO DIFFERENTIAL Routine 10/01/2024 9:23 AM EST Encounter for immunization MAGNESIUM Routine 10/01/2024 9:23 AM EST Encounter for immunization LIPID PANEL, STANDARD Routine 10/01/2024 9:23 AM EST Encounter for immunization HEPATITIS C AB W/REFL TO HCV RNA, QN, PCR Routine 10/01/2024 9:23 AM EST Encounter for immunization BASIC METABOLIC PANEL Routine 10/01/2024 9:23 AM EST Encounter for immunization ADJUNCTIVE GENERAL SERVICES - PROFESSIONAL VISITS - CASE PRESENTATION, SUBSEQUENT TO DETAILED AND EXTENSIVE TREATMENT PLANNING Routine 09/17/2024 8:30 AM EST DIAGNOSTIC - DIAGNOSTIC IMAGING - INTRAORAL - COMPREHENSIVE SERIES OF RADIOGRAPHIC IMAGES Routine 09/17/2024 8:30 AM EST COMPREHENSIVE ORAL EVALUATION - NEW OR ESTABLISHED PATIENT Routine 09/17/2024 8:30 AM EST POCT GLYCATED HEMOGLOBIN, TOTAL Routine 07/01/2023 3:09 PM EDT Type 2 diabetes mellitus without complication, without long-term current use of insulin ([facility]) from Last 3 Months or Most Recently Relevant to Health Maintenance Results * (ABNORMAL) Magnesium (11/05/2024 1:57 PM EST) Only the most recent of2 resultswithin the time period is included. Magnesium 1.5(L) 1.6 - 2.6 mg/dL [facility] 11/05/2024 1:57 PM EST 11/05/2024 4:07 PM EST us Stephanie Lester MD LAB BLOOD ORDERABLES Final Result [facility] [address] [place] [phone] * (ABNORMAL) Comprehensive Metabolic Panel (11/05/2024 1:57 PM EST) Sodium 139 135 - 145 mmol/L [facility] Potassium 2.9(LL) 3.3 - 5.1 mmol/L [facility] Comment:Critical value for t est(s): POTS Results called to and readback by: Person calling: [facility] Date: 11/05/24Time: 2024 Chloride 99 96 - 108 mmol/L [facility] Carbon Dioxide 29 22 - 29 mmol/L [facility] Anion Gap 14 12 - 20 [facility] Urea Nitrogen (BUN) 10 9 - 16 mg/dL [facility] Creatinine, Serum 0.87 0.5 - 1.4 mg/dL [facility] Estimated Glomerular Filt Rate >60 [facility] Comment:Chronic Kidney Disea se: Estimated GFR < 60 mL/min/1.49b3Cotbzk Kidney Disease: Estimated GFR < 15 mL/min/1.73m2 Glucose 204(H) 60 - 115 mg/dL [facility] Calcium 9.0 8.4 - 10.2 mg/dL [facility] Bilirubin, Total 1.3(H) 0.0 - 1.0 mg/dL [facility] Aspartate Amino Transferase 37 5 - 37 U/L [facility] Alanine Aminotransferase 30 0 - 40 U/L [facility] Total Protein 7.6 6.5 - 8.0 g/dL [facility] Albumin Level 4.1 3.5 - 5.0 g/dL [facility] Alkaline Phosphatase 65 39 - 117 U/L [facility] 11/05/2024 1:57 PM EST 11/05/2024 4:07 PM EST us Generic External Data Provider LAB BLOOD ORDERAB LES Final Result [facility] [address] [place] [phone] * (ABNORMAL) CBC auto differential (10/01/2024 9:23 AM EST) White Blood Count 10.4 4.8 - 10.8 X10*3/uL [facility] Red Blood Count 4.63 4.60 - 5.80 X10*6/uL [facility] Hemoglobin 14.5 14.0 - 18.0 g/dl [facility] Hematocrit 40.9(L) 42.0 - 52.0 % [facility] Mean Corpuscular Volume 88.3 80.0 - 98.0 fL [facility] Mean Corpuscular Hemoglobin 31.3 27.0 - 33.0 pg [facility] Mean Corpuscular HGB Conc 35.5 31.0 - 36.0 g/dl [facility] Red Cell Distribution Width 11.9 11.0 - 16.0 % [facility] Platelet Count 185 160 - 400 X10*3/uL [facility] Mean Platelet Volume 10.6 9.4 - 12.4 fL [facility] Neutrophils Percent Auto 63.6 45 - 73 % [facility] Imm Gran Pct Auto 0.3 0.0 - 0.4 % [facility] Lymphocytes Percent Auto 25.8 20 - 40 % [facility] Monocytes Percent Auto 9.0 2 - 11 % [facility] Eosinophils Percent Auto 1.1 0 - 4 % [facility] Basophils Percent Auto 0.2 0 - 2 % [facility] NRBC Pct Auto 0.0 0.0 - 0.2 /100WBC [facility] Neutrophils Absolute Auto 6.6 2.0 - 8.3 x10*3/uL [facility] Imm Gran Abs Auto 0.03 0.00 - 0.03 X10*3/uL [facility] Lymphocytes Absolute Auto 2.7 1.2 - 4.9 X10*3/uL [facility] Monocytes Absolute Auto 0.9 0.1 - 1.2 X10*3/uL [facility] Eosinophils Absolute Auto 0.1 0.0 - 0.4 X10*3/uL [facility] Basophils Absolute Auto 0.0 0.0 - 0.2 X10*3/uL [facility] NRBC Abs Auto 0.000 0.0 - 0.012 X10*3/uL [facility] Blood Venous blood specimen / Unknown 10/01/2024 9:23 AM EST 10/01/2024 9:23 AM EST us Stephanie Lester MD LAB BLOOD ORDERABLES Final Result [facility] [address] [place] [phone] * Hepatitis C Antibody with Reflex to HCV, RNA, Quantitative, Real-Time PCR (10/01/2024 9:23 AM EST) Hepatitis C Antibody Nonreactive Nonreactive [facility] Comment:Antibodies to HCV no t detected; does not exclude early acuteHCV infection. Blood Venous blood specimen / Unknown 10/01/2024 9:23 AM EST 10/01/2024 9:23 AM EST us Stephanie Lester MD LAB BLOOD ORDERABLES Final Result Performing Organization Address City/[facility]/ZIP Co de Phone Number [facility] [address] [place] [phone] * Lipid Panel, Standard (10/01/2024 9:23 AM EST) Triglycerides 86 <150 mg/dL [facility] Comment:Desirable Triglyceri de: less than 150 mg/dLBorderline High Triglyceride 150-199 mg/dLHigh Triglyceride: 200-499 mg/dLVery High Triglyceride: greater than or equal to 5OO mg/dL Cholesterol 124 <200 mg/dL [facility] Comment:Desirable Cholestero l: less than 200 mg/dLBorderline High Cholesterol: 200-239 mg/dLHigh Cholesterol: greater than 239 mg/dL LDL Cholesterol Calculated 61 <100 mg/dL [facility] Comment:Desirable LDL: less than 100 mg/dLNear Optimal/Above Optimal LDL: 110- 129 mg/dLBorderline High LDL: 130-159 mg/dLHigh LDL: 160-189 mg/dLVery High LDL: greater than or equal to 190 mg/dL HDL Cholesterol 46 >40 mg/dL [facility] Comment:Desirable HDL: great er than 40 mg/dL Note: This HDL assay may give artificially low results in patients with liver disease. Blood Venous blood specimen / Unknown 10/01/2024 9:23 AM EST 10/01/2024 9:23 AM EST us Stephanie Lester MD LAB BLOOD ORDERABLES Final Result Performing Organization Address City/[facility]/ZIP Co de Phone Number [facility] [address] [place] [phone] * (ABNORMAL) Basic Metabolic Panel (10/01/2024 9:23 AM EST) Sodium 140 135 - 145 mmol/L [facility] Potassium 3.1(L) 3.3 - 5.1 mmol/L [facility] Chloride 99 96 - 108 mmol/L [facility] Carbon Dioxide 32(H) 22 - 29 mmol/L [facility] Anion Gap 12 12 - 20 [facility] Urea Nitrogen (BUN) 12 9 - 16 mg/dL [facility] Creatinine, Serum 0.78 0.5 - 1.4 mg/dL [facility] Estimated Glomerular Filt Rate >60 [facility] Comment:Chronic Kidney Disea se: Estimated GFR < 60 mL/min/1.08s2Gwlwig Kidney Disease: Estimated GFR < 15 mL/min/1.73m2 Glucose 199(H) 60 - 115 mg/dL [facility] Calcium 9.0 8.4 - 10.2 mg/dL [facility] Blood Venous blood specimen / Unknown 10/01/2024 9:23 AM EST 10/01/2024 9:23 AM EST us Stephanie Lester MD LAB BLOOD ORDERABLES Final Result [facility] [address] [place] [phone] * POCT A1C (07/01/2023 3:09 PM EDT) Hemoglobin A1C 6.0 4.0 - 6.0 % QC Media Lot # [id number] Lot# Expiration Date [id number] Blood 07/01/2023 3:09 PM EDT Stephanie Lester MD POINT OF CARE TEST EN TER/EDIT ORDERABLES Final Result from Last 3 Months or Most Recently Relevant to Health Maintenance Insurance [employer] PARTIAL DENTAL - [employer] PARTIAL (MEDICAID) Care Teams Clinical Trials Assistant Relationship Specialty Start Date End Date Stephanie Navarrete MD [address] [place] [address] PCP - General Family Medicine 12/08/21
--- OUTSIDE RECORDS SUMMARY | 2024-11-16 15:34 | XMS_ITS | Encounter Summary ---
Author Organization [employer] Address [address] [place] [address] 7 [place] [address] Care Team Providers Care Supervisor Paper Coating Name Role Phone Stephanie Navarrete MD Primary Care Provide r Reason for Referral * Consultation (Routine) - Canceled Specialty Diagnoses / Procedures Referred By Contac t Referred To Contact Nephrology Diagnoses Hypomagnesemia Hypokalemia Other cardiomyopathy (CMS/HCC) Stephanie Navarrete MD [address] [place] [phone] Phone: tel: fax: Referral ID Status Reason Start Date Expiration Date Visits Requested Visits Authorized [id number] Canceled Specialty Services Required 11/05/2024 11/05/2025 1 1 Encounter Details Date Type Department Care Team (Late st Contact Info) Description 11/05/[address] 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ULT [facility]AL [address] [place] [address] Korina Samayoa [address] [place] [address] 12/03/2024 9:00 AM EST Office [facility] [address] [facility] [place] [address] Stehpanie Navarrete MD [address] [facility] [place] [address] 12/17/2024 9:00 AM EST Office Visit [facility] ADULT DENTAL [address] [place], [place] [address] Korina Samayoa [address] [place] [address] Scheduled Referrals Name Type Priority Associated Diagnoses Orde r Schedule Referral to Nephrology Outpatient Referral Routine Hypomagnesemia Hypokalemia Other cardiomyopathy (CMS/HCC) Expected: 11/05/2024 (Approximate), Expires: 11/05/2025 documented as of this encounter Visit Diagnoses Diagnosis Hypomagnesemia- Primary Disorders of magnesium metabolism Hypokalemia Hypopotassemia Other cardiomyopathy (CMS/HCC) documented in this encounter Additional Health Concerns Assessment Noted Time PHQ-9 Depression Total Score: 0 08/27/20 24 2:06 PM EST documented as of this encounter Care Teams Supervisor Paper Coating Relationship Specialty Start Date End Date Stephanie Navarrete MD [facility] [place], [place] [phone] PCP - General Family Medicine 12/08/21 documented as of this encounter
--- OUTSIDE RECORDS SUMMARY | 2024-11-16 15:34 | XMS_ITS | Encounter Summary ---
Author Organization [employer] Address [address] [facility] 7t [place] [address] Care Team Providers Care Ed Special Education Teacher Name Role Phone Stephanie Navarrete MD Primary Care Provide r Encounter Details Date Type Department Care Team ([facility] st Contact Info) Description 11/05/2024 Orders Only GENERIC EXTERNAL DATA DEPARTMENT Provider, Generic External Data Social History Tobacco Use Types Packs/Day Years [...] AM EDT documented as of this encounter Plan of Treatment Upcoming Encounters Date Type Department Care Team (Late st Contact Info) Description 11/19/2024 2:00 PM EST Office Visit [facility] ADULT DENTAL [address] [place] [address] Yao, Korina 230 [place] [address] 12/03/2024 9:00 AM EST Office Visit [facility] MEDIC[facility] [address] [place] [address] Setphanie Navarrete MD [address] [place] [address] 12/17/2024 9:00 AM EST Office Visit [facility] ADULT DENTAL [address] [place] [address] Yao, Korina [address] [place] [address] documented as of this encounter Procedures Procedure Name Priority Date/Time Associated Diagnosis Comments MAGNESIUM Routine 11/05/2024 1:57 PM EST COMPREHENSIVE METABOLIC PANEL Routine 11/05/2024 1:57 PM EST documented in this encounter Results * (ABNORMAL) Magnesium (11/05/2024 1:57 PM EST) Magnesium 1.5(L) 1.6 - 2.6 mg/dL [facility] 11/05/2024 1:57 PM EST 11/05/2024 4:07 PM EST us Stephanie Lester MD LAB BLOOD ORDERABLES Final Result [facility] [address] [place] [address] [phone] * (ABNORMAL) Comprehensive Metabolic Panel (11/05/2024 1:57 PM EST) Sodium 139 135 - 145 mmol/L [facility] Potassium 2.9(LL) 3.3 - 5.1 mmol/L [facility] Comment:Critical value for t est(s): POTS Results called to and readback by: Person calling: [facility] Date: 11/05/24Time: 2024 Chloride 99 96 - 108 mmol/L [facility] Carbon Dioxide 29 22 - 29 mmol/L [facility] Anion Gap 14 12 - 20 [facility] Urea Nitrogen (BUN) 10 9 - 16 mg/dL [facility] Creatinine, Serum 0.87 0.5 - 1.4 mg/dL [facility] Estimated Glomerular Filt Rate >60 [facility] Comment:Chronic Kidney Disea se: Estimated GFR < 60 mL/min/1.33c4Klhyit Kidney Disease: Estimated GFR < 15 mL/min/1.73m2 Glucose 204(H) 60 - 115 mg/dL [facility] Calcium 9.0 8.4 - 10.2 mg/dL [facility] Bilirubin, Total 1.3(H) 0.0 - 1.0 mg/dL [facility] Aspartate Amino Transferase 37 5 - 37 U/L [facility] Alanine Aminotransferase 30 0 - 40 U/L [facility] Total Protein 7.6 6.5 - 8.0 g/dL [facility] Albumin Level 4.1 3.5 - 5.0 g/dL [facility] Alkaline Phosphatase 65 39 - 117 U/L [facility] 11/05/2024 1:57 PM EST 11/05/2024 4:07 PM EST us Generic External Data Provider LAB BLOOD ORDERAB LES Final Result [facility] [address] [place] [address] [phone] documented in this encounter Visit Diagnoses Not on filedocumented in this encounter Additional Health Concerns Assessment Noted Time PHQ-9 Depression Total Score: 0 08/27/20 24 2:06 PM EST documented as of this encounter Care Teams Ed Special Education Teacher Relationship Specialty Start Date End Date Stephanie Navarrete MD [address] [place] [address] PCP - General Family Medicine 12/08/21 documented as of this encounter
--- OUTSIDE RECORDS SUMMARY | 2024-11-16 15:34 | XMS_ITS | Encounter Summary ---
Author Organization [employer] Address [address] [facility] 7t [place] [address] Care Team Providers Care Autoglazier Name Role Phone Stephanie Navarrete MD Primary Care Provide r Encounter Details Date Type Department Care Team ([facility] st Contact Info) Description 11/05/2024 Orders Only [facility] [address] [place], [place] [phone] Stephanie Navarrete MD [address] [place] [address] Hypokalemia (Primary Dx) Social History Tobacco Use Types Packs/Day Years [...] AM EDT documented as of this encounter Progress Notes * Stephanie Lester MD - 11/05/2024 8:57 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 K 2.9 and mg 1.5 I called patient let him know he needs to take supplementation send to pharmacy and recheck labs in 1 week, also nephrology referral is in Please f/u with patient thank you, Stephanie Freeman MD * Rosio Sanchez RN - 11/05/2024 8:57 PM EST TC placed to patient [phone] to confirm patient has p/u magnesium and [...] Description 11/19/2024 2:00 PM EST Office Visit [facility] ADULT DENTAL [address] [place], [place] [address] Korina Samayoa [address] [place], [place] [address] 12/03/2024 9:00 AM EST Office Visit [facility] 230 [facility] [place] [address] Stephanie Navarrete MD 230 [facility] [place] [address] 12/17/2024 9:00 AM EST Office Visit [facility] ADULT DENT[facility] [address] [place], [place] [address] Korina Samayoa [address] [place] [address] Scheduled Orders Name Type Priority Associated Diagnoses Orde r Schedule Potassium Lab Routine Hypokalemia Expected: 11/05/2024, Expires: 11/05/2025 Magnesium Lab Routine Hypokalemia Expected: 11/05/2024, Expires: 11/05/2025 documented as of this encounter Visit Diagnoses Diagnosis Hypokalemia- Primary Hypopotassemia documented in this encounter Additional Health Concerns Assessment Noted Time PHQ-9 Depression Total Score: 0 08/27/20 24 2:06 PM EST documented as of this encounter Care Teams Autoglazier Relationship Specialty Start Date End Date Stephanie Navarrete MD [facility] [place] [address] PCP - General Family Medicine 12/08/21 documented as of this encounter
[2024-11-16 16:31] LABS: Magnesium 1.7 mg/dL (1.6-2.6); Potassium 4.1 mmol/L (3.3-5.1)
== END 2024-11-16 13:51 | disposition home or self-care (01) ==
LOC: HO.HHCL 13:50
PROVIDERS: Visit Provider Internal Medicine
DX: E87.6 Hypokalemia (principal)
CPT/HCPCS: 36415; 83735; 84132

== ENCOUNTER 2024-12-03 10:32 | Outpatient (REF) | payer MEDICAID, SELFPAY ==
--- OUTSIDE RECORDS SUMMARY | 2024-12-03 11:26 | XMS_ITS | Clinical Summary ---
Author Organization [facility] Address [address] [place] [place] [address] Phone Care Team Providers Care Central Office Operator Name Role Phone Anamaria Spann MD Primary [...] Influenza Vaccine (#1) 2024 Insurance Care Teams Central Office Operator Relationship Specialty Start Date End Date Anamaria Spann MD PCP - General Internal Medicine 07/15/21
--- OUTSIDE RECORDS SUMMARY | 2024-12-03 11:26 | XMS_ITS | Encounter Summary ---
Author Organization [employer] Address [address] [facility] 7t [place] [address] Care Team Providers Care Receptionist Telephone Operator Name Role Phone Stephanie Navarrete MD Primary Care Provide r Reason for Visit * Reason Onset Date Comments Chart Prep 11/28/2024 Encounter Details Date Type Department Care Team ([facility] st Contact Info) Description 11/28/2024 Telephone [facility] [address] [place] [address] Dinora Lynn MA Chart Prep Social History Tobacco Use Types Packs/Day Years [...] encounter Miscellaneous Notes * Telephone Encounter - Dinora Lynn MA - 11/28/2024 3:47 PM EST Chart Prep Labs: done Images: done Vaccines due: yes Referrals: pending appt Screenings: colonoscopy , eye exam , Foot Exam Overdue care gaps: A1C, Glucose, Sbirt, KAREN-7 documented in this encounter Plan of Treatment Upcoming Encounters Date Type Department Care Team (Late st Contact Info) Description 12/17/2024 9:00 AM EST Office Visit [facility] ADULT DENT[facility] [address] [place] [address] Yao Korina [address] [place] [address] 12/24/2024 2:00 PM EST Office Visit [facility] [address] [place] [address] Yao Korina [address] [place] [address] 12/31/2024 9:00 AM EDT Office Visit [facility]ULT [facility] [address] [place] [address] Yao [facility] [address] [place] [address] 01/14/2025 11:00 AM EDT Office Visit [facility]ULT [facility] [address] [place] [address] Korina Samayoa [address] [place] [address] documented as of this encounter Visit Diagnoses Not on filedocumented in this encounter Additional Health Concerns Assessment Noted Time PHQ-9 Depression Total Score: 0 08/27/20 24 2:06 PM EST documented as of this encounter Care Teams Receptionist Telephone Operator Relationship Specialty Start Date End Date Stephanie Navarrete MD [address] [place] [address] PCP - General Family Medicine 12/08/21 documented as of this encounter
--- OUTSIDE RECORDS SUMMARY | 2024-12-03 11:26 | XMS_ITS | Encounter Summary ---
Author Organization [employer] Address [address] [place] [address] 7 [place] [address] Care Team Providers Care Seasoner Hand Name Role Phone Stephanie Navarrete MD Primary Care Provide r Reason for Referral * Consultation (Routine) - Canceled Specialty Diagnoses / Procedures Referred By Contac t Referred To Contact Nephrology Diagnoses Hypomagnesemia Hypokalemia Other cardiomyopathy (CMS/HCC) Stephanie Navarrete MD [address] [place] [address] Phone: tel: fax: Referral ID Status Reason Start Date Expiration Date Visits Requested Visits Authorized [id number] Canceled Specialty Services Required 11/05/2024 11/05/2025 1 1 Encounter Details Date Type Department Care Team (Late st Contact Info) Description 11/05/2024 Telephone [facility] MED[facility]INE [address] [place] [address] [phone] Stephanie Navarrete MD [address] [place], [place] [phone] Social History Tobacco Use Types Packs/Day Years [...] Lester MD - 11/05/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 lab potasium 2.9 and magnesium 1.5 I send supplementation to pharmacy and ask patient to recheck his labs in one week, nephrology referral in, ED precautions reviewed with him Stephanie Freeman MD documented in this encounter Plan of Treatment Upcoming Encounters Date Type Department Care Team (Late st Contact Info) Description 12/17/2024 9:00 AM EST Office Visit [facility] ADULT DENTAL [address] [place] [address] Korina Samayoa [address] [place] [address] 12/24/2024 2:00 PM EST Office Visit [facility] ADULT DENTAL [address] [place], [place] [address] Korina Samayoa [address] [place] [address] 12/31/2024 9:00 AM EDT Office Visit [facility] ADULT DENTAL [address] [place], [place] [address] Korina Samayoa [address] [place], [place] [address] 01/14/2025 11:00 AM EDT Office Visit [facility] ADULT DENTAL [address] [place], [place] [address] Korina Samayoa [address] [place] [address] Scheduled Referrals Name Type Priority Associated Diagnoses [...] documented as of this encounter Care Teams Seasoner Hand Relationship Specialty Start Date End Date Stephanie Navarrete MD [facility] [place] [address] PCP - General Family Medicine 12/08/21 documented as of this encounter
--- OUTSIDE RECORDS SUMMARY | 2024-12-03 11:26 | XMS_ITS | Encounter Summary ---
Author Organization [employer] Address [address] [facility] 7t [place] [address] Care Team Providers Care Technician'S Helper Name Role Phone Stephanie Navarrete MD Primary Care Provide r Encounter Details Date Type Department Care Team ([facility] st Contact Info) Description 11/05/2024 Orders [...] Description 12/17/2024 9:00 AM EST Office Visit [facility] ADULT D[facility] 230 [place] [address] Yao, Korina 230 [place] [address] 12/24/2024 2:00 PM EST Office Visit [facility] [address] [facility] [place] [address] Yao, Korina [address] [facility] [place] [address] 12/31/2024 9:00 AM EDT Office Visit [facility] ADULT D[facility] [address] [place] [address] Yao, Korina [address] [facility] [place] [address] 01/14/2025 11:00 AM EDT Office Visit [facility] ADULT DENT[facility] 230 [place] [address] Yao, Korina [address] [place] [address] documented as of this encounter Procedures Procedure Name Priority Date/Time Associated Diagnosis Comments MAGNESIUM Routine 11/05/2024 1:57 PM EST COMPREHENSIVE METABOLIC PANEL Routine 11/05/2024 1:57 PM EST documented in this encounter Results * (ABNORMAL) Magnesium (11/05/2024 1:57 PM EST) [facility] Magnesium 1.5(L) 1.6 - 2.6 mg/dL [facility] 11/05/2024 1:57 PM EST 11/05/2024 4:07 PM EST us Stephanie Lester MD LAB BLOOD ORDERABLES Final Result [facility] [address] [place] [address] [phone] * (ABNORMAL) Comprehensive Metabolic Panel (11/05/2024 1:57 PM EST) Sodium 139 135 - 145 mmol/L [facility] Potassium 2.9(LL) 3.3 - 5.1 mmol/L [facility] Comment:Critical value for t est(s): POTS Results called to and readback by: Person calling: [facility] Date: 11/05/24Time: 2024 Chloride 99 96 - 108 mmol/L [facility] Carbon Dioxide 29 22 - 29 mmol/L [facility] Anion Gap 14 12 - 20 [facility] Urea Nitrogen (BUN) 10 9 - 16 mg/dL [facility] Creatinine, Serum 0.87 0.5 - 1.4 mg/dL [facility] Estimated Glomerular Filt Rate >60 [facility] Comment:Chronic Kidney Disea se: Estimated GFR < 60 mL/min/1.17g7Nhcttu Kidney Disease: Estimated GFR < 15 mL/min/1.73m2 Glucose 204(H) 60 - 115 mg/dL [facility] Calcium 9.0 8.4 - 10.2 mg/dL [facility] Bilirubin, Total 1.3(H) 0.0 - 1.0 mg/dL [facility] Aspartate Amino Transferase 37 5 - 37 U/L [facility] Alanine Aminotransferase 30 0 - 40 U/L [facility] Total Protein 7.6 6.5 - 8.0 g/dL [facility] Albumin Level 4.1 3.5 - 5.0 g/dL [facility] Alkaline Phosphatase 65 39 - 117 U/L [facility] 11/05/2024 1:57 PM EST 11/05/2024 4:07 PM EST us Generic External Data Provider LAB BLOOD ORDERAB LES Final Result Performing Organization Address City/State/[facility] Co de Phone Number [facility] [address] [place] [address] [phone] documented in this encounter Visit Diagnoses Not on filedocumented in this encounter Additional Health Concerns Assessment Noted Time PHQ-9 Depression Total Score: 0 08/27/20 24 2:06 PM EST documented as of this encounter Care Teams Technician'S Helper Relationship Specialty Start Date End Date Stephanie Navarrete MD [address] [place] [address] PCP - General Family Medicine 12/08/21 documented as of this encounter
--- OUTSIDE RECORDS SUMMARY | 2024-12-03 11:26 | XMS_ITS | Clinical Summary ---
Author Organization [employer] Address [address] [facility] [address] [place] [address] Care Team Providers Care Installation Helper Name Role Phone Stephanie Navarrete MD Primary Care Provide r Allergies No known active allergies Medications acetaminophen (Tylenol) 500 MG tabletIndicatio ns:Herpes zoster without complication Take 2 tablets (1,000 mg) by mouth every 6 (six) hours if needed for moderate pain or fever for up to 25 doses. 50 tablet 02/23/20 23 Active Additional Information Patient not taking.Reported on 11/19/2024 famotidine (Pepcid) 20 MG tablet Take 20 mg by mouth Once per day. 06/23/20 21 Active furosemide (Lasix) 40 MG tablet Take 80 mg by mouth Once per day. 02/05/20 22 Active diphenhydrAMINE (BENADryl) 25 MG tablet Take 1 tablet (25 mg) by mouth every 8 (eight) hours if needed for itching or allergies for up to 20 days. 60 tablet 10/02/20 24 Active magnesium oxide (Mag-Ox) 400 MG tabletIndicatio ns:Hypomagnesem ia Take 1 tablet (400 mg) by mouth 3 times daily. 15 tablet 10/02/20 24 2024 Active isosorbide mononitrate ER (Imdur) 30 MG 24 hr tabletIndicatio ns:Primary hypertension TAKE 1 TABLET BY MOUTH EVERY MORNING 90 tablet 1 10/12/20 24 Active potassium chloride CR (Klor-Con M20) 20 MEQ ER tabletIndicatio ns:Hypokalemia Take 1 tablet (20 mEq) by mouth 3 times daily. Do not crush or chew. 21 tablet 11/05/19 25 2025 Active Additional Information Patient not taking.Reported on 11/19/2024 magnesium 30 MG tabletIndicatio ns:Hypokalemia Take 1 tablet (30 mg) by mouth 2 times daily. 14 tablet 11/05/19 25 2025 Active Additional Information Patient not taking.Reported on 11/19/2024 chlorhexidine (Peridex) 0.12 % solution Swish 15 mL morning and night for 1 minute. Spit, do not swallow. Do not eat or drink for 30 minutes following use. 473 mL 11/19/19 25 Active aspirin (Aspirin Low Dose) 81 MG EC tabletIndicatio ns:Primary hypertension TAKE 1 TABLET BY MOUTH DAILY 90 tablet 3 11/22/19 25 Active rosuvastatin (Crestor) 20 MG tabletIndicatio ns:Primary hypertension TAKE 1 TABLET BY MOUTH EVERY DAY 90 tablet 3 11/22/19 25 Active metoprolol succinate XL (Toprol-XL) 50 MG 24 hr tabletIndicatio ns:Hypertension , unspecified type TAKE 1 TABLET BY MOUTH EVERY DAY 90 tablet 3 11/22/19 25 Active loratadine (Claritin) 10 MG tabletIndicatio ns:Rhinitis, unspecified type Take 1 tablet (10 mg) by mouth Once per day. 30 tablet 11 12/03/19 25 2025 Active fluticasone (Flonase) 50 MCG/ACT nasal sprayIndication s:Rhinitis, unspecified type Administer 1-2 sprays into each nostril Once per day. Shake gently. Before first use, prime pump. After use, clean tip and replace cap. 16 g 2 12/03/19 25 2025 Active empagliflozin (Jardiance) 10 MGIndications:T ype 2 diabetes mellitus without complication, without long-term current use of insulin ([facility]) Take 1 tablet (10 mg) by mouth Once per day. 30 tablet 11 12/03/19 25 2025 Active metoprolol succinate XL (Toprol-XL) 50 MG 24 hr tabletIndicatio ns:Hypertension , unspecified type TAKE 1 TABLET BY MOUTH EVERY DAY 90 tablet 3 10/18/20 23 2024 Discontinued(R eorder (will not trigger notification to Pharmacy)) aspirin (Aspirin Low Dose) 81 MG EC tabletIndicatio ns:Primary hypertension TAKE 1 TABLET BY MOUTH DAILY 90 tablet 3 11/01/19 24 2024 Discontinued(R eorder (will not trigger notification to Pharmacy)) rosuvastatin (Crestor) 20 MG tabletIndicatio ns:Primary hypertension TAKE 1 TABLET BY MOUTH EVERY DAY 90 tablet 3 11/01/19 24 2024 Discontinued(R eorder (will not trigger notification to Pharmacy)) empagliflozin (Jardiance) 10 MGIndications:T ype 2 diabetes mellitus without complication, without long-term current use of insulin ([facility]) Take 1 tablet (10 mg) by mouth Once per day. 30 tablet 11 08/27/20 24 2024 Discontinued(R eorder (will not trigger notification to Pharmacy)) Active Problems Problem Noted Date Diagnosed Date Rhinitis 12/03/2024 Generalized chronic severe periodontitis 025 Dental calculus 11/19/2024 Missing teeth, acquired 11/19/2024 Encounter for preventive care 08/30/2024 Assessment & [...] size 4.[address] [place] [facility] [place] aortic root measured 5 cm at the sinus of Valsalva. Ascending aorta at 4.3 cm. In CTA from November 2021 from [place], ascending aortic size was 4.4 cm. Cardiomyopathy 07/09/2021 Assessment & Plan (08/27/2024 3:58 PM EST): Denies pain,or palpitation No bilateral edema Lung sound clear Stopped taking Farxiga and Entresto because insurance will not cover the meds New prescription Jardiance 10mg & Losartan 25 mg Keep your upcoming appointment with chemical treatment operator Assessment & Plan (07/01/2023 5:01 PM EDT): [...] Encounters Date Type Department Care Team Description 12/03/2024 9:00 AM EST Office Visit [address] [address] Stephanie Navarrete MD Rhinitis, unspecified type (Primary Dx); Type 2 diabetes mellitus without complication, without long-term current use of insulin ([facility]); Hypokalemia 12/03/2024 Travel 11/28/[address] [address] Dinora Lynn [place] Chart Prep 11/22/[address] [address] Stephanie Navarrete MD Primary hypertension; Hypertension, unspecified type 11/21/2024 Patient Outreach [address] [address] Stephanie Navarrete MD Pre-visit Planning ((Unable to reach for PVP screening, LVM)) 11/19/2024 2:00 PM EST Office Visit [facility] [address] [place] [address] [place] [address] Korina Samayoa Generalized chronic severe periodontitis (Primary Dx); Dental calculus; Missing teeth, acquired; Localized secondary occlusal trauma; Tipped teeth 11/16/2024 Telephone [facility] [address] [place] [phone] Rosio Sanchez RN BW status 11/05/[address] [address] Stephanie Navarrete MD 11/05/2024 Orders Only [facility] [address] [place] [phone] Stephanie Navrarete MD Hypokalemia (Primary Dx) 11/05/2024 Orders Only GENERIC EXTERNAL DATA DEPARTMENT Provider, Generic External Data 10/12/2024 Refill [facility] [address] [place] [phone] Stephanie Navarrete MD Primary hypertension 10/02/2024 9:20 AM EST Office Visit [facility] [address] [place] [phone] Andrews Lee MD Hives (Primary Dx) 10/02/[address] [address] Stephanie Navarrete MD FYI 10/02/[address] [address] Rosio Sanchez, RN Results 10/02/2024 Orders Only [address] [address] Stephanie Navarrete MD Hypokalemia (Primary Dx); Hypomagnesemia 09/17/2024 8:30 AM EST Office Visit [facility] [address] [place] [address] Lisa Coyle Localized secondary occlusal trauma (Primary Dx); Encounter for immunization from Last 3 Months Immunizations Name Administration [...] Sign Reading Time Taken Comments Blood Pressure 125/82 12/03/2024 10:00 AM EST Pulse 72 12/03/2024 9:08 AM EST Temperature 36.6 ??C (97.8 ??F) 12/03/2024 9:08 AM ES T Respiratory Rate 16 12/03/2024 9:08 AM EST Oxygen Saturation 98% 10/02/2024 9:15 AM EST Inhaled Oxygen Concentration - - Weight 84.8 kg (187 lb) 12/03/2024 9:08 AM EST Height 152.4 cm (5') 12/03/2024 9:08 AM EST Body Mass Index 36.52 12/03/2024 9:08 AM EST Plan of Treatment Upcoming Encounters Date Type Department Care Team (Late st Contact Info) Description 12/17/2024 9:00 AM EST Office Visit [facility] [address] [place] [address] Korina Samayoa [address] [place] [address] 12/24/2024 2:00 PM EST Office Visit [facility] [address] [place] [address] Juventino Samayoaaris [address] [place] [address] 12/31/2024 9:00 AM EDT Office Visit [facility] [address] [place] [address] Yao, Korina [address] [place] [address] 01/14/2025 11:00 AM EDT Office Visit [facility] [address] [place] [address] Juventino Samayoaaris [address] [place] [address] Health Maintenance Due Date Last Done Comments CT Colonography 1965 Colonoscopy 1965 Colorectal Cancer Screening 1965 FIT DNA/Cologuard 1965 FIT 1965 FOBT 1965 HIV Screening 1965 Sigmoidoscopy 1965 Diabetes: Foot Exam 1975 Eye Exam 1975 Diabetes: Urine Protein Screening 1984 Hepatitis B Vaccines (1 of 3 - 19+ 3-dose series) 1984 Zoster Vaccines (1 of 2) 2015 COVID-19 Vaccine (2023-2 5 season) 2024 01/31/2021 Influenza Vaccine (#1) 2024 DTaP/Tdap/Td Vaccines (2 - T d or Tdap) 12/31/2024 12/31/2014 Diabetes: Hemoglobin A1C 03/02/2025 025, 07/01/2023, 04/20/2023 Dental Oral Exam 03/18/2025 09/17/2024 Dental Prophylaxis 05/20/2025 11/19/2024 SDOH Screening 08/20/2025 08/20/2024 Depression Screening 08/27/2025 08/27/2024, 08/27/2024 Dental X-Ray: Bitewings 09/18/2025 09/17/2024 Lipid Panel 10/01/2025 10/01/2024, 12/06/2022 Alcohol/Substance Use Screening 12/03/2025 12/03/2024 Tobacco Screening 12/03/2025 12/03/2024 Dental X-Ray: Full Mouth 09/18/2027 09/17/2024 RSV Patients and Patients Aged 60 years or older (1 - 1-dose 75+ series) 2040 Pneumococcal Vaccine: 50+ Years Completed 08/27/2024 Hepatitis C Screening Completed 10/01/2024 [...] Procedure Name Priority Date/Time Associated Diagnosis Comments POCT GLYCATED HEMOGLOBIN, TOTAL Routine 12/03/2024 9:10 AM EST Type 2 diabetes mellitus without complication, without long-term current use of insulin ([facility]) POCT GLUCOSE Routine 12/03/2024 9:09 AM EST Type 2 diabetes mellitus without complication, without long-term current use of insulin ([facility]) ADJUNCTIVE GENERAL SERVICES - PROFESSIONAL VISITS - CASE PRESENTATION, SUBSEQUENT TO DETAILED AND EXTENSIVE TREATMENT PLANNING Routine 11/19/2024 2:00 PM EST Generalized chronic severe periodontitis Dental calculus Missing teeth, acquired Localized secondary occlusal trauma Tipped teeth ORAL HYGIENE INSTRUCTIONS Routine 11/19/2024 2:00 PM EST Generalized chronic severe periodontitis Dental calculus Missing teeth, acquired Localized secondary occlusal trauma Tipped teeth PROPHYLAXIS - ADULT Routine 11/19/2024 2 :00 PM EST Generalized chronic severe periodontitis Dental calculus Missing teeth, acquired Localized secondary occlusal trauma Tipped teeth 19 EXTRACTION Routine 11/19/2024 12:00 AM EST 30 EXTRACTION Routine 11/19/2024 12:00 AM EST 17 EXTRACTION Routine 11/19/2024 12:00 AM EST MAGNESIUM Routine 11/16/2024 1:52 PM EST Hypokalemia POTASSIUM Routine 11/16/2024 1:52 PM EST Hypokalemia MAGNESIUM Routine 11/05/2024 1:57 PM EST COMPREHENSIVE [...] ESTABLISHED PATIENT Routine 09/17/2024 8:30 AM EST from Last 3 Months Results * (ABNORMAL) POCT HGB A1C (12/03/2024 9:10 AM EST) Hemoglobin A1C 7.7(A) 4.0 - 6.0 % QC Media Lot # [id number] Lot# Expiration Date Blood 12/03/2024 9:10 AM EST Stephanie Lester MD POINT OF CARE TEST EN TER/EDIT ORDERABLES Final Result * POCT Glucose (12/03/2024 9:09 AM EST) Glucose Blood, POC 193 60 - 200 mg/dL QC Media Lot # [id number] Lot# Expiration Date Blood Capillary blood specimen / Unknown 12/03/2024 9:09 AM EST Stephanie Lester MD POINT OF CARE TEST EN TER/EDIT ORDERABLES Final Result * Potassium (11/16/2024 1:52 PM EST) Potassium 4.1 3.3 - 5.1 mmol/L [facility] Blood Venous blood specimen / Unknown 11/16/2024 1:52 PM EST 11/16/2024 4:10 PM EST Stephanie Lester MD LAB BLOOD ORDERABLES Final Result [facility] [address] [place] [phone] * Magnesium (11/16/2024 1:52 PM EST) Only the most recent of3 resultswithin the time period is included. Magnesium 1.7 1.6 - 2.6 mg/dL [facility] Blood Venous blood specimen / Unknown 11/16/2024 1:52 PM EST 11/16/2024 4:10 PM EST us Stephanie Lester MD LAB BLOOD ORDERABLES Final Result [facility] [address] [place] [phone] * (ABNORMAL) Comprehensive Metabolic Panel (11/05/2024 1:57 PM EST) Sodium 139 135 - 145 mmol/L [facility] Potassium 2.9(LL) 3.3 - 5.1 mmol/L [facility] Comment:Critical value for t est(s): POTS Results called to and readback by: Person calling: [facility] Date: 11/05/24Time: 2024 Chloride 99 96 - 108 mmol/L [facility] Carbon Dioxide 29 22 - 29 mmol/L [facility] Anion Gap 14 12 - 20 [facility] Urea Nitrogen (BUN) 10 9 - 16 mg/dL [facility] Creatinine, Serum 0.87 0.5 - 1.4 mg/dL [facility] Estimated Glomerular Filt Rate >60 [facility] Comment:Chronic Kidney Disea se: Estimated GFR < 60 mL/min/[id number] Kidney Disease: Estimated GFR < 15 mL/min/1.73m2 Glucose 204(H) 60 - 115 mg/dL [facility] Calcium 9.0 8.4 - 10.2 mg/dL [facility] Bilirubin, Total 1.3(H) 0.0 - 1.0 mg/dL [facility] Aspartate Amino Transferase 37 5 - 37 U/L [facility] Alanine Aminotransferase 30 0 - 40 U/L [facility] Total Protein 7.6 6.5 - 8.0 g/dL [facility] Albumin Level 4.1 3.5 - 5.0 g/dL [facility] Alkaline Phosphatase 65 39 - 117 U/L [facility] 11/05/2024 1:57 PM EST 11/05/2024 4:07 PM EST us Generic External Data Provider LAB BLOOD ORDERAB LES Final Result [facility] [address], [place] [phone] * (ABNORMAL) CBC auto differential (10/01/2024 9:23 AM EST) White Blood Count 10.4 4.8 - 10.8 X10*3/uL [facility] Red Blood Count 4.63 4.60 - 5.80 X10*6/uL [facility] Hemoglobin 14.5 14.0 - 18.0 g/dl [facility] Hematocrit 40.9(L) 42.0 - 52.0 % [facility] Mean Corpuscular Volume 88.3 80.0 - 98.0 fL [facility] Mean Corpuscular Hemoglobin 31.3 27.0 - 33.0 pg [facility] Mean Corpuscular HGB Conc 35.5 31.0 - 36.0 g/dl [facility] Red Cell Distribution Width 11.9 11.0 - 16.0 % [facility] Platelet Count 185 160 - 400 X10*3/uL [facility] Mean Platelet Volume 10.6 9.4 - 12.4 fL [facility] Neutrophils Percent Auto 63.6 45 - 73 % [facility] Imm Gran Pct Auto 0.3 0.0 - 0.4 % [facility] Lymphocytes Percent Auto 25.8 20 - 40 % [facility] Monocytes Percent Auto 9.0 2 - 11 % [facility] Eosinophils Percent Auto 1.1 0 - 4 % [facility] Basophils Percent Auto 0.2 0 - 2 % [facility] NRBC Pct Auto 0.0 0.0 - 0.2 /100WBC [facility] Neutrophils Absolute Auto 6.6 2.0 - 8.3 x10*3/uL [facility] Imm Gran Abs Auto 0.03 0.00 - 0.03 X10*3/uL [facility] Lymphocytes Absolute Auto 2.7 1.2 - 4.9 X10*3/uL [facility] Monocytes Absolute Auto 0.9 0.1 - 1.2 X10*3/uL [facility] Eosinophils Absolute Auto 0.1 0.0 - 0.4 X10*3/uL [facility] Basophils Absolute Auto 0.0 0.0 - 0.2 X10*3/uL [facility] NRBC Abs Auto 0.000 0.0 - 0.012 X10*3/uL [facility] Blood Venous blood specimen / Unknown 10/01/2024 9:23 AM EST 10/01/2024 9:23 AM EST Stephanie Lester MD LAB BLOOD ORDERABLES Final Result Performing Organization Address [facility]/ZIP Co de Phone Number [facility] [address] [place] [phone] * Hepatitis C Antibody with Reflex to HCV, RNA, Quantitative, Real-Time PCR (10/01/2024 9:23 AM EST) Hepatitis C Antibody Nonreactive Nonreactive [facility] Comment:Antibodies to HCV no t detected; does not exclude early acuteHCV infection. Blood Venous blood specimen / Unknown 10/01/2024 9:23 AM EST 10/01/2024 9:23 AM EST us Stephanie Lester MD LAB BLOOD ORDERABLES Final Result Performing Organization Address City/[facility]/ZIP Co de Phone Number [facility] [address] [place] [phone] * Lipid Panel, Standard (10/01/2024 9:23 AM EST) Triglycerides 86 <150 mg/dL [facility] Comment:Desirable Triglyceri de: less than 150 mg/dLBorderline High Triglyceride 150-199 mg/dLHigh Triglyceride: 200-499 mg/dLVery High Triglyceride: greater than or equal to 5OO mg/dL Cholesterol 124 <200 mg/dL [facility] Comment:Desirable Cholestero l: less than 200 mg/dLBorderline High Cholesterol: 200-239 mg/dLHigh Cholesterol: greater than 239 mg/dL LDL Cholesterol Calculated 61 <100 mg/dL [facility] Comment:Desirable LDL: less than 100 mg/dLNear Optimal/Above Optimal LDL: 110- 129 mg/dLBorderline High LDL: 130-159 mg/dLHigh LDL: 160-189 mg/dLVery High LDL: greater than or equal to 190 mg/dL HDL Cholesterol 46 >40 mg/dL [facility] Comment:Desirable HDL: great er than 40 mg/dL Note: This HDL assay may give artificially low results in patients with liver disease. Blood Venous blood specimen / Unknown 10/01/2024 9:23 AM EST 10/01/2024 9:23 AM EST Stephanie Lester MD LAB BLOOD ORDERABLES Final Result [facility] [address] [place] [phone] * (ABNORMAL) Basic Metabolic Panel (10/01/2024 9:23 AM EST) Sodium 140 135 - 145 mmol/L [facility] Potassium 3.1(L) 3.3 - 5.1 mmol/L [facility] Chloride 99 96 - 108 mmol/L [facility] Carbon Dioxide 32(H) 22 - 29 mmol/L [facility] Anion Gap 12 12 - 20 [facility] Urea Nitrogen (BUN) 12 9 - 16 mg/dL [facility] Creatinine, Serum 0.78 0.5 - 1.4 mg/dL [facility] Estimated Glomerular Filt Rate >60 [facility] Comment:Chronic Kidney Disea se: Estimated GFR < 60 mL/min/[id number] Kidney Disease: Estimated GFR < 15 mL/min/1.73m2 Glucose 199(H) 60 - 115 mg/dL [facility] Calcium 9.0 8.4 - 10.2 mg/dL [facility] Blood Venous blood specimen / Unknown 10/01/2024 9:23 AM EST 10/01/2024 9:23 AM EST us Stephanie Lester MD LAB BLOOD ORDERABLES Final Result [facility] [address] [place] [address] [phone] from Last 3 Months Insurance [employer] - [employer] (MEDICAID) Care Teams Installation Helper Relationship Specialty Start Date End Date Stephanie Navarrete MD [address] [place] [phone] PCP - General Family Medicine 12/08/21
--- OUTSIDE RECORDS SUMMARY | 2024-12-03 11:26 | XMS_ITS | Encounter Summary ---
Author Organization [employer] Address [address] [facility] [address] [place] [address] Care Team Providers Care Sawmill Worker Name Role Phone Stephanie Navarrete MD Primary Care Provide r Encounter Details Date Type Department Care Team ([facility] st Contact Info) Description 12/03/2024 9:00 AM EST Office Visit [facility] [address] [place] [address] Stephanie Navarrete MD [address] [place] [address] Rhinitis, unspecified type (Primary Dx); Type 2 diabetes mellitus without complication, without long-term current use of insulin ([facility]); Hypokalemia Social History Tobacco Use Types Packs/Day Years [...] AM EDT documented as of this encounter Last Filed Vital Signs Vital Sign Reading Time Taken Comments Blood Pressure 125/82 12/03/2024 10:00 AM EST Pulse 72 12/03/2024 9:08 AM EST Temperature 36.6 ??C (97.8 ??F) 12/03/2024 9:08 AM ES T Respiratory Rate 16 12/03/2024 9:08 AM EST Oxygen Saturation - - Inhaled Oxygen Concentration - - Weight 84.8 kg (187 lb) 12/03/2024 9:08 AM EST Height 152.4 cm (5') 12/03/2024 9:08 AM EST Body Mass Index 36.52 12/03/2024 9:08 AM EST documented in this encounter Plan of Treatment Upcoming Encounters Date Type Department Care Team (Late st Contact Info) Description 12/17/2024 9:00 AM EST Office Visit [facility] [address] [place] [address] Korina Samayoa [address] [place] [address] 12/24/2024 2:00 PM EST Office Visit [facility] [address] [place] [address] Korina Samayoa [address] [place] [address] 12/31/2024 9:00 AM EDT Office Visit [facility] [address] [facility] [facility] [place] [address] Korina Samayoa [address] [facility] [place] [address] 01/14/2025 11:00 AM EDT Office Visit [facility] [address] [place] [address] Korina Samayoa [address] [facility] [place] [address] Scheduled Orders Name Type Priority Associated Diagnoses Orde r Schedule Potassium Lab Routine Hypokalemia Expected: 12/03/2024, Expires: 12/03/2025 Magnesium Lab Routine Hypokalemia Expected: 12/03/2024, Expires: 12/03/2025 documented as of this encounter Procedures Procedure Name Priority Date/Time Associated Diagnosis Comments POCT GLYCATED HEMOGLOBIN, TOTAL Routine 12/03/2024 9:10 AM EST Type 2 diabetes mellitus without complication, without long-term current use of insulin ([facility]) POCT GLUCOSE Routine 12/03/2024 9:09 AM EST Type 2 diabetes mellitus without complication, without long-term current use of insulin ([facility]) documented in this encounter Results * (ABNORMAL) POCT HGB A1C (12/03/2024 9:10 AM EST) Hemoglobin A1C 7.7(A) 4.0 - 6.0 % QC Media Lot # [id number] Lot# Expiration Date ,026 Blood 12/03/2024 9:10 AM EST Stephanie Lester MD POINT OF CARE TEST EN TER/EDIT ORDERABLES Final Result * POCT Glucose (12/03/2024 9:09 AM EST) Glucose Blood, POC 193 60 - 200 mg/dL QC Media Lot # [id number] Lot# Expiration Date [id number] Blood Capillary blood specimen / Unknown 12/03/2024 9:09 AM EST Stephanie Lester MD POINT OF CARE TEST EN TER/EDIT ORDERABLES Final Result documented in this encounter Visit Diagnoses Diagnosis Rhinitis, unspecified type- Primary Type 2 diabetes mellitus without complication, without long-term current use of insulin ([facility]) Hypokalemia Hypopotassemia documented in this encounter Additional Health Concerns Assessment Noted Time PHQ-9 Depression Total Score: 0 08/27/20 24 2:06 PM EST documented as of this encounter Care Teams Sawmill Worker Relationship Specialty Start Date End Date Stephanie Navarrete MD [address] [place] [address] PCP - General Family Medicine 12/08/21 documented as of this encounter
--- OUTSIDE RECORDS SUMMARY | 2024-12-03 11:26 | XMS_ITS | Encounter Summary ---
Author Organization [facility] [facility] [employer] Address 75 [facility] 7t [place] [address] Care Team Providers Care Sql Developer Name Role Phone Stephanie Navarrete MD Primary Care Provide r Reason for Visit * Reason Onset Date Comments BW status 11/16/2024 Encounter Details Date Type Department Care Team ([facility] st Contact Info) Description 11/16/2024 Telephone [facility] MEDICINE [address] [place] [address] Rosio Sanchez RN 230 [place] [address] BW status Social History Tobacco Use Types [...] 9:57 AM EST TC placed to patient [phone] to status check on 11/13/24 call (see below). 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 Patient reports he is currently on his way back from [place] and should arrive in [place] around 1230-1pm and will arrive come to the lab. PCP notified. Per Rosio Sanchez RN note on 11/13/24: TC placed to patient [phone] to confirm patient has p/u magnesium and [...] Upcoming Encounters Date Type Department Care Team ([facility] Contact Info) Description 12/17/2024 9:00 AM EST Office Visit [facility] ADULT DENTAL 230 [place] [address] Korina Samayoa [address] [place] [address] 12/24/2024 2:00 PM EST Office Visit [facility] ADULT DENTAL [address] [place] [address] Korina Samayoa [address] [place] [address] 12/31/2024 9:00 AM EDT Office Visit [facility] ADULT DENTAL [address] [place] [address] Korina Samayoa [address] [place] [address] 01/14/2025 11:00 AM EDT Office Visit [facility] ADULT DENTAL [address] [place] [address] Korina Samayoa [address] [facility] [place] [address] documented as of this encounter Visit Diagnoses Not on filedocumented in this encounter Additional Health Concerns Assessment Noted Time PHQ-9 Depression Total Score: 0 08/27/20 24 2:06 PM EST documented as of this encounter Care Teams Sql Developer Relationship Specialty Start Date End Date Stephanie Navarrete MD [facility] [place] [address] PCP - General Family Medicine 12/08/21 documented as of this encounter
--- OUTSIDE RECORDS SUMMARY | 2024-12-03 11:26 | XMS_ITS | Encounter Summary ---
Author Organization [employer] Address 75 [facility] 7t [place] [address] Care Team Providers Care Program Admin Name Role Phone Stephanie Navarrete MD Primary Care Provide r Reason for Visit * Reason Onset Date Comments Med Refill 03/27/2024 Encounter Details Date Type Department Care Team ([facility] st Contact Info) Description 03/27/2024 Telephone [facility] MEDICINE [address] [place] [address] Stephanie Navarrete MD [address] [place] [address] Med Refill Social History Tobacco Use Types [...] encounter Miscellaneous Notes * Telephone Encounter - Cydnee López LPN - 03/27/2024 10:57 AM EDT Medication to [facility] for refill script was sent on 11/11/23 #90 with 1 refill. * Telephone Encounter - Sena Pierre - 03/27/2024 10:42 AM EDT TC from pt requesting medication refill. Medications needing refill : isosorbide mononitrate ER (Imdur) 30 MG 24 hr tablet To be sent to: [facility]- - [place] - [address] [facility] documented in this encounter Plan of Treatment Upcoming Encounters Date Type Department Care Team (Late st Contact Info) Description 12/17/2024 9:00 AM EST Office Visit [facility] ADULT DENTAL [address] [place] [address] Yao, Korina [address] [place] [address] 12/24/2024 2:00 PM EST Office Visit [facility] ADULT DENTAL [address] [place] [address] Yao, Korina [address] [place] [address] 12/31/2024 9:00 AM EDT Office Visit [facility] ADULT DENTAL [address] [place] [address] Korina Samayoa [address] [place] [address] 01/14/2025 11:00 AM EDT Office Visit [facility] ADULT DENTAL [address] [place] [address] Korina Samayoa [address] [place] [address] documented as of this encounter Visit Diagnoses Not on filedocumented in this encounter Additional Health Concerns Assessment Noted Time PHQ-9 Depression Total Score: 0 04/20/20 23 3:37 PM EDT documented as of this encounter Care Teams Program Admin Relationship Specialty Start Date End Date Stephanie Navarrete MD [address] [place] [address] PCP - General Family Medicine 12/08/21 documented as of this encounter
--- OUTSIDE RECORDS SUMMARY | 2024-12-03 11:26 | XMS_ITS | Encounter Summary ---
Author Organization [employer] Address 75 [facility] 7t [place] [address] Care Team Providers Care Hand Knitter Name Role Phone Stephanie Navarrete MD Primary Care Provide r Reason for Visit * Reason Comments Gross debridement Encounter Details Date Type Department Care Team (Latest Contact Info) Description 11/19/2024 2:00 PM EST Office Visit [facility] ADULT DENTAL [address] [place] [address] Yao, Korina [address] [place] [address] Generalized chronic severe periodontitis (Primary Dx); Dental calculus; Missing teeth, acquired; Localized secondary occlusal trauma; Tipped teeth Social History Tobacco Use Types Packs/Day Years [...] Sign Reading Time Taken Comments Blood Pressure 140/78 11/19/2024 2:01 PM EST Pulse - - Temperature - - Respiratory Rate - - Oxygen Saturation - - Inhaled Oxygen Concentration - - Weight - - Height - - Body Mass Index - - documented in this encounter Progress Notes * Korina Samayoa - 11/19/2024 2:00 PM EST Patient ID: Julian Thomason is a 59 y.o. male. Time Out: Timeout Date: 11/19/24, Timeout Time: 1405 (Gross scaling) Location: [facility] Tooth: Maxilla and Mandible Procedure: Gross debridement as Prophy (Pt has never had a gross debridement. Pt was seen by student 08/2024) Verified the above with patient, corporate legal assistant, and provider. Confirmed via patient's chart, intraorally and by radiographs. Match Up Worker: not applicable Medical Hx: Vitals: Blood pressure 140/78. Medications, Med Hx reviewed with patient and updated in chart. Treatment Provided Dental procedures in this visit D1110 - PROPHYLAXIS - ADULT (Completed) Service provider: Korina More provider: Saturnino Calixto DDS D1330 - ORAL HYGIENE INSTRUCTIONS (Completed) Service provider: Korina More provider: Saturnino Calixto DDS D9450 - ADJUNCTIVE GENERAL SERVICES - PROFESSIONAL VISITS - CASE PRESENTATION, SUBSEQUENT TO DETAILED AND EXTENSIVE TREATMENT PLANNING (Completed) Service provider: Korina Samayoa Billing provider: Saturnino Calixto DDS Instruments Used: Ultrasonic Scalers, post-op rinsed with chlorhexidine. Fluoride: N/A Oral Cancer Screening: No lesions Head/Neck Exam: No Lesions Calculus: Heavy, Generalized, and very deep and tenacious Plaque: Heavy and Generalized Stain: Moderate and Generalized Bleeding: Moderate and Generalized Gingiva: Edematous and with scattered mobility OH: Fair: needs improvement. Perio Chart: already done by student: severe bone loss . Explained to Pt what advanced chronic periodontitis is. Scattered mobility. Due to the severe bone loss and tenacious calculus. I will SRP 1 quad per one hour visit. Oral hygiene instructions provided to patient including brushing technique and flossing. Recommendations: [place] two times daily, modified lynch technique, Floss daily, Electric toothbrush, Soft bristle toothbrush, [place] Tongue, Chlorhexidine will be RX by Dr. Calixto Recall Frequency: SRP 12/17/24 NV: SRP UL, quad Hygienist: Korina Samayoa RDH documented in this encounter Miscellaneous Notes * Addendum Note - Saturnino Calixto DDS - 11/19/2024 2:00 PM ESTAddended by: SATURNINO CALIXTO on: 11/19/2024 03:53 PM Modules accepted: Orders documented in this encounter Plan of Treatment Upcoming Encounters Date Type Department Care Team (Late st Contact Info) Description 12/17/2024 9:00 AM EST Office Visit [facility] ADULT DENTAL [address] [place] [address] Yao, Korina [address] [place] [address] 12/24/2024 2:00 PM EST Office Visit [facility] ADULT DENTAL [address] [place] [address] Yao, Korina [address] [place] [address] 12/31/2024 9:00 AM EDT Office Visit [facility] ADULT DENTAL [address] [place] [address] Korina Samayoa [address] [place] [address] 01/14/2025 11:00 AM EDT Office Visit [facility] ADULT DENTAL [address] [place] [address] Korina Samayoa [address] [place] [address] Scheduled Orders Name Type Priority Associated Diagnoses Orde r Schedule LL LL PERIODONTAL SCALING AND ROOT PLANING - 4 OR MORE TEETH PER QUADRANT Dental Routine [address] arting 11/19/2024 LR LR PERIODONTAL SCALING AND ROOT PLANING - 4 OR MORE TEETH PER QUADRANT Dental Routine [address] arting 11/19/2024 documented as of this encounter Procedures Procedure Name Priority Date/Time Associated Diagnosis Comments PROPHYLAXIS - ADULT Routine 11/19/2024 2 :00 PM EST Generalized chronic severe periodontitis Dental calculus Missing teeth, acquired Localized secondary occlusal trauma Tipped teeth ORAL HYGIENE INSTRUCTIONS Routine 11/19/2024 2:00 PM EST Generalized chronic severe periodontitis Dental calculus Missing teeth, acquired Localized secondary occlusal trauma Tipped teeth ADJUNCTIVE GENERAL SERVICES - PROFESSIONAL VISITS - CASE PRESENTATION, SUBSEQUENT TO DETAILED AND EXTENSIVE TREATMENT PLANNING Routine 11/19/2024 2:00 PM EST Generalized chronic severe periodontitis Dental calculus Missing teeth, acquired Localized secondary occlusal trauma Tipped teeth 19 EXTRACTION Routine 11/19/2024 12:00 AM EST 30 EXTRACTION Routine 11/19/2024 12:00 AM EST 17 EXTRACTION Routine 11/19/2024 12:00 AM EST documented in this encounter Visit Diagnoses Diagnosis Generalized chronic severe periodontitis- Primary Dental calculus Accretions on teeth Missing teeth, acquired Localized secondary occlusal trauma Tipped teeth Horizontal displacement of teeth documented in this encounter Additional Health Concerns Assessment Noted Time PHQ-9 Depression Total Score: 0 08/27/20 24 2:06 PM EST documented as of this encounter Care Teams Hand Knitter Relationship Specialty Start Date End Date Stephanie Navarrete MD [address] [place] [address] PCP - General Family Medicine 12/08/21 documented as of this encounter
--- OUTSIDE RECORDS SUMMARY | 2024-12-03 11:26 | XMS_ITS | Data Portability ---
Author Organization [facility] [address] Address [address] [place] [address] Assessment No assessment recorded. Plan of Treatment Reminders Order Date Submit Date Provider Last Modified By Organization Details Last Modified Time Details Appointments None recorded. Lab None recorded. Referral None recorded. Procedures None recorded. Surgeries None recorded. Imaging None recorded. Medication Orders Valtrex 1 gram tablet 2022 023 [facility]- , [address] [place], [place], [id number], 17:04:58 prednisone 20 mg tablet 2022 023 [facility]- , [address] [place], [place], [id number], 17:04:58 Patient TargetsNo targets recorded. Patient Instructions Encounter Date Encounter Id Patient Instructions Last Modified By Organization Details Last Modified Time 02/20/2023 [id number] hives: care instructions [email or web address] Not available 02/20/2023 [...] dry and soothe the skin. Take an cfxj-tve-tadsinq pain medicine, such as acetaminophen (Tylenol), ibuprofen [...] Address Organization Details Recorded Time Myocardial infarction 90411508 Completed 202202/20/2023 [facility] 16:37:40 Hypertensive disorder 77441758 Active 2022 [facility] 16:37:47 Hyperlipidem ia 71918987 Active 2022 Bharti caruso PA - [facility] 3 16:37:52 Notes:Triple/double bypass Problem Notes None recorded. Procedures Surgical History Date Name Laterality Status Provider Name and Address Organization Details Recorded Time coronary artery bypass grafts x 3 completed Bharti Kiran PA - [facility] 02/20/2023 16:34:52 coronary artery bypass grafts x 2 completed Bharti Kiran PA - [facility] 02/20/2023 16:35:01 Imaging [...] Not Available Vitals Date Recorded Body height Body mass index (BMI) Body weight Oxygen saturation Oxygen saturation in Arterial blood by Pulse oximetry Heart rate Respiratory rate Pain severity - 0-10 verbal numeric rating [Score] - Reported Body temperature Systolic blood pressure Diastolic blood pressure Provider Name and Address Organization Details Last Updated DateTime 3 165.1 cm 27.5 kg/m2 53744.7 4 g 100 % 100 % 89 /min 20 /min 7 98.1 [degF] 126 mm[Hg] 82 mm[Hg] Bharti Kiran PA - [facility] 16:37:21 Social History Question Answer Notes LastModified by Organizat ion Details LastModified Time Tobacco Smoking Status Never Smoker Bharti caruso PA - [facility] 02/20/2023 16:35:37 What [...] rS-Ad26, PF, 0.5 mL 01/31/2021 completed Bharti [place] null, PA - [facility] 02/20/2023 16:33:06 Tdap 12/31/2014 completed Bharti [place] null, PA - [facility] 02/20/2023 16:33:06 Past Encounters Encounter ID Performer Location Encounter Start Date Encounter Closed Date Diagnosis/Indication Diagnosis SNOMED-CT Code Diagnosis ICD10 Code Diagnosis [place] [id number] [place] [address] [address] 02/20/2023 12:37:08 02/20/2023 17:09:02 Herpes zoster 3709616 B02.9 Health Concerns Section Related Observation LastModified by Organization Detai ls LastModified Time None Recorded Concern Status LastModified by Organization Details LastModified Time None Recorded Advance Directives Directive None Recorded Payers Encounter Date Sequence Insurance Name Policy Number Policy Jeong Covered Member ID Jeong Member ID Guarantor Name 02/20/2023 1 [place] [facility] Julian Thomason [id number] Julian Thomason Notes Date Note Type Note Provider Name and Address Organization Details Recorded Time text/html UC Rash/Skin LesionReported bypatient.source of patient [...] fever; no fatigue Duke Bearden NP [address] [place], [address], [place] - [facility] 02/20/2023 17:04:58
--- OUTSIDE RECORDS SUMMARY | 2024-12-03 11:26 | XMS_ITS | Encounter Summary ---
Author Organization [employer] Address 75 [facility] 7t [place] [address] Care Team Providers Care Lump Room Supervisor Name Role Phone Stephanie Navarrete MD Primary Care Provide r Reason for Visit * Reason Onset Date Comments Med Refill 11/22/2024 Encounter Details Date Type Department Care Team (Late st Contact Info) Description 11/22/2024 Refill [facility] MEDICINE [address] [place] [address] Stephanie Navarrete MD [address] [place] [address] Primary hypertension; Hypertension, unspecified type Social History Tobacco Use Types Packs/Day Years [...] encounter Miscellaneous Notes * Telephone Encounter - Nereida Thomason - 11/22/2024 2:35 PM EST TC from pt requesting medication refill. Medications needing refill : - rosuvastatin (Crestor) 20 MG tablet - metoprolol succinate XL (Toprol-XL) 50 MG 24 hr tablet - aspirin (Aspirin Low Dose) 81 MG EC tablet To be sent to: [facility] [place]- - [place], [place] - [address] [facility] documented in this encounter Plan of Treatment Upcoming Encounters Date Type Department Care Team (Late st Contact Info) Description 12/17/2024 9:00 AM EST Office Visit [facility] ADULT DENTAL 230 [facility], [place] [phone] Korina Samayoa [address] [place], [place] [phone] 12/24/2024 2:00 PM EST Office Visit [facility] ADULT DENTAL 230 [facility], [place] [phone] Korina Samayoa 230 [facility], [place] [phone] 12/31/2024 9:00 AM EDT Office Visit [facility] ADULT DENTAL [address] [place] [address] Korina Samayoa [address] [place] [address] 01/14/2025 11:00 AM EDT Office Visit [facility] ADULT DENTAL [address] [place] [address] Korina Samayoa [address] [place] [address] documented as of this encounter Visit Diagnoses Diagnosis Primary hypertension Unspecified essential hypertension Hypertension, unspecified type documented in this encounter Additional Health Concerns Assessment Noted Time PHQ-9 Depression Total Score: 0 08/27/20 24 2:06 PM EST documented as of this encounter Care Teams Lump Room Supervisor Relationship Specialty Start Date End Date Stephanie Navarrete MD [address] [place] [address] PCP - General Family Medicine 12/08/21 documented as of this encounter
--- OUTSIDE RECORDS SUMMARY | 2024-12-03 11:26 | XMS_ITS | Encounter Summary ---
Author Organization [employer] Address 75 [facility] 7t [place] [address] Care Team Providers Care Crossing Watchman Name Role Phone Stephanie Navarrete MD Primary Care Provide r Encounter Details Date Type Department Care Team (Latest Contact Info) Description 12/03/2024 Travel Social History Tobacco Use Types Packs/Day Years [...] Description 12/17/2024 9:00 AM EST Office Visit [facility] ADULT DENTAL [address] [place] [address] Yao, Korina [address] [place] [address] 12/24/2024 2:00 PM EST Office Visit [facility] ADULT DENTAL [address] [place] [address] Yao, Korina [address] [place] [address] 12/31/2024 9:00 AM EDT Office Visit [facility] ADULT DENTAL [address] [place] [address] Yao, Korina [address] [place] [address] 01/14/2025 11:00 AM EDT Office Visit [facility] ADULT DENTAL [address] [place] [address] Yao, Korina [address] [place] [address] documented as of this encounter Visit Diagnoses Not on filedocumented in this encounter Additional Health Concerns Assessment Noted Time PHQ-9 Depression Total Score: 0 08/27/20 24 2:06 PM EST documented as of this encounter Care Teams Crossing Watchman Relationship Specialty Start Date End Date Stephanie Navarrete MD [address] [place] [address] PCP - General Family Medicine 12/08/21 documented as of this encounter
--- OUTSIDE RECORDS SUMMARY | 2024-12-03 11:26 | XMS_ITS | Encounter Summary ---
Author Organization [employer] Address [address] [facility] 7t [place] [address] Care Team Providers Care Harbour Master Name Role Phone Stephanie Navarrete MD Primary Care Provide r Reason for Visit * Reason Onset Date Comments Med Refill 04/05/2024 Encounter Details Date Type Department Care Team ([facility] st Contact Info) Description 04/05/2024 Telephone [facility] MEDICINE [address] [place] [address] Stephanie Navarrete MD [address] [place] [address] Med Refill Social History Tobacco Use Types [...] 24 hr tablet To be sent to: [facility] [place] - [address] [facility] documented in this encounter Plan of Treatment Upcoming Encounters Date Type Department Care Team ([facility] st Contact Info) Description 12/17/2024 9:00 AM EST Office Visit [facility] ADULT DENTAL [address] [place] [address] Korina Samayoa [address] [place] [address] 12/24/2024 2:00 PM EST Office Visit [facility] ADULT DENTAL [address] [place] [address] Korina Samayoa [address] [facility] [place] [address] 12/31/2024 9:00 AM EDT Office Visit [facility] ADULT DENTAL [address] [facility] [place], [place] [phone] Korina Samayoa [address] [facility] [place] [address] 01/14/2025 11:00 AM EDT Office Visit [facility] ADULT DENTAL [address] [place] [address] Korina Samayoa 230 [facility], [place] [phone] documented as of this encounter Visit Diagnoses Not on filedocumented in this encounter Additional Health Concerns Assessment Noted Time PHQ-9 Depression Total Score: 0 04/20/20 23 3:37 PM EDT documented as of this encounter Care Teams Harbour Master Relationship Specialty Start Date End Date Stephanie Navarrete MD [address] [place] [address] PCP - General Family Medicine 12/08/21 documented as of this encounter
--- OUTSIDE RECORDS SUMMARY | 2024-12-03 11:26 | XMS_ITS | Encounter Summary ---
Author Organization [employer] Address [address] [facility] 7t [place] [address] Care Team Providers Care Boat Joiner Name Role Phone Stephanie Navarrete MD Primary Care Provide r Reason for Visit * Reason Comments Pre-visit Planning (Unable to reach for PVP screening, LVM) Encounter Details Date Type Department Care Team (Late st Contact Info) Description 11/21/2024 Patient Outreach [facility] MEDICINE [address] [place] [address] Stephanie Navarrete MD [address] [place] [address] Pre-visit Planning ((Unable to reach for PVP screening, LVM)) Social History Tobacco Use Types Packs/Day Years [...] as of this encounter Progress Notes * Lovely Saravia - 11/21/2024 12:33 PM EST CC Lovely. Placed outbound call to patient to complete pre-visit planning. No answer at this time. Patient name and were not confirmed. CC left voicemail requesting return call. Direct contact information provided. documented in this encounter Plan of Treatment Upcoming Encounters Date Type Department Care Team (Late st Contact Info) Description 12/17/2024 9:00 AM EST Office Visit [facility] ADULT DENTAL [address] [place] [address] Yao, Korina [address] [place] [address] 12/24/2024 2:00 PM EST Office Visit [facility] ADULT DENTAL [address] [place] [address] Yao, Korina [address] [place] [address] 12/31/2024 9:00 AM EDT Office Visit [facility] ADULT DENTAL [address] [place] [address] Korina Samayoa [address] [place] [address] 01/14/2025 11:00 AM EDT Office Visit [facility] ADULT DENTAL [address] [place] [address] Korina Samayoa [address] [place] [address] documented as of this encounter Visit Diagnoses Not on filedocumented in this encounter Additional Health Concerns Assessment Noted Time PHQ-9 Depression Total Score: 0 08/27/20 24 2:06 PM EST documented as of this encounter Care Teams Boat Joiner Relationship Specialty Start Date End Date Stephanie Navarrete MD [address] [place] [address] PCP - General Family Medicine 12/08/21 documented as of this encounter
--- OUTSIDE RECORDS SUMMARY | 2024-12-03 11:26 | XMS_ITS | Encounter Summary ---
Author Organization [employer] Address [address] [facility] 7t [place] [address] Care Team Providers Care General Road Supervisor Name Role Phone Stephanie Navarrete MD Primary Care Provide r Encounter Details Date Type Department Care Team ([facility] st Contact Info) Description 11/05/2024 Orders Only [facility] MEDICINE [address] [place] [address] Stephanie Navarrete MD [address] [place] [address] Hypokalemia (Primary Dx) Social History Tobacco Use [...] Lester MD - 11/05/2024 8:57 PM EST scallop dredger I was call critical labs K 2.9 and mg 1.5 I called patient let him know he needs to take supplementation send to pharmacy and recheck labs in 1 week, also nephrology referral is in Please f/u with patient thank you, Stephanie Freeman MD * Rosio Sanchez RN - 11/05/2024 8:57 PM EST TC placed to patient [phone] to confirm patient has p/u magnesium and [...] Description 12/17/2024 9:00 AM EST Office Visit [facility] ADULT DENTAL [address] [place], [place] [address] Korina Samayoa [address] [place], [place] [address] 12/24/2024 2:00 PM EST Office Visit [facility] ADULT DENTAL [address] [place], [place] [address] Korina Samayoa [address] [place], [place] [address] 12/31/2024 9:00 AM EDT Office Visit [facility] ADULT DENTAL [address] [place], [place] [address] Korina Samayoa [address] [place], [place] [address] 01/14/2025 11:00 AM EDT Office Visit [facility] ADULT DENTAL [address] [place], [place] [address] Korina Samayoa [address] [place], [place] [address] documented as of this encounter Procedures Procedure Name Priority Date/Time Associated Diagnosis Comments POTASSIUM Routine 11/16/2024 1:52 PM EST Hypokalemia MAGNESIUM Routine 11/16/2024 1:52 PM EST Hypokalemia documented in this encounter Results * Magnesium (11/16/2024 1:52 PM EST) Pathologist [facility] Magnesium 1.7 1.6 - 2.6 mg/dL [facility] Blood Venous blood specimen / Unknown 11/16/2024 1:52 PM EST 11/16/2024 4:10 PM EST us Stephanie Lester MD LAB BLOOD ORDERABLES Final Result [facility] [address] [place] [address] [phone] * Potassium (11/16/2024 1:52 PM EST) Potassium 4.1 3.3 - 5.1 mmol/L [facility] Blood Venous blood specimen / Unknown 11/16/2024 1:52 PM EST 11/16/2024 4:10 PM EST us Stephanie Lester MD LAB BLOOD ORDERABLES Final Result [facility] [address] [place] [phone] documented in this encounter Visit Diagnoses Diagnosis Hypokalemia- Primary Hypopotassemia documented in this encounter Additional Health Concerns Assessment Noted Time PHQ-9 Depression Total Score: 0 08/27/20 24 2:06 PM EST documented as of this encounter Care Teams General Road Supervisor Relationship Specialty Start Date End Date Stephanie Navarrete MD [address] [place] [address] PCP - General Family Medicine 12/08/21 documented as of this encounter
[2024-12-03 11:40] LABS: Cholesterol 124 mg/dL (<200); HDL Cholesterol 47 mg/dL (>40); LDL Cholesterol Calculated 62 mg/dL (<100); Magnesium 1.6 mg/dL (1.6-2.6); Potassium 3.5 mmol/L (3.3-5.1); Triglycerides 76 mg/dL (<150)
== END 2024-12-03 10:33 | disposition home or self-care (01) ==
LOC: HO.HHCL 10:32
PROVIDERS: Visit Provider Internal Medicine
DX: E87.6 Hypokalemia (principal); I25.10 Atherosclerotic heart disease of native coronary artery without angina pectoris
CPT/HCPCS: 36415; 80061; 83735; 84132

== ENCOUNTER 2024-12-09 15:48 | Emergency (ER) | payer MEDICAID, SELFPAY ==
--- NOTE | 2024-12-09 16:28 | ED.CPR ---
HPI - CPR General Chief Complaint: Cardiac Arrest/CPR Stated Complaint: cardiac arrest Time Seen by Provider: 12/09/24 16:09 Source: family, EMS and old records reviewed Mode of arrival: EMS Limitations: other (CPR) History of Present Illness ED Provider: VERENA BERG narrative: 59 yo male wtih PMH of CAD, DM, CABG 3-4 years ago, HLD, HTN, cardiomyopathy and CHF - has declined ICD inpast, ascenidng aortic aneurysm here after a bystander saw him in [facility]. Asystole on initial check, CPR by Fire, unable to intubate and jaw was slightly rigid and he was cold to touch - mottled and blue Igel placed CPR prehospital about 25 min with 5+ epi and IO placed. MD complaint: found unresponsive and other (asystole, cold to touch) Onset (ago): unknown Place: street ([facility]) Bystander CPR performed: No AED applied by bystander/gear hobber operator: Yes Shock advised: No Initial findings in the field: unresponsive, no pulse and other rhythm (asystolic) ROSC in the field: No Associated injuries: No Known history of: CAD and GA Treatments prior to arrival: BMV, other airway device, chest compressions and epinephrine mgs # (5) Related Data Home Medications ?Medication ?Instructions ?Recorded ?Confirmed rosuvastatin 20 mg tablet 20 mg PO DAILY 01/28/22 05/07/24 furosemide 20 mg tablet (Lasix) 20 mg PO BID 01/23/24 05/07/24 Previous Rx's ?Medication ?Instructions ?Recorded aspirin 81 mg tablet,delayed 81 mg PO DAILY #90 tabs 11/24/21 release metoprolol succinate 50 mg 50 mg PO DAILY 60 days #60 tabs 11/30/21 tablet,extended release 24 hr (Toprol XL) isosorbide mononitrate 30 mg 30 mg PO DAILY #30 tabs 12/04/21 tablet,extended release 24 hr empagliflozin 10 mg tablet 10 mg PO DAILY #30 tabs 04/23/24 (Jardiance) valsartan 40 mg tablet 20 mg (1/2 x 40 mg) PO BID #30 tabs 11/06/24 Allergies Allergy/AdvReac Type Severity Reaction Status Date / Time No Known Allergies Allergy Verified 05/07/24 09:24 Review of Systems Review of Systems: ROS unable to be obtained due to ongoing CPR [facility] Past Medical History Source: old records reviewed Medical History Pulmonary arterial hypertension Alcohol abuse Acute CHF Hypomagnesemia Ascending aortic aneurysm Essential hypertension Atherosclerotic cardiovascular disease Ischemic cardiomyopathy HLD (hyperlipidemia) CAD (coronary artery disease) Cardiomyopathy CHF (congestive heart failure) HTN (hypertension) Surgical History Status post double vessel coronary artery bypass S/P triple vessel bypass S/P cardiac cath Family History Family History Father No problems noted. Mother No problems noted. Social History Social History Household Members: Family Housing: Apartment Do you presently have visiting nurse or other home services: No Alcohol intake: current Alcohol intake frequency: 0-2 drinks per day Alcohol type: beer Patient Tobacco Use Status: Never used Tobacco Second Hand Smoke Exposure: No Substance Use Type: Marijuana Advance Directives: Yes Advance Directives on File: Yes Advance Directives Date on File: 12/03/21 service: No Current occupational status: employed Physical Exam Vital Signs: Appearance: ongoing CPR, no response at this time to any stimuli on arrival mello in place with Igel and bag in place Eyes: Fixed and dilated. not reactive ENT: Pharynx blue lips, blue ears, jaw slightly stiff to intubation Neck: Normal inspection. Neck supple. CVS: no pulses, cold blue hands, legs mottled, no heart sounds Respiratory: No respiratory distress. Breath sounds normal. Abdomen: Soft and nontender. Skin: Cold to touch Extremities: IO R knee, no edema in legs Neuro: no response to any stimuli, no signs of life at this time Course Course Course Narrative: spoke to daughter Karen who is HCP she states stop efforts after prolonged rescuscitative efforts time of 1620 pupils fixed and dilated, asystole, cardiac standstill on US will call ME Reevaluation(s) Reevaluation #1: 433pm Caio from [employer] Reactor Supervisor accepted ME I have notified several of his family members Medical Decision Making Medical Decision Making MDM Narrative: 59 yo male wtih PMH of CAD, DM, CABG 3-4 years ago, HLD, HTN, cardiomyopathy and CHF here with prolonged downtime rigid in intubation and no signs of cardiac activity or neuro function with about 1 hour of CPR - at this time repeat discussions with family after 1 hour of CPR core temp 88.2 I am going to stop rescuscitative efforts. Call to ME. No signs of life, fixed dilated unreactive pupils, temp 88.2, 1 hour CPR Differential Diagnosis Differential Diagnoses: The differential diagnosis associated with the presentation includes cardiac arrest, arrhythmia Independent Historian Clinical information obtained from an independent historian. History obtained from or confirmed by: EMS and Other (family) External Record Review External record reviewed: Inpatient record and Outpatient record Procedures Intubation Intubation Type:: Endotracheal Tube Insertion Intubation Date:: 12/09/24 Time out performed: No sedative: none ET Tube Size: 7.5 ET Tube Uncuffed: Yes Tube Secured Depth (cm): 23 Tube Secured Location: teeth Tube Placement Confirmation: visualized tube passing through cords, equal breath sounds bilaterally, no breath sounds over epigastrium and confirmation by capnometry Patient Tolerated Procedure: no complications Additional Comments: jaw was rigid on attempt Discharge Plan Discharge Clinical Impression: Cardiac arrest Patient Disposition: Date/Time: 12/09/24 16:20
--- OUTSIDE RECORDS SUMMARY | 2024-12-09 16:50 | XMS_ITS | Encounter Summary ---
Author Organization [employer] Address 75 [facility] 7t [place] [address] Care Team Providers Care Quill Collector Name Role Phone Stephanie Navarrete MD Primary Care Provide r Reason for Visit * Reason Comments Gross debridement Encounter Details Date Type Department Care Team (Latest Contact Info) Description 11/19/2024 2:00 PM EST Office Visit [facility] ADULT DENTAL [address] [place] [address] Yao, Korina [address] [place] [address] Generalized chronic severe periodontitis (Primary Dx); Dental [...] 11/19/24, Timeout Time: 1405 (Gross scaling) Location: [facility] Tooth: Maxilla and Mandible Procedure: Gross debridement as Prophy (Pt has never had a gross debridement. Pt was seen by student 08/2024) Verified the above with patient, seo assistant, and provider. Confirmed via patient's chart, intraorally and by radiographs. Tire Repair Mechanic: not applicable Medical Hx: Vitals: Blood pressure [...] patient including brushing technique and flossing. Recommendations: [place] two times daily, modified lynch technique, Floss daily, Electric toothbrush, Soft bristle toothbrush, [place] Tongue, Chlorhexidine will be RX by Dr. [...] Description 12/17/2024 9:00 AM EST Office Visit [facility] ADULT DENTAL [address] [place] [address] Yao, Korina [address] [place] [address] 12/24/2024 2:00 PM EST Office Visit [facility] ADULT DENTAL [address] [place] [address] Yao, Korina [address] [place] [address] 12/31/2024 9:00 AM EDT Office Visit [facility] ADULT DENTAL [address] [place] [address] Korina Samayoa [address] [place] [address] 01/14/2025 11:00 AM EDT Office Visit [facility] ADULT DENTAL [address] [place] [address] Korina Samayoa [address] [place] [address] 03/04/2025 1:45 PM EDT Office Visit [facility] MEDICINE [address] [place] [address] Stephanie Navarrete MD [address] [place] [address] Scheduled Orders Name Type Priority Associated Diagnoses [...] acquired Localized secondary occlusal trauma Tipped teeth CASE PRESENTATION, DETAILED AND EXTENSIVE TREATMENT PLANNING Routine 11/19/2024 [...] Time PHQ-9 Depression Total Score: 0 08/27/20 2:06 PM EST documented as of this encounter Care Teams Quill Collector Relationship Specialty Start Date End Date Stephanie Navarrete MD [address] [place] [address] PCP - General Family Medicine 12/08/21 documented as of this encounter
--- OUTSIDE RECORDS SUMMARY | 2024-12-09 16:50 | XMS_ITS | Encounter Summary ---
Author Organization [employer] Address 75 [facility] 7t [place] [address] Care Team Providers Care Recreation Therapy Aides Teacher Name Role Phone Stephanie Navarrete MD Primary Care Provide r Reason for Visit * Reason Onset Date Comments Med Refill 03/27/2024 Encounter Details Date Type Department Care Team ([facility] st Contact Info) Description 03/27/2024 Telephone [facility] MEDICINE [address] [place] [address] Stephanie Navarrete MD [address] [place] [address] Med Refill Social History Tobacco Use Types [...] - 03/27/2024 10:57 AM EDT Medication to [facility] for refill script was sent on 11/11/23 #90 with 1 refill. * Telephone Encounter - Sena Pierre - 03/27/2024 10:42 AM EDT TC from pt requesting medication refill. Medications needing refill : isosorbide mononitrate ER (Imdur) 30 MG 24 hr tablet To be sent to: [facility]- - [place] - [address] [facility] documented in this encounter Plan of Treatment Upcoming Encounters Date Type Department Care Team (Late st Contact Info) Description 12/17/2024 9:00 AM EST Office Visit [facility] ADULT DENTAL [address] [place] [address] Yao, Korina [address] [place] [address] 12/24/2024 2:00 PM EST Office Visit [facility] ADULT DENTAL [address] [place] [address] Yao, Korina [address] [place] [address] 12/31/2024 9:00 AM EDT Office Visit [facility] ADULT DENTAL [address] [place] [address] Korina Samayoa [address] [place] [address] 01/14/2025 11:00 AM EDT Office Visit [facility] ADULT DENTAL [address] [place] [address] Korina Samayoa [address] [place] [address] 03/04/2025 1:45 PM EDT Office Visit [facility] MEDICINE [address] [place] [address] Stephanie Navarrete MD [address] [place] [address] documented as of this encounter Visit Diagnoses Not on filedocumented in this encounter Additional Health Concerns Assessment Noted Time PHQ-9 Depression Total Score: 0 04/20/20 23 3:37 PM EDT documented as of this encounter Care Teams Recreation Therapy Aides Teacher Relationship Specialty Start Date End Date Stephanie Navarrete MD [address] [place] [address] PCP - General Family Medicine 12/08/21 documented as of this encounter
--- OUTSIDE RECORDS SUMMARY | 2024-12-09 16:50 | XMS_ITS | Encounter Summary ---
Author Organization [employer] Address 75 [facility] 7t [place] [address] Care Team Providers Care Pest Control Supervisor Name Role Phone Stephanie Navarrete MD [...] 9:00 AM EST Office Visit [facility] ADULT DENTAL [address] [place] [address] Yao Korina [address] [place] [address] 12/24/2024 2:00 PM EST Office Visit [facility] ADULT DENTAL [address] [place] [address] Yao, Korina [address] [place] [address] 12/31/2024 9:00 AM EDT Office Visit [facility] ADULT DENTAL [address] [place] [address] Yao, Korina [address] [place] [address] 01/14/2025 11:00 AM EDT Office Visit [facility] ADULT DENTAL [address] [place] [address] Yao, Korina [address] [place] [address] 03/04/2025 1:45 PM EDT Office Visit [facility] MEDICINE [address] [place] [address] Stephanie Navarrete MD [address] [place] [address] documented as of this encounter Visit Diagnoses Not on filedocumented in this encounter Additional Health Concerns Assessment Noted Time PHQ-9 Depression Total Score: 0 08/27/20 24 2:06 PM EST documented as of this encounter Care Teams Pest Control Supervisor Relationship Specialty Start Date End Date Stephanie Navarrete MD [address] [place] [address] PCP - General Family Medicine 12/08/21 documented as of this encounter
--- OUTSIDE RECORDS SUMMARY | 2024-12-09 16:50 | XMS_ITS | Clinical Summary ---
Author Organization [facility] Address [address] [place] [address] Phone Care Team Providers Care Environmental Geologist Name Role Phone Anamaria Spann MD Primary [...] Influenza Vaccine (#1) 2024 Insurance Care Teams Environmental Geologist Relationship Specialty Start Date End Date Anamaria Spann MD PCP - General Internal Medicine 07/15/21
--- OUTSIDE RECORDS SUMMARY | 2024-12-09 16:50 | XMS_ITS | Encounter Summary ---
Author Organization [employer] Address [address] [facility] 7t [place] [address] Care Team Providers Care Networks Software Consultant Name Role Phone Stephanie Navarrete MD Primary Care Provide r Reason for Visit * Reason Onset Date Comments Med Refill 11/22/2024 Encounter Details Date Type Department Care Team (Late st Contact Info) Description 11/22/2024 Refill [facility] MEDICINE [address] [place] [address] Stephanie Navarrete MD [address] [place] [address] Primary hypertension; Hypertension, unspecified type Social History [...] MG EC tablet To be sent to: [facility] [place]- - [place], [place] - [address] [facility] documented in this encounter Plan of Treatment Upcoming Encounters Date Type Department Care Team (Late st Contact Info) Description 12/17/2024 9:00 AM EST Office Visit [facility] ADULT DENTAL [address] [facility], [place] [phone] Korina Samayoa [address] [place], [place] [phone] 12/24/2024 2:00 PM EST Office Visit [facility] ADULT DENTAL [address] [facility], [place] [phone] Korina Samayoa [address] [facility], [place] [phone] 12/31/2024 9:00 AM EDT Office Visit [facility] ADULT DENTAL [address] [place] [address] Korina Samayoa [address] [place] [address] 01/14/2025 11:00 AM EDT Office Visit [facility] ADULT DENTAL [address] [place] [address] Korina Samayoa [address] [place] [address] 03/04/2025 1:45 PM EDT Office Visit [facility] MEDICINE [address] [place] [address] Stephanie Navarrete MD [address] [place] [address] documented as of this encounter Visit Diagnoses Diagnosis Primary hypertension Unspecified essential hypertension Hypertension, unspecified type documented in this encounter Additional Health Concerns Assessment Noted Time PHQ-9 Depression Total Score: 0 08/27/20 24 2:06 PM EST documented as of this encounter Care Teams Networks Software Consultant Relationship Specialty Start Date End Date Stephanie Navarrete MD [address] [place] [address] PCP - General Family Medicine 12/08/21 documented as of this encounter
--- OUTSIDE RECORDS SUMMARY | 2024-12-09 16:50 | XMS_ITS | Encounter Summary ---
Author Organization [employer] Address [address] [facility] 7 [place] [address] Care Team Providers Care Head Neck Surgeon Name Role Phone Stephanie Navarrete MD Primary Care Provide r Reason for Visit * Reason Comments Pre-visit Planning (Unable to reach for PVP screening, LVM) Encounter Details Date Type Department Care Team (Late st Contact Info) Description 11/21/2024 Patient Outreach [facility] MEDICINE [address] [place] [address] Stephanie Navarrete MD [address] [place] [address] Pre-visit Planning ((Unable to reach for PVP [...] Description 12/17/2024 9:00 AM EST Office Visit [facility] ADULT DENTAL [address] [place] [address] Yao, Korina [address] [place] [address] 12/24/2024 2:00 PM EST Office Visit [facility] ADULT DENTAL [address] [place] [address] Yao, Korina [address] [place] [address] 12/31/2024 9:00 AM EDT Office Visit [facility] ADULT DENTAL [address] [place] [address] Korina Samayoa [address] [place] [address] 01/14/2025 11:00 AM EDT Office Visit [facility] ADULT DENTAL [address] [place] [address] Korina Samayoa [address] [place] [address] 03/04/2025 1:45 PM EDT Office Visit [facility] MEDICINE [address] [place] [address] Stephanie Navarrete MD [address] [place] [address] documented as of this encounter Visit Diagnoses Not on filedocumented in this encounter Additional Health Concerns Assessment Noted Time PHQ-9 Depression Total Score: 0 08/27/20 24 2:06 PM EST documented as of this encounter Care Teams Head Neck Surgeon Relationship Specialty Start Date End Date Stephanie Navarrete MD [address] [place] [address] PCP - General Family Medicine 12/08/21 documented as of this encounter
--- OUTSIDE RECORDS SUMMARY | 2024-12-09 16:50 | XMS_ITS | Data Portability ---
Author Organization [facility] [address] Address [address] [place] [address] Assessment No assessment recorded. Plan of Treatment Reminders Order Date Submit Date Provider Last Modified By Organization Details Last Modified Time Details Appointments None recorded. Lab None recorded. Referral None recorded. Procedures None recorded. Surgeries None recorded. Imaging None recorded. Medication Orders Valtrex 1 gram tablet 2022 023 [facility]- , [address] [place], [place], [id number], 17:04:58 prednisone 20 mg tablet 2022 023 [facility]- , [address] [place], [place], [id number], 17:04:58 Patient TargetsNo targets recorded. Patient Instructions Encounter Date Encounter Id Patient Instructions Last Modified By Organization Details Last Modified Time 02/20/2023 [id number] hives: care instructions [email or web address] Not available 02/20/2023 [...] dry and soothe the skin. Take an [id number] pain medicine, such as acetaminophen (Tylenol), ibuprofen [...] Address Organization Details Recorded Time Myocardial infarction 17224046 Completed 202202/20/2023 [facility] 16:37:40 Hypertensive disorder 89741847 Active 2022 [facility] 16:37:47 Hyperlipidem ia 31487870 Active 2022 Bharti caruso [facility] - [facility] [...] Updated DateTime 3 165.1 cm 27.5 kg/m2 55636.7 4 g 100 % 100 % 89 [...] rS-Ad26, PF, 0.5 mL 01/31/2021 completed Bharti [place] null, [place] - [facility] 02/20/2023 16:33:06 Tdap 12/31/2014 completed Bharti [place] null, [place] - [facility] 02/20/2023 16:33:06 Past Encounters Encounter ID Performer Location Encounter Start Date Encounter Closed Date Diagnosis/Indication Diagnosis SNOMED-CT Code Diagnosis ICD10 Code Diagnosis [place] [id number] [place] [address] [address] 02/20/2023 12:37:08 02/20/2023 17:09:02 Herpes zoster 4640372 B02.9 Health Concerns Section Related Observation LastModified by Organization Detai ls LastModified Time None Recorded Concern Status LastModified by Organization Details LastModified Time None Recorded Advance Directives Directive None Recorded Payers Encounter Date Sequence Insurance Name Policy Number Policy Jeong Covered Member ID Jeong Member ID Guarantor Name 02/20/2023 1 [place] [facility] Julian Thomason [id number] Julian Thomason Notes Date Note Type Note [...] Duke Bearden NP [address] [place], [address], [place] - [facility] 02/20/2023 17:04:58
--- OUTSIDE RECORDS SUMMARY | 2024-12-09 16:50 | XMS_ITS | Encounter Summary ---
Author Organization [employer] Address [address] [facility] 7t [place] [address] Care Team Providers Care Fermentation Manager Name Role Phone Stephanie Navarrete MD Primary Care Provide r Reason for Visit * Reason Onset Date Comments BW status 11/16/2024 Encounter Details Date Type Department Care Team ([facility] st Contact Info) Description 11/16/2024 Telephone [facility] MEDICINE [address] [place] [address] Rosio Sanchez RN 230 [place] [address] BW status Social History Tobacco Use Types [...] 9:57 AM EST TC placed to patient [phone] to status check on 11/13/24 call (see below). 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 Patient reports [place] is [place] way [place] from [place] and should arrive in [place] around 1230-1pm and will arrive come to the lab. PCP notified. Per Rosio Sanchez RN note on 11/13/24: TC placed to patient [phone] to confirm patient has p/u magnesium and [...] Upcoming Encounters Date Type Department Care Team ([facility] Contact Info) Description 12/17/2024 9:00 AM EST Office Visit [facility] ADULT DENTAL [address] [place] [address] Juventino Samayoaaris [address], [place] [address] 12/24/2024 2:00 PM EST Office Visit [facility] ADULT DENTAL [address] [place] [address] Korina Samayoa [address], [place] [address] 12/31/2024 9:00 AM EDT Office Visit [facility] ADULT DENTAL [address] [place] [address] Korina Samayoa [address] [place], [place] [address] 01/14/2025 11:00 AM EDT Office Visit [facility] ADULT DENTAL [address] [place], [place] [address] Korina Samayoa [address] [place], [place] [address] 03/04/2025 1:45 PM EDT Office Visit [facility] MEDICINE [address] [place] [address] Stephanie Navarrete MD [address] [facility] [place] [address] documented as of this encounter Visit Diagnoses Not on filedocumented in this encounter Additional Health Concerns Assessment Noted Time PHQ-9 Depression Total Score: 0 08/27/20 24 2:06 PM EST documented as of this encounter Care Teams Fermentation Manager Relationship Specialty Start Date End Date Stephanie Navarrete MD [facility] [place] [address] PCP - General Family Medicine 12/08/21 documented as of this encounter
--- OUTSIDE RECORDS SUMMARY | 2024-12-09 16:50 | XMS_ITS | Encounter Summary ---
Author Organization [employer] Address [address] [facility] 7t [place] [address] Care Team Providers Care Lead Business Systems Analyst Name Role Phone Stephanie Navarrete MD Primary Care Provide r Encounter Details Date Type Department Care Team ([facility] st Contact Info) Description 12/03/2024 Orders Only GENERIC EXTERNAL DATA DEPARTMENT Provider, [...] Visit [facility] ADULT DENTAL [address] [place] [address] Juventino Samayoaaris [address] [place] [address] 12/24/2024 2:00 PM EST Office Visit [facility] ADULT DENTAL [address] [place] [address] Yao Korina [address] [place] [address] 12/31/2024 9:00 AM EDT Office Visit [facility] ADULT DENTAL [address] [place] [address] Yao Korina [address] [place] [address] 01/14/2025 11:00 AM EDT Office Visit [facility] ADULT DENTAL [address] [place] [address] Yao, Korina [address] [place] [address] 03/04/2025 1:45 PM EDT Office Visit [facility] MEDICINE [address] [place] [address] Stephanie Navarrete MD 230 [place] [address] documented as of this encounter Procedures Procedure Name Priority Date/Time Associated Diagnosis Comments LIPID PANEL, STANDARD Routine 12/03/2024 10:33 AM EST documented in this encounter Results * Lipid Panel, Standard (12/03/2024 10:33 AM EST) Triglycerides 76 <150 mg/dL [facility] Comment:Desirable Triglyceri de: less than 150 mg/dLBorderline High Triglyceride 150-199 mg/dLHigh Triglyceride: 200-499 mg/dLVery High Triglyceride: greater than or equal to 5OO mg/dL Cholesterol 124 <200 mg/dL [facility] Comment:Desirable Cholestero l: less than 200 mg/dLBorderline High Cholesterol: 200-239 mg/dLHigh Cholesterol: greater than 239 mg/dL LDL Cholesterol Calculated 62 <100 mg/dL [facility] Comment:Desirable LDL: less than 100 mg/dLNear Optimal/Above Optimal LDL: 110- 129 mg/dLBorderline High LDL: 130-159 mg/dLHigh LDL: 160-189 mg/dLVery High LDL: greater than or equal to 190 mg/dL HDL Cholesterol 47 >40 mg/dL [facility] Comment:Desirable HDL: great er than 40 mg/dL Note: This HDL assay may give artificially low results in patients with liver disease. 12/03/2024 10:3 3 AM EST 12/03/2024 11:01 AM EST us Generic External Data Provider LAB BLOOD ORDERAB LES Final Result [facility] [address] [place] [phone] documented in this encounter Visit Diagnoses Not on filedocumented in this encounter Additional Health Concerns Assessment Noted Time PHQ-9 Depression Total Score: 0 08/27/20 24 2:06 PM EST documented as of this encounter Care Teams Lead Business Systems Analyst Relationship Specialty Start Date End Date Stephanie Navarrete MD [address] [place] [phone] PCP - General Family Medicine 12/08/21 documented as of this encounter
--- OUTSIDE RECORDS SUMMARY | 2024-12-09 16:50 | XMS_ITS | Clinical Summary ---
Author Organization [employer] Address [address] [facility] 7t [place] [address] Care Team Providers Care Wall Washer Name Role Phone Stephanie Navarrete MD Primary [...] complication, without long-term current use of insulin ([facility]) Take 1 tablet (10 mg) by mouth [...] complication, without long-term current use of insulin ([facility]) Take 1 tablet (10 mg) by mouth [...] diabetes mellitus without complication Assessment & Plan (12/03/2024 4:12 PM EST): Diabetes is: not controlled - Lab Results Component Value Date HGBA1C 7.7 (A) 12/03/2024 HGBA1C 6.0 07/01/2023 HGBA1C 5.9 04/20/2023 - Lab Results Component Value Date CREATININE 0.87 11/05/2024 -Changes: I will start again Jardiance 10 mg daily, extensive counseling about diabetic diet on Today - Diabetic eye exam: Up-to-date - Diabetic foot exam: Pending - Continue lifestyle modifications - Continue current medications - Follow up: 3 months Assessment & Plan (08/27/2024 4:16 PM EST): [...] size 4.[address] from [facility], aortic root measured 5 cm at the sinus of Valsalva. Ascending aorta at 4.3 cm. In CTA from November 2021 from [place], ascending aortic size was 4.4 cm. Cardiomyopathy 07/09/2021 Assessment & Plan (12/03/2024 4:11 PM EST): I advised to continue with same medication regimen Advised to follow-up with cardiology Assessment & Plan (08/27/2024 3:58 PM EST): Denies pain,or palpitation No bilateral edema Lung sound clear Stopped taking Farxiga and Entresto because insurance will not cover the meds New prescription Jardiance 10mg & Losartan 25 mg Keep your upcoming appointment with dish cloth inspector Assessment & Plan (07/01/2023 5:01 PM EDT): [...] Description 12/03/2024 9:00 AM EST Office Visit [facility] MEDICINE [address] [place] [phone] Stephanie Navarrete MD Rhinitis, unspecified type (Primary Dx); Type 2 diabetes mellitus without complication, without long-term current use of insulin ([facility]); Hypokalemia; Hypomagnesemia; Cardiomyopathy, unspecified type (CMS/HCC) 12/03/2024 Orders Only GENERIC EXTERNAL DATA DEPARTMENT Provider, Generic External Data 12/03/2024 Travel 11/28/2024 Telephone [facility] MEDICINE [address] [place] [phone] Dinora Lynn MA Chart Prep 11/22/2024 Refill [facility] MEDICINE [address] [place] [phone] Stephanie Navarrete MD Primary hypertension; Hypertension, unspecified type 11/21/2024 Patient Outreach [address] [address] Stephanie Navarrete MD Pre-visit Planning ((Unable to reach for PVP screening, LVM)) 11/19/2024 2:00 PM EST Office Visit [facility] ADULT DENTAL [address] [place] [phone] Korina Samayoa Generalized chronic severe periodontitis (Primary Dx); Dental calculus; Missing teeth, acquired; Localized secondary occlusal trauma; Tipped teeth 11/16/2024 Telephone [facility] MEDICINE [address] [place] [phone] Rosio Sanchez, RN BW status 11/05/[address] [address] Stephanie Navarrete MD 11/05/2024 Orders Only [facility] MEDICINE [address] [place] [phone] Stephanie Navarrete MD Hypokalemia (Primary Dx) 11/05/2024 Orders Only GENERIC EXTERNAL DATA DEPARTMENT Provider, Generic External Data 10/12/2024 Refill [facility] MEDICINE [address] [place] [phone] Stpehanie Navarrete MD Primary hypertension 10/02/2024 9:20 AM EST Office Visit [facility] WALK-IN CENTER [address] [place] [phone] Andrews Lee MD Hives (Primary Dx) 10/02/[address] [facility] [address] [place] [address] Stephanie Navarrete MD FYI 10/02/2024 Telephone [facility] MEDICINE [address] [place] [address] Rosio Sanchez, RN Results 10/02/2024 Orders Only [facility] MEDICINE [address] [place] [address] Stephanie Navarrete MD Hypokalemia (Primary Dx); Hypomagnesemia 09/17/2024 8:30 AM EST Office Visit [facility] ADULT DENTAL [address] [place] [address] Tomas Coylesandeemary Localized secondary occlusal trauma (Primary Dx); Encounter [...] is your housing situation today? I have mickikwame knowles 08/20/[address] you [...] the past 12 months, has t he [employer], [employer], oil or water [employer] threatened to shut off services in your [...] 12/17/2024 9:00 AM EST Office Visit [facility] ADULT DENTAL [address] [place] [address] Yao Korina [address] [place] [address] 12/24/2024 2:00 PM EST Office Visit [facility] ADULT DENTAL [address] [place] [address] Yao Korina [address] [place] [address] 12/31/2024 9:00 AM EDT Office Visit [facility] ADULT DENTAL [address] [place] [address] [facility] [address] [place] [address] 01/14/2025 11:00 AM EDT Office Visit [facility] ADULT DENTAL [address] [place] [address] Korina Samayoa [address] [place] [address] 03/04/2025 1:45 PM EDT Office Visit [facility] MEDICINE [address] [place] [address] Stephanie Navarrete MD 230 [place] [address] Health Maintenance Due Date Last Done Comments CT Colonography 1965 Colonoscopy 1965 Colorectal Cancer Screening 1965 FIT DNA/Cologuard 1965 FIT 1965 FOBT 1965 HIV Screening 1965 Sigmoidoscopy 1965 Diabetes: Foot Exam 1975 Eye Exam 1975 Diabetes: Urine Protein Screening 1984 Hepatitis B Vaccines (1 of 3 - 19+ 3-dose series) 1984 Zoster Vaccines (1 of 2) 2015 COVID-19 Vaccine (2 - 2023-2 5 season) 2024 01/31/2021 Influenza Vaccine (#1) 2024 DTaP/Tdap/Td Vaccines (2 - T d or Tdap) 12/31/2024 12/31/2014 Diabetes: Hemoglobin A1C 03/02/2025 025, 07/01/2023, 04/20/2023 Dental Oral Exam 03/18/2025 09/17/2024 Dental Prophylaxis 05/20/2025 11/19/2024 SDOH Screening 08/20/2025 08/20/2024 Depression Screening 08/27/2025 08/27/2024, 08/27/2024 Dental X-Ray: Bitewings 09/18/2025 09/17/2024 Alcohol/Substance Use Screening 12/03/2025 12/03/2024 Lipid Panel 12/03/2025 12/03/2024, 10/01/2024, 12/06/2022 Tobacco Screening 12/03/2025 12/03/2024 Dental X-Ray: Full [...] PANEL, STANDARD Routine 12/03/2024 10:33 AM EST MAGNESIUM Routine 12/03/2024 10:33 AM EST Hypokalemia POTASSIUM Routine 12/03/2024 10:33 AM EST Hypokalemia POCT GLYCATED HEMOGLOBIN, TOTAL Routine 12/03/2024 9:10 AM EST Type 2 diabetes mellitus without complication, without long-term current use of insulin ([facility]) POCT GLUCOSE Routine 12/03/2024 9:09 AM EST Type 2 diabetes mellitus without complication, without long-term current use of insulin ([facility]) CASE PRESENTATION, DETAILED AND EXTENSIVE TREATMENT PLANNING [...] 10/01/2024 9:23 AM EST Encounter for immunization CASE PRESENTATION, DETAILED AND EXTENSIVE TREATMENT PLANNING Routine 09/17/2024 8:30 AM EST INTRAORAL - COMPLETE SERIES OF RADIOGRAPHIC IMAGES Routine 09/17/2024 8:30 AM EST COMPREHENSIVE ORAL EVALUATION - NEW OR ESTABLISHED PATIENT Routine 09/17/2024 8:30 AM EST from Last 3 Months Results * Potassium (12/03/2024 10:33 AM EST) Only the most recent of2 resultswithin the time period is included. Potassium 3.5 3.3 - 5.1 mmol/L [facility] Blood Venous blood specimen / Unknown 12/03/2024 10:33 AM EST 12/03/2024 11:01 AM EST us Stephanie Lester MD LAB BLOOD ORDERABLES Final Result [facility] [address] [place] [address] [phone] * Magnesium (12/03/2024 10:33 AM EST) Only the most recent of4 resultswithin the time period is included. Magnesium 1.6 1.6 - 2.6 mg/dL [facility] Blood Venous blood specimen / Unknown 12/03/2024 10:33 AM EST 12/03/2024 11:01 AM EST Stephanie Lester MD LAB BLOOD ORDERABLES Final Result Performing Organization Address [facility] de Phone Number [facility] [address] [place] [phone] * Lipid Panel, Standard (12/03/2024 10:33 AM EST) Only the most recent of2 resultswithin the time period is included. Triglycerides 76 <150 mg/dL [facility] Comment:Desirable Triglyceri de: less than 150 mg/dLBorderline High Triglyceride 150-199 mg/dLHigh Triglyceride: 200-499 mg/dLVery High Triglyceride: greater than or equal to 5OO mg/dL Cholesterol 124 <200 mg/dL [facility] Comment:Desirable Cholestero l: less than 200 mg/dLBorderline High Cholesterol: 200-239 mg/dLHigh Cholesterol: greater than 239 mg/dL LDL Cholesterol Calculated 62 <100 mg/dL [facility] Comment:Desirable LDL: less than 100 mg/dLNear Optimal/Above Optimal LDL: 110- 129 mg/dLBorderline High LDL: 130-159 mg/dLHigh LDL: 160-189 mg/dLVery High LDL: greater than or equal to 190 mg/dL HDL Cholesterol 47 >40 mg/dL [facility] Comment:Desirable HDL: great er than 40 mg/dL Note: This HDL assay may give artificially low results in patients with liver disease. 12/03/2024 10:3 3 AM EST 12/03/2024 11:01 AM EST us Generic External Data Provider LAB BLOOD ORDERAB LES Final Result [facility] [address] [place] [phone] * (ABNORMAL) POCT HGB A1C (12/03/2024 9:10 AM EST) Hemoglobin A1C 7.7(A) 4.0 - 6.0 % QC Media Lot # [id number] Lot# Expiration Date Blood 12/03/2024 9:10 AM EST Stephanie Lester MD POINT OF CARE TEST EN TER/EDIT ORDERABLES Final Result * POCT Glucose (12/03/2024 9:09 AM EST) Pathologist [facility] Glucose Blood, POC 193 60 - 200 mg/dL QC Media Lot # [id number] Lot# Expiration Date Blood Capillary blood specimen / Unknown 12/03/2024 9:09 AM EST Stephanie Lester MD POINT OF CARE TEST EN TER/EDIT ORDERABLES Final Result * (ABNORMAL) Comprehensive Metabolic Panel (11/05/2024 1:57 PM EST) Sodium 139 135 - 145 mmol/L [facility] Potassium 2.9(LL) 3.3 - 5.1 mmol/L [facility] Comment:Critical value for t est(s): POTS Results called to and readback by: Person calling: [facility] Date: 11/05/24Time: 2024 Chloride 99 96 - 108 mmol/L [facility] Carbon Dioxide 29 22 - 29 mmol/L [facility] Anion Gap 14 12 - 20 [facility] Urea Nitrogen (BUN) 10 9 - 16 mg/dL [facility] Creatinine, Serum 0.87 0.5 - 1.4 mg/dL [facility] Estimated Glomerular Filt Rate >60 [facility] Comment:Chronic Kidney Disea se: Estimated GFR < 60 mL/min/[id number] Kidney Disease: Estimated GFR < 15 mL/min/1.73m2 Glucose 204(H) 60 - 115 mg/dL [facility] Calcium 9.0 8.4 - 10.2 mg/dL [facility] Bilirubin, Total 1.3(H) 0.0 - 1.0 mg/dL [facility] Aspartate Amino Transferase 37 5 - 37 U/L [facility] Alanine Aminotransferase 30 0 - 40 U/L [facility] Total Protein 7.6 6.5 - 8.0 g/dL [facility] Albumin Level 4.1 3.5 - 5.0 g/dL [facility] Alkaline Phosphatase 65 39 - 117 U/L [facility] 11/05/2024 1:5 7 PM EST 11/05/2024 4:07 PM EST us Generic External Data Provider LAB BLOOD ORDERAB LES Final Result [facility] [address] [place] [address] [phone] * (ABNORMAL) CBC auto differential (10/01/2024 9:23 AM EST) White Blood Count 10.4 4.8 - 10.8 X10*3/uL [facility] Red Blood Count 4.63 4.60 - 5.80 X10*6/uL [facility] Hemoglobin 14.5 14.0 - 18.0 g/dl [facility] Hematocrit 40.9(L) 42.0 - 52.0 % [facility] Mean Corpuscular Volume 88.3 80.0 - 98.0 fL [facility] Mean Corpuscular Hemoglobin 31.3 27.0 - 33.0 pg [facility] Mean Corpuscular HGB Conc 35.5 31.0 - 36.0 g/dl [facility] Red Cell Distribution Width 11.9 11.0 - 16.0 % [facility] Platelet Count 185 160 - 400 X10*3/uL [facility] Mean Platelet Volume 10.6 9.4 - 12.4 fL [facility] Neutrophils Percent Auto 63.6 45 - 73 % [facility] Imm Gran Pct Auto 0.3 0.0 - 0.4 % [facility] Lymphocytes Percent Auto 25.8 20 - 40 % [facility] Monocytes Percent Auto 9.0 2 - 11 % [facility] Eosinophils Percent Auto 1.1 0 - 4 % [facility] Basophils Percent Auto 0.2 0 - 2 % [facility] NRBC Pct Auto 0.0 0.0 - 0.2 /100WBC [facility] Neutrophils Absolute Auto 6.6 2.0 - 8.3 x10*3/uL [facility] Imm Gran Abs Auto 0.03 0.00 - 0.03 X10*3/uL [facility] Lymphocytes Absolute Auto 2.7 1.2 - 4.9 X10*3/uL [facility] Monocytes Absolute Auto 0.9 0.1 - 1.2 X10*3/uL [facility] Eosinophils Absolute Auto 0.1 0.0 - 0.4 X10*3/uL [facility] Basophils Absolute Auto 0.0 0.0 - 0.2 X10*3/uL [facility] NRBC Abs Auto 0.000 0.0 - 0.012 X10*3/uL [facility] Blood Venous blood specimen / Unknown 10/01/2024 9:23 AM EST 10/01/2024 9:23 AM EST us Stephanie Lester MD LAB BLOOD ORDERABLES Final Result [facility] [address] [place] [address] [phone] * Hepatitis C Antibody with Reflex to HCV, RNA, Quantitative, Real-Time PCR (10/01/2024 9:23 AM EST) Pathologist [facility] Hepatitis C Antibody Nonreactive Nonreactive [facility] Comment:Antibodies to HCV no t detected; does not exclude early acuteHCV infection. Blood Venous blood specimen / Unknown 10/01/2024 9:23 AM EST 10/01/2024 9:23 AM EST Stephanie Lester MD LAB BLOOD ORDERABLES Final Result Performing Organization Address [facility] Co de Phone Number [facility] [address] [place] [phone] * (ABNORMAL) Basic Metabolic Panel (10/01/2024 9:23 AM EST) Pathologist [facility] Sodium 140 135 - 145 mmol/L [facility] Potassium 3.1(L) 3.3 - 5.1 mmol/L [facility] Chloride 99 96 - 108 mmol/L [facility] Carbon Dioxide 32(H) 22 - 29 mmol/L [facility] Anion Gap 12 12 - 20 [facility] Urea Nitrogen (BUN) 12 9 - 16 mg/dL [facility] Creatinine, Serum 0.78 0.5 - 1.4 mg/dL [facility] Estimated Glomerular Filt Rate >60 [facility] Comment:Chronic Kidney Disea se: Estimated GFR < 60 mL/min/1.23b5Sydxgz Kidney Disease: Estimated GFR < 15 mL/min/1.73m2 Glucose 199(H) 60 - 115 mg/dL [facility] Calcium 9.0 8.4 - 10.2 mg/dL [facility] Blood Venous blood specimen / Unknown 10/01/2024 9:23 AM EST 10/01/2024 9:23 AM EST us Stephanie Lester MD LAB BLOOD ORDERABLES Final Result Performing Organization Address [facility] Co de Phone Number [facility] [address] [place] [phone] from Last 3 Months Insurance HSN PARTIAL DENTAL - HSN PARTIAL (MEDICAID) Care Teams Wall Washer Relationship Specialty Start Date End Date Stephanie Navarrete MD [address] [place] [address] PCP - General Family Medicine 12/08/21
--- OUTSIDE RECORDS SUMMARY | 2024-12-09 16:50 | XMS_ITS | Encounter Summary ---
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 machine I was call critical labs K 2.9 and mg 1.5 I called patient let him know he needs to take supplementation send to pharmacy and recheck labs in 1 week, also nephrology referral is in Please f/u with patient thank you, Stephanie Freeman MD * Rosio Sanchez RN - 11/05/2024 8:57 PM EST TC placed to patient [phone] to confirm patient has p/u magnesium and [...] Description 12/17/2024 9:00 AM EST Office Visit [facility] [address] [place] [address] Yao Korina [address] [place], [place] [address] 12/24/2024 2:00 PM EST Office Visit [facility] [address] [place] [address] Yao Korina [address] [place], [place] [address] 12/31/2024 9:00 AM EDT Office Visit [facility] [address] [place] [address] Yao, Korina [address] [place], [place] [address] 01/14/2025 11:00 AM EDT Office Visit [facility] [address] [place] [address] Korina Samayoa [address] [place], [place] [address] 03/04/2025 1:45 PM EDT Office Visit [facility] [address] [place] [address] Stephanie Navarrete MD 230 [facility] [place] [address] documented as of this encounter Procedures Procedure Name Priority Date/Time Associated Diagnosis Comments POTASSIUM Routine 11/16/2024 1:52 PM EST Hypokalemia MAGNESIUM Routine 11/16/2024 1:52 PM EST Hypokalemia documented in this encounter Results * Magnesium (11/16/2024 1:52 PM EST) Magnesium 1.7 1.6 - 2.6 mg/dL [facility] Blood Venous blood specimen / Unknown 11/16/2024 1:52 PM EST 11/16/2024 4:10 PM EST us Stephanie Lester MD LAB BLOOD ORDERABLES Final Result Performing Organization Address City/[facility] Co de Phone Number [facility] [address] [place] [address] [phone] * Potassium (11/16/2024 1:52 PM EST) Potassium 4.1 3.3 - 5.1 mmol/L [facility] Blood Venous blood specimen / Unknown 11/16/2024 1:52 PM EST 11/16/2024 4:10 PM EST us Stephanie Lester MD LAB BLOOD ORDERABLES Final Result Performing Organization Address [facility] de Phone Number [facility] [address] [place] [phone] [phone] documented in this encounter Visit Diagnoses Diagnosis Hypokalemia- Primary Hypopotassemia documented in this encounter Additional Health Concerns Assessment Noted Time PHQ-9 Depression Total Score: 0 08/27/20 24 2:06 PM EST documented as of this encounter Care Teams Manager Personal Relationship Specialty Start Date End Date Stephanie Navarrete MD [address] [place] [phone] PCP - General Family Medicine 12/08/21 documented as of this encounter
--- OUTSIDE RECORDS SUMMARY | 2024-12-09 16:50 | XMS_ITS | Encounter Summary ---
Author Organization [email or web address] Address [address] [place] [address] 7 [place] [address] Care Team Providers Care Mail Carrier Technician Name Role Phone Stephanie Navarrete MD Primary Care Provide r Reason for Referral * Consultation (Urgent) - Canceled Specialty Diagnoses / Procedures Referred By Contac t Referred To Contact Nephrology Diagnoses Hypokalemia Hypomagnesemia Cardiomyopathy, unspecified type (CMS/HCC) Stephanie Navarrete MD [address] [place] [phone] Phone: tel: fax: Referral ID Status Reason Start Date Expiration Date Visits Requested Visits Authorized [id number] Canceled Specialty Services Required 12/03/2024 12/03/2025 1 1 Encounter Details Date Type Department Care Team (Late st Contact Info) Description 12/03/2024 9:00 AM EST Office Visit [facility] [address] [place] [phone] Stephanie Navarrete MD [address] [place] [address] [phone] Rhinitis, unspecified type (Primary Dx); Type 2 diabetes mellitus without complication, without long-term current use of insulin (CMS/HCC); Hypokalemia; Hypomagnesemia; Cardiomyopathy, unspecified type (CMS/HCC) Social History Tobacco Use Types Packs/Day Years [...] 9:08 AM EST documented in this encounter Progress Notes * Stephanie Lester MD - 12/03/2024 9:00 AM EST SUBJECTIVE: Julian Thomason is a 59 y.o. year old male who presents for Chronic Disease Management . Acute Concerns: Patient reports that he has been having clear nasal discharge every morning Social History Social History Narrative Not on file Patient Active Problem List Diagnosis Acute on chronic combined systolic and diastolic heart failure (CMS/HCC) Aortic aneurysm (CMS/HCC) Cardiomyopathy (CMS/HCC) Coronary arteriosclerosis Hyperlipidemia Hypertensive disorder Type 2 diabetes mellitus without complication (CMS/HCC) Rash Dietary counseling Encounter for immunization Chronic kidney disease Congestive heart failure (CMS/HCC) Hypokalemia Hypomagnesemia Prolonged QT interval Exercise counseling Screening for colon cancer Encounter for preventive care Generalized chronic severe periodontitis Dental calculus Missing teeth, acquired Rhinitis No family history on file. Review of Systems Constitutional: Negative. HENT: Positive for postnasal drip and rhinorrhea. Negative for congestion, dental problem, drooling, ear discharge, ear pain, facial swelling, hearing loss, mouth sores, nosebleeds, sinus pressure, sinus pain, sneezing, sore throat, tinnitus, trouble swallowing and voice change. Respiratory: Negative. Cardiovascular: Negative. OBJECTIVE: Vitals: 12/03/24 0908 12/03/24 1000 BP: (!) 123/93 125/82 BP Location: Left arm Right arm Patient Position: Sitting Sitting BP Cuff Size: Large adult Large adult Pulse: 72 Resp: 16 Temp: 97.8 ??F (36.6 ??C) TempSrc: Oral Weight: 187 lb (84.8 kg) Height: 5' (1.524 m) Physical Exam Constitutional: Appearance: Normal appearance. Cardiovascular: Rate and Rhythm: Normal rate and regular rhythm. Pulmonary: Effort: Pulmonary effort is normal. Breath sounds: Normal breath sounds. Abdominal: General: Abdomen is flat. Palpations: Abdomen is soft. Musculoskeletal: Right lower leg: No edema. Left lower leg: No edema. Neurological: Mental Status: He is alert. Follow Up: Follow up in about 3 months (around 03/02/2025) for chronic condtion . Current Outpatient Medications on File Prior to Visit Medication Sig Dispense Refill acetaminophen (Tylenol) 500 MG tablet Take 2 tablets (1,000 mg) by mouth every 6 (six) hours if needed for moderate pain or fever for up to 25 doses. (Patient not taking: Reported on 11/19/2024) 50 tablet 0 aspirin (Aspirin Low Dose) 81 MG EC tablet TAKE 1 TABLET BY MOUTH DAILY 90 tablet 3 chlorhexidine (Peridex) 0.12 % solution Swish 15 mL morning and night for 1 minute. Spit, do not swallow. Do not eat or drink for 30 minutes following use. 473 mL 0 diphenhydrAMINE (BENADryl) 25 MG tablet Take 1 tablet (25 mg) by mouth every 8 (eight) hours if needed for itching or allergies for up to 20 days. 60 tablet 0 famotidine (Pepcid) 20 MG tablet Take 20 mg by mouth Once per day. (Patient not taking: Reported on11/19/2024) furosemide (Lasix) 40 MG tablet Take 80 mg by mouth Once per day. isosorbide mononitrate ER (Imdur) 30 MG 24 hr tablet TAKE 1 TABLET BY MOUTH EVERY MORNING 90 tablet1 magnesium 30 MG tablet Take 1 tablet (30 mg) by mouth 2 times daily. (Patient not taking: Reported on 11/19/2024) 14 tablet 0 magnesium oxide (Mag-Ox) 400 MG tablet Take 1 tablet (400 mg) by mouth 3 times daily. 15 tablet 0 metoprolol succinate XL (Toprol-XL) 50 MG 24 hr tablet TAKE 1 TABLET BY MOUTH EVERY DAY 90 tablet 3 potassium chloride CR (Klor-Con M20) 20 MEQ ER tablet Take 1 tablet (20 mEq) by mouth 3 times daily. Do not crush or chew. (Patient not taking: Reported on 11/19/2024) 21 tablet 0 rosuvastatin (Crestor) 20 MG tablet TAKE 1 TABLET BY MOUTH EVERY DAY 90 tablet 3 [DISCONTINUED] empagliflozin (Jardiance) 10 MG Take 1 tablet (10 mg) by mouth Once per day. (Patient not taking: Reported on 11/19/2024) 30 tablet 11 No current facility-administered medications on file prior to visit. Problem List Items Addressed This Visit Type 2 diabetes mellitus without complication ([facility]) Diabetes is: not controlled - Lab Results [...] current medications - Follow up: 3 months Relevant Medications empagliflozin (Jardiance) 10 MG Other Relevant Orders POCT Glucose (Completed) POCT HGB A1C (Completed) Rhinitis - Primary Relevant Medications loratadine (Claritin) 10 MG tablet fluticasone (Flonase) 50 MCG/ACT nasal spray Hypokalemia Relevant Orders Potassium (Completed) Magnesium (Completed) Referral to Nephrology Hypomagnesemia Relevant Orders Referral to Nephrology Cardiomyopathy ([facility]) I advised to continue with same medication regimen Advised to follow-up with cardiology Relevant Orders Referral to Nephrology documented in this encounter Miscellaneous Notes * Assessment & Plan Note - Stephanie Lester MD - 12/03/2024 4:12 PM EST Associated Problem(s): Type 2 diabetes mellitus without complication ([facility]) Diabetes is: not controlled - Lab Results [...] current medications - Follow up: 3 months * Assessment & Plan Note - Stephanie Lester MD - 12/03/2024 4:11 PM EST Associated Problem(s): Cardiomyopathy (CMS/HCC) I advised to continue with same medication regimen Advised to follow-up with cardiology documented in this encounter Plan of Treatment Upcoming Encounters Date Type Department Care Team (Late st Contact Info) Description 12/17/2024 9:00 AM EST Office Visit [facility] [address] [place] [address] Yao, Korina [address] [place] [address] 12/24/2024 2:00 PM EST Office Visit [facility] [address] [place] [address] Yao, Korina [address] [facility] [place] [address] 12/31/2024 9:00 AM EDT Office Visit [facility] [address] [place] [address] Yao, Korina [address] [place] [address] 01/14/2025 11:00 AM EDT Office Visit [facility] [address] [place] [address] Yao, Korina [address] [facility] [place] [address] 03/04/2025 1:45 PM EDT Office Visit [facility] [address] [place] [address] Stephanie Navarrete MD 230 [place] [address] Scheduled Referrals Name Type Priority Associated Diagnoses Orde r Schedule Referral to Nephrology Outpatient Referral Urgent Hypokalemia Hypomagnesemia Cardiomyopathy, unspecified type (CMS/HCC) Expected: 12/03/2024 (Approximate), Expires: 12/03/2025 documented as of this encounter Procedures Procedure Name Priority Date/Time Associated Diagnosis Comments POTASSIUM Routine 12/03/2024 10:33 AM EST Hypokalemia MAGNESIUM Routine 12/03/2024 10:33 AM EST Hypokalemia POCT GLYCATED HEMOGLOBIN, TOTAL Routine 12/03/2024 9:10 AM EST Type 2 diabetes mellitus without complication, without long-term current use of insulin ([facility]) POCT GLUCOSE Routine 12/03/2024 9:09 AM EST Type 2 diabetes mellitus without complication, without long-term current use of insulin ([facility]) documented in this encounter Results * Magnesium (12/03/2024 10:33 AM EST) Magnesium 1.6 1.6 - 2.6 mg/dL [facility] Blood Venous blood specimen / Unknown 12/03/2024 10:33 AM EST 12/03/2024 11:01 AM EST us Stephanie Lester MD LAB BLOOD ORDERABLES Final Result [facility] [address] [place] [phone] * Potassium (12/03/2024 10:33 AM EST) Potassium 3.5 3.3 - 5.1 mmol/L [facility] Blood Venous blood specimen / Unknown 12/03/2024 10:33 AM EST 12/03/2024 11:01 AM EST Stephanie Lester MD LAB BLOOD ORDERABLES Final Result Performing Organization Address City/[facility]/ZIP Co de Phone Number [facility] [address] [place] [phone] * (ABNORMAL) POCT HGB A1C (12/03/2024 9:10 AM EST) Hemoglobin A1C 7.7(A) 4.0 - 6.0 % QC Media Lot # [id number] Lot# Expiration Date 049 Blood 12/03/2024 9:10 AM EST Stephanie Lester MD POINT OF CARE TEST EN TER/EDIT ORDERABLES Final Result * POCT Glucose (12/03/2024 9:09 AM EST) Glucose Blood, POC 193 60 - 200 mg/dL QC Media Lot # [id number] Lot# Expiration Date ,025 Blood Capillary blood specimen / Unknown 12/03/2024 9:09 AM EST Stephanie Lester MD POINT OF CARE TEST EN TER/EDIT ORDERABLES Final Result documented in this encounter Visit Diagnoses Diagnosis Rhinitis, unspecified type- Primary Type 2 diabetes mellitus without complication, without long-term current use of insulin (CMS/HCC) Hypokalemia Hypopotassemia Hypomagnesemia Disorders of magnesium metabolism Cardiomyopathy, unspecified type (CMS/HCC) documented in this encounter Additional Health Concerns Assessment Noted Time PHQ-9 Depression Total Score: 0 08/27/20 24 2:06 PM EST documented as of this encounter Care Teams Mail Carrier Technician Relationship Specialty Start Date End Date Stephanie Navarrete MD [address] [place] [address] PCP - General Family Medicine 12/08/21 documented as of this encounter
--- OUTSIDE RECORDS SUMMARY | 2024-12-09 16:50 | XMS_ITS | Encounter Summary ---
Author Organization [employer] Address [address] [facility] 7t [place] [address] Care Team Providers Care Career Placement Specialist Name Role Phone Stephanie Navarrete MD Primary Care Provide r Reason for Visit * Reason Onset Date Comments Med Refill 04/05/2024 Encounter Details Date Type Department Care Team ([facility] st Contact Info) Description 04/05/2024 Telephone [facility] [address] [place] [address] Stephanie Navarrete MD [address] [place] [address] Med Refill Social History Tobacco Use Types [...] hr tablet To be sent to: [facility] [place] - [address] [facility] documented in this encounter Plan of Treatment Upcoming Encounters Date Type Department Care Team ([facility] st Contact Info) Description 12/17/2024 9:00 AM EST Office Visit [facility] [address] [place] [address] Korina Samayoa [address] [place] [address] 12/24/2024 2:00 PM EST Office Visit [facility] [address] [place], [place] [phone] Korina Samayoa 230 [facility] [place], [place] [address] 12/31/2024 9:00 AM EDT Office Visit [facility] 230 [facility] [place] [address] Korina Samayoa 230 [facility], [place] [address] 01/14/2025 11:00 AM EDT Office Visit [facility] 230 [facility] [place] [address] Korina Samayoa 230 [facility], [place] [address] 03/04/2025 1:45 PM EDT Office Visit [facility] 230 [facility] [place] [place], [place] [phone] Stephanie Navarrete MD [address] [place] [address] documented as of this encounter Visit Diagnoses Not on filedocumented in this encounter Additional Health Concerns Assessment Noted Time PHQ-9 Depression Total Score: 0 04/20/20 23 3:37 PM EDT documented as of this encounter Care Teams Career Placement Specialist Relationship Specialty Start Date End Date Stephanie Navarrete MD [address] [place], [place] [phone] PCP - General Family Medicine 12/08/21 documented as of this encounter
--- OUTSIDE RECORDS SUMMARY | 2024-12-09 16:50 | XMS_ITS | Encounter Summary ---
Author Organization [employer] Address [address] [facility] 7t [place] [address] Care Team Providers Care Carton Packaging Machine Operator Name Role Phone Stephanie Navarrete MD Primary Care Provide r Reason for Visit * Reason Onset Date Comments Chart Prep 11/28/2024 Encounter Details Date Type Department Care Team ([facility] st Contact Info) Description 11/28/2024 Telephone [facility] [address] [place] [address] Dinora Lynn MA Chart Prep Social History [...] Description 12/17/2024 9:00 AM EST Office Visit [facility] [address] [place] [address] Yao Korina [address] [place] [address] 12/24/2024 2:00 PM EST Office Visit [facility] [address] [place] [address] Yao Korina [address] [place] [address] 12/31/2024 9:00 AM EDT Office Visit [facility] [address] [place] [address] Yao [facility] [address] [place] [address] 01/14/2025 11:00 AM EDT Office Visit [facility] [address] [place], [place] [phone] Korina Samayoa [address] [place], [place] [phone] 03/04/2025 1:45 PM EDT Office Visit [facility] [address] [place] [address] Stephanie Navarrete MD [address] [place], [place] [phone] documented as of this encounter Visit Diagnoses Not on filedocumented in this encounter Additional Health Concerns Assessment Noted Time PHQ-9 Depression Total Score: 0 08/27/20 24 2:06 PM EST documented as of this encounter Care Teams Carton Packaging Machine Operator Relationship Specialty Start Date End Date Stephanie Navarrete MD [address] [place] [address] [phone] PCP - General Family Medicine 12/08/21 documented as of this encounter
[2024-12-09 18:47] LABS: Glucose, Whole Blood 98 mg/dL (60-115)
[2024-12-09 18:47] LABS: Glucose, Whole Blood 83 mg/dL (60-115)
--- NOTE | 2024-12-10 08:53 | PC.NURSE ---
ME accepted case
--- OUTSIDE RECORDS SUMMARY | 2024-12-10 09:26 | XMS_ITS | Encounter Summary ---
Author Organization [employer] Address [address] [facility] 7t [place] [address] Care Team Providers Care Contract Officer Name Role Phone Stephanie Navarrete MD Primary Care Provide r Reason for Visit * Reason Onset Date Comments Med Refill 03/27/2024 Encounter Details Date Type Department Care Team ([facility] st Contact Info) Description 03/27/2024 Telephone [facility] [address] [place] [address] Stephanie Navarrete MD [address] [place] [address] Med Refill Social History Tobacco Use Types [...] - 03/27/2024 10:57 AM EDT Medication to [facility] for refill script was sent on 11/11/23 #90 with 1 refill. * Telephone Encounter - Sena Pierre - 03/27/2024 10:42 AM EDT TC from pt requesting medication refill. Medications needing refill : isosorbide mononitrate ER (Imdur) 30 MG 24 hr tablet To be sent to: [facility]- - [place] - [address] [facility] documented in this encounter Plan of Treatment Upcoming Encounters Date Type Department Care Team (Late st Contact Info) Description 12/17/2024 9:00 AM EST Office Visit [facility]ULT [facility] [address] [place] [address] Yao, Korina [address] [place] [address] 12/24/2024 2:00 PM EST Office Visit [facility] [address] [place] [address] Yao, Korina [address] [place] [address] 12/31/2024 9:00 AM EDT Office Visit [facility] [address] [place] [address] Korina Samayoa [address] [place] [address] 01/14/2025 11:00 AM EDT Office Visit [facility] [address] [place] [address] Korina Samayoa [address] [place] [address] 03/04/2025 1:45 PM EDT Office Visit [facility] [address] [place] [address] Stephanie Navarrete MD [address] [place] [address] documented as of this encounter Visit Diagnoses Not on filedocumented in this encounter Additional Health Concerns Assessment Noted Time PHQ-9 Depression Total Score: 0 04/20/20 23 3:37 PM EDT documented as of this encounter Care Teams Contract Officer Relationship Specialty Start Date End Date Stephanie Navarrete MD [address] [place] [phone] PCP - General Family Medicine 12/08/21 documented as of this encounter
--- OUTSIDE RECORDS SUMMARY | 2024-12-10 09:26 | XMS_ITS | Encounter Summary ---
Author Organization [employer] Address [address] [facility] 7t [place] [address] Care Team Providers Care Tractor Trailer Mechanic Name Role Phone Stephanie Navarrete MD Primary Care Provide r Reason for Visit * Reason Onset Date Comments Med Refill 04/05/2024 Encounter Details Date Type Department Care Team ([facility] st Contact Info) Description 04/05/2024 Telephone [facility] [address] [place] [address] Stephanie Navarrete MD [address] [place] [address] Med Refill Social History Tobacco Use Types [...] tablet To be sent to: [facility] [place] - [address] [facility] documented in this encounter Plan of Treatment Upcoming Encounters Date Type Department Care Team ([facility] st Contact Info) Description 12/17/2024 9:00 AM EST Office Visit [facility]ULT [facility] [address] [place] [address] Korina Samayoa [address] [place] [address] 12/24/2024 2:00 PM EST Office Visit [facility] ADULT [facility] [address] [place], [place] [phone] Korina Samayoa [address] [facility] [place], [place] [address] 12/31/2024 9:00 AM EDT Office Visit [facility] [address] [facility] [address] Korina Samayoa [address] [facility], [place] [address] 01/14/2025 11:00 AM EDT Office Visit [facility] [address] [facility] [address] Korina Samayoa [address] [facility], [place] [address] 03/04/2025 1:45 PM EDT Office Visit [facility] [address] [facility] [place], [place] [phone] Stephanie Navarrete MD [address] [place] [address] documented as of this encounter Visit Diagnoses Not on filedocumented in this encounter Additional Health Concerns Assessment Noted Time PHQ-9 Depression Total Score: 0 04/20/20 23 3:37 PM EDT documented as of this encounter Care Teams Tractor Trailer Mechanic Relationship Specialty Start Date End Date Stephanie Navarrete MD [place], [place] [phone] PCP - General Family Medicine 12/08/21 documented as of this encounter
--- OUTSIDE RECORDS SUMMARY | 2024-12-10 09:26 | XMS_ITS | Encounter Summary ---
Author Organization [employer] Address [address] [facility] 7t [place] [address] Care Team Providers Care Ring Spinner Name Role Phone Stephanie Navarrete MD Primary Care Provide r Encounter Details Date Type Department Care Team ([facility] st Contact Info) Description 12/03/2024 Orders Only [...] 9:00 AM EST Office Visit [facility] [address] [place] [address] Juventino Samayoaaris [address] [place] [address] 12/24/2024 2:00 PM EST Office Visit [facility] [address] [place] [address] Yao Korina [address] [place] [address] 12/31/2024 9:00 AM EDT Office Visit [facility] [address] [place] [address] Yao Korina [address] [place] [address] 01/14/2025 11:00 AM EDT Office Visit [facility] [address] [place] [address] Yao, Korina [address] [place] [address] 03/04/2025 1:45 PM EDT Office Visit [facility] [address] [place] [address] Stephanie Navarrete MD [address] [place] [address] documented as of this encounter Procedures Procedure Name Priority Date/Time Associated Diagnosis Comments LIPID PANEL, STANDARD Routine 12/03/2024 10:33 AM EST documented in this encounter Results * Lipid Panel, Standard (12/03/2024 10:33 AM EST) Triglycerides 76 <150 mg/dL [facility] Comment:Desirable Triglyceri de: less than 150 mg/dLBorderline High Triglyceride 150-199 mg/dLHigh Triglyceride: 200-499 mg/dLVery High Triglyceride: greater than or equal to 5OO mg/dL Cholesterol 124 <200 mg/dL [facility] Comment:Desirable Cholestero l: less than 200 mg/dLBorderline High Cholesterol: 200-239 mg/dLHigh Cholesterol: greater than 239 mg/dL LDL Cholesterol Calculated 62 <100 mg/dL [facility] Comment:Desirable LDL: less than 100 mg/dLNear Optimal/Above Optimal LDL: 110- 129 mg/dLBorderline High LDL: 130-159 mg/dLHigh LDL: 160-189 mg/dLVery High LDL: greater than or equal to 190 mg/dL HDL Cholesterol 47 >40 mg/dL [facility] Comment:Desirable HDL: great er than 40 mg/dL Note: This HDL assay may give artificially low results in patients with liver disease. 12/03/2024 10:3 3 AM EST 12/03/2024 11:01 AM EST us Generic External Data Provider LAB BLOOD ORDERAB LES Final Result [facility] [address] [place] [phone] documented in this encounter Visit Diagnoses Not on filedocumented in this encounter Additional Health Concerns Assessment Noted Time PHQ-9 Depression Total Score: 0 08/27/20 24 2:06 PM EST documented as of this encounter Care Teams Ring Spinner Relationship Specialty Start Date End Date Stephanie Navarrete MD [address] [place] [phone] PCP - General Family Medicine 12/08/21 documented as of this encounter
--- OUTSIDE RECORDS SUMMARY | 2024-12-10 09:26 | XMS_ITS | Clinical Summary ---
Author Organization [employer] Address [address] [facility] 7t [place] [address] Care Team Providers Care Preform Machine Operator Name Role Phone Stephanie Navarrete [...] complication, without long-term current use of insulin ([facility]) Take 1 tablet (10 mg) [...] complication, without long-term current use of insulin ([facility]) Take 1 tablet (10 mg) [...] size 4.[address] from [facility], aortic root measured 5 cm at the sinus of Valsalva. Ascending aorta at 4.3 cm. In CTA from November 2021 from [place], ascending aortic size was 4.4 cm. 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 appointment with barber apprentice Assessment & Plan (07/01/2023 5:01 PM EDT): [...] Encounters Date Type Department Care Team Description 12/09/2024 Orders Only GENERIC EXTERNAL DATA DEPARTMENT Provider, Generic External Data 12/03/2024 9:00 AM EST Office Visit [address] [address] Stephanie Navarrete MD Rhinitis, unspecified type (Primary Dx); Type 2 diabetes mellitus without complication, without long-term current use of insulin (CMS/HCC); Hypokalemia; Hypomagnesemia; Cardiomyopathy, unspecified type (CMS/HCC) 12/03/2024 Orders Only GENERIC EXTERNAL DATA DEPARTMENT Provider, Generic External Data 12/03/2024 Travel 11/28/[address] [address] Dinora Lynn [place] Chart Prep 11/22/2024 Refill [facility] [address] [place] [phone] Stephanie Navarrete MD Primary hypertension; Hypertension, unspecified type 11/21/2024 Patient Outreach [facility] [address] [place] [phone] Stephanie Navarrete MD Pre-visit Planning ((Unable to reach for PVP screening, LVM)) 11/19/2024 2:00 PM EST Office Visit [facility]ULT [facility] [address] [place] [phone] Korina Samayoa Generalized chronic severe periodontitis (Primary Dx); Dental calculus; Missing teeth, acquired; Localized secondary occlusal trauma; Tipped teeth 11/16/2024 Telephone [facility] [address] [place] [phone] Rosio Sanchez, RN BW status 11/05/[address] [phone] Stephanie Navarrete MD 11/05/2024 Orders Only [facility] [address] [place] [phone] Stephanie Navarrete MD Hypokalemia (Primary Dx) 11/05/2024 Orders Only GENERIC EXTERNAL DATA DEPARTMENT Provider, Generic External Data 10/12/2024 Refill [facility] [address] [place] [phone] Stephanie Navarrete MD Primary hypertension 10/02/2024 9:20 AM EST Office Visit [facility] [address] [place] [phone] Andrews Lee MD Hives (Primary Dx) 10/02/2024 Telephone [facility] [address] [place] [address] Stephanie Navarrete MD FYI 10/02/2024 Telephone [facility] [address] [place] [address] Rosio Sanchez, RN Results 10/02/2024 Orders Only [facility] [address] [place] [address] Stephanie Navarrete MD Hypokalemia (Primary Dx); Hypomagnesemia 09/17/2024 8:30 AM EST Office Visit [facility] [address] [place] [address] Lisa Coyle Localized secondary occlusal trauma (Primary [...] 9:00 AM EST Office Visit [facility] [address] [place] [address] Juventino Samayoaaris [address] [place] [address] 12/24/2024 2:00 PM EST Office Visit [facility] [address] [place] [address] Yao Korina [address] [place] [address] 12/31/2024 9:00 AM EDT Office Visit [facility] [address] [place] [address] Korina Samayoa [address] [place] [address] 01/14/2025 11:00 AM EDT Office Visit [facility] [address] [place] [address] Korina Samayoa [address] [place] [address] 03/04/2025 1:45 PM EDT Office Visit [facility] [address] [place] [address] Stephanie Navarrete MD [address] [place] [address] Health Maintenance Due Date Last Done Comments [...] Procedure Name Priority Date/Time Associated Diagnosis Comments GLUCOSE, WHOLE BLOOD Routine 12/09/2024 4:02 PM EST GLUCOSE, WHOLE BLOOD Routine 12/09/2024 3:50 PM EST LIPID PANEL, STANDARD Routine 12/03/2024 10:33 AM EST MAGNESIUM Routine 12/03/2024 10:33 AM EST Hypokalemia POTASSIUM Routine 12/03/2024 10:33 AM EST Hypokalemia POCT GLYCATED HEMOGLOBIN, TOTAL Routine 12/03/2024 9:10 AM EST Type 2 diabetes mellitus without complication, without long-term current use of insulin ([facility]) POCT GLUCOSE Routine 12/03/2024 9:09 AM EST Type 2 diabetes mellitus without complication, without long-term current use of insulin ([facility]) CASE PRESENTATION, DETAILED AND EXTENSIVE TREATMENT PLANNING [...] EST from Last 3 Months Results * Glucose, Whole Blood (12/09/2024 4:02 PM EST) Only the most recent of2 resultswithin the time period is included. Glucose, Whole Blood 98 60 - 115 mg/dL [facility] Comment:METER #: [id number] 12/09/2024 4:02 PM EST 12/09/2024 6:47 PM EST Generic External Data Provider LAB BLOOD ORDERAB LES Final Result Performing Organization Address [facility] Co de Phone Number [facility] [address] [place] [phone] * Potassium (12/03/2024 10:33 AM EST) Only the most recent of2 resultswithin the time period is included. Potassium 3.5 3.3 - 5.1 mmol/L [facility] Blood Venous blood specimen / Unknown 12/03/2024 10:33 AM EST 12/03/2024 11:01 AM EST us Stephanie eLster MD LAB BLOOD ORDERABLES Final Result Performing Organization Address [facility] Phone Number [facility] [address] [place] [phone] * Magnesium (12/03/2024 10:33 AM EST) Only the most recent of4 resultswithin the time period is included. Magnesium 1.6 1.6 - 2.6 mg/dL [facility] Blood Venous blood specimen / Unknown 12/03/2024 10:33 AM EST 12/03/2024 11:01 AM EST us Stephanie Lester MD LAB BLOOD ORDERABLES Final Result Performing Organization Address [facility] Phone Number [facility] [address] [place] [phone] * Lipid Panel, Standard (12/03/2024 10:33 AM EST) Only the most recent of2 resultswithin the time period is included. Triglycerides 76 <150 mg/dL [facility] Comment:Desirable Triglyceri de: less than 150 mg/dLBorderline High Triglyceride 150-199 mg/dLHigh Triglyceride: 200-499 mg/dLVery High Triglyceride: greater than or equal to 5OO mg/dL Cholesterol 124 <200 mg/dL [facility] Comment:Desirable Cholestero l: less than 200 mg/dLBorderline High Cholesterol: 200-239 mg/dLHigh Cholesterol: greater than 239 mg/dL LDL Cholesterol Calculated 62 <100 mg/dL [facility] Comment:Desirable LDL: less than 100 mg/dLNear Optimal/Above Optimal LDL: 110- 129 mg/dLBorderline High LDL: 130-159 mg/dLHigh LDL: 160-189 mg/dLVery High LDL: greater than or equal to 190 mg/dL HDL Cholesterol 47 >40 mg/dL [facility] Comment:Desirable HDL: great er than 40 mg/dL Note: This HDL assay may give artificially low results in patients with liver disease. 12/03/2024 10:3 3 AM EST 12/03/2024 11:01 AM EST us Generic External Data Provider LAB BLOOD ORDERAB LES Final Result [facility] [address] [place] [phone] * (ABNORMAL) POCT HGB A1C (12/03/2024 9:10 AM EST) Hemoglobin A1C 7.7(A) 4.0 - 6.0 % QC Media Lot # [id number] Lot# Expiration Date Blood 12/03/2024 9:10 AM EST us Stephanie Lester MD POINT OF CARE TEST EN TER/EDIT ORDERABLES Final Result * POCT Glucose (12/03/2024 9:09 AM EST) Glucose Blood, POC 193 60 - 200 mg/dL [employer] Media Lot # [id number] Lot# Expiration Date ,025 Blood Capillary blood specimen / Unknown 12/03/2024 9:09 AM EST us Stephanie Lester MD POINT OF CARE TEST EN TER/EDIT ORDERABLES Final Result * (ABNORMAL) Comprehensive Metabolic Panel (11/05/2024 1:57 PM EST) Sodium 139 135 - 145 mmol/L [facility] Potassium 2.9(LL) 3.3 - 5.1 mmol/L [facility] Comment:Critical value for t est(s): POTS Results called to and readback by: Person calling: [facility] Date: 11/05/24Time: 2024 Chloride 99 96 - 108 mmol/L [facility] Carbon Dioxide 29 22 - 29 mmol/L [facility] Anion Gap 14 12 - 20 [facility] Urea Nitrogen (BUN) 10 9 - 16 mg/dL [facility] Creatinine, Serum 0.87 0.5 - 1.4 mg/dL [facility] Estimated Glomerular Filt Rate >60 [facility] Comment:Chronic Kidney Disea se: Estimated GFR < 60 mL/min/1.55v1Lovqat Kidney Disease: Estimated GFR < 15 mL/min/1.73m2 Glucose 204(H) 60 - 115 mg/dL [facility] Calcium 9.0 8.4 - 10.2 mg/dL [facility] Bilirubin, Total 1.3(H) 0.0 - 1.0 mg/dL [facility] Aspartate Amino Transferase 37 5 - 37 U/L [facility] Alanine Aminotransferase 30 0 - 40 U/L [facility] Total Protein 7.6 6.5 - 8.0 g/dL [facility] Albumin Level 4.1 3.5 - 5.0 g/dL [facility] Alkaline Phosphatase 65 39 - 117 U/L [facility] 11/05/2024 1:57 PM EST 11/05/2024 4:07 PM EST us Generic External Data Provider LAB BLOOD ORDERAB LES Final Result [facility] [address] [place], [place] [phone] * (ABNORMAL) CBC auto differential (10/01/2024 9:23 AM EST) White Blood Count 10.4 4.8 - 10.8 X10*3/uL [facility] Red Blood Count 4.63 4.60 - 5.80 X10*6/uL [facility] Hemoglobin 14.5 14.0 - 18.0 g/dl [facility] Hematocrit 40.9(L) 42.0 - 52.0 % [facility] Mean Corpuscular Volume 88.3 80.0 - 98.0 fL [facility] Mean Corpuscular Hemoglobin 31.3 27.0 - 33.0 pg [facility] Mean Corpuscular HGB Conc 35.5 31.0 - 36.0 g/dl [facility] Red Cell Distribution Width 11.9 11.0 - 16.0 % [facility] Platelet Count 185 160 - 400 X10*3/uL [facility] Mean Platelet Volume 10.6 9.4 - 12.4 fL [facility] Neutrophils Percent Auto 63.6 45 - 73 % [facility] Imm Gran Pct Auto 0.3 0.0 - 0.4 % [facility] Lymphocytes Percent Auto 25.8 20 - 40 % [facility] Monocytes Percent Auto 9.0 2 - 11 % [facility] Eosinophils Percent Auto 1.1 0 - 4 % [facility] Basophils Percent Auto 0.2 0 - 2 % [facility] NRBC Pct Auto 0.0 0.0 - 0.2 /100WBC [facility] Neutrophils Absolute Auto 6.6 2.0 - 8.3 x10*3/uL [facility] Imm Gran Abs Auto 0.03 0.00 - 0.03 X10*3/uL [facility] Lymphocytes Absolute Auto 2.7 1.2 - 4.9 X10*3/uL [facility] Monocytes Absolute Auto 0.9 0.1 - 1.2 X10*3/uL [facility] Eosinophils Absolute Auto 0.1 0.0 - 0.4 X10*3/uL [facility] Basophils Absolute Auto 0.0 0.0 - 0.2 X10*3/uL [facility] NRBC Abs Auto 0.000 0.0 - 0.012 X10*3/uL [facility] Blood Venous blood specimen / Unknown 10/01/2024 9:23 AM EST 10/01/2024 9:23 AM EST Stephanie Lester MD LAB BLOOD ORDERABLES Final Result Performing Organization Address [facility] Co de Phone Number [facility] [address] [place] [phone] * Hepatitis C Antibody with Reflex to HCV, RNA, Quantitative, Real-Time PCR (10/01/2024 9:23 AM EST) Pathologist [facility] Hepatitis C Antibody Nonreactive Nonreactive [facility] Comment:Antibodies to HCV no t detected; does not exclude early acuteHCV infection. Blood Venous blood specimen / Unknown 10/01/2024 9:23 AM EST 10/01/2024 9:23 AM EST us Stephanie Lester MD LAB BLOOD ORDERABLES Final Result Performing Organization Address [facility] Co de Phone Number [facility] [address] [place] [phone] * (ABNORMAL) Basic Metabolic Panel (10/01/2024 9:23 AM EST) Pathologist [facility] Sodium 140 135 - 145 mmol/L [facility] Potassium 3.1(L) 3.3 - 5.1 mmol/L [facility] Chloride 99 96 - 108 mmol/L [facility] Carbon Dioxide 32(H) 22 - 29 mmol/L [facility] Anion Gap 12 12 - 20 [facility] Urea Nitrogen (BUN) 12 9 - 16 mg/dL [facility] Creatinine, Serum 0.78 0.5 - 1.4 mg/dL [facility] Estimated Glomerular Filt Rate >60 [facility] Comment:Chronic Kidney Disea se: Estimated GFR < 60 mL/min/1.72e2Fvymrq Kidney Disease: Estimated GFR < 15 mL/min/1.73m2 Glucose 199(H) 60 - 115 mg/dL [facility] Calcium 9.0 8.4 - 10.2 mg/dL [facility] Blood Venous blood specimen / Unknown 10/01/2024 9:23 AM EST 10/01/2024 9:23 AM EST us Stephanie Lester MD LAB BLOOD ORDERABLES Final Result Performing Organization Address City/State/[facility] Co de Phone Number [facility] [address] [place] [address] [phone] from Last 3 Months Insurance HSN PARTIAL DENTAL - HSN PARTIAL (MEDICAID) Care Teams Preform Machine Operator Relationship Specialty Start Date End Date Stephanie Navarrete MD [address] [place] [address] PCP - General Family Medicine 12/08/21
--- OUTSIDE RECORDS SUMMARY | 2024-12-10 09:27 | XMS_ITS | Encounter Summary ---
Author Organization [employer] Address [address] [facility] 7 [place] [address] Care Team Providers Care Fountain Vending Mechanic Name Role Phone Stephanie Navarrete MD Primary Care Provide r Reason for Visit * Reason Comments Pre-visit Planning (Unable to reach for PVP screening, LVM) Encounter Details Date Type Department Care Team (Late st Contact Info) Description 11/21/2024 Patient Outreach [facility] [address] [place] [address] Stephanie Navarrete MD [address] [place] [address] Pre-visit Planning ((Unable to reach for PVP [...] 12/17/2024 9:00 AM EST Office Visit [facility]ULT [facility] [address] [place] [address] Yao, Korina [address] [place] [address] 12/24/2024 2:00 PM EST Office Visit [facility] [address] [place] [address] Yao, Korina [address] [place] [address] 12/31/2024 9:00 AM EDT Office Visit [facility] [address] [place] [address] Korina Samayoa [address] [place] [address] 01/14/2025 11:00 AM EDT Office Visit [facility] [address] [place] [address] Korina Samayoa [address] [place] [address] 03/04/2025 1:45 PM EDT Office Visit [facility] [address] [place] [address] Stephanie Navarrete MD [address] [place] [address] documented as of this encounter Visit Diagnoses Not on filedocumented in this encounter Additional Health Concerns Assessment Noted Time PHQ-9 Depression Total Score: 0 08/27/20 24 2:06 PM EST documented as of this encounter Care Teams Fountain Vending Mechanic Relationship Specialty Start Date End Date Stephanie Navarrete MD [address] [place] [phone] PCP - General Family Medicine 12/08/21 documented as of this encounter
--- OUTSIDE RECORDS SUMMARY | 2024-12-10 09:27 | XMS_ITS | Encounter Summary ---
Author Organization [employer] Address [address] [facility] 7t [place] [address] Care Team Providers Care Waste And Batting Waste Chopper Name Role Phone Stephanie Navarrete MD Primary Care Provide r Reason for Visit * Reason Onset Date Comments Med Refill 11/22/2024 Encounter Details Date Type Department Care Team (Late st Contact Info) Description 11/22/2024 Refill [facility] [address] [place] [address] Stephanie Navarrete MD [address] [place] [address] Primary hypertension; Hypertension, unspecified type Social History [...] MG EC tablet To be sent to: [facility] [place]- - [place], [place] - [address] [facility] documented in this encounter Plan of Treatment Upcoming Encounters Date Type Department Care Team (Late st Contact Info) Description 12/17/2024 9:00 AM EST Office Visit [facility] AD[facility] [address] [facility], [place] [phone] Koirna Samayoa [address] [place], [place] [phone] 12/24/2024 2:00 PM EST Office Visit [facility] [address] [facility], [place] [phone] Korina Samayoa [address] [facility], [place] [phone] 12/31/2024 9:00 AM EDT Office Visit [facility] [address] [place] [address] Korina Samayoa [address] [place] [address] 01/14/2025 11:00 AM EDT Office Visit [facility] [address] [place] [address] Korina Samayoa [address] [place] [address] 03/04/2025 1:45 PM EDT Office Visit [facility] [address] [place] [address] Stephanie Navarrete MD [address] [place] [address] documented as of this encounter Visit Diagnoses Diagnosis Primary hypertension Unspecified essential hypertension Hypertension, unspecified type documented in this encounter Additional Health Concerns Assessment Noted Time PHQ-9 Depression Total Score: 0 08/27/20 24 2:06 PM EST documented as of this encounter Care Teams Waste And Batting Waste Chopper Relationship Specialty Start Date End Date Stephanie Navarrete MD [address] [place] [phone] PCP - General Family Medicine 12/08/21 documented as of this encounter
--- OUTSIDE RECORDS SUMMARY | 2024-12-10 09:27 | XMS_ITS | Encounter Summary ---
Author Organization [email or web address] Address [address] [facility] 7t [place] [address] Care Team Providers Care Clinical Recruiter Name Role Phone Stephanie Navarrete MD Primary Care Provide r Reason for Visit * Reason Onset Date Comments Chart Prep 11/28/2024 Encounter Details Date Type Department Care Team ([facility] st Contact Info) Description 11/28/2024 Telephone [facility] [address] [place] [address] Dinora Lynn MA Chart Prep Social History [...] Description 12/17/2024 9:00 AM EST Office Visit [facility] ADULT D[facility] [address] [place] [address] Yao Korina [address] [place] [address] 12/24/2024 2:00 PM EST Office Visit [facility] [address] [place] [address] Yao Korina [address] [place] [address] 12/31/2024 9:00 AM EDT Office Visit [facility] [address] [place] [address] Yao [facility] [address] [place] [address] 01/14/2025 11:00 AM EDT Office Visit [facility] [address] [place], [place] [phone] Korina Samayoa [address] [place], [place] [phone] 03/04/2025 1:45 PM EDT Office Visit [facility] [address] [place] [address] Stephanie Navarrete MD [address] [place], [place] [phone] documented as of this encounter Visit Diagnoses Not on filedocumented in this encounter Additional Health Concerns Assessment Noted Time PHQ-9 Depression Total Score: 0 08/27/20 24 2:06 PM EST documented as of this encounter Care Teams Clinical Recruiter Relationship Specialty Start Date End Date Stephanie Navarrete MD [address] [place] [address] [phone] PCP - General Family Medicine 12/08/21 documented as of this encounter
--- OUTSIDE RECORDS SUMMARY | 2024-12-10 09:27 | XMS_ITS | Encounter Summary ---
Author Organization [employer] Address [address] [facility] 7t [place] [address] Care Team Providers Care Stock Turner Name Role Phone Stephanie Navarrete MD Primary Care Provide r Reason for Visit * Reason Onset Date Comments BW status 11/16/2024 Encounter Details Date Type Department Care Team ([facility] st Contact Info) Description 11/16/2024 Telephone [facility] [address] [place] [address] Rosio Sanchez RN 230 [place] [address] BW status Social History Tobacco Use Types [...] 9:57 AM EST TC placed to patient [phone] to status check on 11/13/24 call (see below). 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 Patient reports he is currently on his way back from [place] and should arrive in [place] around 1230-1pm and will arrive come to the lab. PCP notified. Per Rosio Sanchez RN note on 11/13/24: TC placed to patient [phone] to confirm patient has p/u magnesium and [...] Upcoming Encounters Date Type Department Care Team ([facility] Contact Info) Description 12/17/2024 9:00 AM EST Office Visit [facility] ADULT [facility] 230 [place] [address] Juventino Samayoaaris [address] [place], [place] [address] 12/24/2024 2:00 PM EST Office Visit [facility]ULT [facility] [address] [place] [address] Korina Samayoa [address], [place] [address] 12/31/2024 9:00 AM EDT Office Visit [facility] [address] [place] [address] Korina Samayoa [address] [place], [place] [address] 01/14/2025 11:00 AM EDT Office Visit [facility] [address] [place], [place] [address] Korina Samayoa [address] [place], [place] [address] 03/04/2025 1:45 PM EDT Office Visit [facility] [address] [place] [address] Stephanie Navarrete MD [address] [facility] [place] [address] documented as of this encounter Visit Diagnoses Not on filedocumented in this encounter Additional Health Concerns Assessment Noted Time PHQ-9 Depression Total Score: 0 08/27/20 24 2:06 PM EST documented as of this encounter Care Teams Stock Turner Relationship Specialty Start Date End Date Stephanie Navarrete MD [facility] [address] PCP - General Family Medicine 12/08/21 documented as of this encounter
--- OUTSIDE RECORDS SUMMARY | 2024-12-10 09:27 | XMS_ITS | Encounter Summary ---
Author Organization [employer] Address 75 [facility] 7t [place] [address] Care Team Providers Care Shot Coat Tender Name Role Phone Stephanie Navarrete MD Primary Care Provide r Encounter Details Date Type Department Care Team ([facility] st Contact Info) Description 11/05/2024 Orders Only [facility] [address] [place] [address] Stephanie Navarrete MD 230 [place] [address] Hypokalemia (Primary Dx) Social History Tobacco Use [...] Lester MD - 11/05/2024 8:57 PM EST armature winder repair I was call critical labs K 2.9 and mg 1.5 I called patient let him know he needs to take supplementation send to pharmacy and recheck labs in 1 week, also nephrology referral is in Please f/u with patient thank you, Stephanie Freeman MD * Rosio Sanchez RN - 11/05/2024 8:57 PM EST TC placed to patient [phone] to confirm patient has p/u magnesium and [...] [facility] [address] [place] [address] Yao Korina [address] [place], [place] [address] 12/24/2024 2:00 PM EST Office Visit [facility] AD[facility] [address] [place] [address] Yao Korina [address] [place], [place] [address] 12/31/2024 9:00 AM EDT Office Visit [facility] ADULT [facility] [address] [place] [address] Yao, Korina [address] [place], [place] [address] 01/14/2025 11:00 AM EDT Office Visit [facility] [address] [place] [address] Korina Samayoa [address] [place], [place] [address] 03/04/2025 1:45 PM EDT Office Visit [facility] [address] [place] [address] Stephanie Navarrete MD 230 [facility] [place] [address] documented as of this encounter Procedures Procedure Name Priority Date/Time Associated Diagnosis Comments POTASSIUM Routine 11/16/2024 1:52 PM EST Hypokalemia MAGNESIUM Routine 11/16/2024 1:52 PM EST Hypokalemia documented in this encounter Results * Magnesium (11/16/2024 1:52 PM EST) Magnesium 1.7 1.6 - 2.6 mg/dL [facility] Blood Venous blood specimen / Unknown 11/16/2024 1:52 PM EST 11/16/2024 4:10 PM EST us Stephanie Lester MD LAB BLOOD ORDERABLES Final Result Performing Organization Address City/[facility] Co de Phone Number [facility] [address] [place] [address] [phone] * Potassium (11/16/2024 1:52 PM EST) Potassium 4.1 3.3 - 5.1 mmol/L [facility] Blood Venous blood specimen / Unknown 11/16/2024 1:52 PM EST 11/16/2024 4:10 PM EST us Stephanie Lester MD LAB BLOOD ORDERABLES Final Result Performing Organization Address [facility] de Phone Number [facility] [address] [place] [address] [phone] documented in this encounter Visit Diagnoses Diagnosis Hypokalemia- Primary Hypopotassemia documented in this encounter Additional Health Concerns Assessment Noted Time PHQ-9 Depression Total Score: 0 08/27/20 24 2:06 PM EST documented as of this encounter Care Teams Shot Coat Tender Relationship Specialty Start Date End Date Stephanie Navarrete MD [address] [place] [address] PCP - General Family Medicine 12/08/21 documented as of this encounter
--- OUTSIDE RECORDS SUMMARY | 2024-12-10 09:27 | XMS_ITS | Encounter Summary ---
Author Organization [employer] Address 75 [facility] 7t [place] [address] Care Team Providers Care Pulp Mill Supervisor Name Role Phone Stephanie Navarrete MD Primary Care Provide r Encounter Details Date Type Department Care Team ([facility] st Contact Info) Description 12/09/2024 Orders Only GENERIC EXTERNAL DATA [...] 9:00 AM EST Office Visit [facility] ADULT DENTAL [address] [place] [address] Juventino Samayoaaris [address] [place] [address] 12/24/2024 2:00 PM EST Office Visit [facility] ADULT DENTAL [address] [place] [address] Yao, Korina [address] [place] [address] 12/31/2024 9:00 AM EDT Office Visit [facility] ADULT DENTAL [address] [place] [address] Yao, Korina [address] [place] [address] 01/14/2025 11:00 AM EDT Office Visit [facility] ADULT DENTAL [address] [place] [address] Yao Korina [address] [place] [address] 03/04/2025 1:45 PM EDT Office Visit [facility] MEDICINE [address] [place] [address] Stephanie Navarrete MD 230 [place] [address] documented as of this encounter Procedures Procedure Name Priority Date/Time Associated Diagnosis Comments GLUCOSE, WHOLE BLOOD Routine 12/09/2024 4:02 PM EST GLUCOSE, WHOLE BLOOD Routine 12/09/2024 3:50 PM EST documented in this encounter Results * Glucose, Whole Blood (12/09/2024 4:02 PM EST) Glucose, Whole Blood 98 60 - 115 mg/dL [facility] Comment:METER #: [id number] 12/09/2024 4:02 PM EST 12/09/2024 6:47 PM EST us Generic External Data Provider LAB BLOOD ORDERAB LES Final Result Performing Organization Address [facility]/ZIP Co de Phone Number [facility] [address] [place] [phone] * Glucose, Whole Blood (12/09/2024 3:50 PM EST) Glucose, Whole Blood 83 60 - 115 mg/dL [facility] Comment:METER #: [id number] 12/09/2024 3:50 PM EST 12/09/2024 6:47 PM EST Generic External Data Provider LAB BLOOD ORDERAB LES Final Result Performing Organization Address City/[facility]/ZIP Co de Phone Number [facility] [address] [place] [phone] documented in this encounter Visit Diagnoses Not on filedocumented in this encounter Additional Health Concerns Assessment Noted Time PHQ-9 Depression Total Score: 0 08/27/20 24 2:06 PM EST documented as of this encounter Care Teams Pulp Mill Supervisor Relationship Specialty Start Date End Date Stephanie Navarrete MD [address] [place] [phone] PCP - General Family Medicine 12/08/21 documented as of this encounter
--- OUTSIDE RECORDS SUMMARY | 2024-12-10 09:27 | XMS_ITS | Encounter Summary ---
Author Organization [employer] Address 75 [facility] 7t [place] [address] Care Team Providers Care Time Signal Wirer Name Role Phone Stephanie Navarrete MD Primary [...] Description 12/17/2024 9:00 AM EST Office Visit [facility] ADULT DENTAL [address] [place] [address] Yao Korina [address] [place] [address] 12/24/2024 2:00 PM EST Office Visit [facility] ADULT [facility] [address] [place] [address] Yao, Korina [address] [place] [address] 12/31/2024 9:00 AM EDT Office Visit [facility] [address] [place] [address] Yao, Korina [address] [place] [address] 01/14/2025 11:00 AM EDT Office Visit [facility] ADULT DENT[facility] [address] [place] [address] Ayo, Korina [address] [place] [address] 03/04/2025 1:45 PM EDT Office Visit [facility] [address] [place] [address] Stephanie Navarrete MD 230 [place] [address] documented as of this encounter Visit Diagnoses Not on filedocumented in this encounter Additional Health Concerns Assessment Noted Time PHQ-9 Depression Total Score: 0 08/27/20 24 2:06 PM EST documented as of this encounter Care Teams Time Signal Wirer Relationship Specialty Start Date End Date Stephanie Navarrete MD [address] [place] [address] PCP - General Family Medicine 12/08/21 documented as of this encounter
--- OUTSIDE RECORDS SUMMARY | 2024-12-10 09:27 | XMS_ITS | Encounter Summary ---
Author Organization [employer] Address [address] [facility] 7t [place] [address] Care Team Providers Care Marketing Administrative Assistant Name Role Phone Stephanie Navarrete MD Primary Care Provide r Reason for Visit * Reason Comments Gross debridement Encounter Details Date Type Department Care Team (Latest Contact Info) Description 11/19/2024 2:00 PM EST Office Visit [facility] ADULT DENTAL [address] [place] [address] Yao, Korina [address] [place] [address] Generalized chronic severe periodontitis (Primary Dx); Dental [...] 11/19/24, Timeout Time: 1405 (Gross scaling) Location: [facility] Tooth: Maxilla and Mandible Procedure: Gross debridement as Prophy (Pt has never had a gross debridement. Pt was seen by student 08/2024) Verified the above with patient, psychologist research assistant, and provider. Confirmed via patient's chart, intraorally and by radiographs. Marine Superintendent: not applicable Medical Hx: Vitals: Blood pressure [...] patient including brushing technique and flossing. Recommendations: [place] two times daily, modified lynch technique, Floss daily, Electric toothbrush, Soft bristle toothbrush, [place] Tongue, Chlorhexidine will be RX by Dr. [...] Description 12/17/2024 9:00 AM EST Office Visit [facility] ADULT DENTAL [address] [place] [address] Yao, Korina [address] [place] [address] 12/24/2024 2:00 PM EST Office Visit [facility] ADULT DENTAL [address] [place] [address] Yao, Korina [address] [place] [address] 12/31/2024 9:00 AM EDT Office Visit [facility] ADULT DENTAL [address] [place] [address] Korina Samayoa [address] [place] [address] 01/14/2025 11:00 AM EDT Office Visit [facility] ADULT DENTAL [address] [place] [address] Korina Samayoa [address] [place] [address] 03/04/2025 1:45 PM EDT Office Visit [facility] MEDICINE [address] [place] [address] Stephanie Navarrete MD 230 [place] [address] Scheduled Orders Name Type Priority Associated Diagnoses [...] documented as of this encounter Care Teams Marketing Administrative Assistant Relationship Specialty Start Date End Date Stephanie Navarrete MD [address] [place] [address] PCP - General Family Medicine 12/08/21 documented as of this encounter
--- OUTSIDE RECORDS SUMMARY | 2024-12-10 09:27 | XMS_ITS | Clinical Summary ---
Author Organization [facility] Address [address] [place] [address] Phone Care Team Providers Care Service Clerk Name Role Phone Anamaria Spann MD Primary [...] Influenza Vaccine (#1) 2024 Insurance Care Teams Service Clerk Relationship Specialty Start Date End Date Anamaria Spann MD PCP - General Internal Medicine 07/15/21
--- OUTSIDE RECORDS SUMMARY | 2024-12-10 09:27 | XMS_ITS | Encounter Summary ---
Author Organization [employer] Address [address] [place] [address] 7 [place] [address] Care Team Providers Care Director Of Security Name Role Phone Stephanie Navarrete MD Primary Care Provide r Reason for Referral * Consultation (Urgent) - Canceled Specialty Diagnoses / Procedures Referred By Contac t Referred To Contact Nephrology Diagnoses Hypokalemia Hypomagnesemia Cardiomyopathy, unspecified type (CMS/HCC) Stephanie Navarrete MD [address] [place] [phone] Phone: tel: fax: Referral ID Status Reason Start Date Expiration Date Visits Requested Visits Authorized [id number] Canceled Specialty Services Required 12/03/2024 12/03/2025 1 1 Encounter Details Date Type Department Care Team (Late st Contact Info) Description 12/03/2024 9:00 AM EST Office Visit [facility] MEDICINE [address] [place] [phone] Stephanie Navarrete MD [address] [place] [phone] Rhinitis, unspecified type (Primary Dx); Type 2 [...] Visit Type 2 diabetes mellitus without complication ([facility]) Diabetes is: not controlled - Lab Results [...] Hypomagnesemia Relevant Orders Referral to Nephrology Cardiomyopathy ([facility]) I advised to continue with same medication regimen Advised to follow-up with cardiology Relevant Orders Referral to Nephrology documented in this encounter Miscellaneous Notes * Assessment & Plan Note - Stephanie Lester MD - 12/03/2024 4:12 PM EST Associated Problem(s): Type 2 diabetes mellitus without complication ([facility]) Diabetes is: not controlled - Lab Results [...] Description 12/17/2024 9:00 AM EST Office Visit [facility] ADULT DENTAL [address] [place] [address] Yao, Korina [address] [place] [address] 12/24/2024 2:00 PM EST Office Visit [facility] ADULT DENTAL [address] [place] [address] Yao, Korina [address] [facility] [place] [address] 12/31/2024 9:00 AM EDT Office Visit [facility] ADULT D[facility] [address] [place] [address] Yao, Korina [address] [place] [address] 01/14/2025 11:00 AM EDT Office Visit [facility] ADULT DENT[facility] [address] [place] [address] Yao, Korina [address] [facility] [place] [address] 03/04/2025 1:45 PM EDT Office Visit [facility] MED[facility]INE [address] [place] [address] Stephanie Navarrete MD 230 [place] [address] Scheduled Referrals Name Type Priority Associated Diagnoses [...] complication, without long-term current use of insulin ([facility]) POCT GLUCOSE Routine 12/03/2024 9:09 AM EST Type 2 diabetes mellitus without complication, without long-term current use of insulin ([facility]) documented in this encounter Results * Magnesium (12/03/2024 10:33 AM EST) Magnesium 1.6 1.6 - 2.6 mg/dL [facility] Blood Venous blood specimen / Unknown 12/03/2024 10:33 AM EST 12/03/2024 11:01 AM EST us Stephanie Lester MD LAB BLOOD ORDERABLES Final Result [facility] [address] [place] [phone] * Potassium (12/03/2024 10:33 AM EST) Potassium 3.5 3.3 - 5.1 mmol/L [facility] Blood Venous blood specimen / Unknown 12/03/2024 10:33 AM EST 12/03/2024 11:01 AM EST Stephanie Lester MD LAB BLOOD ORDERABLES Final Result Performing Organization Address City/[facility]/ZIP Co de Phone Number [facility] [address] [place] [phone] * (ABNORMAL) POCT HGB A1C (12/03/2024 9:10 AM EST) Hemoglobin A1C 7.7(A) 4.0 - 6.0 % QC Media Lot # [id number] Lot# Expiration Date 600 Blood 12/03/2024 9:10 AM EST Stephanie Lester [...] documented as of this encounter Care Teams Director Of Security Relationship Specialty Start Date End Date Stephanie Navarrete MD 230 [place] [address] PCP - General Family Medicine 12/08/21 documented as of this encounter
--- NOTE | 2024-12-10 09:31 | PC.NURSE ---
[employer] called with case #[id number]
== END 2024-12-10 04:31 | disposition expired ==
PROVIDERS: Emergency Provider Emergency Medicine
DX: I46.9 Cardiac arrest, cause unspecified (principal); Z79.899 Other long term (current) drug therapy
CPT/HCPCS: 31500; 82947; 96374; 99285; J0171; J3475